=== PATIENT | female | born 1970 | race Caucasian/White ===

== ENCOUNTER 2018-08-01 22:03 | Emergency (ER) | payer MEDICARE, OTHER ==
[~2018-08-01] VITALS: Ht 165.1 cm; Wt 137.9 kg
--- NOTE | 2018-08-01 22:58 | ED Headache ---
General Chief Complaint: Head/Cervical Problems Stated Complaint: MIGRAINE, SOB Nursing Triage Note: Headache and shortness of breathe starting this morning. Patient states that she just isn't able to take a deep breathe. Nursing Sepsis Screen: No Definite Risk History of Present Illness Date Seen by Provider: Aug 01, 2018 Time Seen by Provider: 22:44 This is a 47-year-old female with a history of migraines, morbid obesity, sleep apnea, here for acute on chronic headache and acute on chronic shortness of breath. No chest pain or back pain. No cough or fever. The shortness of breath is generally worse when she is up and walking around. The headache again is not a new process for her. No visual change or focal weakness, numbness, or tingling. No neck pain or fever, no neck stiffness. She denies any known history of heart problems or lung problems. She is a nonsmoker. Because of her sleep apnea she says she did not sleep very well in the last couple of days and she feels this might be making her symptoms worse. No history of blood clots. She has some chronic lower extremity edema bilaterally worse on the left side secondary to orthopedic hardware, this is unchanged recently. No hormonal therapy. No hemoptysis. No recent immobilization or surgery. Allergies and Home Medications Allergies Coded Allergies: No Known Drug Allergies (Unverified , 08/02/18) Patient Home Medication List Home Medication List Reviewed: Yes Review of Systems Review of Systems Constitutional: no symptoms reported Eyes: No Symptoms Reported Ears, Nose, Mouth, Throat: no symptoms reported Respiratory: see HPI Cardiovascular: no symptoms reported Gastrointestinal: no symptoms reported Genitourinary: no symptoms reported Musculoskeletal: no symptoms reported Skin: no symptoms reported Psychiatric/Neurological: See HPI Past Hvnaimq-Kwbclq-Qrbsbh Hx Patient Social History Recent Foreign Travel: No Contact w/Someone Who Travel: No Recent Infectious Disease Expo: No Past Medical History : No Physical Exam Vital Signs Vital Signs - First Documented 08/01/18 22:20 Temp 97.2 Pulse 48 Resp 16 B/P (MAP) 138/80 (99) Pulse Ox 99 O2 Delivery Room Air Capillary Refill : Less Than 3 Seconds Height, Weight, BMI Height: 5'5.00" Weight: 304lbs. oz. 137.686053xg; BMI Method:Stated General Appearance: no apparent distress HEENT: PERRL/EOMI, normal ENT inspection Neck: supple Cardiovascular: normal peripheral pulses, regular rate, rhythm Respiratory: lungs clear; No respiratory distress, No accessory muscle use, No rales, No rhonchi, No stridor, No wheezing, No plerual rub Gastrointestinal: non tender, soft Extremities: non-tender Crainal Nerves: normal hearing, normal speech, PERRL; No facial asymmetry, No facial paresthesias, No tongue deviation to R, No tongue deviation to L Coordination/Gait: normal finger to nose, normal gait Motor/Sensory: no motor deficit, no sensory deficit Skin: warm/dry Progress/Results/Core Measures Results/Orders Lab Results Laboratory Tests Test 08/01/18 23:33 Range/Units White Blood Count 9.6 4.3-11.0 10^3/uL Red Blood Count 4.46 4.35-5.85 10^6/uL Hemoglobin 13.2 11.5-16.0 G/DL Hematocrit 43 35-52 % Mean Corpuscular Volume 96 80-99 FL Mean Corpuscular Hemoglobin 30 25-34 PG Mean Corpuscular Hemoglobin Concent 31 L 32-36 G/DL Red Cell Distribution Width 13.9 10.0-14.5 % Platelet Count 148 130-400 10^3/uL Mean Platelet Volume 10.6 H 7.4-10.4 FL Sodium Level 142 135-145 MMOL/L Potassium Level 4.8 3.6-5.0 MMOL/L Chloride Level 106 98-107 MMOL/L Carbon Dioxide Level 26 21-32 MMOL/L Anion Gap 10 5-14 MMOL/L Blood Urea Nitrogen 18 7-18 MG/DL Creatinine 0.99 0.60-1.30 MG/DL Estimat Glomerular Filtration Rate 60 BUN/Creatinine Ratio 18 Glucose Level 84 70-105 MG/DL Calcium Level 9.4 8.5-10.1 MG/DL Corrected Calcium 9.7 8.5-10.1 MG/DL Total Bilirubin 0.2 0.1-1.0 MG/DL Aspartate Amino Transf (AST/SGOT) 18 5-34 U/L Alanine Aminotransferase (ALT/SGPT) 11 0-55 U/L Alkaline Phosphatase 60 40-136 U/L Troponin T 6 <=10 NG/L Pro-B-Type Natriuretic Peptide 232.7 H <75.0 PG/ML Total Protein 6.8 6.4-8.2 GM/DL Albumin 3.6 3.2-4.5 GM/DL Serum Test, Qualitative NEGATIVE NEGATIVE My Orders Orders - MAGGIE REYES DO Chest Pa/Lat (2 View) (08/01/18 22:23) Ekg Tracing (08/01/18 22:23) Cbc No Diff (08/01/18 23:17) Comprehensive Metabolic Panel (08/01/18 23:17) Probnp Fs (08/01/18 23:17) Troponin T (08/01/18 23:17) Hcg,Qualitative Serum (08/01/18 23:17) Metoclopramide Injection (Reglan Injecti (08/01/18 23:17) Diphenhydramine Injection (Benadryl Inje (08/01/18 23:17) Ct Angio Chest W (08/02/18 00:36) Acetaminophen Tablet (Tylenol Tablet) (08/02/18 00:37) Iopamidol 61% Injection (Isovue 300 61% (08/02/18 01:00) Ns (Ivpb) (Sodium Chloride 0.9% Ivpb Bag (08/02/18 01:00) Received Contrast (Contrast Received) (08/02/18 01:00) Iopamidol 61% Injection (Isovue 300 61% (08/02/18 01:00) Received Contrast (Contrast Received) (08/02/18 01:00) Iopamidol 61% Injection (Isovue 300 61% (08/02/18 01:00) Received Contrast (Contrast Received) (08/02/18 01:00) Medications Given in ED Current Medications Medications Dose Ordered Sig/Michele Route Start Time Stop Time Status Last Admin Dose Admin Iopamidol 50 ml ONCE ONCE IV 08/02/18 01:00 08/02/18 01:01 UNV 08/02/18 01:00 25 ML Iopamidol 50 ml ONCE ONCE IV 08/02/18 01:00 08/02/18 01:01 UNV 08/02/18 01:00 50 ML Iopamidol 50 ml ONCE ONCE IV 08/02/18 01:00 08/02/18 01:01 UNV 08/02/18 01:00 50 ML Sodium Chloride 50 ml ONCE ONCE IV 08/02/18 01:00 08/02/18 01:01 UNV 08/02/18 00:59 40 ML Vital Signs/I&O 08/01/18 22:20 Temp 97.2 Pulse 48 Resp 16 B/P (MAP) 138/80 (99) Pulse Ox 99 O2 Delivery Room Air Blood Pressure Mean: 99 Progress Progress Note : Progress Note Patient reports that her symptoms today are not new for her. She is neurologically intact. She is nontoxic. We will check basic labs, including troponin and BNP, EKG is nonischemic. We will check a chest x-ray. We will treat patient symptomatically. There is no indication for head CT at this time. Departure Impression Primary Impression: Headache Additional Impression: Dyspnea Disposition: HOME, SELF-CARE Condition: Stable Departure-Patient Inst. Referrals: WARD BLAND MD (PCP) Primary Care Physician Patient Instructions: Shortness of Breath (Dyspnea) (DC) Add. Discharge Instructions: All discharge instructions reviewed with patient and/or family. Voiced understanding. Scripts Azithromycin (Azithromycin) 250 Mg Tablet 250 MG PO UD, #6 TAB TAKE 2 TABLETS ON DAY ONE THEN TAKE 1 TABLET DAILY FOR FOUR MORE DAYS Prov: MAGGIE REYES DO 08/02/18 MAGGIE REYES DO Aug 01, 2018 22:58
[2018-08-01] MEDS ORDERED: diphenhydrAMINE 50 MG/ML INJ (BENADRYL) IVP STA (23:17)
[2018-08-01] MEDS ORDERED: METOCLOPRAMIDE INJ 10 MG/2 ML (REGLAN) IVP STA (23:17)
[2018-08-01 23:51] LABS: HEMOGLOBIN 13.2 G/DL (11.5-16.0); MEAN PLATELET VOLUME 10.6 FL (7.4-10.4); RED CELL DISTRIBUTION WIDTH 13.9 % (10.0-14.5); WHITE BLOOD COUNT 9.6 10^3/uL (4.3-11.0)
[2018-08-02 00:19] LABS: BILIRUBIN,TOTAL 0.2 MG/DL (0.1-1.0); CALCIUM 9.4 MG/DL (8.5-10.1); CREATININE SERUM 0.99 MG/DL (0.60-1.30); POTASSIUM 4.8 MMOL/L (3.6-5.0)
[2018-08-02 00:20] LABS: ALBUMIN 3.6 GM/DL (3.2-4.5); TOTAL PROTEIN 6.8 GM/DL (6.4-8.2)
[2018-08-02] MEDS ORDERED: ACETAMINOPHEN 500 MG TAB (TYLENOL) PO STA (00:37)
[2018-08-02] MEDS ORDERED: RECEIVED CONTRAST 20 ML VIAL IV SCH ×3 (01:00)
[2018-08-02] MEDS ORDERED: NS 50 ML (IVPB) BAG IV ONE (01:00)
[2018-08-02] MEDS ORDERED: IOPAMIDOL 61% IV ONE ×3 (01:00)
[2018-08-02] MEDS ORDERED: AZIT250T12 PO (02:01)
[2018-08-02 02:08] VITALS: BP 139/89
--- NOTE | 2018-08-02 07:10 | Diagnostic Imaging Report ---
PROCEDURE: CT angiography of the chest with contrast. TECHNIQUE: Multiple contiguous axial images were obtained through the chest after uneventful bolus administration of intravenous contrast. 2D reconstructed CTA MIP acquisitions were also performed. INDICATION: Shortness of breath COMPARISON: None available. FINDINGS: Vasculature: Portions of the exam are mildly limited by respiratory motion artifact. No pulmonary emboli. No CT evidence of pulmonary hypertension or right ventricular strain. Thoracic aorta is normal in caliber. No aortic dissection or pseudoaneurysm. Heart and mediastinum: Visualized thyroid is normal. No supraclavicular, axillary, or intra-thoracic lymphadenopathy. The heart is normal in size without pericardial effusion. Small sliding-type hiatal hernia. Pleura: No pleural effusion or pneumothorax. Lungs and airway: No endoluminal lesion in the trachea or central bronchi. No pulmonary mass, nodule or consolidation. The reported groundglass attenuation within the lungs are secondary to respiratory motion artifact. These are not felt to represent real pulmonary opacities. Upper abdomen: Allowing for the phase of contrast, no acute abnormality in the upper abdomen is seen. Status post gastric reduction/gastric sleeve surgery. 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 IMPRESSION: 1. No acute cardiopulmonary process. Specifically, no pulmonary emboli or acute aortic syndrome. 2. Initial report suggested groundglass opacities although these are felt to be due to respiratory motion artifact rather than real opacities. 3. Status post gastric sleeve with small hiatal hernia. Dictated by: Dictated on workstation # [id number]
--- NOTE | 2018-08-02 07:21 | Diagnostic Imaging Report ---
INDICATION: Shortness of breath. COMPARISON: CTA chest performed subsequently 3 hours later. FINDINGS: Lungs are clear. No pleural effusion or pneumothorax. Normal cardiac silhouette. Convex lateral nodular contour in the upper mediastinum corresponds to prominent vasculature as seen on followup CT. IMPRESSION: No acute process. Dictated by: Dictated on workstation # [id number]
== END 2018-08-02 02:15 | disposition home or self-care (01) ==
LOC: ER FS 22:05
DX: R51 Headache (principal); R06.00 Dyspnea, unspecified; E66.01 Morbid (severe) obesity due to excess calories; G47.30 Sleep apnea, unspecified; Z86.69 Personal history of other diseases of the nervous system and sense organs; Z68.42 Body mass index [BMI] 45.0-49.9, adult
CPT/HCPCS: 36415; 71046; 71275; 80053; 83880; 84484; 84703; 85027

== ENCOUNTER 2018-09-24 01:11 | Emergency (ER) | payer MEDICARE ==
[~2018-09-24] VITALS: Ht 166.4 cm; Wt 135.2 kg
[~2018-09-24 01:11] MED LIST: AZIT250T12 PO
--- NOTE | 2018-09-24 01:35 | NUR ---
PT. REPORTED SHE WOULD LIKE TO HAVE STADOL BECAUSE IT WORKS, THAT BENADRYL DOESNT.
--- NOTE | 2018-09-24 01:41 | NUR ---
DOCTOR IN TO SEE THE PATIENT.
[2018-09-24] MEDS ORDERED: METOCLOPRAMIDE INJ 10 MG/2 ML (REGLAN) IM STA (01:43)
[2018-09-24] MEDS ORDERED: KETOROLAC 60 MG/2 ML VIAL IM STA (01:43)
[2018-09-24] MEDS ORDERED: ORPHENADRINE 60 MG/2 ML (NORFLEX) AMP IM STA (01:43)
--- NOTE | 2018-09-24 01:43 | ED Headache ---
General Chief Complaint: Head/Cervical Problems Stated Complaint: MIGRAINE Nursing Triage Note: PT. REPORTED SHE HAS HAD A DULL HEADACHE ALL DAY BUT IT CONTINUED TO GET WORSE. SHE TAKES PREVENATIVE HEADACHE MEDS BUT THEY DID NOT WORK. SHE TOOK 2 TORADOL TABS 6 HOURS AGO AND HYDROCODONE AND IT DID NOT WORK. SHE REPORTED HER EYES HURT BUT REALLY DOES NOT HAVE ANY NAUSEA OR VOMITING AND THE HEADACHE IS LIKE THE OTHERS SHE HAS HAD IN THE PAST. Nursing Sepsis Screen: No Definite Risk Source: patient History of Present Illness Date Seen by Provider: September 24, 2018 Time Seen by Provider: 01:45 Initial Comments 47-year-old female presents with a headache. Patient reports that she's had a "dull headache all day" but is got worse and is now like a migraine. She reports is similar to her migraines in the past. She has some mild photophobia. She denies any nausea or vomiting. She reports that about 7 hours ago" she took some Toradol. That she took a hydrocodone earlier and that that has not helped. She denies any fever, chills. Allergies and Home Medications Allergies Coded Allergies: meloxicam (Verified Allergy, Unknown, RASH, 09/24/18) Home Medications Azithromycin 250 Mg Tablet, 250 MG PO UD TAKE 2 TABLETS ON DAY ONE THEN TAKE 1 TABLET DAILY FOR FOUR MORE DAYS Prescribed by: MAGGIE REYES on 08/02/18 0201 Patient Home Medication List Home Medication List Reviewed: Yes Review of Systems Review of Systems Constitutional: No chills, No diaphoresis Eyes: Photophobia Ears, Nose, Mouth, Throat: no symptoms reported Respiratory: no symptoms reported Cardiovascular: no symptoms reported Gastrointestinal: no symptoms reported Musculoskeletal: no symptoms reported Skin: no symptoms reported Psychiatric/Neurological: Headache Past Ftvunhb-Oyqsrq-Qllovd Hx Past Med/Social Hx: Reviewed Nursing Past Med/Soc Hx Patient Social History Recent Foreign Travel: No Contact w/Someone Who Travel: No Recent Infectious Disease Expo: No Recent Hopitalizations: No Physical Abuse: No Sexual Abuse: No Mistreated: No Fear: No Immunizations Up To Date Tetanus Booster (TDap): Unknown Date of Influenza Vaccine: Feb 21, 2018 Seasonal Allergies Seasonal Allergies: No Past Medical History Surgeries: Yes (Gastric sleeve) Hysterectomy, Orthopedic, Thyroidectomy Respiratory: Yes Sleep Apnea Cardiac: Yes Hypertension 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 oz. 135.615348kp; BMI Method:Stated General Appearance: WD/WN, no apparent distress HEENT: PERRL/EOMI, normal ENT inspection Neck: supple Cardiovascular: normal peripheral pulses, regular rate, rhythm Respiratory: lungs clear, normal breath sounds Gastrointestinal: non tender, soft Psychiatric: alert, oriented x 3 Crainal Nerves: normal hearing, normal speech; No facial asymmetry, No facial droop, No facial paresthesias Coordination/Gait: normal gait Motor/Sensory: no motor deficit, no sensory deficit Progress/Results/Core Measures Results/Orders My Orders Orders - CHRISTIE SÁNCHEZ DO Ketorolac Injection (Toradol Injection) (09/24/18 01:43) Orphenadrine Injection (Norflex Injectio (09/24/18 01:43) Metoclopramide Injection (Reglan Injecti (09/24/18 01:43) O2 (09/24/18 01:43) Dexamethasone Injection (Decadron Inject (09/24/18 02:00) Diphenhydramine Injection (Benadryl Inje (09/24/18 02:00) Medications Given in ED Current Medications Medications Dose Ordered Sig/Michele Route Start Time Stop Time Status Last Admin Dose Admin Dexamethasone Sodium Phosphate 10 mg ONCE ONCE IM 09/24/18 02:00 09/24/18 02:01 DC 09/24/18 02:01 10 MG Diphenhydramine HCl 50 mg ONCE ONCE IM 09/24/18 02:00 09/24/18 02:01 DC 09/24/18 02:00 50 MG Vital Signs/I&O 09/24/18 09/24/18 01:20 01:53 Temp 97.7 Pulse 58 Resp 16 B/P (MAP) 106/88 (94) Pulse Ox 98 99 O2 Delivery Room Air Nasal Cannula O2 Flow Rate 2.00 FiO2 99 Blood Pressure Mean: 94 Departure Impression Primary Impression: Migraine Qualified Codes: G43.909 - Migraine, unspecified, not intractable, without status migrainosus Disposition: HOME, SELF-CARE Condition: Stable Departure-Patient Inst. Referrals: WARD BLAND MD (PCP) Primary Care Physician Patient Instructions: Migraine Headache (DC) CHRISTIE SÁNCHEZ DO September 24, 2018 01:43
[2018-09-24] MEDS ORDERED: diphenhydrAMINE 50 MG/ML INJ (BENADRYL) IM ONE (02:00)
[2018-09-24] MEDS ORDERED: DEXAMETHASONE 10 MG/ML (DECADRON) 1 ML VIAL IM ONE (02:00)
[2018-09-24 02:29] VITALS: BP 106/88
== END 2018-09-24 02:31 | disposition home or self-care (01) ==
LOC: EDUNIT# 01:11 → ER FS 01:12
DX: G43.909 Migraine, unspecified, not intractable, without status migrainosus (principal); G47.30 Sleep apnea, unspecified; I10 Essential (primary) hypertension; Z88.8 Allergy status to other drugs, medicaments and biological substances; Z90.710 Acquired absence of both cervix and uterus; Z90.89 Acquired absence of other organs; Z98.84 Bariatric surgery status

== ENCOUNTER 2018-10-02 10:45 | Emergency (ER) | payer MEDICARE ==
[~2018-10-02] VITALS: Ht 166.4 cm; Wt 135.2 kg
[2018-10-02] MEDS ORDERED: TOPIRAMATE 100 MG (10:59)
[2018-10-02] MEDS ORDERED: ROPINIROLE 1 MG (10:59)
[2018-10-02] MEDS ORDERED: CLONAZEPAM TAB 1MG (10:59)
[2018-10-02] MEDS ORDERED: TRAZODONE TAB 100MG (10:59)
[2018-10-02] MEDS ORDERED: GABAPENTIN 400 MG (10:59)
[2018-10-02] MEDS ORDERED: DIVALPROEX 500 MG (10:59)
[2018-10-02] MEDS ORDERED: PROPRANOLOL 40 MG (10:59)
[2018-10-02] MEDS ORDERED: ESCITALOPRAM TAB 10MG (10:59)
[2018-10-02] MEDS ORDERED: MELOXICAM 15 MG (10:59)
--- NOTE | 2018-10-02 11:16 | ED Fall/Injury ---
General Chief Complaint: Trauma-Non Activation Stated Complaint: RT SIDE OF BODY PAIN, EYE LAC History of Present Illness Date Seen by Provider: October 02, 2018 Time Seen by Provider: 11:02 This is a 47-year-old female who presents after a mechanical trip and fall earlier today. She is not sure what she stepped on but it caused her to twist her right ankle inward and she fell forward onto her right side. She hit her head on the right side and sustained a minor cut to the right side of the face, also hit her shoulder. She does have some pain on the right side of the head and neck as well as on the right lower back in the right knee and right ankle. Last tetanus was within 10 years. No visual change or focal weakness, numbness, or tingling. No vomiting. No loss of consciousness. No anticoagulant or antiplatelet medications. Allergies and Home Medications Allergies Coded Allergies: meloxicam (Verified Allergy, Unknown, RASH, 10/02/18) Patient Home Medication List Home Medication List Reviewed: Yes Review of Systems Review of Systems Constitutional: no symptoms reported Eyes: No Symptoms Reported Ears, Nose, Mouth, Throat: no symptoms reported Respiratory: no symptoms reported Cardiovascular: no symptoms reported Gastrointestinal: no symptoms reported Genitourinary: no symptoms reported Musculoskeletal: see HPI Skin: see HPI Psychiatric/Neurological: No Symptoms Reported Past [id number]-[id number]-[id number] Hx Past Med/Social Hx: Reviewed Nursing Past Med/Soc Hx Patient Social History Recent Foreign Travel: No Contact w/Someone Who Travel: No Recent Hopitalizations: No Immunizations Up To Date Tetanus Booster (TDap): Unknown Date of Influenza Vaccine: Feb 21, 2018 Seasonal Allergies Seasonal Allergies: No Past Medical History Surgeries: Yes (Gastric sleeve) Hysterectomy, Orthopedic, Thyroidectomy Respiratory: Yes Sleep Apnea Cardiac: Yes Hypertension 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 oz. 135.070816vy; BMI Method:Stated General Appearance: no apparent distress HEENT: other (no hemotympanum or otorrhea or Rose sign or periorbital ecchymosis or septal hematoma, there is an approximately 4 cm linear superficial laceration not amenable to repair over the right side of the face just lateral to the orbital rim) Neck: full range of motion, supple, normal inspection, other (no midline tenderness, mild lateral tenderness in the trapezius ridge) Cardiovascular: normal peripheral pulses, regular rate, rhythm Respiratory: chest non-tender, lungs clear Gastrointestinal: non tender, soft Back: other (there is mild nonspecific skin irritation and likely related to tight clothing, mild tenderness over the right lumbar musculature) Extremities: normal range of motion, pelvis stable, other (there is a mild superficial abrasion over the right knee with there is no laxity, no reduction in range of motion, no significant tenderness, no significant tenderness in the ankles and there is normal inspection of both symmetrically, mild tenderness over the anterior deltoid musculature with a completely normal range of motion of the shoulder and elbow, painless range of motion in both wrists and hands with minimal tenderness over the distal forearm on the right) 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 Recommended PCP follow-up for tertiary survey, return to this or the nearest emergency department immediately for any worsening of her condition. Departure Impression Primary Impression: Fall Qualified Codes: W19.XXXA - Unspecified fall, initial encounter Additional Impressions: Facial laceration Qualified Codes: S01.81XA - Laceration without foreign body of other part of head, initial encounter Cervical strain Qualified Codes: S16.1XXA - Strain of muscle, fascia and tendon at neck level , initial encounter Shoulder contusion Qualified Codes: S40.011A - Contusion of right shoulder, initial encounter Knee contusion Qualified Codes: S80.01XA - Contusion of right knee, initial encounter Disposition: 01 HOME, SELF-CARE Condition: Stable Departure-Patient Inst. Referrals: WARD BLAND MD (PCP) Primary Care Physician Patient Instructions: Minor Head Injury (DC), Skin Abrasions (DC), Contusion ( DC) MAGGIE REYES DO October 02, 2018 11:16
[2018-10-02] MEDS ORDERED: ACETAMINOPHEN 500 MG TAB (TYLENOL) PO ONE (11:30)
[2018-10-02 11:32] VITALS: BP 134/77
== END 2018-10-02 11:32 | disposition home or self-care (01) ==
LOC: EDUNIT# 10:45 → ER FS 10:46
DX: S01.81XA Laceration without foreign body of other part of head, initial encounter (principal); S16.1XXA Strain of muscle, fascia and tendon at neck level, initial encounter; S40.011A Contusion of right shoulder, initial encounter; S80.01XA Contusion of right knee, initial encounter; I10 Essential (primary) hypertension; G47.30 Sleep apnea, unspecified; Z88.8 Allergy status to other drugs, medicaments and biological substances; Z90.89 Acquired absence of other organs; Z98.84 Bariatric surgery status; Z90.710 Acquired absence of both cervix and uterus; W01.198A Fall on same level from slipping, tripping and stumbling with subsequent striking against other object, initial encounter
CPT/HCPCS: 99283

== ENCOUNTER → 2018-10-04 | Outpatient (CLI) | payer MEDICARE ==
[~2018-10-04] MED LIST changes: +CLONAZEPAM TAB 1MG; +DIVALPROEX 500 MG; +ESCITALOPRAM TAB 10MG; +GABAPENTIN 400 MG; +MELOXICAM 15 MG; +PROPRANOLOL 40 MG; +ROPINIROLE 1 MG; +TOPIRAMATE 100 MG; +TRAZODONE TAB 100MG
--- NOTE | 2018-10-04 13:57 | Diagnostic Imaging Report ---
INDICATION: Right shoulder pain post fall at [employer]. TECHNIQUE: 4 views of the right shoulder CORRELATION STUDY: None FINDINGS: There is no evidence for dislocation. There are slight well-corticated bone densities adjacent to the acromioclavicular joint. Could reflect a previous injury or degenerative type change. Definitive acute fracture is not suggested. Visualized right superior ribs unremarkable. Advanced degenerative change visualized at the lower cervical spine. IMPRESSION: 1. Negative for acute fracture or dislocation of the right shoulder. Bone fragmentations at the acromioclavicular joint, may be reflective of a previous injury or degenerative change. Dictated by: Dictated on workstation # [id number]
== END ==
LOC: RAD FS 11:00
PROVIDERS: ATTEND Pediatrics
DX: M25.511 Pain in right shoulder (principal); W19.XXXA Unspecified fall, initial encounter; Y92.22 Religious institution as the place of occurrence of the external cause
CPT/HCPCS: 73030

== ENCOUNTER 2018-10-08 11:16 | Emergency (ER) | payer MEDICARE ==
[~2018-10-08] VITALS: Ht 166.4 cm; Wt 131.1 kg
--- NOTE | 2018-10-08 12:11 | ED Lower Extremity ---
General Chief Complaint: General Problems/Pain Stated Complaint: FALL - R KNEE / R SHOULDER PAIN Nursing Triage Note: PT AMB TO TRIAGE WITH COMPLAINT OF RIGHT SHOULDER PAIN AND RIGHT KNEE PAIN. PT STATES SHE FELL LAST WEDNESDAY. STATES WAS SEEN AT [facility] ER BUT DID NOT HAVE SCANS. DID HAVE OUTPATIENT XRAY OF SHOULDER THROUGH PRIMARY AND HAD BONE FRAGMENTS. PT TODAY IS WANTING HER RIGHT KNEE XRAYED AND MEDICINE FOR PAIN. STATES SHE TAKES TRAMADOL AT HOME. BUT IS NOT WORKING FOR HER PAIN. Nursing Sepsis Screen: No Definite Risk Source: patient, family (mother) Exam Limitations: no limitations History of Present Illness Date Seen by Provider: October 08, 2018 Time Seen by Provider: 12:11 Initial Comments 47-year-old female patient presents to the emergency department with complaints of right knee pain and right shoulder pain after falling one week ago. Patient reports tripping on a stick and falling onto the right knee and shoulder. Patient was seen at the [facility] emergency department and instructed to follow-up with her primary care provider. Patient was seen by Dr. Meyers with a right shoulder x-ray obtained. Patient denies telling Dr. Meyers about the right knee pain. Patient states she takes tramadol at home for chronic headaches and pain, but states it has not been helping the right knee and right shoulder pain. Also states she had to hydrocodone left over from a previous prescription. Reports taking 1 today with improvement. She does report the Tylenol in the emergency department at [place] did help with the pain, but denies taking any hsun-waz-ccyntoz Tylenol, Aleve, or Motrin at home. Location Injury Occurred: home Onset: last week Pain/Injury Location: right knee, right other (rt shoulder) Method of Injury: fell Modifying Factors: Worse With Movement Allergies and Home Medications Allergies Coded Allergies: meloxicam (Verified Allergy, Unknown, RASH, 10/02/18) Patient Home Medication List Home Medication List Reviewed: Yes Review of Systems Constitutional: no symptoms reported Respiratory: no symptoms reported Cardiovascular: no symptoms reported Musculoskeletal: No back pain; joint pain (rt knee and rt shoulder); No neck pain Skin: no symptoms reported Psychiatric/Neurological: No Symptoms Reported All Other Systems Reviewed Negative Unless Noted: Yes (Negative excepted noted.) Past Vmxosuo-Okuwtq-Wxszng Hx Past Med/Social Hx: Reviewed Nursing Past Med/Soc Hx Patient Social History Alcohol Use: Denies Use Recreational Drug Use: No Smoking Status: Never a Smoker 2nd Hand Smoke Exposure: No Recent Foreign Travel: No Contact w/Someone Who Travel: No Recent Infectious Disease Expo: No Recent Hopitalizations: No Immunizations Up To Date Tetanus Booster (TDap): Unknown Date of Influenza Vaccine: Feb 21, 2018 Seasonal Allergies Seasonal Allergies: No Past Medical History Abdominal, Hysterectomy, Thyroidectomy Respiratory: No Sleep Apnea Cardiac: Yes Hypertension 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 oz. 131.720647ib; BMI Method:Stated General Appearance: WD/WN, no apparent distress Cardiovascular: normal peripheral pulses, regular rate, rhythm, no edema, no murmur Respiratory: lungs clear, normal breath sounds, no respiratory distress, no accessory muscle use Back: normal inspection Legs: bilateral leg non-tender, bilateral leg normal inspection, bilateral leg normal range of motion, bilateral leg no evidence of injury Knees: left knee non-tender, left knee normal inspection; bilateral knee normal range of motion; left knee no evidence of injury; right knee bone tenderness (generalized bony tenderness), right knee ecchymosis (3x4 cm area of subacute ecchymosis to the anterior rt knee), right knee pain, right knee soft tissue tenderness (generalized soft tissue tenderness), right knee swelling (mild anterior knee swelling), right knee other (no laxity noted to the MCL, LCL, PCL or ACL) Ankles: bilateral ankle non-tender, bilateral ankle normal inspection, bilateral ankle normal range of motion, bilateral ankle no evidence of injury Feet: bilateral foot non-tender, bilateral foot normal inspection, bilateral foot normal range of motion, bilateral foot no evidence of injury Neurologic/Tendon: normal sensation, normal motor functions, normal tendon functions, responds to pain, no evidence tendon injury Neurologic/Psychiatric: no motor/sensory deficits, alert, normal mood/affect, oriented x 3 Skin: normal color, warm/dry, ecchymosis (3x4 cm area of subacute ecchymosis to the anterior rt knee) Right shoulder shows generalized mild tenderness without deformity, ecchymosis, or swelling. Full range of motion noted. Progress/Results/Core Measures Results/Orders My Orders Orders - ELVA REYES Acetaminophen Tablet (Tylenol Tablet) (10/08/18 12:24) Hydrocodone/Apap 5/325 Tablet (Lortab 5 (10/08/18 12:30) Knee, Right, 4 Views Or > (10/08/18 12:28) Shoulder, Right, 3 Views (10/08/18 12:28) Medications Given in ED Vital Signs/I&O 10/08/18 10/08/18 11:50 13:35 Pulse 58 58 Resp 20 20 B/P (MAP) 143/77 (99) 143/77 (99) Pulse Ox 97 97 O2 Delivery Room Air Blood Pressure Mean: 99 Diagnostic Imaging Diagonstic Imaging: Xray Plain Films/CT/US/NM/MRI: knee Comments Date of Exam:10/08/18 KNEE, RIGHT, 4 VIEWS OR > Indication: Pain. 4 views were obtained Findings: The alignment is normal. There is moderate 3 compartment osteoarthritic change. This includes some joint space narrowing and subchondral sclerosis marginal osteophytes. There is no fracture or dislocation. There is no joint effusion. Impression: Moderate 3 compartment osteoarthritic change, otherwise unremarkable. Dictated by: Dictated on workstation # [id number] Reviewed: Reviewed by Me (radiology report reviewed by me) Diagonstic Imaging: Xray Plain Films/CT/US/NM/MRI: other (right shoulder) Comments Indication: Pain. 3 views were obtained Findings: There is arthrosis of the acromioclavicular joint. There is no fracture or dislocation. Right lung is clear. Soft tissues are unremarkable. Impression: Moderate arthrosis of the acromioclavicular joint otherwise unremarkable. Dictated by: Dictated on workstation # [id number] Reviewed: Reviewed by Me (radiology report reviewed by me) Departure Communication (Admissions) Patient seen and evaluated. X-ray of the right shoulder and right knee obtained. Diagnostic findings discussed with the patient. Plan for discharge to home with follow-up as an outpatient with Dr. Meyers. Patient call for follow- up appointment. Patient ambulated from the ED without difficulty. Impression Primary Impression: Contusion of right knee, initial encounter Additional Impression: Contusion of right shoulder, initial encounter Disposition: HOME, SELF-CARE Condition: Improved Departure-Patient Inst. Decision time for Depature: 13:15 Referrals: WARD MEYERS MD (PCP/Family) Primary Care Physician Patient Instructions: Chronic Pain (DC), Contusion (DC), Shoulder Pain (DC) Add. Discharge Instructions: All discharge instructions reviewed with patient and/or family. Voiced understanding. Continue Neurontin and tramadol as prescribed by your primary care provider. Tylenol Extra Strength [id number]-rky-[id number] as directed for pain. Elevate the right knee and right upper extremity on pillows. Ice pack for 20 minute intervals as needed for pain. Follow-up with Dr. Meyers as an outpatient within the next 7-10 days for recheck, call Wednesday morning for an appointment time. Return in the emergency department for worsened symptoms or any other concerns. Copy Copies To 1: WARD MEYERS MD, GRETCHEN L PA October 08, 2018 12:11
[2018-10-08] MEDS ORDERED: ACETAMINOPHEN 500 MG TAB (TYLENOL) PO STA (12:24)
[2018-10-08] MEDS ORDERED: HYDROcodone/APAP 5 MG/325 MG (LORTAB) TAB PO ONE (12:30)
--- NOTE | 2018-10-08 13:00 | Diagnostic Imaging Report ---
Indication: Pain. 4 views were obtained Findings: The alignment is normal. There is moderate 3 compartment osteoarthritic change. This includes some joint space narrowing and subchondral sclerosis marginal osteophytes. There is no fracture or dislocation. There is no joint effusion. Impression: Moderate 3 compartment osteoarthritic change, otherwise unremarkable. Dictated by: Dictated on workstation # [id number]
--- NOTE | 2018-10-08 13:01 | Diagnostic Imaging Report ---
Indication: Pain. 3 views were obtained Findings: There is arthrosis of the acromioclavicular joint. There is no fracture or dislocation. Right lung is clear. Soft tissues are unremarkable. Impression: Moderate arthrosis of the acromioclavicular joint otherwise unremarkable. Dictated by: Dictated on workstation # [id number]
[2018-10-08 13:35] VITALS: BP 143/77
== END 2018-10-08 13:35 | disposition home or self-care (01) ==
LOC: EDUNIT# 11:16 → ER 11:18
DX: S80.01XA Contusion of right knee, initial encounter (principal); S40.011A Contusion of right shoulder, initial encounter; G47.30 Sleep apnea, unspecified; I10 Essential (primary) hypertension; F41.9 Anxiety disorder, unspecified; F31.9 Bipolar disorder, unspecified; Z88.8 Allergy status to other drugs, medicaments and biological substances; Z90.710 Acquired absence of both cervix and uterus; Z90.89 Acquired absence of other organs; W01.0XXA Fall on same level from slipping, tripping and stumbling without subsequent striking against object, initial encounter
CPT/HCPCS: 73030; 73564

== ENCOUNTER → 2018-11-01 | Outpatient (CLI) | payer MEDICARE ==
--- NOTE | 2018-11-01 11:29 | Diagnostic Imaging Report ---
EXAMINATION: Right knee at 1113h. INDICATION: Injury knee pain 3 views were obtained. There is no fracture, dislocation or acute bony abnormality evident. The moderate degenerative changes involving the knee joint seen on the recent exam of 10/08/2018 are again visualized and no different. There is no sign of a joint effusion. The soft tissues are generally unremarkable. IMPRESSION: There is no evidence for an acute bony abnormality. If there is clinical concern regarding internal derangement and further imaging is desired, then MRI would be recommended. Dictated by: Dictated on workstation # [id number]
== END ==
LOC: RAD FS 11:06
PROVIDERS: ATTEND Nurse Practitioner
DX: S80.01XD Contusion of right knee, subsequent encounter (principal)
CPT/HCPCS: 73562

== ENCOUNTER 2018-11-08 00:22 | Observation (INO) | payer MEDICARE ==
[2018-11-08] VITALS (12 sets, daily range): BP systolic 108–161; BP diastolic 53–91
[~2018-11-08] VITALS: Ht 165.1 cm; Wt 135.2 kg
--- OUTSIDE RECORDS SUMMARY | 2018-11-08 00:27 | XMS REPORT | Continuity of Care Document ---
Author Organization Unknown Address Unknown Allergies Active Description Code Type Severity Reaction Onset Reported/Identified Relationship to Patient Clinical Status Yes No Known Drug Allergies [id number] Drug Allergy Unknown N/A 08/02/2018 Yes meloxicam [id number] Drug Allergy Unknown RASH 10/02/2018 Medications There is no data. Problems Date Dx Coded Attending Type Code Diagnosis Diagnosed By 08/02/2018 MAGGIE REYES DO T Ot E66.01 MORBID (SEVERE) OBESITY DUE TO EXCESS CA 08/02/2018 NICOLE REYES DOED T Ot G47.30 SLEEP APNEA, UNSPECIFIED 08/02/2018 NICOLE REYES DOED T Ot R06.00 DYSPNEA, UNSPECIFIED 08/02/2018 ERIC CARRILLO MAGGIE T Ot R51 HEADACHE 08/02/2018 ERIC CARRILLO MAGGIE T Ot Z68.42 BODY MASS INDEX (BMI) 45.0-49.9, ADULT 08/02/2018 NICOLE REYES DOED T Ot Z86.69 PERSONAL HISTORY OF DIS OF THE NERVOUS S 08/03/2018 NICOLE REYES DOED T Ot E66.01 MORBID (SEVERE) OBESITY DUE TO EXCESS CA 08/03/2018 ERIC CARRILLO MAGGIE T Ot G47.30 SLEEP APNEA, UNSPECIFIED 08/03/2018 NICOLE REYES DOED T Ot R06.00 DYSPNEA, UNSPECIFIED 08/03/2018 ERIC CARRILLO MAGGIE T Ot R51 HEADACHE 08/03/2018 ERIC CARRILLO MAGGIE T Ot Z68.42 BODY MASS INDEX (BMI) 45.0-49.9, ADULT 08/03/2018 NICOLE REYES DOED T Ot Z86.69 PERSONAL HISTORY OF DIS OF THE NERVOUS S 09/24/2018 PRINCESS DO, CHRISTIE L Ot G43.909 MIGRAINE, UNSP, NOT INTRACTABLE, WITHOUT 09/24/2018 SÁNCHEZ DO, CHRISTIE L Ot G47.30 SLEEP APNEA, UNSPECIFIED 09/24/2018 SÁNCHEZ DO, CHRISTIE L Ot I10 ESSENTIAL (PRIMARY) HYPERTENSION 09/24/2018 SÁNCHEZ DO, CHRISTIE L Ot R51 HEADACHE 09/24/2018 SÁNCHEZ DO, CHRISTIE L Ot Z88.8 ALLERGY STATUS TO OTH DRUG/MEDS/BIOL SUB 09/24/2018 SÁNCHEZ DO, CHRISTIE L Ot Z90.710 ACQUIRED ABSENCE OF BOTH CERVIX AND UTER 09/24/2018 SÁNCHEZ DO, CHRISTIE L Ot Z90.89 ACQUIRED ABSENCE OF OTHER ORGANS 09/24/2018 SÁNCHEZ DO, CHRISTIE L Ot Z98.84 BARIATRIC SURGERY STATUS 09/27/2018 SÁNCHEZ DO, CHRISTIE L Ot G43.909 MIGRAINE, UNSP, NOT INTRACTABLE, WITHOUT 09/27/2018 SÁNCHEZ DO, CHRISTIE L Ot G47.30 SLEEP APNEA, UNSPECIFIED 09/27/2018 SÁNCHEZ DO, CHRISTIE L Ot I10 ESSENTIAL (PRIMARY) HYPERTENSION 09/27/2018 SÁNCHEZ DO, CHRISTIE L Ot R51 HEADACHE 09/27/2018 SÁNCHEZ DO, CHRISTIE L Ot Z88.8 ALLERGY STATUS TO OTH DRUG/MEDS/BIOL SUB 09/27/2018 SÁNCHEZ DO, CHRISTIE L Ot Z90.710 ACQUIRED ABSENCE OF BOTH CERVIX AND UTER 09/27/2018 SÁNCHEZ DO, CHRISTIE L Ot Z90.89 ACQUIRED ABSENCE OF OTHER ORGANS 09/27/2018 SÁNCHEZ DO, CHRISTIE L Ot Z98.84 BARIATRIC SURGERY STATUS 09/30/2018 SÁNCHEZ DO, CHRISTIE L Ot G43.909 MIGRAINE, UNSP, NOT INTRACTABLE, WITHOUT 09/30/2018 SÁNCHEZ DO, CHRISTIE L Ot G47.30 SLEEP APNEA, UNSPECIFIED 09/30/2018 SÁNCHEZ DO, CHRISTIE L Ot I10 ESSENTIAL (PRIMARY) HYPERTENSION 09/30/2018 SÁNCHEZ DO, CHRISTIE L Ot R51 HEADACHE 09/30/2018 SÁNCHEZ DO, CHRISTIE L Ot Z88.8 ALLERGY STATUS TO OTH DRUG/MEDS/BIOL SUB 09/30/2018 SÁNCHEZ DO, CHRISTIE L Ot Z90.710 ACQUIRED ABSENCE OF BOTH CERVIX AND UTER 09/30/2018 SÁNCHEZ DO, CHRISTIE L Ot Z90.89 ACQUIRED ABSENCE OF OTHER ORGANS 09/30/2018 SÁNCHEZ DO, CHRISTIE L Ot Z98.84 BARIATRIC SURGERY STATUS 10/02/2018 ERIC DO, MAGGIE T Ot G47.30 SLEEP APNEA, UNSPECIFIED 10/02/2018 ERIC DO, MAGGIE T Ot I10 ESSENTIAL (PRIMARY) HYPERTENSION 10/02/2018 MAGGIE REYES DO T Ot S01.81XA LACERATION W/O FOREIGN BODY OF OTH PART 10/02/2018 MAGGIE REYES DO T Ot S16.1XXA STRAIN OF MUSCLE, FASCIA AND TENDON AT N 10/02/2018 MAGGIE REYES DO Ot S40.011A CONTUSION OF RIGHT SHOULDER, INITIAL ENC 10/02/2018 MAGGIE REYES DO Ot S80.01XA CONTUSION OF RIGHT KNEE, INITIAL ENCOUNT 10/02/2018 MAGGIE REYES DO T Ot W01.198A FALL SAME LEV FROM SLIP/TRIP W STRIKE AG 10/02/2018 MAGGIE REYES DO T Ot Z88.8 ALLERGY STATUS TO OTH DRUG/MEDS/BIOL SUB 10/02/2018 MAGGIE REYES DO Ot Z90.710 ACQUIRED ABSENCE OF BOTH CERVIX AND UTER 10/02/2018 MAGGIE REYES DO Ot Z90.89 ACQUIRED ABSENCE OF OTHER ORGANS 10/02/2018 MAGGIE REYES DO Ot Z98.84 BARIATRIC SURGERY STATUS 10/05/2018 EDWINA LADD, WARD Schwarz Ot M25.511 PAIN IN RIGHT SHOULDER 10/05/2018 WARD BLAND MD Ot W19.XXXA UNSPECIFIED FALL, INITIAL ENCOUNTER 10/05/2018 EDWINA LADD, WARD Schwarz Ot Y92.[address] 10/05/2018 MAGGIE REYES DO Ot G47.30 SLEEP APNEA, UNSPECIFIED 10/05/2018 MAGGIE REYES DO T Ot I10 ESSENTIAL (PRIMARY) HYPERTENSION 10/05/2018 MAGGIE REYES DO Ot S01.81XA LACERATION W/O FOREIGN BODY OF OTH PART 10/05/2018 MAGGIE REYES DO Ot S16.1XXA STRAIN OF MUSCLE, FASCIA AND TENDON AT N 10/05/2018 MAGGIE REYES DO Ot S40.011A CONTUSION OF RIGHT SHOULDER, INITIAL ENC 10/05/2018 MAGGIE REYES DO Ot S80.01XA CONTUSION OF RIGHT KNEE, INITIAL ENCOUNT 10/05/2018 NICOLE REYES DOED T Ot W01.198A FALL SAME LEV FROM SLIP/TRIP W STRIKE AG 10/05/2018 MAGGIE REYES DO T Ot Z88.8 ALLERGY STATUS TO OTH DRUG/MEDS/BIOL SUB 10/05/2018 MAGGIE REYES DO T Ot Z90.710 ACQUIRED ABSENCE OF BOTH CERVIX AND UTER 10/05/2018 MAGGIE REYES DO T Ot Z90.89 ACQUIRED ABSENCE OF OTHER ORGANS 10/05/2018 MAGGIE REYES DO T Ot Z98.84 BARIATRIC SURGERY STATUS 10/08/2018 ELVA BREWER Ot F31.9 BIPOLAR DISORDER, UNSPECIFIED 10/08/2018 ELVA BREWER Ot F41.9 ANXIETY DISORDER, UNSPECIFIED 10/08/2018 ELVA BREWER Ot G47.30 SLEEP APNEA, UNSPECIFIED 10/08/2018 ELVA BREWER Ot I10 ESSENTIAL (PRIMARY) HYPERTENSION 10/08/2018 ELVA BREWER Ot M25.561 PAIN IN RIGHT KNEE 10/08/2018 ELVA BREWER Ot S40.011A CONTUSION OF RIGHT SHOULDER, INITIAL ENC 10/08/2018 ELVA BREWER Ot S80.01XA CONTUSION OF RIGHT KNEE, INITIAL ENCOUNT 10/08/2018 ELVA BREWER Ot W01.0XXA FALL SAME LEV FROM SLIP/TRIP W/O STRIKE 10/08/2018 ELVA BREWER Ot Z88.8 ALLERGY STATUS TO OTH DRUG/MEDS/BIOL SUB 10/08/2018 ELVA BREWER Ot Z90.710 ACQUIRED ABSENCE OF BOTH CERVIX AND UTER 10/08/2018 ELVA BREWER Ot Z90.89 ACQUIRED ABSENCE OF OTHER ORGANS 10/11/2018 ELVA BREWER Ot F31.9 BIPOLAR DISORDER, UNSPECIFIED 10/11/2018 ELVA BREWER Ot F41.9 ANXIETY DISORDER, UNSPECIFIED 10/11/2018 ELVA BREWER Ot G47.30 SLEEP APNEA, UNSPECIFIED 10/11/2018 ELVA BREWER Ot I10 ESSENTIAL (PRIMARY) HYPERTENSION 10/11/2018 ELVA BREWER Ot M25.561 PAIN IN RIGHT KNEE 10/11/2018 ELVA BREWER Ot S40.011A CONTUSION OF RIGHT SHOULDER, INITIAL ENC 10/11/2018 ELVA BREWER Ot S80.01XA CONTUSION OF RIGHT KNEE, INITIAL ENCOUNT 10/11/2018 ELVA BREWER Ot W01.0XXA FALL SAME LEV FROM SLIP/TRIP W/O STRIKE 10/11/2018 ELVA BREWER Ot Z88.8 ALLERGY STATUS TO OTH DRUG/MEDS/BIOL SUB 10/11/2018 ELVA BREWER Ot Z90.710 ACQUIRED ABSENCE OF BOTH CERVIX AND UTER 10/11/2018 ELVA BREWER Ot Z90.89 ACQUIRED ABSENCE OF OTHER ORGANS 11/06/2018 CHRISSY RHODES Ot S80.01XD CONTUSION OF RIGHT KNEE, SUBSEQUENT ENCO Procedures There is no data. Results Test Result Range Automated blood complete blood count (hemogram) panel - 08/01/18 23:33 Blood leukocytes automated count (number/volume) 9.6 10*3/uL 4.3-11.0 Blood erythrocytes automated count (number/volume) 4.46 10*6/uL 4.35-5.85 Venous blood hemoglobin measurement (mass/volume) 13.2 g/dL 11.5-16.0 Blood hematocrit (volume fraction) 43 % 35-52 Automated erythrocyte mean corpuscular volume 96 [foz_us] 80-99 Automated erythrocyte mean corpuscular hemoglobin (mass per erythrocyte) 30 pg 25-34 Automated erythrocyte mean corpuscular hemoglobin concentration measurement (mass/volume) 31 g/dL 32-36 Automated erythrocyte distribution width ratio 13.9 % 10.0- 14.5 Automated blood platelet count (count/volume) 148 10*3/uL 130-400 Automated blood platelet mean volume measurement 10.6 [foz_us] 7.4-10.4 Serum or plasma choriogonadotropin ( test) detection - 08/01/18 23:33 Serum or plasma choriogonadotropin ( test) detection NEGATIVE NEGATIVE Comprehensive metabolic panel - 08/01/18 23:33 Serum or plasma sodium measurement (moles/volume) 142 mmol/L 135-145 Serum or plasma potassium measurement (moles/volume) 4.8 mmol/L 3.6-5.0 Serum or plasma chloride measurement (moles/volume) 106 mmol/L 98-107 Carbon dioxide 26 mmol/L 21-32 Serum or plasma anion gap determination (moles/volume) 10 mmol/L 5-14 Serum or plasma urea nitrogen measurement (mass/volume) 18 mg/dL 7-18 Serum or plasma creatinine measurement (mass/volume) 0.99 mg/dL 0.60-1.30 Serum or plasma urea nitrogen/creatinine mass ratio 18 NRG Serum or plasma creatinine measurement with calculation of estimated glomerular filtration rate 60 NRG Serum or plasma glucose measurement (mass/volume) 84 mg/dL 70-105 Serum or plasma calcium measurement (mass/volume) 9.4 mg/dL 8.5-10.1 Serum or plasma total bilirubin measurement (mass/volume) 0.2 mg/dL 0.1-1.0 Serum or plasma alkaline phosphatase measurement (enzymatic activity/volume) 60 U/L 40-136 Serum or plasma aspartate aminotransferase measurement (enzymatic activity/volume) 18 U/L 5-34 Serum or plasma alanine aminotransferase measurement (enzymatic activity/volume) 11 U/L 0-55 Serum or plasma protein measurement (mass/volume) 6.8 g/dL 6.4-8.2 Serum or plasma albumin measurement (mass/volume) 3.6 g/dL 3.2-4.5 CALCIUM CORRECTED 9.7 mg/dL 8.5-10.1 TROPONIN T - 08/01/18 23:33 TROPONIN T 6 % <=10 PROBNP FS - 08/01/18 23:33 PROBNP FS 232.7 pg/mL <75.0 Encounters ACCT No. Visit Date/Time Discharge Status Pt. Type Provider Facility Loc./Unit Complaint [id number] 11/01/2018 11:06:00 11/01/2018 23:59:59 CLS Outpatient CHRISSY RHODES [facility] RAD FS M25.561 [id number] 10/08/2018 11:18:00 10/08/2018 13:35:00 DIS Emergency ELVA BREWER [facility] ER FALL - R KNEE / R SHOULDER PAIN [id number] 10/04/2018 11:00:00 10/04/2018 23:59:59 CLS Outpatient WARD BLAND MD [facility] RAD FS E888.9 [id number] 10/02/2018 10:46:00 10/02/2018 11:32:00 DIS Emergency MAGGIE REYES DO [facility] ER FS RT SIDE OF BODY PAIN, EYE LAC [id number] 09/24/2018 01:12:00 09/24/2018 02:31:00 DIS Emergency CHRISTIE SÁNCHEZ DO [facility] ER FS MIGRAINE [id number] 08/01/2018 22:05:00 08/02/2018 02:15:00 DIS Emergency MAGGIE REYES DO [facility] ER FS MIGRAINE, SOB
[2018-11-08] MEDS ORDERED: ASPIRIN 81 MG CHEW (CHILDREN'S ASA) PO ONE (00:45)
[2018-11-08] MEDS ORDERED: LIDOCAINE 2% VISCOUS 15 ML UDC PO ONE (00:45)
[2018-11-08] MEDS ORDERED: ANTACID SUSP 30 ML UDC (MYLANTA) PO ONE (00:45)
--- NOTE | 2018-11-08 00:55 | ED Chest Pain ---
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 Nursing Sepsis Screen: No Definite Risk Source: patient, family Exam Limitations: no limitations History of Present Illness Date Seen by Provider: Nov 08, 2018 Time Seen by Provider: 00:28 Initial Comments This 47-year-old woman presents to the emergency room with sudden onset of chest pain in the substernal region that started about 45 minutes prior to arrival. She was sitting down watching television when the pain happened. She had just taken her pills and was settling down for bed. The pain was described as a rosalee p stabbing sensation. She rates the pain as 8/10 onset and now 6/10. She denies any history of heart problems. She has no associated symptoms. Pain did improve a little after standing up. She recently started Vraylar for treatment of bipolar. This medication has made her feel "woozy". She wonders if her pain is also related to this medication. She has a history of hiatal hernia and gastric sleeve. She has no known history of heart disease. Allergies and Home Medications Allergies Coded Allergies: meloxicam (Verified Allergy, Unknown, RASH, 10/02/18) Patient Home Medication List Home Medication List Reviewed: Yes Review of Systems Review of Systems Constitutional: no symptoms reported EENTM: No Symptoms Reported Respiratory: No Symptoms Reported Cardiovascular: See HPI Gastrointestinal: See HPI Genitourinary: No Symptoms Reported Musculoskeletal: no symptoms reported Skin: no symptoms reported Psychiatric/Neurological: No Symptoms Reported Endocrine: No Symptoms Reported Hematologic/Lymphatic: No Symptoms Reported Past Psterdn-Hbduwx-Mpfatd Hx Past Med/Social Hx: Reviewed and Corrections made Patient Social History Alcohol Use: Denies Use Recreational Drug Use: No Smoking Status: Never a Smoker 2nd Hand Smoke Exposure: No Recent Foreign Travel: No Contact w/Someone Who Travel: No Recent Infectious Disease Expo: No Recent Hopitalizations: No Immunizations Up To Date Tetanus Booster (TDap): Unknown Date of Influenza Vaccine: Feb 21, 2018 Seasonal Allergies Seasonal Allergies: No Past Medical History Surgeries: Yes (gastric sleeve, thyroidectomy "half of thyroid removed") Abdominal, Section, Gallbladder, Hysterectomy (sparing one ovary), Orthopedic (left ankle), Thyroidectomy Respiratory: Yes Sleep Apnea Cardiac: Yes Hypertension Neurological: No : 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 Genitourinary: No Gastrointestinal: Yes (urge incontinence) Musculoskeletal: Yes (recent right shoulder issues current Physical therapy) Endocrine: Yes (thyroidectomy) HEENT: No Cancer: No Psychosocial: Yes Anxiety, Bipolar, Depression Integumentary: No Blood Disorders: No Family Medical History Heart Disease (mother has atrial fibrillation, grandmother had coronary artery disease) Physical Exam Vital Signs Vital Signs - First Documented 11/08/18 00:25 Temp 99.2 Pulse 66 Resp 16 B/P (MAP) 147/85 (105) Pulse Ox 96 O2 Delivery Room Air Capillary Refill : Less Than 3 Seconds Height, Weight, BMI Height: 5'5.00" Weight: 298lbs. oz. 135.465634xe; BMI Method:Stated General Appearance: No Apparent Distress, WD/WN, Obese HEENT: PERRL/EOMI, Normal ENT Inspection Neck: Normal Inspection Respiratory: Lungs Clear, Normal Breath Sounds, No Accessory Muscle Use, No Respiratory Distress, Other (anterior chest wall tender to palpation) Cardiovascular: Regular Rate, Rhythm, No Edema, No Murmur, Normal Peripheral Pulses Gastrointestinal: Normal Bowel Sounds, Non Tender, Soft Extremity: Non Tender, No Calf Tenderness, No Pedal Edema, Other (negative Jermaine. 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 Norm as Tested Skin: Normal Color, Warm/Dry Progress/Results/Core Measures Results/Orders Lab Results Laboratory Tests Test 11/08/18 00:35 11/08/18 00:55 11/08/18 00:57 Range/Units White Blood Count 12.9 H 4.3-11.0 10^3/uL Red Blood Count 4.46 4.35-5.85 10^6/uL Hemoglobin 13.5 11.5-16.0 G/DL Hematocrit 42 35-52 % Mean Corpuscular Volume 95 80-99 FL Mean Corpuscular Hemoglobin 30 25-34 PG Mean Corpuscular Hemoglobin Concent 32 32-36 G/DL Red Cell Distribution Width 14.6 H 10.0-14.5 % Platelet Count 139 130-400 10^3/uL Mean Platelet Volume 10.3 7.4-10.4 FL Neutrophils (%) (Auto) 68 42-75 % Lymphocytes (%) (Auto) 23 12-44 % Monocytes (%) (Auto) 7 0-12 % Eosinophils (%) (Auto) 1 0-10 % Basophils (%) (Auto) 1 0-10 % Neutrophils # (Auto) 8.8 H 1.8-7.8 X 10^3 Lymphocytes # (Auto) 2.9 1.0-4.0 X 10^3 Monocytes # (Auto) 0.9 0.0-1.0 X 10^3 Eosinophils # (Auto) 0.1 0.0-0.3 10^3/uL Basophils # (Auto) 0.1 0.0-0.1 10^3/uL Sodium Level 140 135-145 MMOL/L Potassium Level 4.4 3.6-5.0 MMOL/L Chloride Level 107 98-107 MMOL/L Carbon Dioxide Level 25 21-32 MMOL/L Anion Gap 8 5-14 MMOL/L Blood Urea Nitrogen 21 H 7-18 MG/DL Creatinine 0.98 0.60-1.30 MG/DL Estimat Glomerular Filtration Rate > 60 BUN/Creatinine Ratio 21 Glucose Level 114 H 70-105 MG/DL Calcium Level 10.1 8.5-10.1 MG/DL Corrected Calcium 10.4 H 8.5-10.1 MG/DL Magnesium Level 2.0 1.8-2.4 MG/DL Total Bilirubin 0.2 0.1-1.0 MG/DL Aspartate Amino Transf (AST/SGOT) 12 5-34 U/L Alanine Aminotransferase (ALT/SGPT) 8 0-55 U/L Alkaline Phosphatase 58 40-136 U/L Myoglobin < 21.0 10.0-92.0 NG/ML Troponin T < 6 <=10 NG/L Pro-B-Type Natriuretic Peptide 255.6 H <75.0 PG/ML Total Protein 6.7 6.4-8.2 GM/DL Albumin 3.6 3.2-4.5 GM/DL D-Dimer 0.63 H 0.00-0.49 UG/ML Prothrombin Time 13.4 12.2-14.7 SEC INR Comment 1.0 0.8-1.4 Activated Partial Thromboplast Time 26 24-35 SEC My Orders Orders - PEACE CANSECO MD Cbc With Automated Diff (11/08/18 00:34) Magnesium (11/08/18 00:34) Chest 1 View Ap/Pa Only (11/08/18 00:34) Ekg Tracing (11/08/18 00:34) Comprehensive Metabolic Panel (11/08/18 00:34) Myoglobin Serum (11/08/18 00:34) Protime With Inr (11/08/18 00:34) Partial Thromboplastin Time (11/08/18 00:34) O2 (11/08/18 00:34) Monitor-Rhythm Ecg Trace Only (11/08/18 00:34) Lipid Panel (11/09/18 06:00) Ed Iv/Invasive Line Start (11/08/18 00:34) Aspirin Chewable Tablet (Baby Aspirin Ch (11/08/18 00:45) Lidocaine 2% Viscous 15 Ml (Xylocaine Vi (11/08/18 00:45) Antacid Suspension (Mylanta Suspension (11/08/18 00:45) Nitroglycerin 0.4 Mg Btl 25's (Nitrostat (11/08/18 01:15) Fibrin Degradation Products (11/08/18 01:14) Probnp Fs (11/08/18 01:14) Troponin T (11/08/18 01:20) Ct Angio Chest W (11/08/18 01:46) Ketorolac Injection (Toradol Injection) (11/08/18 02:00) Iohexol Injection (Omnipaque 350 Mg/Ml 1 (11/08/18 02:00) Received Contrast (Hold Metformin- Contr (11/08/18 02:00) Ns (Ivpb) (Sodium Chloride 0.9% Ivpb Bag (11/08/18 02:00) Famotidine Injection (Pepcid Injection) (11/08/18 03:30) Fentanyl Injection (Sublimaze Injection (11/08/18 03:30) Medications Given in ED Current Medications Medications Dose Ordered Sig/Michele Route Start Time Stop Time Status Last Admin Dose Admin Al Hydrox/Mg Hydrox/Simethicone 30 ml ONCE ONCE PO 11/08/18 00:45 11/08/18 00:47 DC 11/08/18 00:55 30 ML Aspirin 324 mg ONCE ONCE PO 11/08/18 00:45 11/08/18 00:47 DC 11/08/18 00:55 324 MG Iohexol 100 ml ONCE ONCE IV 11/08/18 02:00 11/08/18 02:01 DC 11/08/18 01:59 100 ML Ketorolac Tromethamine 15 mg ONCE ONCE IVP 11/08/18 02:00 11/08/18 02:01 DC 11/08/18 01:57 15 MG Lidocaine HCl 15 ml ONCE ONCE PO 11/08/18 00:45 11/08/18 00:47 DC 11/08/18 00:55 15 ML Nitroglycerin 0.4 mg UD PRN SL 11/08/18 01:15 11/08/18 01:32 0.4 MG Sodium Chloride 100 ml ONCE ONCE IV 11/08/18 02:00 11/08/18 02:01 DC 11/08/18 01:59 100 ML Vital Signs/I&O 11/08/18 11/08/18 00:25 02:32 Temp 99.2 Pulse 66 58 Resp 16 18 B/P (MAP) 147/85 (105) 128/68 (88) Pulse Ox 96 95 O2 Delivery Room Air Room Air Blood Pressure Mean: 105 Progress Progress Note #1: Time: 01:03 Progress Note Patient seen and examined. Aspirin given. GI cocktail has been ordered. EKG is unremarkable. Chest x-ray unchanged from prior. Progress Note #2: Time: 01:11 Progress Note GI cocktail did not improve her pain. She still rates her pain as 5 or 6. We will trinitroglycerin. Patient also states that she had some shortness of breath earlier today. She is also had a sensation of choking on her saliva when lying down flat for the past couple of days. Because patient had a recent t rauma to the right leg one month ago with a bruise present on exam, d-dimer will be added to her workup. Progress Note #3: Time: 01:48 Progress Note Patient still rates her pain as a 5 after the second nitroglycerin. D-dimer returned slightly elevated. I discussed risks and benefits of CT imaging with the patient including risk of radiation exposure. She wishes to proceed with CT angiogram. We will try Toradol for further pain management. Progress Note #4: Time: 03:31 Progress Note Patient continued to have pain after Toradol. Patient was gradually diminishing and is now less than 5. CT angiogram of the chest showed hiatal hernia and acid reflux but no pulmonary or aortic pathology. I discussed options with the patient including a cardiac rule out in the ER versus admission and consultation with a pediatric clinical nurse specialist. Patient states she has had recurrent episodes of this type of chest pain and is quite worried about it. Case was discussed with Dr. Burt. He agrees that a cardiac rule out with more definitive testing such as stress test is appropriate. Patient will be transferred to [facility] for cardiac evaluation. Pepcid and fentanyl were additionally administered in the ER. Initial ECG Impression Date: Nov 08, 2018 Initial ECG Impression Time: 00:28 Initial ECG Rate: 58 Initial ECG Rhythm: Normal Sinus Initial ECG Intervals: Normal Initial ECG Impression: Normal Comment Normal sinus rhythm with no ST elevation or depression. No abnormal intervals or axis deviation. Diagnostic Imaging Diagonstic Imaging: Xray Plain Films/CT/US/NM/MRI: chest Comments Chest x-ray viewed by me. Report not yet available. Compared with prior. No acute abnormalities appreciated. Diagonstic Imaging: CT Plain Films/CT/US/NM/MRI: chest Comments CT angiogram of the chest was viewed by me and [employer] report reviewed. There was no evidence of pulmonary embolus or aortic pathology. There was hiatal hernia and evidence of acid reflux. Departure Communication (Admissions) Time/Spoke to Admitting Phy: 03:13 Dr. Figueroa Time/Spoke to Consulting Phy: 03:10 Dr. Burt Impression Primary Impression: Chest pain Qualified Codes: R07.9 - Chest pain, unspecified Disposition: XFER SHT-TRM HOSP Condition: Stable Admissions Decision to Admit Reason: Admit from ER (General) Decision to Admit/Date: Nov 08, 2018 Time/Decision to Admit Time: 03:05 Transfer Time Spoke to Accepting Phy: 03:13 Transfer Time: 03:51 Transfer Facility: [facility] Method of Transfer: EMS Departure-Patient Inst. Referrals: WARD BLAND MD (PCP/Family) Primary Care Physician PEACE CANSECO MD Nov 08, 2018 00:55
[2018-11-08 00:58] LABS: HEMATOCRIT 42 % (35-52); HEMOGLOBIN 13.5 G/DL (11.5-16.0); MEAN CORPUSCULAR HEMOGLOBIN 30 PG (25-34); MEAN CORPUSCULAR HGB CONC 32 G/DL (32-36); MEAN CORPUSCULAR VOLUME 95 FL (80-99); WHITE BLOOD COUNT 12.9 10^3/uL (4.3-11.0)
[2018-11-08 00:59] LABS: BASOPHILS # (AUTO) 0.1 10^3/uL (0.0-0.1); BASOPHILS % (AUTO) 1 % (0-10); EOSINOPHILS # (AUTO) 0.1 10^3/uL (0.0-0.3); EOSINOPHILS % (AUTO) 1 % (0-10); LYMPHOCYTES # (AUTO) 2.9 X 10^3 (1.0-4.0); LYMPHOCYTES % (AUTO) 23 % (12-44); MEAN PLATELET VOLUME 10.3 FL (7.4-10.4); MONOCYTES # (AUTO) 0.9 X 10^3 (0.0-1.0); MONOCYTES % (AUTO) 7 % (0-12); NEUTROPHILS # (AUTO) 8.8 X 10^3 (1.8-7.8); NEUTROPHILS % (AUTO) 68 % (42-75); PLATELET COUNT 139 10^3/uL (130-400); RED CELL DISTRIBUTION WIDTH 14.6 % (10.0-14.5)
[2018-11-08 01:14] LABS: ALANINE AMINOTRANSFERASE 8 U/L (0-55); ALKALINE PHOSPHATASE 58 U/L (40-136); BILIRUBIN,TOTAL 0.2 MG/DL (0.1-1.0); BUN/CREATININE RATIO 21; CALCIUM 10.1 MG/DL (8.5-10.1); CARBON DIOXIDE 25 MMOL/L (21-32); CHLORIDE 107 MMOL/L (98-107); CREATININE SERUM 0.98 MG/DL (0.60-1.30); GFR ESTIMATED > 60; GLUCOSE 114 MG/DL (70-105); POTASSIUM 4.4 MMOL/L (3.6-5.0); SODIUM 140 MMOL/L (135-145)
[2018-11-08 01:15] LABS: ALBUMIN 3.6 GM/DL (3.2-4.5); TOTAL PROTEIN 6.7 GM/DL (6.4-8.2)
[2018-11-08 01:15] LABS: PROTHROMBIN TIME PATIENT 13.4 SEC (12.2-14.7)
[2018-11-08] MEDS: NITROGLYCERIN 0.4 MG SL TABS BTL 25'S SL PRN ×2 (01:15→01:32)
[2018-11-08] MEDS ORDERED: KETOROLAC 30 MG/ML VIAL IVP ONE (02:00)
[2018-11-08] MEDS ORDERED: NS 100 ML (IVPB) BAG IV ONE (02:00)
[2018-11-08] MEDS ORDERED: IOHEXOL 350 MG/ML 100 ML (OMNIPAQUE 350) VIAL IV ONE (02:00)
[2018-11-08] MEDS ORDERED: HOLD METFORMIN - RECEIVED CONTRAST 20 ML VIAL IV SCH (02:00)
[2018-11-08] MEDS ORDERED: FAMOTIDINE 20MG/2ML IV (PEPCID) IVP ONE (03:30)
[2018-11-08] MEDS ORDERED: fentaNYL INJECTION 100 MCG/2 ML AMP IVP ONE (03:30)
--- OUTSIDE RECORDS SUMMARY | 2018-11-08 03:34 | XMS REPORT | Continuity of Care Document ---
Author Organization Unknown Address Unknown Allergies Active Description Code Type Severity Reaction Onset Reported/Identified Relationship to Patient Clinical Status Yes No Known Drug Allergies [id number] Drug Allergy Unknown N/A 08/02/2018 Yes meloxicam [id number] Drug Allergy Unknown RASH 10/02/2018 Medications There [...] 10/05/2018 EDWINA LADD, WARD Schwarz Ot Y92.[address] 10/05/2018 MAGGIE REYES DO Ot [...] 08/01/18 23:33 PROBNP FS 232.7 pg/mL <75.0 Complete blood count (CBC) with automated white blood cell (WBC) differential - 11/08/18 00:35 Blood leukocytes automated count (number/volume) 12.9 10*3/uL 4.3-11.0 Blood erythrocytes automated count (number/volume) 4.46 10*6/uL 4.35-5.85 Venous blood hemoglobin measurement (mass/volume) 13.5 g/dL 11.5-16.0 Blood hematocrit (volume fraction) 42 % 35-52 Automated erythrocyte mean corpuscular volume 95 [foz_us] 80-99 Automated erythrocyte mean corpuscular hemoglobin (mass per erythrocyte) 30 pg 25-34 Automated erythrocyte mean corpuscular hemoglobin concentration measurement (mass/volume) 32 g/dL 32-36 Automated erythrocyte distribution width ratio 14.6 % 10.0- 14.5 Automated blood platelet count (count/volume) 139 10*3/uL 130-400 Automated blood platelet mean volume measurement 10.3 [foz_us] 7.4-10.4 Automated blood neutrophils/100 leukocytes 68 % 42-75 Automated blood lymphocytes/100 leukocytes 23 % 12-44 Blood monocytes/100 leukocytes 7 % 0-12 Automated blood eosinophils/100 leukocytes 1 % 0-10 Automated blood basophils/100 leukocytes 1 % 0-10 Blood neutrophils automated count (number/volume) 8.8 10*3 1.8-7.8 Blood lymphocytes automated count (number/volume) 2.9 10*3 1.0-4.0 Blood monocytes automated count (number/volume) 0.9 10*3 0.0- 1.0 Automated eosinophil count 0.1 10*3/uL 0.0-0.3 Automated blood basophil count (count/volume) 0.1 10*3/uL 0.0-0.1 Comprehensive metabolic panel - 11/08/18 00:35 Serum or plasma sodium measurement (moles/volume) 140 mmol/L 135-145 Serum or plasma potassium measurement (moles/volume) 4.4 mmol/L 3.6-5.0 Serum or plasma chloride measurement (moles/volume) 107 mmol/L 98-107 Carbon dioxide 25 mmol/L 21-32 Serum or plasma anion gap determination (moles/volume) 8 mmol/L 5-14 Serum or plasma urea nitrogen measurement (mass/volume) 21 mg/dL 7-18 Serum or plasma creatinine measurement (mass/volume) 0.98 mg/dL 0.60-1.30 Serum or plasma urea nitrogen/creatinine mass ratio 21 NRG Serum or plasma creatinine measurement with calculation of estimated glomerular filtration rate > NRG Serum or plasma glucose measurement (mass/volume) 114 mg/dL 70-105 Serum or plasma calcium measurement (mass/volume) 10.1 mg/dL 8.5-10.1 Serum or plasma total bilirubin measurement (mass/volume) 0.2 mg/dL 0.1-1.0 Serum or plasma alkaline phosphatase measurement (enzymatic activity/volume) 58 U/L 40-136 Serum or plasma aspartate aminotransferase measurement (enzymatic activity/volume) 12 U/L 5-34 Serum or plasma alanine aminotransferase measurement (enzymatic activity/volume) 8 U/L 0-55 Serum or plasma protein measurement (mass/volume) 6.7 g/dL 6.4-8.2 Serum or plasma albumin measurement (mass/volume) 3.6 g/dL 3.2-4.5 CALCIUM CORRECTED 10.4 mg/dL 8.5-10.1 Magnesium - 11/08/18 00:35 Magnesium 2.0 mg/dL 1.8-2.4 Myoglobin, serum - 11/08/18 00:35 Myoglobin, serum < ng/mL 10.0-92.0 TROPONIN T - 11/08/18 00:35 TROPONIN T < 6 <=10 PROBNP FS - 11/08/18 00:35 PROBNP FS 255.6 pg/mL <75.0 Fibrin D-dimer FEU measurement in platelet poor plasma (mass/volume) - 11/08/18 00:55 Fibrin D-dimer FEU measurement in platelet poor plasma (mass/volume) 0.63 ug/mL 0.00-0.49 PT panel in platelet poor plasma by coagulation assay - 11/08/18 00:57 Prothrombin time (PT) in platelet poor plasma by coagulation assay 13.4 s 12.2-14.7 INR in platelet poor plasma or blood by coagulation assay 1.0 0.8-1.4 Activated partial thromboplastin time (aPTT) in platelet poor plasma bycoagulation assay - 11/08/18 00:57 Activated partial thromboplastin time (aPTT) in platelet poor plasma bycoagulation assay 26 s 24-35 Encounters ACCT No. Visit Date/Time Discharge Status Pt. Type Provider Facility Loc./Unit Complaint [id number] 11/01/2018 11:06:00 11/01/2018 23:59:59 CLS Outpatient CHRISSY RHODES [facility] RAD FS M25.561 [id number] 10/08/2018 11:18:00 10/08/2018 13:35:00 DIS Emergency ELVA BREWER [facility] ER FALL - R KNEE / R SHOULDER PAIN [id number] 10/04/2018 11:00:00 10/04/2018 23:59:59 CLS Outpatient WARD BLAND MD [facility] RAD FS E888.9 [id number] 10/02/2018 10:46:00 10/02/2018 11:32:00 DIS Emergency MAGGIE REYES DO [facility] ER FS RT SIDE OF BODY PAIN, EYE LAC [id number] 09/24/2018 01:12:00 09/24/2018 02:31:00 DIS Emergency CHRISTIE SÁNCHEZ DO [facility] ER FS MIGRAINE [id number] 08/01/2018 22:05:00 08/02/2018 02:15:00 DIS Emergency MAGGIE REYES DO [facility] ER FS MIGRAINE, SOB [id number] 11/08/2018 01:00:00 Document Registration
[2018-11-08] MEDS ORDERED: ONDANSETRON 4 MG/2 ML (SDV) Z0FRAN IV PRN (05:45)
--- NOTE | 2018-11-08 06:29 | Diagnostic Imaging Report ---
PROCEDURE: CT angiography of the chest with contrast. TECHNIQUE: Multiple contiguous axial images were obtained through the chest after uneventful bolus administration of intravenous contrast. 2D reconstructed CTA MIP acquisitions were also performed. Auto Exposure Controls were utilized during the CT exam to meet ALARA standards for radiation dose reduction. INDICATION: Chest pain COMPARISON: CTA chest from 08/02/2018 FINDINGS: Vasculature: No pulmonary emboli. No CT evidence of pulmonary hypertension or right ventricular strain. Thoracic aorta is normal in caliber. No aortic dissection or pseudoaneurysm. Heart and mediastinum: Visualized thyroid is normal. No supraclavicular, axillary, or intra-thoracic lymphadenopathy. The heart is normal in size without pericardial effusion. Stable small sliding-type hiatal hernia. Pleura: No pleural effusion or pneumothorax. Lungs and airway: No endoluminal lesion in the trachea or central bronchi. No pulmonary mass, nodule or consolidation. Upper abdomen: Allowing for the phase of contrast, no acute abnormality in the upper abdomen is seen. Changes of gastric sleeve are again noted. Cholecystectomy. Musculoskeletal: No concerning osseous lesion. IMPRESSION: 1. No acute cardiopulmonary process. Specifically, no pulmonary emboli or acute aortic syndrome. 2. Status post gastric sleeve small hiatal hernia, all unchanged since prior exam. 3. Findings are in agreement with the preliminary report. Dictated by: Dictated on workstation # [id number]
--- NOTE | 2018-11-08 07:10 | Diagnostic Imaging Report ---
CHEST 1 VIEW AP/PA ONLY Indication: Chest pain Comparison: 08/01/2018 Findings: No focal airspace disease in the visualized lungs. Please note that the posterior lower lobes are poorly evaluated by portable radiography. No pleural effusion or pneumothorax. Normal cardiomediastinal silhouette. Impression: No acute cardiopulmonary process by portable radiography. Dictated by: Dictated on workstation # [id number]
[2018-11-08] MEDS: FAMOTIDINE 20 MG (PEPCID) TABLET PO SCH ×2 (08:15→20:04)
--- NOTE | 2018-11-08 08:42 | History & Physical-Hospitalist ---
History of Present Illness HPI/Chief Complaint Pt is a 47yoCF with a PMH of HTN, partial thyroidectomy, bipolar disease who presented to the ER at [facility] due to chest pain. She states it started roughly 45 minutes prior to her arrival while she was sitting at rest and watching TV. She describes it as a sharp stabbing pain "like an ice pick stabbing her repeatedly in the chest." She states she has had this and palpitations on and off for a "while" and would like to get answers. She states the pain is still present but is improved from when she got here. She does complain of mild SOB but that has been a constant in her life that she attributed to her weight. She denies radiation of the pain or nausea. Source: patient Date Seen 11/08/18 Time Seen by a Provider: 08:30 Attending Physician Gagan Figueroa MD PCP Emery Meyers MD Referring Physician Date of Admission Nov 08, 2018 at 03:26 Home Medications & Allergies Home Medications Reviewed patient Home Medication Reconciliation performed by pharmacy medication reconciliations industrial controls technician and/or nursing. Patients Allergies have been reviewed. Allergies Allergies Coded Allergies meloxicam (Verified Allergy, Unknown, RASH/ITCHING, 11/08/18) Past Hhuiodu-Kvgysq-Xbehte Hx Past Med/Social Hx: Reviewed and Corrections made Patient Social History Alcohol Use: Denies Use Recreational Drug Use: No Smoking Status: Former Smoker (quit 25 years ago) 2nd Hand Smoke Exposure: No Recent Foreign Travel: No Contact w/other who traveled: No Recent Hopitalizations: No Recent Infectious Disease Expo: No Immunizations Up To Date Tetanus Booster (TDap): Unknown Date of Pneumonia Vaccine: Mar 10, 2018 Date of Influenza Vaccine: Feb 21, 2018 Seasonal Allergies Seasonal Allergies: No Past Medical History Surgeries: Abdominal, Section, Gallbladder, Hysterectomy (sparing one ovary), Orthopedic (left ankle), Thyroidectomy Cardiac: Hypertension : No Hysterectomy Psychosocial: Anxiety, Bipolar, Depression History of Blood Disorders: No Family History Reviewed Nursing Family Hx Heart Disease (mother has atrial fibrillation, grandmother had coronary artery disease) Review of Systems Constitutional: no symptoms reported; No diaphoresis EENTM: no symptoms reported Respiratory: No cough, No orthopnea, No phlegm; short of breath Cardiovascular: chest pain; No edema, No Hx of Intervention; palpitations Gastrointestinal: heartburn, loss of appetite; No nausea, No vomiting Genitourinary: No frequency; incontinence (urge) Musculoskeletal: no symptoms reported Skin: no symptoms reported Psychiatric/Neurological: No Symptoms Reported Physical Exam Physical Exam Vital Signs Vital Signs - First Documented 11/08/18 00:25 Temp 99.2 Pulse 66 Resp 16 B/P (MAP) 147/85 (105) Pulse Ox 96 O2 Delivery Room Air Capillary Refill : Less Than 3 Seconds Height, Weight, BMI Height: 5'5.00" Weight: 298lbs. 0.0oz. [id number]; BMI Method:Stated General Appearance: No Apparent Distress, WD/WN, Obese HEENT: Moist Mucous Membranes, Pale Conjunctivae (L), Pale Conjunctivae (R) Neck: Normal Inspection, Supple; No JVD; Other (midline scar consistent with thyroidectomy) Respiratory: Chest Non Tender, Lungs Clear, No Accessory Muscle Use, No Respiratory Distress Cardiovascular: Regular Rate, Rhythm, No JVD, No Murmur Gastrointestinal: Normal Bowel Sounds, Non Tender, Soft Extremity: No Calf Tenderness, No Pedal Edema Neurologic/Psychiatric: Alert, Oriented x3 Skin: Normal Color, Warm/Dry Results Results/Procedures Labs Laboratory Tests 11/08/18 00:35 Patient resulted labs reviewed. Imaging Date of Exam: 11/08/18 CT ANGIO CHEST W PROCEDURE: CT angiography of the chest with contrast. TECHNIQUE: Multiple contiguous axial images were obtained through the chest after uneventful bolus administration of intravenous contrast. 2D reconstructed CTA MIP acquisitions were also performed. Auto Exposure Controls were utilized during the CT exam to meet ALARA standards for radiation dose reduction. INDICATION: Chest pain COMPARISON: CTA chest from 08/02/2018 FINDINGS: Vasculature: No pulmonary emboli. No CT evidence of pulmonary hypertension or right ventricular strain. Thoracic aorta is normal in caliber. No aortic dissection or pseudoaneurysm. Heart and mediastinum: Visualized thyroid is normal. No supraclavicular, axillary, or intra-thoracic lymphadenopathy. The heart is normal in size without pericardial effusion. Stable small sliding-type hiatal hernia. Pleura: No pleural effusion or pneumothorax. Lungs and airway: No endoluminal lesion in the trachea or central bronchi. No pulmonary mass, nodule or consolidation. Upper abdomen: Allowing for the phase of contrast, no acute abnormality in the upper abdomen is seen. Changes of gastric sleeve are again noted. Cholecystectomy. Musculoskeletal: No concerning osseous lesion. IMPRESSION: 1. No acute cardiopulmonary process. Specifically, no pulmonary emboli or acute aortic syndrome. 2. Status post gastric sleeve small hiatal hernia, all unchanged since prior exam. 3. Findings are in agreement with the preliminary report. Assessment/Plan Admission Diagnosis Chest Pain Admission Status: Observation Diagnosis/Problems Diagnosis/Problems (1) Chest pain Status: Acute Assessment & Plan: Cardiology consulted, appreciate recs Stress test today Echo ordered Serial troponins More concerning for GI etiology give symptomatology Qualifiers: Chest pain type: unspecified Qualified Codes: R07.9 - Chest pain, unspecified (2) Hiatal hernia Assessment & Plan: Discussed with her PCP who will follow up and possibly perform EGD Start on PPI Clinical Quality Measures AMI/AHF: ASA po Prior to arrival: No DVT/VTE Risk/Contraindication: Risk Factor Score Per Nursin RFS Level Per Nursing on Admit: 4+=Very High KUMAR LEYVA MD Nov 08, 2018 08:42
[2018-11-08] MEDS ORDERED: ASPIRIN E.C. 81 MG (ECOTRIN) TAB PO SCH (09:00)
[2018-11-08] MEDS ORDERED: PROP60TA17 PO (09:38)
[2018-11-08] MEDS ORDERED: CLON1TAB13 PO ×2 (09:38→09:44)
[2018-11-08] MEDS ORDERED: ROPI1TAB2 PO (09:38)
[2018-11-08] MEDS ORDERED: DIVA500T15 PO (09:38)
[2018-11-08] MEDS ORDERED: CARI1.5C PO (09:38)
[2018-11-08] MEDS ORDERED: MELO15TA39 PO (09:38)
[2018-11-08] MEDS ORDERED: ESCI10TA55 PO (09:38)
[2018-11-08] MEDS ORDERED: TRAZ-190 PO (09:38)
[2018-11-08] MEDS ORDERED: GABA-490 PO (09:38)
[2018-11-08] MEDS ORDERED: PROP40TA5 PO (09:38)
[2018-11-08] MEDS ORDERED: CHOL5000 PO (09:45)
[2018-11-08] MEDS ORDERED: PANTOPRAZOLE 40 MG (PROTONIX) VIAL IV NR (09:45)
[2018-11-08] MEDS ORDERED: REGADENOSON 0.4 MG/5 ML SYR (LEXISCAN) IV ONE ×2 (09:45→13:05)
[2018-11-08] MEDS ORDERED: MULT1TAB69 PO (09:45)
--- NOTE | 2018-11-08 09:52 | NUR ---
SPOKE WITH THE PATIENT ABOUT HER MEDICATIONS. SHE HAD A LIST WITH HER AND WE COMPARED IT WITH THE EXT MED HX. SHE VERIFIED HOW SHE TAKES EACH MEDICATION. SHE FILLED PROPRANOLOL 40MG AND 60MG BOTH TID #84 11-02-18 HOWEVER SHE STATES HER BLOOD PRESSURE TENDS TO BE LOW AND SHE ONLY TAKES THE TWO STRENGTHS TOGETHER TWICE DAILY. SHE FILLED GABAPENTIN 400MG #84 FOR 28 DAY SUPPLY HOWEVER ONLY TAKES IT BID. SHE STATES SHE IS NO LONGER TAKING THE TOPAMAX 100MG FILLED #28 10-03-18. SHE STOPPED TAKING THE MELOXICAM 15MG #90 FILLED 09-13-18 DUE TO AN ALLERGIC REACTION. SHE TAKES VITAMIN D 5,000 UNITS DAILY AND A MTV DAILY OTC.
[2018-11-08] MEDS: KETOROLAC 30 MG/ML VIAL IVP PRN ×2 (09:58→20:05)
--- NOTE | 2018-11-08 10:11 | Consultation-Cardiology ---
HPI-Cardiology Cardiology Consultation: Date of Consultation 11/08/18 Time Seen by a Provider: 09:20 Date of Admission 11-08-18 Attending Physician Gagan Figueroa MD Admitting Physician Emery Meyers MD Consulting Physician Millicent Burt MD HPI: Chief Complaint: Chest pain Ms. Ware is a 47 year old female who has been admitted to [facility] from the ED. She reports last evening she had an episode of chest pain which she describes as an "ice pick" stabbing sensation. She states it was in lower chest region, localized. She points to the epigastric region. She states she has been having this type of pain for a couple "years", but felt it was worse last night. She reports feeling nauseated with the discomfort and that she has vomited with it in the past. She reports she received medication in the ED which did change the discomfort to a dull, sore discomfort. She reports the discomfort is not associated with activity or exertion. She states she continues to have a dull ache in the epigastric region. She does report epigastric tenderness with palpation. She reports episodes of palpitations which she describes as a "flip, flop" feeling. She states these are infrequent and have been happening for several years. She reports bilat LE swelling least in the morning and worse at the end of the day. She denies any syncope, near syncope. She reports chronic mod exertional dyspnea. Review of Systems-Cardiology Review of Systems Constitutional: No chills, No fever Eyes: No vision change Ears/Nose/Throat: No epistaxis, No recent hearing loss Respiratory: As described under HPI Cardiovascular: As described under HPI Gastrointestinal: No constipation, No diarrhea; nausea, vomiting Genitourinary: No dysuria; incontinence Musculoskeletal: no symptoms reported Skin: No rash, No ulcerations Psychiatric/Neurological: anxiety, depression; No seizure, No focal weakness, No syncope Hematologic: No bleeding abnormalities LNL-Gmgnmx-Ycaswn Hx Patient Social History Alcohol Use: Denies Use Recreational Drug Use: No Smoking Status: Former Smoker (quit 25 years ago) 2nd Hand Smoke Exposure: No Recent Foreign Travel: No Recent Infectious Disease Expo: No Immunizations Up To Date Tetanus Booster (TDap): Unknown Date of Pneumonia Vaccine: Mar 10, 2018 Date of Influenza Vaccine: Feb 21, 2018 Past Medical History PMH As described under Assessment. Family Medical History Family Medical History: She reports her mother has a h/o a-fib. She reports her father has sleep apnea. No family h/o premature CAD or SCD. Allergies and Home Medications Allergies Coded Allergies: meloxicam (Verified Allergy, Unknown, RASH/ITCHING, 11/08/18) Home Medications Cariprazine Hydrochloride 1.5 Mg Capsule, 1.5 MG PO DAILY, (Reported) Cholecalciferol (Vitamin D3) 5,000 Unit Capsule, 5,000 UNIT PO DAILY, (Reported) Clonazepam 1 Mg Tablet, 1 MG PO DAILY PRN for ANXIETY, (Reported) Clonazepam 1 Mg Tablet, 1 MG PO HS, (Reported) Divalproex Sodium 500 Mg Tab.er.24h, 1,500 MG PO HS, (Reported) TAKES 3 (500MG) TABLETS Escitalopram Oxalate 10 Mg Tablet, 10 MG PO DAILY, (Reported) Gabapentin 400 Mg Capsule, 400 MG PO BID, (Reported) Multivitamin 1 Each Tablet, 1 TAB PO DAILY, (Reported) Pantoprazole Sodium 40 Mg Tablet.dr, 40 MG PO DAILY Prescribed by: KUMAR AIKEN on 11/08/18 1046 Propranolol HCl 40 Mg Tablet, 40 MG PO BID, (Reported) TAKES ALONG WITH 60MG TABLET Propranolol HCl 60 Mg Tablet, 60 MG PO BID, (Reported) TAKES ALONG WITH 40MG TABLET Ropinirole HCl 1 Mg Tablet, 1 MG PO HS, (Reported) Trazodone HCl 100 Mg Tablet, 100 MG PO HS, (Reported) Patient Home Medication List Home Medication List Reviewed: Yes Physical Exam-Cardiology Physical Exam Vital Signs/I&O 11/08/18 11/08/18 11/09/18 20:07 23:21 04:43 Temp 98.2 98.0 Pulse 52 54 Resp 18 10 B/P (MAP) 119/68 99/62 Pulse Ox 95 98 O2 Delivery Room Air 11/09/18 00:00 Intake Total 340 ml Output Total 300 ml Balance 40 ml Capillary Refill : Less Than 3 Seconds Constitutional: AAO x 3, well-developed, well-nourished HEENT: PERRL, oral hygience is good Neck: No carotid bruit; carotid pulses are 2 + bilaterally Respiratory: No accessory muscle use, No respiratory distress; lungs clear to percussion, lungs clear to auscultation Cardiovascular: regular rate-rhythm; No JVD; S1 and S2 Gastrointestinal: tender (epigastric tenderness with palpation), soft, round Rectal: deferred Extremities: no lower extremity edema bilateral Neurologic/Psychiatric: grossly intact, power is 5/5 both on sides Skin: No rash on exposed areas, No ulcerations on exposed areas Data Review Labs Radiology NAME: JOHN WARE [facility] REC#: [id number] PT STATUS: ADM Derrick : 1970 PHYSICIAN: PEACE CANSECO MD ADMIT DATE: 11/08/18 Signed Date of Exam: 11/08/18 CT ANGIO CHEST W PROCEDURE: CT angiography of the chest with contrast. TECHNIQUE: Multiple contiguous axial images were obtained through the chest after uneventful bolus administration of intravenous contrast. 2D reconstructed CTA MIP acquisitions were also performed. Auto Exposure Controls were utilized during the CT exam to meet ALARA standards for radiation dose reduction. INDICATION: Chest pain COMPARISON: CTA chest from 08/02/2018 FINDINGS: Vasculature: No pulmonary emboli. No CT evidence of pulmonary hypertension or right ventricular strain. Thoracic aorta is normal in caliber. No aortic dissection or pseudoaneurysm. Heart and mediastinum: Visualized thyroid is normal. No supraclavicular, axillary, or intra-thoracic lymphadenopathy. The heart is normal in size without pericardial effusion. Stable small sliding-type hiatal hernia. Pleura: No pleural effusion or pneumothorax. Lungs and airway: No endoluminal lesion in the trachea or central bronchi. No pulmonary mass, nodule or consolidation. Upper abdomen: Allowing for the phase of contrast, no acute abnormality in the upper abdomen is seen. Changes of gastric sleeve are again noted. Cholecystectomy. Musculoskeletal: No concerning osseous lesion. IMPRESSION: 1. No acute cardiopulmonary process. Specifically, no pulmonary emboli or acute aortic syndrome. 2. Status post gastric sleeve small hiatal hernia, all unchanged since prior exam. 3. Findings are in agreement with the preliminary report. Dictated by: Dictated on workstation # [id number] Dict: 11/08/18622 Trans: 11/08/18626 Interpreted by: ARAM HORNER MD Electronically signed by: ARAM HORNER MD 11/08/18626 ECG Impression ECG Initial ECG Rhythm: Normal Sinus A/P-Cardiology Assessment/Admission Diagnosis Chest discomfort of undetermined etiology Epigastric tenderness of undetermined etiology Palpitations of undetermined etiology HTN Sleep apnea - CPAP tx H/O gastric sleeve surgery in 2013 in [place], [place] GERD H/O hysterectomy H/O cholecystectomy Elevated BMI Bipolar disorder Depression/anxiety Discussion and Recomendations Chest discomfort of undetermined etiology with no evidence of ACS. Advise MPI to evaluate perfusion. She does not feel she will be able to ambulate on a treadmill, we will do a Mona MPI. Echo to eval structure Epigastric tenderness with h/o hiatal hernia - medical services managing Start PPI Continue home medications Further recs will be based on her hospital course I have spoken with Dr. Aiken this morning We would like to thank her for this consult Clinical Quality Measures AMI/AHF: ASA po Prior to arrival: No DVT/VTE Risk/Contraindication: Risk Factor Score Per Nursin RFS Level Per Nursing on Admit: 4+=Very High JUVE RUTHERFORD Nov 08, 2018 10:11
[2018-11-08] MEDS ORDERED: PANT40TA3 PO (10:46)
--- NOTE | 2018-11-08 12:10 | NUR ---
ECHO COMPLETED, PATIENT WILL NOW GO WITH OTHER STAFF TO GET HER LEXISCAN AT THIS TIME, VIA W/C.
[2018-11-08] MEDS ORDERED: morphine INJ 10 MG/ML 1ML (SYR OR VIAL) ONE (12:41)
[2018-11-08] MEDS: morphine INJ 4 MG/ML 1 ML (VIAL/SYRINGE) IV PRN ×2 (13:19→23:22)
--- NOTE | 2018-11-08 14:34 | NUR ---
PATIENT BACK FROM [facility] AT THIS TIME.
--- NOTE | 2018-11-08 20:08 | Consultation-Cardiology ---
HPI-Cardiology Cardiology Consultation: Date of Consultation 11/08/18 Time Seen by a Provider: 19:10 Date of Admission Attending Physician Gagan Figueroa MD Admitting Physician Emery Meyers MD Consulting Physician AMEE JOENS MD, MA, FACP, FACC, FSCAI, CCDS Attending physician: Dr Aiken HPI: Chief Complaint: CC: Chest pain HPI: Ms. Dasilva is a 47 year old female who has been admitted to [facility] from the ED. She reports last evening she had an episode of chest pain which she describes as an "ice pick" stabbing sensation. She states it was in lower chest region, localized. She points to the epigastric region. She states she has been having this type of pain for a couple "years", but felt it was worse last night. She reports feeling nauseated with the discomfort and that she has vomited with it in the past. She reports she received medication in the ED which did change the discomfort to a dull, sore discomfort. She reports the discomfort is not associated with activity or exertion. She states she continues to have a dull ache in the epigastric region. She does report epigastric tenderness with palpation. She reports episodes of palpitations which she describes as a "flip, flop" feeling. She states these are infrequent and have been happening for several years. She reports bilat LE swelling least in the morning and worse at the end of the day. She denies any syncope, near syncope. She reports chronic mod exertional dyspnea. Review of Systems-Cardiology Review of Systems Constitutional: No chills, No fever Eyes: No vision change Ears/Nose/Throat: No epistaxis, No recent hearing loss Respiratory: As described under HPI Cardiovascular: As described under HPI Gastrointestinal: No constipation, No diarrhea; nausea, vomiting Genitourinary: No dysuria; incontinence Musculoskeletal: no symptoms reported Skin: No rash, No ulcerations Psychiatric/Neurological: anxiety, depression; No seizure, No focal weakness, No syncope Hematologic: No bleeding abnormalities LUS-Livtwk-Xoxbco Hx Patient Social History Alcohol Use: Denies Use Recreational Drug Use: No Smoking Status: Former Smoker (quit 25 years ago) 2nd Hand Smoke Exposure: No Recent Foreign Travel: No Recent Infectious Disease Expo: No Immunizations Up To Date Tetanus Booster (TDap): Unknown Date of Pneumonia Vaccine: Mar 10, 2018 Date of Influenza Vaccine: Feb 21, 2018 Past Medical History PMH As described under Assessment. Family Medical History Family Medical History: She reports her mother has a h/o a-fib. She reports her father has sleep apnea. No family h/o premature CAD or SCD. Allergies and Home Medications Allergies Coded Allergies: meloxicam (Verified Allergy, Unknown, RASH/ITCHING, 11/08/18) Home Medications Cariprazine Hydrochloride 1.5 Mg Capsule, 1.5 MG PO DAILY, (Reported) Cholecalciferol (Vitamin D3) 5,000 Unit Capsule, 5,000 UNIT PO DAILY, (Reported) Clonazepam 1 Mg Tablet, 1 MG PO DAILY PRN for ANXIETY, (Reported) Clonazepam 1 Mg Tablet, 1 MG PO HS, (Reported) Divalproex Sodium 500 Mg Tab.er.24h, 1,500 MG PO HS, (Reported) TAKES 3 (500MG) TABLETS Escitalopram Oxalate 10 Mg Tablet, 10 MG PO DAILY, (Reported) Gabapentin 400 Mg Capsule, 400 MG PO BID, (Reported) Multivitamin 1 Each Tablet, 1 TAB PO DAILY, (Reported) Pantoprazole Sodium 40 Mg Tablet.dr, 40 MG PO DAILY Prescribed by: KUMAR AIKEN on 11/08/18 1046 Propranolol HCl 40 Mg Tablet, 40 MG PO BID, (Reported) TAKES ALONG WITH 60MG TABLET Propranolol HCl 60 Mg Tablet, 60 MG PO BID, (Reported) TAKES ALONG WITH 40MG TABLET Ropinirole HCl 1 Mg Tablet, 1 MG PO HS, (Reported) Trazodone HCl 100 Mg Tablet, 100 MG PO HS, (Reported) Patient Home Medication List Home Medication List Reviewed: Yes Physical Exam-Cardiology Physical Exam Vital Signs/I&O 11/08/18 11/08/18 11/08/18 11/08/18 08:03 09:09 11:29 13:29 Temp 98.4 98.0 97.8 Pulse 56 52 66 47 Resp 18 B/P (MAP) 161/82 138/70 108/61 141/87 (105) Pulse Ox 96 99 97 94 O2 Delivery Room Air 11/08/18 11/08/18 11/08/18 13:33 13:34 16:00 Temp 98.1 Pulse 75 72 57 Resp 18 B/P (MAP) 135/81 (99) 137/80 Pulse Ox 95 95 97 O2 Delivery Room Air Room Air Capillary Refill : Less Than 3 Seconds Constitutional: AAO x 3, well-developed, well-nourished HEENT: PERRL, oral hygience is good Neck: No carotid bruit; carotid pulses are 2 + bilaterally Respiratory: No accessory muscle use, No respiratory distress; lungs clear to percussion, lungs clear to auscultation Cardiovascular: regular rate-rhythm; No JVD; S1 and S2 Gastrointestinal: tender (epigastric tenderness with palpation), soft, round Rectal: deferred Extremities: no lower extremity edema bilateral Neurologic/Psychiatric: grossly intact, power is 5/5 both on sides Skin: No rash on exposed areas, No ulcerations on exposed areas Data Review Labs Laboratory Tests 11/08/18 00:35: White Blood Count 12.9H, Red Blood Count 4.46, Hemoglobin 13.5, Hematocrit 42, Mean Corpuscular Volume 95, Mean Corpuscular Hemoglobin 30, Mean Corpuscular Hemoglobin Concent 32, Red Cell Distribution Width 14.6H, Platelet Count 139, Mean Platelet Volume 10.3, Neutrophils (%) (Auto) 68, Lymphocytes (%) (Auto) 23, Monocytes (%) (Auto) 7, Eosinophils (%) (Auto) 1, Basophils (%) (Auto) 1, Neutrophils # (Auto) 8.8H, Lymphocytes # (Auto) 2.9, Monocytes # (Auto) 0.9, Eosinophils # (Auto) 0.1, Basophils # (Auto) 0.1, Sodium Level 140, Potassium Level 4.4, Chloride Level 107, Carbon Dioxide Level 25, Anion Gap 8, Blood Urea Nitrogen 21H, Creatinine 0.98, Estimat Glomerular Filtration Rate > 60, BUN/Creatinine Ratio 21, Glucose Level 114H, Calcium Level 10.1, Corrected Calcium 10.4H, Magnesium Level 2.0, Total Bilirubin 0.2, Aspartate Amino Transf (AST/SGOT) 12, Alanine Aminotransferase (ALT/SGPT) 8, Alkaline Phosphatase 58, Myoglobin < 21.0, Troponin T < 6, Pro-B-Type Natriuretic Peptide 255.6H, Total Protein 6.7, Albumin 3.6 11/08/18 00:55: D-Dimer 0.63H 11/08/18 00:57: Prothrombin Time 13.4, INR Comment 1.0, Activated Partial Thromboplast Time 26 11/08/18 06:30: Troponin I < 0.028 A/P-Cardiology Assessment/Admission Diagnosis Chest discomfort of undetermined etiology: no clinical or lab evidence of ACS MPI of 11/08/18 shows no ischemia or infarction and LVEF is 62% Echo of 11/08/18: LVEF 60-65%, mild left atrial enlargement, PASP 25 mmHg Epigastric tenderness of undetermined etiology Palpitations of undetermined etiology HTN Sleep apnea - CPAP tx H/o gastric sleeve surgery in 2013 in [place], [place] GERD H/O hysterectomy H/O cholecystectomy Elevated BMI Bipolar disorder Depression/anxiety Discussion and Recomendations * Chest discomfort does not appear to be of cardiac origin. We recommend eval for non-cardiac causes of chest/epigastric discomfort * Outpt card f/u is advised * I discussed her case with Dr Aiken on the phone earlier this evening * I explained the results of her cardiac w/u during this hospitalization to the patient Clinical Quality Measures AMI/AHF: ASA po Prior to arrival: No DVT/VTE Risk/Contraindication: Risk Factor Score Per Nursin RFS Level Per Nursing on Admit: 4+=Very High AMEE JONES MD FACP [facility] Nov 08, 2018 20:08
--- NOTE | 2018-11-08 21:07 | STRESS TEST ---
DATE OF SERVICE: 11/08/2018 RESTING AND POST REGADENOSON TECHNETIUM-99M TETROFOSMIN SPECT CT IMAGING Baseline images were carried out after injection of 10.83 mCi of technetium-99m Tetrofosmin. This was followed by 0.4 mg of regadenoson and 32.7 mCi of technetium-99m Tetrofosmin for stress imaging. The electrocardiogram showed sinus rhythm. Occasional isolated premature ventricular contractions were seen. The patient tolerated the procedure well. The electrocardiogram did not change significantly with the regadenoson infusion. The patient noted some shortness of breath following regadenoson infusion, which resolved in a few minutes. Review of images at rest and following stress does not indicate any significant perfusion defects consistent with significant myocardial ischemia or infarction. Gated images show normal global left ventricular systolic function with normal regional wall motion. Left ventricular ejection fraction is calculated to be 62%. Left ventricular end diastolic volume is 67 mL. TID is absent (1). CONCLUSIONS: 1. No evidence of any significant myocardial ischemia or infarction on this study. 2. Normal global left ventricular systolic function with a calculated ejection fraction of 62%. 3. Normal regional wall motion. Job ID: [id number] DocumentID: [id number] Dictated Date: 11/08/2018 18:46:59 Wall Attendant Date: 11/08/2018 21:06:21 Dictated By: AMEE JONES MD, MA, FACP, FACC,
[2018-11-09 04:43] VITALS: BP 99/62
[2018-11-09] MEDS: KETOROLAC 30 MG/ML VIAL IVP PRN (07:53)
[2018-11-09 08:00] VITALS: BP 127/77
[2018-11-09] MEDS: FAMOTIDINE 20 MG (PEPCID) TABLET PO SCH (08:01)
[2018-11-09] MEDS ORDERED: PANTOPRAZOLE 40 MG (PROTONIX) TAB PO SCH (09:00)
--- NOTE | 2018-11-09 11:58 | Discharge Inst-Simple/Standard ---
Discharge Inst-Standard Discharge Medications New, Converted or Re-Newed RX: Transmitted to Pharmacy Patient Instructions/Follow Up Plan of Care/Instructions/FU: Please continue to take your medications as written. Please follow up with Dr Meyers for evaluation for possible EGD. Activity as Tolerated: Yes Discharge Diet: No Restrictions Return to The Hospital For: Chest pain, shortness of breath, inability to keep any food down, if you feel you are getting worse. KUMAR LEYVA MD Nov 08, 2018 10:52
[2018-11-09 12:00] VITALS: BP 141/87
--- NOTE | 2018-11-09 12:16 | NUR ---
[facility] DOWN FROM 0730 UNTIL 1150
--- NOTE | 2018-11-09 12:25 | Progress Note-Cardiology ---
Cardiology SOAP Progress Note Subjective: No cp or palp or syncope Notes gen malaise Objective: I&O/Vital Signs 11/09/18 04:43 Temp 98.0 Pulse 54 Resp 10 B/P (MAP) 99/62 Pulse Ox 98 11/09/18 00:00 Intake Total 340 ml Output Total 300 ml Balance 40 ml Weight (Pounds): 298 Weight (Ounces): 0.0 Weight (Calculated Kilograms): 135.569470 Constitutional: AAO x 3, well-developed, well-nourished Respiratory: No accessory muscle use, No respiratory distress; lungs clear to percussion, lungs clear to auscultation Cardiovascular: regular rate-rhythm; No JVD; S1 and S2 Gastrointestional: tender (epigastric tenderness with palpation), soft, round Extremities: no lower extremity edema bilateral Neurologic/Psychiatric: grossly intact, power is 5/5 both on sides Skin: No rash on exposed areas, No ulcerations on exposed areas Results/Procedures: Labs Laboratory Tests 11/08/18 00:35 A/P: Assessment: Chest discomfort of undetermined etiology: no clinical or lab evidence of ACS MPI of 11/08/18 shows no ischemia or infarction and LVEF is 62% Echo of 11/08/18: LVEF 60-65%, mild left atrial enlargement, PASP 25 mmHg Epigastric tenderness of undetermined etiology Palpitations of undetermined etiology HTN Sleep apnea - CPAP tx H/o gastric sleeve surgery in 2013 in [place], [place] GERD H/O hysterectomy H/O cholecystectomy Elevated BMI Bipolar disorder Depression/anxiety Plan: * Chest discomfort does not appear to be of cardiac origin. We recommend eval for non-cardiac causes of chest/epigastric discomfort * Outpt card f/u is advised * I discussed her case with Dr Akien in person today Clinical Quality Measures AMI/AHF: ASA po Prior to arrival: AMEE Mcnamara MD FACP FAC CCDS Nov 09, 2018 12:25
--- NOTE | 2018-11-09 12:50 | Discharge Summary-Hospitalist ---
Diagnosis/Chief Complaint Date of Admission Nov 08, 2018 at 03:26 Date of Discharge Discharge Date: Nov 08, 2018 Admission Diagnosis Chest Pain Discharge Diagnosis (1) Chest pain Status: Acute (2) Hiatal hernia Discharge Summary Discharge Physical Exam Allergies: Coded Allergies: meloxicam (Verified Allergy, Unknown, RASH/ITCHING, 11/08/18) Vitals & I&Os Vital Signs Date Time Temp Pulse Resp B/P (MAP) Pulse Ox O2 Delivery O2 Flow Rate FiO2 11/09/18 13:20 59 20 141/87 97 Room Air 11/09/18 12:00 98.0 General Appearance: No Apparent Distress, Obese Respiratory: Lungs Clear, No Respiratory Distress Cardiovascular: Regular Rate, Rhythm, No Murmur Gastrointestinal: Normal Bowel Sounds, Non Tender, Soft Neurologic/Psychiatric: Alert, Oriented x3 Hospital Course Pt was admitted for evaluation of chest pain. She underwent stress testing and echo with cardiology consultation. These tests were normal as were serial troponins. Symptoms are more concerning for GI source. I did call and speak with her PCP Dr Meyers regarding this hospitalization and need for EGD. He stated he was able to do EGD and would arrange in follow up given her known hiatal hernia and history of gastric sleeve. She was started on PPI and discharged home in stable condition. Labs (last 24 hrs) Patient resulted labs reviewed. Discussion & Recommendations Discharge Planning: >30 minutes discharge planning Discharge Home Medications: Active Scripts Active Pantoprazole Sodium 40 Mg Tablet. 40 Mg PO DAILY Reported Multivitamins (Multivitamin) 1 Each Tablet 1 Tab PO DAILY Vitamin D3 (Cholecalciferol (Vitamin D3)) 5,000 Unit Capsule 5,000 Unit PO DAILY Clonazepam 1 Mg Tablet 1 Mg PO HS Vraylar (Cariprazine Hydrochloride) 1.5 Mg Capsule 1.5 Mg PO DAILY Escitalopram Oxalate 10 Mg Tablet 10 Mg PO DAILY Divalproex Sodium ER (Divalproex Sodium) 500 Mg Tab.er.24h 1,500 Mg PO HS TAKES 3 (500MG) TABLETS Trazodone HCl 100 Mg Tablet 100 Mg PO HS Gabapentin 400 Mg Capsule 400 Mg PO BID Propranolol HCl 60 Mg Tablet 60 Mg PO BID TAKES ALONG WITH 40MG TABLET Propranolol HCl 40 Mg Tablet 40 Mg PO BID TAKES ALONG WITH 60MG TABLET Clonazepam 1 Mg Tablet 1 Mg PO DAILY PRN Ropinirole HCl 1 Mg Tablet 1 Mg PO HS Instructions to patient/family Please see electronic discharge instructions given to patient. Clinical Quality Measures AMI/AHF: ASA po Prior to arrival: No DVT/VTE Risk/Contraindication: Risk Factor Score Per Nursin RFS Level Per Nursing on Admit: 4+=Very High Problem Qualifiers (1) Chest pain: Chest pain type: unspecified Qualified Codes: R07.9 - Chest pain, unspecified KUMAR LEYVA MD Nov 09, 2018 12:50
[2018-11-09 13:20] VITALS: BP 141/87
--- NOTE | 2018-11-09 13:26 | NUR ---
PT STABLE AND READY FOR DISCHARGE PER DR. LEYVA ORDER. WRITTEN AND VERBAL D/C INSTRUCTIONS GONE OVER WITH PT. PT IS TO F/U WITH [facility]. PT DID NOT WANT TO F/U WITH PCP DR. BLAND. PT IV D/C WITHOUT DIFFICULTY. EDUCATION GIVEN ON TAKING NSAIDS MEDICATION AT HOME. PT AMBULATED DOWN TO PRIVATE VEHICLE WITH THIS NURSE AT SIDE. ALL BELONGINGS SENT WITH PT
--- NOTE | 2018-11-09 14:13 | NUR ---
CM/SS, respond to consult for transportation issues from [facility] to [place] to see PCP/Dr. Meyers. Patient self-directed this matter, she states she made an appointment with [facility] in [facility] and will not longer stay with Dr. Meyers. She also indicates this resolved her transport issue. Patient is dressed and ready to leave and her ride is here.
== END 2018-11-09 13:30 | disposition home or self-care (01) ==
LOC: EDUNIT# 00:22 → ER FS 00:23 → 4TH 03:26
PROVIDERS: ADMIT Internal Medicine; ATTEND Internal Medicine
DX: R07.89 Other chest pain (principal); F31.9 Bipolar disorder, unspecified; F41.9 Anxiety disorder, unspecified; I10 Essential (primary) hypertension; K21.9 Gastro-esophageal reflux disease without esophagitis; K44.9 Diaphragmatic hernia without obstruction or gangrene; G47.30 Sleep apnea, unspecified; N39.41 Urge incontinence; R00.2 Palpitations; E66.9 Obesity, unspecified; Z68.42 Body mass index [BMI] 45.0-49.9, adult; Z79.899 Other long term (current) drug therapy; Z98.84 Bariatric surgery status
CPT/HCPCS: 36415; 71045; 71275; 78452; 80053; 83735; 83874; 83880; 84484; 85025; 85379; 85610; 85730; 93005; 93017; 93041; 93306; 96374; 96375; G0378

== ENCOUNTER 2018-12-03 19:06 | Emergency (ER) | payer MEDICARE, MEDICAID ==
[~2018-12-03] VITALS: Ht 165.1 cm; Wt 131.1 kg
[~2018-12-03 19:06] MED LIST changes: +CARI1.5C PO; +CHOL5000 PO; +CLON1TAB13 PO; +DIVA500T15 PO; +ESCI10TA55 PO; +GABA-490 PO; +MELO15TA39 PO; +MULT1TAB69 PO; +PANT40TA3 PO; +PROP40TA5 PO; +PROP60TA17 PO; +ROPI1TAB2 PO; +TRAZ-190 PO
--- OUTSIDE RECORDS SUMMARY | 2018-12-03 19:12 | XMS REPORT | Continuity of Care Document ---
Author Organization Unknown Address Unknown Allergies Active Description Code Type Severity Reaction Onset Reported/Identified Relationship to Patient Clinical Status Yes No Known Drug Allergies [id number] Drug Allergy Unknown N/A 08/02/2018 Yes meloxicam [id number] Drug Allergy Unknown RASH 10/02/2018 Yes meloxicam [id number] Drug Allergy Unknown RASH/ITCHING 11/08/2018 Medications There is no data. Problems Date Dx Coded Attending Type Code Diagnosis Diagnosed By 08/02/2018 MAGGIE REYES DO T Ot E66.01 MORBID (SEVERE) OBESITY DUE TO EXCESS CA 08/02/2018 NICOLE REYES DOED T Ot G47.30 SLEEP APNEA, UNSPECIFIED 08/02/2018 ERIC CARRILLO MAGGIE T Ot R06.00 DYSPNEA, UNSPECIFIED 08/02/2018 ERIC CARRILLO MAGGIE T Ot R51 HEADACHE 08/02/2018 NICOLE REYES DOED T Ot Z68.42 BODY MASS INDEX (BMI) 45.0-49.9, ADULT 08/02/2018 NICOLE REYES DOED T Ot Z86.69 PERSONAL HISTORY OF DIS OF THE NERVOUS S 08/03/2018 NICOLE REYES DOED T Ot E66.01 MORBID (SEVERE) OBESITY DUE TO EXCESS CA 08/03/2018 NICOLE REYES DOED T Ot G47.30 SLEEP APNEA, UNSPECIFIED 08/03/2018 ERIC CARRILLO MAGGIE T Ot R06.00 DYSPNEA, UNSPECIFIED 08/03/2018 ERIC CARRILLO MAGGIE T Ot R51 HEADACHE 08/03/2018 NICOLE REYES DOED T Ot Z68.42 BODY MASS INDEX (BMI) 45.0-49.9, ADULT 08/03/2018 NICOLE REYES DOED T Ot Z86.69 PERSONAL HISTORY OF DIS OF THE NERVOUS S 09/24/2018 PRINCESS DOLIBRADOCHRISTIE L Ot G43.909 MIGRAINE, UNSP, NOT INTRACTABLE, [...] Ot Z98.84 BARIATRIC SURGERY STATUS 10/02/2018 ERIC CARRILLO MAGGIE T Ot G47.30 SLEEP APNEA, UNSPECIFIED 10/02/2018 ERIC CARRILLO MAGGIE T Ot I10 ESSENTIAL (PRIMARY) HYPERTENSION 10/02/2018 ERIC CARRILLOMAGGIE Ot S01.81XA LACERATION W/O FOREIGN BODY OF OTH PART 10/02/2018 ERIC CARRILLO MAGGIE T Ot S16.1XXA STRAIN OF MUSCLE, FASCIA AND TENDON AT N 10/02/2018 ERIC MAGGIE Ot S40.011A CONTUSION OF RIGHT SHOULDER, INITIAL ENC 10/02/2018 ERIC CARRILLOMAGGIE Ot S80.01XA CONTUSION OF RIGHT KNEE, INITIAL ENCOUNT 10/02/2018 ERIC NICOLEED T Ot W01.198A FALL SAME LEV FROM SLIP/TRIP W STRIKE AG 10/02/2018 ERIC MAGGIE Ot Z88.8 ALLERGY STATUS TO OTH DRUG/MEDS/BIOL SUB 10/02/2018 ERIC MAGGIE Ot Z90.710 ACQUIRED ABSENCE OF BOTH CERVIX AND UTER 10/02/2018 MAGGIE REYES DO Ot Z90.89 ACQUIRED ABSENCE OF OTHER ORGANS 10/02/2018 ERIC MAGGIE Ot Z98.84 BARIATRIC SURGERY STATUS 10/05/2018 EDWINA LADD, WARD Schwarz Ot M25.511 PAIN IN RIGHT SHOULDER 10/05/2018 EDWINA LADD, WARD Schwarz Ot W19.XXXA UNSPECIFIED FALL, INITIAL ENCOUNTER 10/05/2018 EDWINA LADD, WARD Schwarz Ot Y92.[address] 10/05/2018 ERIC MAGGIE Ot G47.30 SLEEP APNEA, UNSPECIFIED 10/05/2018 MAGGIE REYES DO Ot I10 ESSENTIAL (PRIMARY) HYPERTENSION 10/05/2018 ERIC MAGGIE Ot S01.81XA LACERATION W/O FOREIGN BODY OF OTH PART 10/05/2018 ERIC MAGGIE Ot S16.1XXA STRAIN OF MUSCLE, FASCIA AND TENDON AT N 10/05/2018 MAGGIE REYES DO Ot S40.011A CONTUSION OF RIGHT SHOULDER, INITIAL ENC 10/05/2018 ERIC MAGGIE Ot S80.01XA CONTUSION OF RIGHT KNEE, INITIAL ENCOUNT 10/05/2018 ERIC NICOLEED T Ot W01.198A FALL SAME LEV FROM SLIP/TRIP W STRIKE AG 10/05/2018 MAGGIE REYES DO Ot Z88.8 ALLERGY STATUS TO OTH DRUG/MEDS/BIOL SUB 10/05/2018 ERIC NICOLE CARRILLOED T Ot Z90.710 ACQUIRED ABSENCE OF BOTH CERVIX AND UTER 10/05/2018 ERIC CARRILLONICOLEED T Ot Z90.89 ACQUIRED ABSENCE OF OTHER ORGANS 10/05/2018 NICOLE REYES DOED T Ot Z98.84 BARIATRIC SURGERY STATUS 10/08/2018 [...] S80.01XD CONTUSION OF RIGHT KNEE, SUBSEQUENT ENCO 11/09/2018 DIEGO JOHNSON MD Ot E66.9 OBESITY, UNSPECIFIED 11/09/2018 DIEGO JOHNSON MD Ot F31.9 BIPOLAR DISORDER, UNSPECIFIED 11/09/2018 DIEGO JOHNSON MD Ot F41.9 ANXIETY DISORDER, UNSPECIFIED 11/09/2018 DIEGO JOHNSON MD Ot G47.30 SLEEP APNEA, UNSPECIFIED 11/09/2018 DIEGO JOHNSON MD Ot I10 ESSENTIAL (PRIMARY) HYPERTENSION 11/09/2018 DIEGO JOHNSON MD Ot K21.9 GASTRO-ESOPHAGEAL REFLUX DISEASE WITHOUT 11/09/2018 DIEGO JOHNSON MD Ot K44.9 DIAPHRAGMATIC HERNIA WITHOUT OBSTRUCTION 11/09/2018 DIEGO JOHNSON MD Ot N39.41 URGE INCONTINENCE 11/09/2018 DIEGO JOHNSON MD Ot R00.2 PALPITATIONS 11/09/2018 DIEGO JOHNSON MD Ot R07.89 OTHER CHEST PAIN 11/09/2018 DIEGO JOHNSON MD Ot Z68.42 BODY MASS INDEX (BMI) 45.0-49.9, ADULT 11/09/2018 DIEGO JOHNSON MD Ot Z79.899 OTHER SKILLED NURSING (CURRENT) DRUG THERAPY 11/09/2018 DIEGO JOHNSON MD Ot Z98.84 BARIATRIC SURGERY STATUS 11/21/2018 DIEGO JOHNSON MD Ot E66.9 OBESITY, UNSPECIFIED 11/21/2018 DIEGO JOHNSON MD Ot F31.9 BIPOLAR DISORDER, UNSPECIFIED 11/21/2018 DIEGO JOHNSON MD Ot F41.9 ANXIETY DISORDER, UNSPECIFIED 11/21/2018 DIEGO JOHNSON MD, Ot G47.30 SLEEP APNEA, UNSPECIFIED 11/21/2018 DIEGO JOHNSON MD Ot I10 ESSENTIAL (PRIMARY) HYPERTENSION 11/21/2018 DIEGO JOHNSON MD, Ot K21.9 GASTRO-ESOPHAGEAL REFLUX DISEASE WITHOUT 11/21/2018 DIEGO JOHNSON MD, Ot K44.9 DIAPHRAGMATIC HERNIA WITHOUT OBSTRUCTION 11/21/2018 DIEGO JOHNSON MD Ot N39.41 URGE INCONTINENCE 11/21/2018 DIEGO JOHNSON MD Ot R00.2 PALPITATIONS 11/21/2018 DIEGO JOHNSON MD Ot R07.89 OTHER CHEST PAIN 11/21/2018 DIEGO JOHNSON MD, Ot Z68.42 BODY MASS INDEX (BMI) 45.0-49.9, ADULT 11/21/2018 DIEGO JOHNSON MD, Ot Z79.899 OTHER SEARCH SPECIALIST (CURRENT) DRUG THERAPY 11/21/2018 DIEOG JOHNSON MD, Ot Z98.84 BARIATRIC SURGERY STATUS Procedures There is no data. Results Test [...] poor plasma bycoagulation assay 26 s 24-35 Serum or plasma troponin i.cardiac measurement (mass/volume) - 11/08/18 06:30 Serum or plasma troponin i.cardiac measurement (mass/volume) < ng/mL <0.028 CULTURE, ANAEROBIC AND AEROBIC - 11/11/18 11:23 CULTURE, ANAEROBIC BACTERIA W/GRAM STAIN SEE NOTE NR CULTURE, AEROBIC BACTERIA SEE NOTE NRG CMP - 11/16/18 14:01 GLUCOSE 86 mg/dL 65-139 UREA NITROGEN (BUN) 24 mg/dL 7-25 CREATININE 1.21 mg/dL 0.50-1.10 eGFR NON-AFR. IVORIAN 53 mL/min/1.73m2 > OR=60 eGFR 62 mL/min/1.73m2 > OR=60 BUN/CREATININE RATIO 20 (calc) 6-22 SODIUM 140 mmol/L 135-146 POTASSIUM 4.8 mmol/L 3.5-5.3 CHLORIDE 107 mmol/L 98-110 CARBON DIOXIDE 24 mmol/L 20-32 CALCIUM 9.7 mg/dL 8.6-10.2 PROTEIN, TOTAL 6.4 g/dL 6.1-8.1 ALBUMIN 3.7 g/dL 3.6-5.1 GLOBULIN 2.7 g/dL (calc) 1.9-3.7 ALBUMIN/GLOBULIN RATIO 1.4 (calc) 1.0-2.5 BILIRUBIN, TOTAL 0.2 mg/dL 0.2-1.2 ALKALINE PHOSPHATASE 55 U/L 33-115 AST 10 U/L 10-35 ALT 8 U/L 6-29 Encounters ACCT No. Visit Date/Time Discharge Status Pt. Type Provider Facility Loc./Unit Complaint [id number] 12/02/2018 09:30:00 [facility] [id number] 11/16/2018 13:00:00 Document Registration [id number] 11/11/2018 10:20:00 Document Registration [id number] 11/08/2018 04:33:00 11/09/2018 11:57:00 DIS Inpatient DIEGO JOHNSON MD [facility] 4TH CHEST PAIN [id number] 11/01/2018 11:06:00 11/01/2018 23:59:59 CLS Outpatient CHRISSY RHODES [facility] RAD FS [id number] 10/08/2018 11:18:00 10/08/2018 13:35:00 DIS Emergency ELVA BREWER [facility] ER FALL - R KNEE / R SHOULDER PAIN [id number] 10/04/2018 11:00:00 10/04/2018 23:59:59 CLS Outpatient WARD BLAND MD [facility] RAD FS E888.9 [id number] 10/02/2018 10:46:00 10/02/2018 11:32:00 DIS Emergency MAGGIE REYES DO [facility] ER FS RT SIDE OF BODY PAIN, EYE LAC [id number] 09/24/2018 01:12:00 09/24/2018 02:31:00 DIS Emergency CHRISTIE SÁNCHEZ DO [facility] ER FS MIGRAINE [id number] 08/01/2018 22:05:00 08/02/2018 02:15:00 DIS Emergency MAGGIE REYES DO [facility] ER FS MIGRAINE, SOB
[2018-12-03 19:44] LABS: CLARITY,URINE CLEAR; COLOR,URINE YELLOW
[2018-12-03 19:45] LABS: BACTERIA,URINE FEW /HPF; BILIRUBIN,URINE NEGATIVE (NEGATIVE); GLUCOSE, URINE (UA) NEGATIVE (NEGATIVE); KETONES,URINE NEGATIVE (NEGATIVE); LEUKOCYTE ESTERASE ,URINE NEGATIVE (NEGATIVE); NITRITE,URINE NEGATIVE (NEGATIVE); PROTEIN,URINE NEGATIVE (NEGATIVE); RBC,URINE RARE /HPF; WBC,URINE RARE /HPF
[2018-12-03] MEDS ORDERED: KETOROLAC 60 MG/2 ML VIAL IM ONE (19:45)
[2018-12-03] MEDS ORDERED: ORPHENADRINE 60 MG/2 ML (NORFLEX) AMP IM ONE (19:45)
--- NOTE | 2018-12-03 19:47 | ED Back Pain ---
General Chief Complaint: Back Problems Stated Complaint: LOW BACK PAIN Nursing Triage Note: PT. REPORTED SHE HAS BACK PAIN THAT STARTED 1 WEEK AGO. PAIN WAS WORSE TONIGHT SO SHE CAME TO THE ER. SHE HAS A LUMP ON THE RIGHT SIDE ABOUT 3 INCHS WIDE. Nursing Sepsis Screen: No Definite Risk Source of Information: Patient Exam Limitations: No Limitations History of Present Illness Date Seen by Provider: Dec 03, 2018 Time Seen by Provider: 19:45 Initial Comments Patient complains of right flank pain for the past week. She denies injury. Pain is worse with movement. It is constant but becomes severe at times. She denies nausea or vomiting. No fevers or chills. She says she feels a lump at the area of pain. Allergies and Home Medications Allergies Coded Allergies: meloxicam (Verified Allergy, Unknown, RASH/ITCHING, 12/03/18) Home Medications Cariprazine Hydrochloride 1.5 Mg Capsule, 1.5 MG PO DAILY, (Reported) Cholecalciferol (Vitamin D3) 5,000 Unit Capsule, 5,000 UNIT PO DAILY, (Reported) Clonazepam 1 Mg Tablet, 1 MG PO DAILY PRN for ANXIETY, (Reported) Clonazepam 1 Mg Tablet, 1 MG PO HS, (Reported) Divalproex Sodium 500 Mg Tab.er.24h, 1,500 MG PO HS, (Reported) TAKES 3 (500MG) TABLETS Escitalopram Oxalate 10 Mg Tablet, 10 MG PO DAILY, (Reported) Gabapentin 400 Mg Capsule, 400 MG PO BID, (Reported) Multivitamin 1 Each Tablet, 1 TAB PO DAILY, (Reported) Pantoprazole Sodium 40 Mg Tablet.dr, 40 MG PO DAILY Prescribed by: KUMAR LEYVA on 11/08/18 1046 Propranolol HCl 40 Mg Tablet, 40 MG PO BID, (Reported) TAKES ALONG WITH 60MG TABLET Propranolol HCl 60 Mg Tablet, 60 MG PO BID, (Reported) TAKES ALONG WITH 40MG TABLET Ropinirole HCl 1 Mg Tablet, 1 MG PO HS, (Reported) Trazodone HCl 100 Mg Tablet, 100 MG PO HS, (Reported) Patient Home Medication List Home Medication List Reviewed: Yes Review of Systems Constitutional: no symptoms reported Respiratory: no symptoms reported Cardiovascular: no symptoms reported Gastrointestinal: no symptoms reported Musculoskeletal: back pain All Other Systems Reviewed Negative Unless Noted: Yes Past Jpxapeg-Pcuguc-Nztzet Hx Patient Social History 2nd Hand Smoke Exposure: No Recent Foreign Travel: No Contact w/Someone Who Travel: No Recent Infectious Disease Expo: No Recent Hopitalizations: No Physical Abuse: No Sexual Abuse: No Mistreated: No Fear: No Immunizations Up To Date Tetanus Booster (TDap): Unknown Date of Pneumonia Vaccine: Mar 10, 2018 Date of Influenza Vaccine: Feb 21, 2018 Seasonal Allergies Seasonal Allergies: No Past Medical History Surgeries: Yes (gastric sleeve, thyroidectomy "half of thyroid removed") Abdominal, Section, Gallbladder, Hysterectomy, Orthopedic, Thyroidectomy Respiratory: Yes Sleep Apnea Cardiac: Yes Hypertension Neurological: No 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 0.0oz. 131.759743iv; BMI Method:Stated General Appearance: No Apparent Distress, WD/WN, Obese HEENT: Pharynx Normal Neck: Supple Cardiovascular: Regular Rate, Rhythm, No Edema Respiratory: Lungs Clear Gastrointestinal: Soft Back: Decreased Range of Motion, Muscle Spasm, Other (tender mass versus spasm right flank.) Extremity: Normal Inspection, Normal Range of Motion Neurologic/Psychiatric: Alert, No Motor/Sensory Deficits Skin: Normal Color, Warm/Dry Progress/Results/Core Measures Results/Orders Lab Results Laboratory Tests Test 12/03/18 19:21 Range/Units Urine Color YELLOW Urine Clarity CLEAR Urine pH 7.0 5-9 Urine Specific [place] 1.015 L 1.016-1.022 Urine Protein NEGATIVE NEGATIVE Urine Glucose (UA) NEGATIVE NEGATIVE Urine Ketones NEGATIVE NEGATIVE Urine Nitrite NEGATIVE NEGATIVE Urine Bilirubin NEGATIVE NEGATIVE Urine Urobilinogen 1.0 NORMAL MG/DL Urine Leukocyte Esterase NEGATIVE NEGATIVE Urine RBC (Auto) NEGATIVE NEGATIVE Urine RBC RARE /HPF Urine WBC RARE /HPF Urine Squamous Epithelial Cells 2-5 /HPF Urine Crystals NEG /LPF Urine Bacteria FEW H /HPF Urine Casts NONE /LPF Urine Mucus NEGATIVE /LPF Urine Culture Indicated NO My Orders Orders - DAVID MEADOWS MD Urinalysis (12/03/18 19:29) Ct Abdomen/Pelvis Wo (12/03/18 19:42) Ketorolac Injection (Toradol Injection) (12/03/18 19:45) Orphenadrine Injection (Norflex Injectio (12/03/18 19:45) Medications Given in ED Current Medications Medications Dose Ordered Sig/Michele Route Start Time Stop Time Status Last Admin Dose Admin Ketorolac Tromethamine 60 mg ONCE ONCE IM 12/03/18 19:45 12/03/18 19:46 DC 12/03/18 19:49 60 MG Orphenadrine Citrate 60 mg ONCE ONCE IM 12/03/18 19:45 12/03/18 19:46 DC 12/03/18 19:49 60 MG Vital Signs/I&O 12/03/18 19:11 Temp 98.7 Pulse 62 Resp 20 B/P (MAP) 144/90 (108) Pulse Ox 97 O2 Delivery Room Air Blood Pressure Mean: 108 Progress Progress Note : Time: 21:[address] findings discussed with patient. She should follow-up with her primary care physician regarding in reality seen on CT scan. I think pain is musculoskeletal. We'll prescribe a muscle relaxant. Departure Impression Primary Impression: Back pain Disposition: HOME, SELF-CARE Condition: Stable Departure-Patient Inst. Decision time for Depature: 21:12 Referrals: WARD BLAND MD (PCP/Family) Primary Care Physician Patient Instructions: Low Back Pain (DC) Add. Discharge Instructions: Heating pad and gentle massage. See her doctor Wednesday for follow-up. All discharge instructions reviewed with patient and/or family. Voiced understanding. Scripts Cyclobenzaprine HCl (Cyclobenzaprine HCl) 10 Mg Tablet 10 MG PO Q8H PRN for SPASMS, #15 TAB 0 Refills Prov: DAVID MEADOWS MD 12/03/18 DAVID MEADOWS MD Dec 03, 2018 19:47
--- NOTE | 2018-12-03 20:41 | Diagnostic Imaging Report ---
PROCEDURE: CT abdomen and pelvis without contrast. TECHNIQUE: Multiple contiguous axial images were obtained through the abdomen and pelvis without the use of intravenous contrast. Auto Exposure Controls were utilized during the CT exam to meet ALARA standards for radiation dose reduction. INDICATION: Right-sided flank pain, question stones. EXAMINATION: CT of the abdomen and pelvis without contrast 12/03/2018 COMPARISONS: None FINDINGS: There is a small to moderate-sized hiatal hernia. Postoperative findings seen about the stomach with suture line present. Abdominal viscera limited due to lack of contrast. There is evidence of cholecystectomy. Liver and spleen demonstrate no acute abnormalities. Spleen is just above the upper limits of normal in size. Pancreas is unremarkable. Left adrenal gland normal, right adrenal gland contains a small centimeter low-density lesion which should be further evaluated non-emergently with an adrenal protocol CT. Small low-density lesions in the right kidney are noted and poorly characterized without contrast. This could also be followed with CT or sonography on a nonemergent basis. Left kidney unremarkable for focal lesion. Punctate stones in the right kidney nonobstructive in nature. No hydronephrosis. No ureteral stones on either side. No free fluid or air in the abdomen with minimal free fluid in pelvis likely physiologic. Cystic changes seen in both ovaries. Findings of mild constipation with no inflammatory change about the bowel loops. Appendix unremarkable. Nonspecific hyperdensity and adjacent soft tissue heterogeneity along the midline of the anterior abdomen most likely postoperative in nature; correlate with surgical history. An adjacent tiny fat-containing umbilical hernia noted. Atherosclerotic disease is seen. Osseous structures demonstrate chronic change. The visualized lung bases unremarkable. An old appearing right lateral rib fracture also noted. IMPRESSION: 1. Nonspecific findings along the anterior abdominal wall likely postoperative, see above discussion. 2. Chronic findings in the Abdomen and pelvis with an acute process not seen. Followup of the right kidney and right adrenal gland recommended as noted above on a nonemergent basis. 3. Hiatal hernia. 4. Slightly prominent spleen nonspecific in nature. Dictated by: Dictated on workstation # [id number]
[2018-12-03] MEDS ORDERED: CYCL10TA9 PO (21:14)
[2018-12-03 21:17] VITALS: BP 144/90
[2018-12-07] MEDS ORDERED: TIZA4TAB11 PO (21:47)
[2018-12-07] MEDS ORDERED: METH4TAB PO (21:47)
== END 2018-12-03 21:18 | disposition home or self-care (01) ==
LOC: EDUNIT# 19:06 → ER FS 19:08
DX: M54.5 Low back pain (principal); G47.30 Sleep apnea, unspecified; I10 Essential (primary) hypertension; F31.9 Bipolar disorder, unspecified; F41.9 Anxiety disorder, unspecified; Z88.6 Allergy status to analgesic agent; Z90.710 Acquired absence of both cervix and uterus; Z82.49 Family history of ischemic heart disease and other diseases of the circulatory system
CPT/HCPCS: 74176; 81000; 96372

== ENCOUNTER 2018-12-07 19:16 | Emergency (ER) | payer MEDICARE, MEDICAID | END 2018-12-07 22:31 | disposition home or self-care (01) | LOC: ER 19:16 ==

== ENCOUNTER → 2018-12-20 | Outpatient (CLI) | payer MEDICARE, MEDICAID ==
[~2018-12-20] MED LIST changes: +BARIUM SUSPENSION 2.1% (VANILLA SILQ) 450 ML PO ONE; +CATHETER FLUSH 10 ML SYR IV PRN; +CYCL10TA9 PO; +HOLD METFORMIN - RECEIVED CONTRAST 20 ML VIAL IV SCH; +IOHEXOL 350 MG/ML 100 ML (OMNIPAQUE 350) VIAL IV ONE; +METH4TAB PO; +NS 100 ML (IVPB) BAG IV ONE; +TIZA4TAB11 PO
--- NOTE | 2018-12-20 11:39 | Diagnostic Imaging Report ---
PROCEDURE: CT abdomen with and without contrast. TECHNIQUE: Multiple contiguous axial CT images of the abdomen were obtained prior to and after intravenous administration of iodinated contrast. Auto Exposure Controls were utilized during the CT exam to meet ALARA standards for radiation dose reduction. INDICATION: Adrenal and renal lesion. FINDINGS: Comparison is 12/03/2018. There is a 9 mm right adrenal nodule. The noncontrast attenuation is 18 Hounsfield units. The absolute washout is 77% and the relative washout is 57%, both findings are in keeping with an adenoma. An 11 mm right upper pole renal lesion demonstrates enhancement of less than 8 Hounsfield units in keeping with a proteinaceous cyst rather than a solid neoplasm. Limited views of the lower thorax are unremarkable. Liver is normal. No focal liver lesions are seen. Gallbladder is absent. No biliary ductal dilation. Portal vein is patent. Pancreas, spleen and left adrenal gland are normal. There is no hydronephrosis. No dilated loops of bowel. No abdominal lymphadenopathy. No suspicious osseous lesions. IMPRESSION: 1. The right adrenal nodule is an adenoma. 2. The right renal lesion is likely a proteinaceous cyst as there is no contrast enhancement. Dictated by: Dictated on workstation # [id number]
== END ==
LOC: RAD FS 08:17
PROVIDERS: ATTEND Nurse Practitioner Family
DX: D35.01 Benign neoplasm of right adrenal gland (principal); N28.9 Disorder of kidney and ureter, unspecified; N20.0 Calculus of kidney; Z90.49 Acquired absence of other specified parts of digestive tract
CPT/HCPCS: 74170

== ENCOUNTER 2019-02-22 11:14 | Emergency (ER) | payer MEDICARE, MEDICAID ==
[~2019-02-22] VITALS: Ht 165 cm; Wt 135.0 kg
[~2019-02-22 11:14] MED LIST changes: -BARIUM SUSPENSION 2.1% (VANILLA SILQ) 450 ML PO ONE; -CATHETER FLUSH 10 ML SYR IV PRN; -HOLD METFORMIN - RECEIVED CONTRAST 20 ML VIAL IV SCH; -IOHEXOL 350 MG/ML 100 ML (OMNIPAQUE 350) VIAL IV ONE; -NS 100 ML (IVPB) BAG IV ONE
--- NOTE | 2019-02-22 11:25 | NUR ---
Unable to get SL placed after 2 difficult attempts threading per Urmila HARRINGTON. states send blood, hold IV.
--- NOTE | 2019-02-22 11:37 | ED Chest Pain ---
General Stated Complaint: CHEST PAIN; NAUSEA; HEADACHE; RT LEG TINGLING Source: patient Exam Limitations: no limitations History of Present Illness Date Seen by Provider: Feb 22, 2019 Time Seen by Provider: 11:33 Initial Comments Patient presents with intermittent chest pain for the past one week. Located central and left side of her chest with no exacerbating factors. Pain is described as sharp and lasting minutes to hours. Denies history of heart or lung disease. The last 6 months she has had a workup for chest pain including a stress test which was negative. She does not take aspirin or any blood thi nners. Denies associated abdominal pain, but does have some nausea without vomiting. Location: substernal, epigastric Radiation: no radiation Allergies and Home Medications Allergies Coded Allergies: meloxicam (Verified Allergy, Unknown, RASH/ITCHING, 12/03/18) Home Medications Cariprazine Hydrochloride 1.5 Mg Capsule, 1.5 MG PO DAILY, (Reported) Cholecalciferol (Vitamin D3) 5,000 Unit Capsule, 5,000 UNIT PO DAILY, (Reported) Clonazepam 1 Mg Tablet, 1 MG PO DAILY PRN for ANXIETY, (Reported) Clonazepam 1 Mg Tablet, 1 MG PO HS, (Reported) Cyclobenzaprine HCl 10 Mg Tablet, 10 MG PO Q8H PRN for SPASMS Prescribed by: DAVID MEADOWS on 12/03/182113 Divalproex Sodium 500 Mg Tab.er.24h, 1,500 MG PO HS, (Reported) TAKES 3 (500MG) TABLETS Escitalopram Oxalate 10 Mg Tablet, 10 MG PO DAILY, (Reported) Gabapentin 400 Mg Capsule, 400 MG PO BID, (Reported) Methylprednisolone 4 Mg Tab.ds.pk, 4 MG PO UD Prescribed by: KLAUS HILL on 12/07/182146 Multivitamin 1 Each Tablet, 1 TAB PO DAILY, (Reported) Pantoprazole Sodium 40 Mg Tablet.dr, 40 MG PO DAILY Prescribed by: KUMAR LEYVA on 11/08/18 1046 Propranolol HCl 40 Mg Tablet, 40 MG PO BID, (Reported) TAKES ALONG WITH 60MG TABLET Propranolol HCl 60 Mg Tablet, 60 MG PO BID, (Reported) TAKES ALONG WITH 40MG TABLET Ropinirole HCl 1 Mg Tablet, 1 MG PO HS, (Reported) Tizanidine HCl 4 Mg Tablet, 4 MG PO TID Prescribed by: KLAUS HILL on 12/07/182146 Trazodone HCl 100 Mg Tablet, 100 MG PO HS, (Reported) Patient Home Medication List Home Medication List Reviewed: Yes Review of Systems Review of Systems Constitutional: No chills, No diaphoresis, No dizziness, No fever, No malaise, No weakness Respiratory: See HPI; Denies Cough, Denies Orthopnea; Shortness of Air; Denies SOA With Exertion, Denies SOA at Rest Cardiovascular: See HPI, Chest Pain; Denies Edema, Denies Irregular Heart Rate, Denies Lightheadedness, Denies Palpitations, Denies Syncope Gastrointestinal: Denies Abdomen Distended, Denies Abdominal Pain, Denies Constipated, Denies Diarrhea; Nausea; Denies Poor Appetite Musculoskeletal: No back pain, No joint pain Past Rcnkomh-Tesglu-Koyggm Hx Past Med/Social Hx: Reviewed Nursing Past Med/Soc Hx Patient Social History 2nd Hand Smoke Exposure: No Recent Hopitalizations: No Immunizations Up To Date Tetanus Booster (TDap): Unknown Date of Pneumonia Vaccine: Mar 10, 2018 Date of Influenza Vaccine: Feb 21, 2018 Seasonal Allergies Seasonal Allergies: No Past Medical History Surgeries: Yes (gastric sleeve, thyroidectomy "half of thyroid removed") Abdominal, Section, Gallbladder, Hysterectomy, Orthopedic, Thyroidectomy Respiratory: Yes Sleep Apnea Cardiac: Yes Hypertension Neurological: No EPIDEMIOLOGY INTERN History: Hysterectomy Genitourinary: No Gastrointestinal: Yes (urge incontinence) Musculoskeletal: Yes (recent right shoulder issues current Physical therapy) Endocrine: Yes (thyroidectomy) HEENT: No Cancer: No Psychosocial: Yes Anxiety, Bipolar, Depression Integumentary: No Blood Disorders: No Family Medical History Heart Disease Physical Exam Vital Signs Vital Signs - First Documented Capillary Refill : Height, Weight, BMI Height: 5'4.00" Weight: 289lbs. 0oz. [phone]; BMI Method:Actual General Appearance: No Apparent Distress, WD/WN; No Anxious Neck: Full Range of Motion, Normal Inspection, Non Tender Respiratory: Chest Non Tender, Lungs Clear, Normal Breath Sounds, No Accessory Muscle Use, No Respiratory Distress Cardiovascular: Regular Rate, Rhythm, No Edema, No Gallop, No JVD, No Murmur, Normal Peripheral Pulses Gastrointestinal: Normal Bowel Sounds, No Organomegaly, No Pulsatile Mass, Non Tender Extremity: Normal Capillary Refill, Non Tender, No Calf Tenderness, No Pedal Edema; No Pedal Edema Skin: Normal Color, Warm/Dry Progress/Results/Core Measures Results/Orders Lab Results Laboratory Tests Test 02/22/19 11:25 02/22/19 11:58 Range/Units White Blood Count 12.5 H 4.3-11.0 10^3/uL Red Blood Count 4.58 4.35-5.85 10^6/uL Hemoglobin 13.2 11.5-16.0 G/DL Hematocrit 42 35-52 % Mean Corpuscular Volume 92 80-99 FL Mean Corpuscular Hemoglobin 29 25-34 PG Mean Corpuscular Hemoglobin Concent 32 32-36 G/DL Red Cell Distribution Width 13.0 10.0-14.5 % Platelet Count 228 130-400 10^3/uL Mean Platelet Volume 10.7 H 7.4-10.4 FL Neutrophils (%) (Auto) 74 42-75 % Lymphocytes (%) (Auto) 20 12-44 % Monocytes (%) (Auto) 4 0-12 % Eosinophils (%) (Auto) 1 0-10 % Basophils (%) (Auto) 1 0-10 % Neutrophils # (Auto) 9.3 H 1.8-7.8 X 10^3 Lymphocytes # (Auto) 2.5 1.0-4.0 X 10^3 Monocytes # (Auto) 0.5 0.0-1.0 X 10^3 Eosinophils # (Auto) 0.1 0.0-0.3 10^3/uL Basophils # (Auto) 0.1 0.0-0.1 10^3/uL Sodium Level 138 135-145 MMOL/L Potassium Level 4.3 3.6-5.0 MMOL/L Chloride Level 104 98-107 MMOL/L Carbon Dioxide Level 26 21-32 MMOL/L Anion Gap 8 5-14 MMOL/L Blood Urea Nitrogen 12 7-18 MG/DL Creatinine 0.81 0.60-1.30 MG/DL Estimat Glomerular Filtration Rate > 60 BUN/Creatinine Ratio 15 Glucose Level 106 H 70-105 MG/DL Calcium Level 10.0 8.5-10.1 MG/DL Corrected Calcium 10.2 H 8.5-10.1 MG/DL Total Bilirubin 0.3 0.1-1.0 MG/DL Aspartate Amino Transf (AST/SGOT) 12 5-34 U/L Alanine Aminotransferase (ALT/SGPT) 8 0-55 U/L Alkaline Phosphatase 67 40-136 U/L Troponin I < 0.30 <0.30 NG/ML Total Protein 6.8 6.4-8.2 GM/DL Albumin 3.8 3.2-4.5 GM/DL Urine Color YELLOW Urine Clarity CLEAR Urine pH 6.5 5-9 Urine Specific [place] <1.005 1.016-1.022 Urine Protein NEGATIVE NEGATIVE Urine Glucose (UA) NEGATIVE NEGATIVE Urine Ketones NEGATIVE NEGATIVE Urine Nitrite NEGATIVE NEGATIVE Urine Bilirubin NEGATIVE NEGATIVE Urine Urobilinogen 0.2 NORMAL MG/DL Urine Leukocyte Esterase NEGATIVE NEGATIVE Urine RBC (Auto) NEGATIVE NEGATIVE Urine RBC NONE /HPF Urine WBC NONE /HPF Urine Squamous Epithelial Cells RARE /HPF Urine Crystals NONE /LPF Urine Bacteria NONE /HPF Urine Casts NONE /LPF Urine Mucus NEG /LPF Urine Culture Indicated NO My Orders Orders - LUCA GILL DO Ed Iv/Invasive Line Start (02/22/19 11:18) Chest 1 View Ap/Pa Only (02/22/19 11:18) Ekg Tracing (02/22/19 11:18) Troponin I Fs (02/22/19 11:18) Cbc With Automated Diff (02/22/19 11:18) Comprehensive Metabolic Panel (02/22/19 11:18) Urinalysis (02/22/19 11:55) Vital Signs/I&O 02/22/19 02/22/19 02/22/19 11:14 11:14 12:37 Temp 37.2 37.6 Pulse 59 60 Resp 16 16 B/P (MAP) 182/84 (116) 147/81 (116) Pulse Ox 96 96 O2 Delivery Room Air Room Air Room Air Initial ECG Impression Date: Feb 22, 2019 Initial ECG Impression Time: 11:15 Initial ECG Rhythm: Normal Sinus Initial ECG Intervals: Normal Initial ECG Impression: Normal Initial ECG Comparisson: No Previous ECG Available Departure Impression Primary Impression: Chest pain Qualified Codes: R07.9 - Chest pain, unspecified Disposition: 01 HOME, SELF-CARE Condition: Stable Departure-Patient Inst. Referrals: GARETH VASQUEZ APRN (PCP) Primary Care Physician [facility] (Family) Primary Care Physician Patient Instructions: Chest Pain LUCA GILL DO Feb 22, 2019 11:37
[2019-02-22 11:44] LABS: BASOPHILS # (AUTO) 0.1 10^3/uL (0.0-0.1); BASOPHILS % (AUTO) 1 % (0-10); EOSINOPHILS # (AUTO) 0.1 10^3/uL (0.0-0.3); EOSINOPHILS % (AUTO) 1 % (0-10); HEMATOCRIT 42 % (35-52); HEMOGLOBIN 13.2 G/DL (11.5-16.0); LYMPHOCYTES # (AUTO) 2.5 X 10^3 (1.0-4.0); LYMPHOCYTES % (AUTO) 20 % (12-44); MEAN CORPUSCULAR HEMOGLOBIN 29 PG (25-34); MEAN CORPUSCULAR HGB CONC 32 G/DL (32-36); MEAN CORPUSCULAR VOLUME 92 FL (80-99); MEAN PLATELET VOLUME 10.7 FL (7.4-10.4); MONOCYTES # (AUTO) 0.5 X 10^3 (0.0-1.0); MONOCYTES % (AUTO) 4 % (0-12); NEUTROPHILS # (AUTO) 9.3 X 10^3 (1.8-7.8); NEUTROPHILS % (AUTO) 74 % (42-75); PLATELET COUNT 228 10^3/uL (130-400); WHITE BLOOD COUNT 12.5 10^3/uL (4.3-11.0)
[2019-02-22 11:57] LABS: BUN/CREATININE RATIO 15; CARBON DIOXIDE 26 MMOL/L (21-32); CHLORIDE 104 MMOL/L (98-107); CREATININE SERUM 0.81 MG/DL (0.60-1.30); GFR ESTIMATED > 60; POTASSIUM 4.3 MMOL/L (3.6-5.0); SODIUM 138 MMOL/L (135-145)
[2019-02-22 11:58] LABS: ALANINE AMINOTRANSFERASE 8 U/L (0-55); ALBUMIN 3.8 GM/DL (3.2-4.5); ALKALINE PHOSPHATASE 67 U/L (40-136); BILIRUBIN,TOTAL 0.3 MG/DL (0.1-1.0); GLUCOSE 106 MG/DL (70-105); TOTAL PROTEIN 6.8 GM/DL (6.4-8.2)
[2019-02-22 12:12] LABS: CLARITY,URINE CLEAR; COLOR,URINE YELLOW
[2019-02-22 12:13] LABS: BILIRUBIN,URINE NEGATIVE (NEGATIVE); GLUCOSE, URINE (UA) NEGATIVE (NEGATIVE); KETONES,URINE NEGATIVE (NEGATIVE); LEUKOCYTE ESTERASE ,URINE NEGATIVE (NEGATIVE); NITRITE,URINE NEGATIVE (NEGATIVE); PH,URINE 6.5 (5-9); PROTEIN,URINE NEGATIVE (NEGATIVE); SQUAMOUS EPITHELIAL CELL,UR RARE /HPF; UROBILINOGEN,URINE 0.2 MG/DL (NORMAL)
--- NOTE | 2019-02-22 12:27 | Diagnostic Imaging Report ---
EXAMINATION: Chest radiograph, portable AP view. DATE: February 22, 2019 at 1133 hours. INDICATION: 48-year-old female, chest pain and shortness of breath. COMPARISON: November 08, 2018. FINDINGS: Stable overall appearance of the cardiomediastinal silhouette. The right paramediastinal convexity projecting inferior to the medial aspect of the right clavicle is unchanged from the recent comparison exam. There is no identified pneumothorax. There is no large pleural effusion. There is no identified interval focal airspace consolidation. 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 The lesion is unchanged on the prior CT of November 08, 2018 in size compared to August 02, 2018. There is question of internal groundglass matrix on prior CT imaging. IMPRESSION: 1. No identified acute cardiopulmonary abnormality. 2. 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 Evaluation for size on current radiographic exam is limited. 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 Comparison with earlier prior imaging is recommended to evaluate for potential longer term stability. Dictated by: Dictated on workstation # [id number]
--- NOTE | 2019-02-22 12:35 | NUR ---
To room to discuss discharge, pt has all monitoring removed and reports is not happy. This sheet writer asked what questions/concerns did she have after Dr spoke with her. Pt states she can not believe she has no answer for chest pain. Pt was explained that states she can follow up with her medical PCP for further work up and/or follow up.
[2019-02-22 12:37] VITALS: BP 147/81
--- NOTE | 2019-02-22 12:37 | NUR ---
Pt signed discharge instructions and verbalizes understanding of home instructions reviewed.
== END 2019-02-22 12:37 | disposition home or self-care (01) ==
LOC: EDUNIT# 11:14 → ER FS 11:15
DX: R07.9 Chest pain, unspecified (principal); I10 Essential (primary) hypertension; F41.9 Anxiety disorder, unspecified; F31.9 Bipolar disorder, unspecified; Z90.710 Acquired absence of both cervix and uterus; Z88.8 Allergy status to other drugs, medicaments and biological substances; Z79.52 Long term (current) use of systemic steroids; Z82.49 Family history of ischemic heart disease and other diseases of the circulatory system
CPT/HCPCS: 36415; 71045; 80053; 81000; 84484; 85025; 93005

== ENCOUNTER 2019-10-14 17:14 | Emergency (ER) | payer MEDICARE, MEDICAID ==
[~2019-10-14] VITALS: Ht 162.5 cm; Wt 137.2 kg
[~2019-10-14 17:14] MED LIST changes: +ROPI1TAB PO; -ROPI1TAB2 PO; -TRAZ-190 PO; +TRAZ-227 PO
--- OUTSIDE RECORDS SUMMARY | 2019-10-14 17:20 | XMS REPORT | Continuity of Care Document ---
Author Organization Unknown Address Unknown Phone Unavailable Allergies Active Description Code Type Severity Reaction Onset Reported/Identified Relationship to Patient Clinical Status Yes No Known Drug Allergies [id number] Drug Allergy Unknown N/A 08/02/2018 Yes meloxicam [id number] Drug Allergy Unknown RASH 10/02/2018 Yes meloxicam [id number] Drug Allergy Unknown RASH/ITCHING 12/03/2018 Medications There is no data. Problems Date Dx Coded Attending Type Code Diagnosis Diagnosed By 08/02/2018 MAGGIE REYES DO T Ot E66. 01 MORBID (SEVERE) OBESITY DUE TO EXCESS CA 08/02/2018 ERIC CARRILLO MAGGIE T Ot G47. 30 SLEEP APNEA, UNSPECIFIED 08/02/2018 ERIC CARRILLO MAGGIE T Ot R06. 00 DYSPNEA, UNSPECIFIED 08/02/2018 ERIC CARRILLO MAGGIE T Ot R51 HEADACHE 08/02/2018 ERIC CARRILLO MAGGIE T Ot Z68. 42 BODY MASS INDEX (BMI) 45.0-49.9, ADULT 08/02/2018 NICOLE REYES DOED T Ot Z86. 69 PERSONAL HISTORY OF DIS OF THE NERVOUS S 08/03/2018 ERIC CARRILLO MAGGIE T Ot E66. 01 MORBID (SEVERE) OBESITY DUE TO EXCESS CA 08/03/2018 NICOLE REYES DOED T Ot G47. 30 SLEEP APNEA, UNSPECIFIED 08/03/2018 NICOLE REYES DOED T Ot R06. 00 DYSPNEA, UNSPECIFIED 08/03/2018 ERIC CARRILLO MAGGIE T Ot R51 HEADACHE 08/03/2018 ERIC CARRILLO MAGGIE T Ot Z68. 42 BODY MASS INDEX (BMI) 45.0-49.9, ADULT 08/03/2018 NICOLE REYES DOED T Ot Z86. 69 PERSONAL HISTORY OF DIS OF THE NERVOUS S 09/24/2018 SÁNCHEZ DO, CHRISTIE L Ot G43.9 09 MIGRAINE, UNSP, NOT INTRACTABLE, WITHOUT 09/24/2018 SÁNCHEZ DO, CHRISTIE L Ot G47.3 0 SLEEP APNEA, UNSPECIFIED 09/24/2018 SÁNCHEZ DO, CHRISTIE L Ot I10 ESSENTIAL (PRIMARY) HYPERTENSION 09/24/2018 SÁNCHEZ DO, CHRISTIE L Ot R51 HEADACHE 09/24/2018 SÁNCHEZ DO, CHRISTIE L Ot Z88.8 ALLERGY STATUS TO OTH DRUG/MEDS/BIOL SUB 09/24/2018 SÁNCHEZ DO, CHRISTIE L Ot Z90.7 10 ACQUIRED ABSENCE OF BOTH CERVIX AND UTER 09/24/2018 SÁNCHEZ DO, CHRISTIE L Ot Z90.8 9 ACQUIRED ABSENCE OF OTHER ORGANS 09/24/2018 SÁNCHEZ DO, CHRISTIE L Ot Z98.8 4 BARIATRIC SURGERY STATUS 09/27/2018 SÁNCHEZ DO, CHRISTIE L Ot G43.9 09 MIGRAINE, UNSP, NOT INTRACTABLE, WITHOUT 09/27/2018 SÁNCHEZ DO, CHRISTIE L Ot G47.3 0 SLEEP APNEA, UNSPECIFIED 09/27/2018 SÁNCHEZ DO, CHRISTIE L Ot I10 ESSENTIAL (PRIMARY) HYPERTENSION 09/27/2018 SÁNCHEZ DO, CHRISTIE L Ot R51 HEADACHE 09/27/2018 SÁNCHEZ DO, CHRISTIE L Ot Z88.8 ALLERGY STATUS TO OTH DRUG/MEDS/BIOL SUB 09/27/2018 SÁNCHEZ DO, CHRISTIE L Ot Z90.7 10 ACQUIRED ABSENCE OF BOTH CERVIX AND UTER 09/27/2018 SÁNCHEZ DO, CHRISTIE L Ot Z90.8 9 ACQUIRED ABSENCE OF OTHER ORGANS 09/27/2018 SÁNCHEZ DO, CHRISTIE L Ot Z98.8 4 BARIATRIC SURGERY STATUS 09/30/2018 SÁNCHEZ DO, CHRISTIE L Ot G43.9 09 MIGRAINE, UNSP, NOT INTRACTABLE, WITHOUT 09/30/2018 SÁNCHEZ DO, CHRISTIE L Ot G47.3 0 SLEEP APNEA, UNSPECIFIED 09/30/2018 SÁNCHEZ DO, CHRISTIE L Ot I10 ESSENTIAL (PRIMARY) HYPERTENSION 09/30/2018 SÁNCHEZ DO, CHRISTIE L Ot R51 HEADACHE 09/30/2018 SÁNCHEZ DO, CHRISTIE L Ot Z88.8 ALLERGY STATUS TO OTH DRUG/MEDS/BIOL SUB 09/30/2018 SÁNCHEZ DO, CHRISTIE L Ot Z90.7 10 ACQUIRED ABSENCE OF BOTH CERVIX AND UTER 09/30/2018 SÁNCHEZ DO, CHRISTIE L Ot Z90.8 9 ACQUIRED ABSENCE OF OTHER ORGANS 09/30/2018 SÁNCHEZ DO, CHRISTIE L Ot Z98.8 4 BARIATRIC SURGERY STATUS 10/02/2018 NICOLE REYES DOED T Ot G47. 30 SLEEP APNEA, UNSPECIFIED 10/02/2018 MAGGIE REYES DO T Ot I10 ESSENTIAL (PRIMARY) HYPERTENSION 10/02/2018 MAGGIE REYES DO Ot S01.81XA LACERATION W/O FOREIGN BODY OF OTH PART 10/02/2018 ERIC CARRILLO MAGGIE Jamshid Ot S16.1XXA STRAIN OF MUSCLE, FASCIA AND TENDON AT N 10/02/2018 MAGGIE REYES DO Ot S40.011A CONTUSION OF RIGHT SHOULDER, INITIAL ENC 10/02/2018 ERIC MAGGIE Ot S80.01XA CONTUSION OF RIGHT KNEE, INITIAL ENCOUNT 10/02/2018 ERIC MAGGIE T Ot W01.198A FALL SAME LEV FROM SLIP/TRIP W STRIKE AG 10/02/2018 MAGGIE REYES DO Ot Z88. 8 ALLERGY STATUS TO OTH DRUG/MEDS/BIOL SUB 10/02/2018 MAGGIE REYES DO Ot Z90.710 ACQUIRED ABSENCE OF BOTH CERVIX AND UTER 10/02/2018 MAGGIE REYES DO Ot Z90. 89 ACQUIRED ABSENCE OF OTHER ORGANS 10/02/2018 MAGGIE REYES DO Ot Z98. 84 BARIATRIC SURGERY STATUS 10/05/2018 EDWINA LADD, WARD Schwarz Ot M25.511 PAIN IN RIGHT SHOULDER 10/05/2018 EDWINA LADD, WARD Schwarz Ot W19.XXXA UNSPECIFIED FALL, INITIAL ENCOUNTER 10/05/2018 EDWINA LADD, WARD Schwarz Ot Y92.[address] 10/05/2018 MAGGIE REYES DO Ot G47. 30 SLEEP APNEA, UNSPECIFIED 10/05/2018 MAGGIE REYES DO Ot I10 ESSENTIAL (PRIMARY) HYPERTENSION 10/05/2018 MAGGIE REYES DO Ot S01.81XA LACERATION W/O FOREIGN BODY OF OTH PART 10/05/2018 ERIC CARRILLO MAGGIE Jamshid Ot S16.1XXA STRAIN OF MUSCLE, FASCIA AND TENDON AT N 10/05/2018 MAGGIE REYES DO Ot S40.011A CONTUSION OF RIGHT SHOULDER, INITIAL ENC 10/05/2018 MAGGIE REYES DO Ot S80.01XA CONTUSION OF RIGHT KNEE, INITIAL ENCOUNT 10/05/2018 MAGGIE REYES DO Ot W01.198A FALL SAME LEV FROM SLIP/TRIP W STRIKE AG 10/05/2018 MAGGIE REYES DO T Ot Z88. 8 ALLERGY STATUS TO OTH DRUG/MEDS/BIOL SUB 10/05/2018 NICOLE REYES DOED T Ot Z90.710 ACQUIRED ABSENCE OF BOTH CERVIX AND UTER 10/05/2018 NICOLE REYES DOED T Ot Z90. 89 ACQUIRED ABSENCE OF OTHER ORGANS 10/05/2018 NICOLE REYES DOED T Ot Z98. 84 BARIATRIC SURGERY STATUS 10/08/2018 ELVA BREWER Ot F31.9 BIPOLAR DISORDER, UNSPECIFIED 10/08/2018 ELVA BREWER Ot F41.9 ANXIETY DISORDER, UNSPECIFIED 10/08/2018 ELVA BREWER Ot G47.30 SLEEP APNEA, UNSPECIFIED 10/08/2018 ELVA BREWER Ot I 10 ESSENTIAL (PRIMARY) HYPERTENSION 10/08/2018 ELVA BREWER Ot [...] SLEEP APNEA, UNSPECIFIED 10/11/2018 ELVA BREWER Ot I 10 ESSENTIAL (PRIMARY) HYPERTENSION 10/11/2018 ELVA BREWER Ot M25.561 PAIN IN RIGHT KNEE 10/11/2018 ELVA BREWER Ot S40.011A CONTUSION OF RIGHT SHOULDER, INITIAL ENC 10/11/2018 ELVA BREWER Ot S80.01XA CONTUSION OF RIGHT KNEE, INITIAL ENCOUNT 10/11/2018 ELVA BREWER Ot W01.0XXA FALL SAME LEV FROM SLIP/TRIP W/O STRIKE 10/11/2018 ELVA BREWRE Ot Z88.8 ALLERGY STATUS TO OTH DRUG/MEDS/BIOL SUB 10/11/2018 ELVA BREWER Ot Z90.710 ACQUIRED ABSENCE OF BOTH CERVIX AND UTER 10/11/2018 ELVA BREWER Ot Z90.89 ACQUIRED ABSENCE OF OTHER ORGANS 11/06/2018 CHRISSY RHODES Nyla AMEZCUA Ot S80.01XD CONTUSION OF RIGHT KNEE, SUBSEQUENT ENCO 11/09/2018 DIEGO JOHNSON MD Ot E66 .9 OBESITY, UNSPECIFIED 11/09/2018 DIEGO JOHNSON MD Ot F31 .9 BIPOLAR DISORDER, UNSPECIFIED 11/09/2018 DIEGO JOHNSON MD Ot F41 .9 ANXIETY DISORDER, UNSPECIFIED 11/09/2018 DIEGO JOHNSON MD Ot G47.30 SLEEP APNEA, UNSPECIFIED 11/09/2018 DIEGO JOHNSON MD Ot I10 ESSENTIAL (PRIMARY) HYPERTENSION 11/09/2018 DIEGO JOHNSON MD Ot K21 .9 GASTRO-ESOPHAGEAL REFLUX DISEASE WITHOUT 11/09/2018 DIEGO JOHNSON MD Ot K44 .9 DIAPHRAGMATIC HERNIA WITHOUT OBSTRUCTION 11/09/2018 DIEGO JOHNSON MD Ot N39.41 URGE INCONTINENCE 11/09/2018 DIEGO JOHNSON MD Ot R00 .2 PALPITATIONS 11/09/2018 DIEGO JOHNSON MD Ot R07.89 OTHER CHEST PAIN 11/09/2018 DIEGO JOHNSON MD Ot Z68.42 BODY MASS INDEX (BMI) 45.0-49.9, ADULT 11/09/2018 DIEGO JOHNSON MD Ot Z79.899 OTHER CARE HOME (CURRENT) DRUG THERAPY 11/09/2018 DIEGO JOHNSON MD Ot Z98.84 BARIATRIC SURGERY STATUS 11/21/2018 DIEGO JOHNSON MD Ot E66 .9 OBESITY, UNSPECIFIED 11/21/2018 DIEGO JOHNSON MD Ot F31 .9 BIPOLAR DISORDER, UNSPECIFIED 11/21/2018 DIEGO JOHNSON MD Ot F41 .9 ANXIETY DISORDER, UNSPECIFIED 11/21/2018 DIEGO JOHNSON MD Ot G47.30 SLEEP APNEA, UNSPECIFIED 11/21/2018 DIEGO JOHNSON MD Ot I10 ESSENTIAL (PRIMARY) HYPERTENSION 11/21/2018 DIEGO JOHNSON MD Ot K21 .9 GASTRO-ESOPHAGEAL REFLUX DISEASE WITHOUT 11/21/2018 DIEGO JOHNSON MD Ot K44 .9 DIAPHRAGMATIC HERNIA WITHOUT OBSTRUCTION 11/21/2018 DIEGO JOHNSON MD Ot N39.41 URGE INCONTINENCE 11/21/2018 DIEGO JOHNSON MD Ot R00 .2 PALPITATIONS 11/21/2018 DIEGO JOHNSON MD Ot R07.89 OTHER CHEST PAIN 11/21/2018 DIEGO JOHNSON MD Ot Z68.42 BODY MASS INDEX (BMI) 45.0-49.9, ADULT 11/21/2018 DIEGO JOHNSON MD Ot Z79.899 OTHER CARE HOME (CURRENT) DRUG THERAPY 11/21/2018 DIEGO JOHNSON MD Ot Z98.84 BARIATRIC SURGERY STATUS 12/03/2018 DAVID MEADOWS MD Ot F31. 9 BIPOLAR DISORDER, UNSPECIFIED 12/03/2018 DAVID MEADOWS MD Ot F41. 9 ANXIETY DISORDER, UNSPECIFIED 12/03/2018 DAVID MEADOWS MD Ot G47. 30 SLEEP APNEA, UNSPECIFIED 12/03/2018 DAVID MEADOWS MD Ot I10 ESSENTIAL (PRIMARY) HYPERTENSION 12/03/2018 DAVID MEADOWS MD Ot M54. 5 LOW BACK PAIN 12/03/2018 DAVID MEADOWS MD Ot Z82. 49 FAMILY HX OF ISCHEM HEART DIS AND OTH DI 12/03/2018 DAVID MEADOWS MD Ot Z88. 6 ALLERGY STATUS TO ANALGESIC AGENT STATUS 12/03/2018 DAVID MEADOWS MD Ot Z90.710 ACQUIRED ABSENCE OF BOTH CERVIX AND UTER 12/03/2018 WARD BLAND MD Ot M25.511 PAIN IN RIGHT SHOULDER 12/03/2018 WARD BLAND MD Ot W19.XXXA UNSPECIFIED FALL, INITIAL ENCOUNTER 12/03/2018 WARD BLAND MD Ot Y92.[address] 12/03/2018 CHRISSY RHODES Ot S80.01XD CONTUSION OF RIGHT KNEE, SUBSEQUENT ENCO 12/07/2018 KLAUS HILL DO Ot F31.9 BIPOLAR DISORDER, UNSPECIFIED 12/07/2018 LIZ DO, KLAUS K Ot F41.9 ANXIETY DISORDER, UNSPECIFIED 12/07/2018 LIZ DO, KLAUS K Ot G47.30 SLEEP APNEA, UNSPECIFIED 12/07/2018 LIZ DO, KLAUS K Ot I10 ESSENTIAL (PRIMARY) HYPERTENSION 12/07/2018 LIZ DO, KLAUS K Ot R10.9 UNSPECIFIED ABDOMINAL PAIN 12/07/2018 LIZ DO, KLAUS K Ot Z82.49 FAMILY HX OF ISCHEM HEART DIS AND OTH DI 12/07/2018 LIZ DO, KLAUS K Ot Z88.6 ALLERGY STATUS TO ANALGESIC AGENT STATUS 12/07/2018 LIZ DO, KLAUS K Ot Z90.710 ACQUIRED ABSENCE OF BOTH CERVIX AND UTER 12/07/2018 LIZ , KLAUS K Ot Z98.84 BARIATRIC SURGERY STATUS 12/09/2018 ABDIEL LADD, DAVID A Ot F31. 9 BIPOLAR DISORDER, UNSPECIFIED 12/09/2018 ABDIEL LADD, DAVID A Ot F41. 9 ANXIETY DISORDER, UNSPECIFIED 12/09/2018 ABDIEL LADD, DAVID A Ot G47. 30 SLEEP APNEA, UNSPECIFIED 12/09/2018 ABDIEL LADD, DAVID A Ot I10 ESSENTIAL (PRIMARY) HYPERTENSION 12/09/2018 ABDIEL LADD, DAVID A Ot M54. 5 LOW BACK PAIN 12/09/2018 ABDIEL LADD, DAVID A Ot Z82. 49 FAMILY HX OF ISCHEM HEART DIS AND OTH DI 12/09/2018 ABDIEL LADD, DAVID A Ot Z88. 6 ALLERGY STATUS TO ANALGESIC AGENT STATUS 12/09/2018 ABDIEL LADD, DAVID A Ot Z90.710 ACQUIRED ABSENCE OF BOTH CERVIX AND UTER 12/10/2018 ABDIEL LADD, DAVID A Ot F31. 9 BIPOLAR DISORDER, UNSPECIFIED 12/10/2018 ABDIEL LADD, DAVID A Ot F41. 9 ANXIETY DISORDER, UNSPECIFIED 12/10/2018 ABDIEL LADD, DAVID A Ot G47. 30 SLEEP APNEA, UNSPECIFIED 12/10/2018 ABDIEL LADD, DAVID A Ot I10 ESSENTIAL (PRIMARY) HYPERTENSION 12/10/2018 ABDIEL LADD, DAVID A Ot M54. 5 LOW BACK PAIN 12/10/2018 ABDIEL LADD, DAVID A Ot Z82. 49 FAMILY HX OF ISCHEM HEART DIS AND OTH DI 12/10/2018 ABDIEL LADD, DAVID A Ot Z88. 6 ALLERGY STATUS TO ANALGESIC AGENT STATUS 12/10/2018 ABDIEL LADD, DAVID Miller Ot Z90.710 ACQUIRED ABSENCE OF BOTH CERVIX AND UTER 12/14/2018 LIZ DO, KLAUS K Ot F31.9 BIPOLAR DISORDER, UNSPECIFIED 12/14/2018 LIZ DO, KLAUS K Ot F41.9 ANXIETY DISORDER, UNSPECIFIED 12/14/2018 LIZ DO, KLAUS K Ot G47.30 SLEEP APNEA, UNSPECIFIED 12/14/2018 LIZ DO, KLAUS K Ot I10 ESSENTIAL (PRIMARY) HYPERTENSION 12/14/2018 LIZ DO, KLAUS K Ot R10.9 UNSPECIFIED ABDOMINAL PAIN 12/14/2018 LIZ DO, KLAUS K Ot Z82.49 FAMILY HX OF ISCHEM HEART DIS AND OTH DI 12/14/2018 LIZ DO, KLAUS K Ot Z88.6 ALLERGY STATUS TO ANALGESIC AGENT STATUS 12/14/2018 LIZ DO, KLAUS K Ot Z90.710 ACQUIRED ABSENCE OF BOTH CERVIX AND UTER 12/14/2018 LIZ DO, KLAUS K Ot Z98.84 BARIATRIC SURGERY STATUS 12/16/2018 LIZ DO, KLAUS K Ot F31.9 BIPOLAR DISORDER, UNSPECIFIED 12/16/2018 LIZ DO, KLAUS K Ot F41.9 ANXIETY DISORDER, UNSPECIFIED 12/16/2018 LIZ DO, KLAUS K Ot G47.30 SLEEP APNEA, UNSPECIFIED 12/16/2018 LIZ DO, KLAUS K Ot I10 ESSENTIAL (PRIMARY) HYPERTENSION 12/16/2018 LIZ DO, KLAUS K Ot R10.9 UNSPECIFIED ABDOMINAL PAIN 12/16/2018 LIZ DO, KLAUS K Ot Z82.49 FAMILY HX OF ISCHEM HEART DIS AND OTH DI 12/16/2018 LIZ DO, KLAUS K Ot Z88.6 ALLERGY STATUS TO ANALGESIC AGENT STATUS 12/16/2018 LIZ DO, KLAUS K Ot Z90.710 ACQUIRED ABSENCE OF BOTH CERVIX AND UTER 12/16/2018 LIZ DO, KLAUS K Ot Z98.84 BARIATRIC SURGERY STATUS 12/22/2018 BEN VASQUEZ Ot 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 12/22/2018 BEN VASQUEZP Ot N20.0 CALCULUS OF KIDNEY 12/22/2018 BEN VASQUEZ Ot N28.9 DISORDER OF KIDNEY AND URETER, UNSPECIFI 12/22/2018 BEN VASQUEZP Ot Z90.49 ACQUIRED ABSENCE OF OTHER SPECIFIED PART 01/02/2019 WARD BLAND MD Ot M25.511 PAIN IN RIGHT SHOULDER 01/02/2019 WARD BLAND MD Ot W19.XXXA UNSPECIFIED FALL, INITIAL ENCOUNTER 01/02/2019 WARD BLAND MD Ot Y92.[address] 01/02/2019 CHRISSY RHODES Ot S80.01XD CONTUSION OF RIGHT KNEE, SUBSEQUENT ENCO 01/02/2019 BEN VASQUEZP Ot 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 01/02/2019 CHRISTINABEN PIPE BOWL PAINT TRIMMER Ot N20.0 CALCULUS OF KIDNEY 01/02/2019 CHRISTINABEN PIPE BOWL PAINT TRIMMER Ot N28.9 DISORDER OF KIDNEY AND URETER, UNSPECIFI 01/02/2019 BEN VASQUEZP Ot Z90.49 ACQUIRED ABSENCE OF OTHER SPECIFIED PART 02/22/2019 ROVENSTINE DOASHVINEN L Ot F31.9 BIPOLAR DISORDER, UNSPECIFIED 02/22/2019 ROVENSTINE DO LUCA L Ot F41.9 ANXIETY DISORDER, UNSPECIFIED 02/22/2019 ROVENSTINE DO LUCA L Ot I10 ESSENTIAL (PRIMARY) HYPERTENSION 02/22/2019 ROVENSTINE ASHVIN CARRILLOEN L Ot R07.9 CHEST PAIN, UNSPECIFIED 02/22/2019 ROVENSTINE DOASHVINEN L Ot 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 02/22/2019 ROVENSTINE DOASHVINEN L Ot Z82.49 FAMILY HX OF ISCHEM HEART DIS AND OTH DI 02/22/2019 ROVENSTINE DOASHVINEN L Ot Z88.8 ALLERGY STATUS TO OT DRUG/MEDS/BIOL SUB 02/22/2019 ROVENSTINE DOASHVINEN L Ot Z90.710 ACQUIRED ABSENCE OF BOTH CERVIX AND UTER 02/22/2019 WARD BLAND MD Ot M25.511 PAIN IN RIGHT SHOULDER 02/22/2019 WARD BLAND MD Ot W19.XXXA UNSPECIFIED FALL, INITIAL ENCOUNTER 02/22/2019 WARD BLAND MD Ot Y92.[address] 02/22/2019 CHRISSY RHODES Ot S80.01XD CONTUSION OF RIGHT KNEE, SUBSEQUENT ENCO 02/22/2019 BEN VASQUEZ Ot 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 02/22/2019 BEN VASQUEZ Ot N20.0 CALCULUS OF KIDNEY 02/22/2019 BEN VASQUEZ Ot N28.9 DISORDER OF KIDNEY AND URETER, UNSPECIFI 02/22/2019 BEN VASQUEZ Ot Z90.49 ACQUIRED ABSENCE OF OTHER SPECIFIED PART 02/24/2019 ESTRELLITAVENSTINE LUCA CARRILLO Ot F31.9 BIPOLAR DISORDER, UNSPECIFIED 02/24/2019 ROVENSTINE LUCA CARRILLO Ot F41.9 ANXIETY DISORDER, UNSPECIFIED 02/24/2019 ROVENSTINE LUCA CARRILLO Ot I10 ESSENTIAL (PRIMARY) HYPERTENSION 02/24/2019 ESTRELLITAVENSTINE LUCA CARRILLO Ot R07.9 CHEST PAIN, UNSPECIFIED 02/24/2019 ESTRELLITAVENSTINE LUCA CARRILLO Ot Z79.52 CARE HOME (CURRENT) USE OF SYSTEMIC STER 02/24/2019 KATHRYNSTLUCA ARRIAGA DO Ot Z82.49 FAMILY HX OF ISCHEM HEART DIS AND OTH DI 02/24/2019 KATHRYNSTLUCA ARRIAGA DO, Ot Z88.8 ALLERGY STATUS TO OTH DRUG/MEDS/BIOL SUB 02/24/2019 KATHRYNSTLUCA ARRIAGA DO Ot Z90.710 ACQUIRED ABSENCE OF BOTH CERVIX AND UTER 04/15/2019 MAGGIE REYES DO Ot G47. 30 SLEEP APNEA, UNSPECIFIED 04/15/2019 MAGGIE REYES DO Ot I10 ESSENTIAL (PRIMARY) HYPERTENSION 04/15/2019 MAGGIE REYES DO Ot S01.81XA LACERATION W/O FOREIGN BODY OF OTH PART 04/15/2019 MAGGIE REYES DO Ot S16.1XXA STRAIN OF MUSCLE, FASCIA AND TENDON AT N 04/15/2019 MAGGIE REYES DO Ot S40.011A CONTUSION OF RIGHT SHOULDER, INITIAL ENC 04/15/2019 MAGGIE REYES DO Ot S80.01XA CONTUSION OF RIGHT KNEE, INITIAL ENCOUNT 04/15/2019 MAGGIE REYES DO Ot W01.198A FALL SAME LEV FROM SLIP/TRIP W STRIKE AG 04/15/2019 MAGGIE REYES DO Ot Z88. 8 ALLERGY STATUS TO OTH DRUG/MEDS/BIOL SUB 04/15/2019 MAGGIE REYES DO Ot Z90.710 ACQUIRED ABSENCE OF BOTH CERVIX AND UTER 04/15/2019 MAGGIE REYES DO Ot Z90. 89 ACQUIRED ABSENCE OF OTHER ORGANS 04/15/2019 MAGGIE REYES DO Ot Z98. 84 BARIATRIC SURGERY STATUS Procedures There is no data. Results Test Result Range Automated blood complete blood count (he mogram) panel - 08/01/18 23:33 Blood leukocytes automated count (number/volume) 9.6 10*3/uL 4.3-11.0 Blood erythrocytes automated count (number/volume) 4.46 10*6/uL 4.35-5.85 Venous blood hemoglobin measurement (mass/volume) 13.2 g/dL 11.5-16.0 Blood hematocrit (volume fraction) 43 % 35-52 Automated erythrocyte mean corpuscular volume 96 [ foz_us] 80-99 Automated erythrocyte mean corpuscular h emoglobin (mass per erythrocyte) 30 pg 25-34 Automated erythrocyte mean corpuscular h emoglobin concentration measurement (mass/volume) 31 g/dL 32-36 Automated erythrocyte distribution width ratio 13. 9 % 10.0- 14.5 Automated blood platelet count (count/volume) 148 10*3/uL 130-400 Automated blood platelet mean volume measurement 10.6 [foz_us] 7.4-10.4 Serum or plasma choriogonadotropin (preg mic test) detection - 08/01/18 23:33 Serum or plasma choriogonadotropin ( test) de tection NEGATIVE NEGATIVE Comprehensive metabolic panel - 08/01/18 23:33 Serum or plasma sodium measurement (moles/volume) 142 mmol/L 135-145 Serum or plasma potassium measurement (moles/volume) 4.8 mmol/L 3.6-5.0 Serum or plasma chloride measurement (moles/volume) 106 mmol/L 98-107 Carbon dioxide 26 mmol/L 21-32 Serum or plasma anion gap determination (moles/volume) 10 mmol/L 5-14 Serum or plasma urea nitrogen measurement (mass/volume ) 18 mg/dL 7-18 Serum or plasma creatinine measurement (mass/volume) 0.99 mg/dL 0.60-1.30 Serum or plasma urea nitrogen/creatinine mass ratio 18 NRG Serum or plasma creatinine measurement w ith calculation of estimated glomerular filtration rate 60 NRG Serum or plasma glucose measurement (mass/volume) 84 mg/dL 70-105 Serum or plasma calcium measurement (mass/volume) 9.4 mg/dL 8.5-10.1 Serum or plasma total bilirubin measurement (mass/volu me) 0.2 mg/dL 0.1-1.0 Serum or plasma alkaline phosphatase asael surement (enzymatic activity/volume) 60 U/L 40-136 Serum or plasma aspartate aminotransfera se measurement (enzymatic activity/volume) 18 U/L 5-34 Serum [...] pg/mL <75.0 Complete blood count (CBC) with automate d white blood cell (WBC) differential - 11/08/18 00:35 Blood leukocytes automated count (number/volume) 12.9 10*3/uL 4.3-11.0 Blood erythrocytes automated count (number/volume) 4.46 10*6/uL 4.35-5.85 Venous blood hemoglobin measurement (mass/volume) 13.5 g/dL 11.5-16.0 Blood hematocrit (volume fraction) 42 % 35-52 Automated erythrocyte mean corpuscular volume 95 [ foz_us] 80-99 Automated erythrocyte mean corpuscular h emoglobin (mass per erythrocyte) 30 pg 25-34 Automated erythrocyte mean corpuscular h emoglobin concentration measurement (mass/volume) 32 g/dL 32-36 Automated erythrocyte distribution width ratio 14. 6 % 10.0- 14.5 Automated blood platelet count [...] 10*3 1.0-4.0 Blood monocytes automated count (number/volume) 0. 9 10*3 0.0-1.0 Automated eosinophil count 0.1 10*3/uL 0 .0-0.3 Automated blood basophil count (count/volume) 0.1 10*3/uL 0.0-0.1 Comprehensive metabolic panel - 11/08/18 00:35 Serum or plasma sodium measurement (moles/volume) 140 mmol/L 135-145 Serum or plasma potassium measurement (moles/volume) 4.4 mmol/L 3.6-5.0 Serum or plasma chloride measurement (moles/volume) 107 mmol/L 98-107 Carbon dioxide 25 mmol/L 21-32 Serum or plasma anion gap determination (moles/volume) 8 mmol/L 5-14 Serum or plasma urea nitrogen measurement (mass/volume ) 21 mg/dL 7-18 Serum or plasma creatinine measurement (mass/volume) 0.98 mg/dL 0.60-1.30 Serum or plasma urea nitrogen/creatinine mass ratio 21 NRG Serum or plasma creatinine measurement w ith calculation of estimated glomerular filtration rate > NRG Serum or plasma glucose measurement (mass/volume) 114 mg/dL 70-105 Serum or plasma calcium measurement (mass/volume) 10.1 mg/dL 8.5-10.1 Serum or plasma total bilirubin measurement (mass/volu me) 0.2 mg/dL 0.1-1.0 Serum or plasma alkaline phosphatase asael surement (enzymatic activity/volume) 58 U/L 40-136 Serum or plasma aspartate aminotransfera se measurement (enzymatic activity/volume) 12 U/L 5-34 Serum [...] pg/mL <75.0 Fibrin D-dimer FEU measurement in platel et poor plasma (mass/volume) - 11/08/18 00:55 Fibrin D-dimer FEU measurement in platelet poor plasma (mass/volume) 0.63 ug/mL 0.00-0.49 PT panel in platelet poor plasma by coag ulation assay - 11/08/18 00:57 Prothrombin time (PT) in platelet poor plasma by coagu lation assay 13.4 s 12.2-14.7 INR in platelet poor plasma or blood by coagulation as say 1.0 0.8-1.4 Activated partial thromboplastin time (a PTT) in platelet poor plasma bycoagulation assay - 11/08/18 00:57 Activated partial thromboplastin time (a PTT) in platelet poor plasma bycoagulation assay 26 s 24-35 Serum or plasma troponin i.cardiac measu rement (mass/volume) - 11/08/18 06:30 Serum or plasma troponin i.cardiac measurement (mass/v olume) < ng/mL <0.028 CULTURE, ANAEROBIC AND AEROBIC - 9 11:23 CULTURE, ANAEROBIC BACTERIA W/GRAM STAIN SEE NOTE NRG CULTURE, AEROBIC BACTERIA SEE NOTE NRG CMP - 11/16/18 14:01 GLUCOSE 86 mg/dL 65-139 UREA NITROGEN (BUN) 24 mg/dL 7-25 CREATININE 1.21 mg/dL 0.50-1.10 eGFR NON-AFR. COLOMBIAN 53 mL/min/1.73m2 > OR = 60 eGFR 62 mL/min/1.73m2 > OR = 60 BUN/CREATININE RATIO 20 (calc) 6-22 SODIUM 140 mmol/L 135-146 POTASSIUM 4.8 mmol/L 3.5-5.3 CHLORIDE 107 mmol/L 98-110 CARBON DIOXIDE 24 mmol/L 20-32 CALCIUM 9.7 mg/dL 8.6-10.2 PROTEIN, TOTAL 6.4 g/dL 6.1-8.1 ALBUMIN 3.7 g/dL 3.6-5.1 GLOBULIN 2.7 g/dL (calc) 1.9-3.7 ALBUMIN/GLOBULIN RATIO 1.4 (calc) 1.0-2. 5 BILIRUBIN, TOTAL 0.2 mg/dL 0.2-1.2 ALKALINE PHOSPHATASE 55 U/L 33-115 AST 10 U/L 10-35 ALT 8 U/L 6-29 Complete urinalysis with reflex to cultu re - 12/03/18 19:21 Urine color determination YELLOW NRG Urine clarity determination CLEAR NR G Urine pH measurement by test strip 7.0 5-9 Specific gravity of urine by test strip 1.015 1.016-1.022 Urine protein assay by test strip, semi-quantitative NEGATIVE NEGATIVE Urine glucose detection by automated test strip NE GATIVE NEGATIVE Erythrocytes detection in urine sediment by light micr oscopy NEGATIVE NEGATIVE Urine ketones detection by automated test strip NE GATIVE NEGATIVE Urine nitrite detection by test strip NEGATIVE NEGATIVE Urine total bilirubin detection by test strip NEGA TIVE NEGATIVE Urine urobilinogen measurement by automated test strip (mass/volume) 1.0 mg/dL NORMAL Urine leukocyte esterase detection by dipstick NEG ATIVE NEGATIVE Automated urine sediment erythrocyte cou nt by microscopy (number/high power field) RARE NRG Automated urine sediment leukocyte count by microscopy (number/high power field) RARE NRG Bacteria detection in urine sediment by light microsco py FEW NRG Squamous epithelial cells detection in u rine sediment by light microscopy 2-5 NRG Crystals detection in urine sediment by light microsco py NEG NRG Casts detection in urine sediment by light microscopy NONE NRG Mucus detection in urine sediment by light microscopy NEGATIVE NRG Complete urinalysis with reflex to culture NO NRG Complete urinalysis with reflex to cultu re - 12/07/18 19:30 Urine color determination YELLOW NRG Urine clarity determination CLEAR NR G Urine pH measurement by test strip 6 5-9 Specific gravity of urine by test strip 1.020 1.016-1.022 Urine protein assay by test strip, semi-quantitative NEGATIVE NEGATIVE Urine glucose detection by automated test strip NE GATIVE NEGATIVE Erythrocytes detection in urine sediment by light micr oscopy NEGATIVE NEGATIVE Urine ketones detection by automated test strip 1+ NEGATIVE Urine nitrite detection by test strip NEGATIVE NEGATIVE Urine total bilirubin detection by test strip NEGA TIVE NEGATIVE Urine urobilinogen measurement by automated test strip (mass/volume) NORMAL NORMAL Urine leukocyte esterase detection by dipstick NEG ATIVE NEGATIVE Automated urine sediment erythrocyte cou nt by microscopy (number/high power field) RARE NRG Automated urine sediment leukocyte count by microscopy (number/high power field) RARE NRG Bacteria detection in urine sediment by light microsco py FEW NRG Squamous epithelial cells detection in u rine sediment by light microscopy 2-5 NRG Crystals detection in urine sediment by light microsco py NONE NRG Casts detection in urine sediment by light microscopy PRESENT NRG Mucus detection in urine sediment by light microscopy SMALL NRG Complete urinalysis with reflex to culture NO NRG Hyaline casts detection in urine sediment by light vanessa roscopy RARE NRG Complete blood count (CBC) with automate d white blood cell (WBC) differential - 12/07/18 19:45 Blood leukocytes automated count (number/volume) 9.8 10*3/uL 4.3-11.0 Blood erythrocytes automated count (number/volume) 4.45 10*6/uL 4.35-5.85 Venous blood hemoglobin measurement (mass/volume) 13.3 g/dL 11.5-16.0 Blood hematocrit (volume fraction) 43 % 35-52 Automated erythrocyte mean corpuscular volume 96 [ foz_us] 80-99 Automated erythrocyte mean corpuscular h emoglobin (mass per erythrocyte) 30 pg 25-34 Automated erythrocyte mean corpuscular h emoglobin concentration measurement (mass/volume) 31 g/dL 32-36 Automated erythrocyte distribution width ratio 14. 7 % 10.0- 14.5 Automated blood platelet count (count/volume) 124 10*3/uL 130-400 Automated blood platelet mean volume measurement 10.3 [foz_us] 7.4-10.4 Automated blood neutrophils/100 leukocytes 59 % 42-75 Automated blood lymphocytes/100 leukocytes 29 % 12-44 Blood monocytes/100 leukocytes 9 % 0-12 Automated blood eosinophils/100 leukocytes 3 % 0-10 Automated blood basophils/100 leukocytes 0 % 0-10 Blood neutrophils automated count (number/volume) 5.8 10*3 1.8-7.8 Blood lymphocytes automated count (number/volume) 2.9 10*3 1.0-4.0 Blood monocytes automated count (number/volume) 0. 9 10*3 0.0-1.0 Automated eosinophil count 0.3 10*3/uL 0 .0-0.3 Automated blood basophil count (count/volume) 0.0 10*3/uL 0.0-0.1 Comprehensive metabolic panel - 12/07/18 19:45 Serum or plasma sodium measurement (moles/volume) 141 mmol/L 135-145 Serum or plasma potassium measurement (moles/volume) 4.1 mmol/L 3.6-5.0 Serum or plasma chloride measurement (moles/volume) 107 mmol/L 98-107 Carbon dioxide 26 mmol/L 21-32 Serum or plasma anion gap determination (moles/volume) 8 mmol/L 5-14 Serum or plasma urea nitrogen measurement (mass/volume ) 20 mg/dL 7-18 Serum or plasma creatinine measurement (mass/volume) 0.90 mg/dL 0.60-1.30 Serum or plasma urea nitrogen/creatinine mass ratio 22 NRG Serum or plasma creatinine measurement w ith calculation of estimated glomerular filtration rate > NRG Serum or plasma glucose measurement (mass/volume) 78 mg/dL 70-105 Serum or plasma calcium measurement (mass/volume) 10.4 mg/dL 8.5-10.1 Serum or plasma total bilirubin measurement (mass/volu me) 0.2 mg/dL 0.1-1.0 Serum or plasma alkaline phosphatase asael surement (enzymatic activity/volume) 67 U/L 40-136 Serum or plasma aspartate aminotransfera se measurement (enzymatic activity/volume) 13 U/L 5-34 Serum or plasma alanine aminotransferase measurement (enzymatic activity/volume) 6 U/L 0-55 Serum or plasma protein measurement (mass/volume) 6.3 g/dL 6.4-8.2 Serum or plasma albumin measurement (mass/volume) 3.8 g/dL 3.2-4.5 CALCIUM CORRECTED 10.6 mg/dL 8.5-10.1 Serum or plasma amylase measurement (enz ymatic activity/volume) - 12/07/18 19:45 Serum or plasma amylase measurement (enzymatic activit y/volume) 47 U/L 25-125 Lipase - 12/07/18 19:45 Lipase 25 U/L 8-78 Complete blood count (CBC) with automate d white blood cell (WBC) differential - 02/22/19 11:25 Blood leukocytes automated count (number/volume) 12.5 10*3/uL 4.3-11.0 Blood erythrocytes automated count (number/volume) 4.58 10*6/uL 4.35-5.85 Venous blood hemoglobin measurement (mass/volume) 13.2 g/dL 11.5-16.0 Blood hematocrit (volume fraction) 42 % 35-52 Automated erythrocyte mean corpuscular volume 92 [ foz_us] 80-99 Automated erythrocyte mean corpuscular h emoglobin (mass per erythrocyte) 29 pg 25-34 Automated erythrocyte mean corpuscular h emoglobin concentration measurement (mass/volume) 32 g/dL 32-36 Automated erythrocyte distribution width ratio 13. 0 % 10.0- 14.5 Automated blood platelet count (count/volume) 228 10*3/uL 130-400 Automated blood platelet mean volume measurement 10.7 [foz_us] 7.4-10.4 Automated blood neutrophils/100 leukocytes 74 % 42-75 Automated blood lymphocytes/100 leukocytes 20 % 12-44 Blood monocytes/100 leukocytes 4 % 0-12 Automated blood eosinophils/100 leukocytes 1 % 0-10 Automated blood basophils/100 leukocytes 1 % 0-10 Blood neutrophils automated count (number/volume) 9.3 10*3 1.8-7.8 Blood lymphocytes automated count (number/volume) 2.5 10*3 1.0-4.0 Blood monocytes automated count (number/volume) 0. 5 10*3 0.0-1.0 Automated eosinophil count 0.1 10*3/uL 0 .0-0.3 Automated blood basophil count (count/volume) 0.1 10*3/uL 0.0-0.1 Comprehensive metabolic panel - 02/22/19 11:25 Serum or plasma sodium measurement (moles/volume) 138 mmol/L 135-145 Serum or plasma potassium measurement (moles/volume) 4.3 mmol/L 3.6-5.0 Serum or plasma chloride measurement (moles/volume) 104 mmol/L 98-107 Carbon dioxide 26 mmol/L 21-32 Serum or plasma anion gap determination (moles/volume) 8 mmol/L 5-14 Serum or plasma urea nitrogen measurement (mass/volume ) 12 mg/dL 7-18 Serum or plasma creatinine measurement (mass/volume) 0.81 mg/dL 0.60-1.30 Serum or plasma urea nitrogen/creatinine mass ratio 15 NRG Serum or plasma creatinine measurement w ith calculation of estimated glomerular filtration rate > NRG Serum or plasma glucose measurement (mass/volume) 106 mg/dL 70-105 Serum or plasma calcium measurement (mass/volume) 10.0 mg/dL 8.5-10.1 Serum or plasma total bilirubin measurement (mass/volu me) 0.3 mg/dL 0.1-1.0 Serum or plasma alkaline phosphatase asael surement (enzymatic activity/volume) 67 U/L 40-136 Serum or plasma aspartate aminotransfera se measurement (enzymatic activity/volume) 12 U/L 5-34 Serum or plasma alanine aminotransferase measurement (enzymatic activity/volume) 8 U/L 0-55 Serum or plasma protein measurement (mass/volume) 6.8 g/dL 6.4-8.2 Serum or plasma albumin measurement (mass/volume) 3.8 g/dL 3.2-4.5 CALCIUM CORRECTED 10.2 mg/dL 8.5-10.1 TROPONIN I FS - 02/22/19 11:25 TROPONIN I FS < 0.30 <0.30 Complete urinalysis with reflex to cultu re - 02/22/19 11:58 Urine color determination YELLOW NRG Urine clarity determination CLEAR NR G Urine pH measurement by test strip 6.5 5-9 Specific gravity of urine by test strip < 1.016-1.022 Urine protein assay by test strip, semi-quantitative NEGATIVE NEGATIVE Urine glucose detection by automated test strip NE GATIVE NEGATIVE Erythrocytes detection in urine sediment by light micr oscopy NEGATIVE NEGATIVE Urine ketones detection by automated test strip NE GATIVE NEGATIVE Urine nitrite detection by test strip NEGATIVE NEGATIVE Urine total bilirubin detection by test strip NEGA TIVE NEGATIVE Urine urobilinogen measurement by automated test strip (mass/volume) 0.2 mg/dL NORMAL Urine leukocyte esterase detection by dipstick NEG ATIVE NEGATIVE Automated urine sediment erythrocyte cou nt by microscopy (number/high power field) NONE NRG Automated urine sediment leukocyte count by microscopy (number/high power field) NONE NRG Bacteria detection in urine sediment by light microsco py NONE NRG Squamous epithelial cells detection in u rine sediment by light microscopy RARE NRG Crystals detection in urine sediment by light microsco py NONE NRG Casts detection in urine sediment by light microscopy NONE NRG Mucus detection in urine sediment by light microscopy NEG NRG Complete urinalysis with reflex to culture NO NRG LIPID PANEL - 06/12/19 11:33 CHOLESTEROL, TOTAL 186 mg/dL <200 HDL CHOLESTEROL 52 mg/dL >50 TRIGLYCERIDES 134 mg/dL <150 LDL-CHOLESTEROL 109 mg/dL (calc) NRG CHOL/HDLC RATIO 3.6 (calc) <5.0 NON HDL CHOLESTEROL 134 mg/dL (calc) <13 0 CMP - 06/12/19 11:33 GLUCOSE 81 mg/dL 65-99 UREA NITROGEN (BUN) 9 mg/dL 7-25 CREATININE 0.85 mg/dL 0.50-1.10 eGFR NON-AFR. COLOMBIAN 81 mL/min/1.73m2 > OR = 60 eGFR 94 mL/min/1.73m2 > OR = 60 BUN/CREATININE RATIO NOT APPLICABLE (calc) 6-22 SODIUM 141 mmol/L 135-146 POTASSIUM 4.3 mmol/L 3.5-5.3 CHLORIDE 104 mmol/L 98-110 CARBON DIOXIDE 30 mmol/L 20-32 CALCIUM 9.9 mg/dL 8.6-10.2 PROTEIN, TOTAL 6.5 g/dL 6.1-8.1 ALBUMIN 3.8 g/dL 3.6-5.1 GLOBULIN 2.7 g/dL (calc) 1.9-3.7 ALBUMIN/GLOBULIN RATIO 1.4 (calc) 1.0-2. 5 BILIRUBIN, TOTAL 0.5 mg/dL 0.2-1.2 ALKALINE PHOSPHATASE 66 U/L 33-115 AST 11 U/L 10-35 ALT 11 U/L 6-29 TSH - 06/12/19 11:33 TSH 1.94 mIU/L NRG VITAMIN D, 25-H - 09/13/19 12:46 VITAMIN D,25-OH,TOTAL,IA 39 ng/mL 30-10 0 VITAMIN B12/FOLATE, SERUM PANEL - 12:46 VITAMIN B12 230 pg/mL 200-1100 FOLATE, SERUM 11.5 ng/mL NRG Encounters ACCT No. Visit Date/Time Discharge Status Pt. Type Provider Facility Loc./Unit Complaint [id number] 09/13/2019 12:00:00 09/13/2019 23:59: 59 [facility] Outpatient SVETLANA LITTLE LAC [facility] [id number] 09/13/2019 12:00:00 Document Registration [id number] 06/12/2019 09:20:00 Document Registration [id number] 11/16/2018 13:00:00 Document Registration [id number] 11/11/2018 10:20:00 Document Registration [id number] 02/22/2019 11:15:00 12:37:00 DIS Emergency LUCA GILL DO [facility] ER FS CHEST PAIN; RANDEE SEA; HEADACHE; RT LEG TINGLING [id number] 12/20/2018 08:17:00 23:59:59 CLS Outpatient BEN VASQUEZ [facility] RAD FS KIDNEY STONE ON RIGHT S DAYNA [id number] 12/07/2018 19:16:00 22:31:00 DIS Emergency KLAUS HILL DO [facility] ER R FLANK PAIN [id number] 12/03/2018 19:08:00 21:18:00 DIS Emergency DAVID MEADOWS MD [facility] ER FS LOW BACK PAIN [id number] 11/08/2018 04:33:00 11:57:00 DIS Inpatient ALEX LADD, [place] [facility] 4TH CHEST PAIN [id number] 11/01/2018 11:06:00 23:59:59 CLS Outpatient CHRISSY RHODES [facility] RAD FS [id number] 10/08/2018 11:18:00 13:35:00 DIS Emergency ELVA BREWER [facility] ER FALL - R KNEE / R SHOU LDER PAIN [id number] 10/04/2018 11:00:00 23:59:59 CLS Outpatient WARD BLAND MD [facility] RAD FS [id number] 10/02/2018 10:46:00 11:32:00 DIS Outpatient MAGGIE REYES DO [facility] ER FS RT SIDE OF BODY PAIN, E YE LAC [id number] 09/24/2018 01:12:00 05/04/2 019 02:31:00 DIS Emergency CHRISTIE SÁNCHEZ DO [facility] ER FS MIGRAINE [id number] 08/01/2018 22:05:00 02:15:00 DIS Emergency MAGGIE REYES DO [facility] ER FS MIGRAINE, SOB
[2019-10-14 17:30] VITALS: BP 143/109
[2019-10-14 17:50] VITALS: BP 161/93
--- NOTE | 2019-10-14 17:50 | NUR ---
Pt is excluded from thrombolytics as NIH score- 0, pt has improvement of NIBP, and patient has some voluntary control of movements. Pt denies she is using pain pills from her knee arthroscopy with meniscus repair 10/02/19. Sutures to left knee arthroscopy sites noted with bruising.
--- NOTE | 2019-10-14 17:54 | Diagnostic Imaging Report ---
PROCEDURE: CT head without contrast. TECHNIQUE: Multiple contiguous axial images were obtained through the brain without the use of intravenous contrast. Auto Exposure Controls were utilized during the CT exam to meet ALARA standards for radiation dose reduction. INDICATION: Slurred speech and weakness. FINDINGS: There is no intracranial hemorrhage. No hydrocephalus, edema, mass or mass effect. There is some motion degradation limiting the evaluation of the lower head structures but no acute appearing pathology apparent. The orbits, sinuses and calvarium are nonacute. No focal or generalized edema. No evidence for elevation of the intracranial pressures. IMPRESSION: Unremarkable CT head. Dictated by: Dictated on workstation # [id number]
--- NOTE | 2019-10-14 18:11 | ED General ---
General Chief Complaint: Neuro-Stroke Like Symptoms Stated Complaint: LETHARGY; SLURRED SPEECH Source of Information: Patient Exam Limitations: No Limitations History of Present Illness Date Seen by Provider: October 14, 2019 Time Seen by Provider: 17:35 Initial Comments 48-year-old female presents emergency room with a history of slurred speech. Patient also had surgery on her left knee 2 weeks ago. Her NIH score for possible CVA was 0. She drove to the emergency room at 5:17 PM symptoms started at 1700 p.m. patient denies any trauma. She states that she has not taken any pain relieving medications or sedative hypnotics. She does have ropinirole for restless leg syndrome and she says her legs are jumpy. She was seen sitting at the side of the hospital bed Your feet no loss of consciousness no neck injuries no bowel or bladder syndrome CT scan was negative and patient has no signs of neurologic deficits her speech dysarthria has resolved. Timing/Duration: 1/2 Hour Severity: Mild Modifying Factors: improves with Medication (possibly related to the ropinirole with a recent surgery on her left knee) Associated Systoms: Weakness Allergies and Home Medications Allergies Coded Allergies: meloxicam (Verified Allergy, Unknown, RASH/ITCHING, 12/03/18) Home Medications Cariprazine Hydrochloride 1.5 Mg Capsule, 1.5 MG PO DAILY, (Reported) Cholecalciferol (Vitamin D3) 5,000 Unit Capsule, 5,000 UNIT PO DAILY, (Reported) Clonazepam 1 Mg Tablet, 1 MG PO DAILY PRN for ANXIETY, (Reported) Clonazepam 1 Mg Tablet, 1 MG PO HS, (Reported) Cyclobenzaprine HCl 10 Mg Tablet, 10 MG PO Q8H PRN for SPASMS Prescribed by: DAVID MEADOWS on 12/03/182113 Escitalopram Oxalate 10 Mg Tablet, 10 MG PO DAILY, (Reported) Gabapentin 400 Mg Capsule, 400 MG PO BID, (Reported) Multivitamin 1 Each Tablet, 1 TAB PO DAILY, (Reported) Pantoprazole Sodium 40 Mg Tablet.dr, 40 MG PO DAILY Prescribed by: KUMAR LEYVA on 11/08/18 1046 Propranolol HCl 40 Mg Tablet, 40 MG PO BID, (Reported) TAKES ALONG WITH 60MG TABLET Propranolol HCl 60 Mg Tablet, 60 MG PO BID, (Reported) TAKES ALONG WITH 40MG TABLET Ropinirole HCl 1 Mg Tablet, 1 MG PO HS, (Reported) Tizanidine HCl 4 Mg Tablet, 4 MG PO TID Prescribed by: KLAUS HILL on 12/07/182146 Trazodone HCl 100 Mg Tablet, 100 MG PO HS, (Reported) Patient Home Medication List Home Medication List Reviewed: Yes Review of Systems Review of Systems Constitutional: see HPI, weakness, other (reported slurred speech at 5 PM) EENTM: no symptoms reported Respiratory: no symptoms reported (the patient is morbidly obese) Cardiovascular: no symptoms reported Gastrointestinal: no symptoms reported Genitourinary: no symptoms reported : No Musculoskeletal: back pain, muscle stiffness (and intermittent spasms), muscle twitching (especially in the lower extremities) Skin: no symptoms reported Psychiatric/Neurological: Anxiety (patient is on benzodiazepines and gabapent in) Hematologic/Lymphatic: No Symptoms Reported Immunological/Allergic: no symptoms reported Past Zoqzdrx-Afwsxk-Xdraiz Hx Past Med/Social Hx: Reviewed Nursing Past Med/Soc Hx Patient Social History Smoking Status: Never a Smoker Former Smoker, Quit: May 24, 1993 2nd Hand Smoke Exposure: No Recent Hopitalizations: No Immunizations Up To Date Tetanus Booster (TDap): Unknown Date of Pneumonia Vaccine: Mar 10, 2018 Date of Influenza Vaccine: Feb 21, 2018 Seasonal Allergies Seasonal Allergies: No Past Medical History Surgeries: Yes Abdominal, Section, Gallbladder, Hysterectomy, Oophorectomy, Orthopedic, Thyroidectomy Respiratory: Yes Sleep Apnea Cardiac: Yes (Pt has stress test Spring 2018 @ [place]) Hypertension Neurological: No 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 0oz. 131.977964xp; 49.00 BMI Method:Actual General Appearance: Anxious, Mild Distress (with continued left knee pain and ecchymoses seen), Obese (morbidly obese) Eyes: Bilateral Eye Normal Inspection, Bilateral Eye PERRL, Bilateral Eye EOMI HEENT: PERRL/EOMI, Normal ENT Inspection, Pharynx Normal Neck: Full Range of Motion, Normal Inspection, Non Tender, Supple Respiratory: Chest Non Tender, Lungs Clear, Normal Breath Sounds, No Accessory Muscle Use, No Respiratory Distress Cardiovascular: Regular Rate, Rhythm, No Edema, No Gallop, No JVD, No Murmur, Normal Peripheral Pulses Gastrointestinal: Normal Bowel Sounds, No Organomegaly, No Pulsatile Mass, Non Tender, Soft Back: Normal Inspection, Decreased Range of Motion Extremity: Normal Capillary Refill, Normal Inspection, Normal Range of Motion, Other (morbidly obese and has twitching in the legs that she says is not restless leg syndrome but she is using Requip) Neurologic/Psychiatric: Alert, Oriented x3, No Motor/Sensory Deficits, Normal 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, 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 Norm as Tested (initially said she has slurred speech at home but no evidence of any changes in the emergency room) Reflexes: 2+ Bicep (R), 2+ Bicep (L), 2+ Knee (R), 2+ Knee (L) Skin: Normal Color, Warm/Dry Lymphatic: No Adenopathy Progress/Results/Core Measures Suspected Sepsis SIRS Temperature: Pulse: Respiratory Rate: Laboratory Tests 10/14/19 17:24: White Blood Count 13.4H Blood Pressure / Mean: Laboratory Tests 10/14/19 17:24: Creatinine 0.84, Platelet Count 227, Total Bilirubin 0.2 Results/Orders Lab Results Laboratory Tests Test 10/14/19 17:24 10/14/19 18:10 Range/Units White Blood Count 13.4 H 4.3-11.0 10^3/uL Red Blood Count 4.58 4.35-5.85 10^6/uL Hemoglobin 13.5 11.5-16.0 G/DL Hematocrit 42 35-52 % Mean Corpuscular Volume 91 80-99 FL Mean Corpuscular Hemoglobin 29 25-34 PG Mean Corpuscular Hemoglobin Concent 32 32-36 G/DL Red Cell Distribution Width 13.3 10.0-14.5 % Platelet Count 227 130-400 10^3/uL Mean Platelet Volume 10.6 H 7.4-10.4 FL Neutrophils (%) (Auto) 76 H 42-75 % Lymphocytes (%) (Auto) 18 12-44 % Monocytes (%) (Auto) 5 0-12 % Eosinophils (%) (Auto) 1 0-10 % Basophils (%) (Auto) 0 0-10 % Neutrophils # (Auto) 10.2 H 1.8-7.8 X 10^3 Lymphocytes # (Auto) 2.4 1.0-4.0 X 10^3 Monocytes # (Auto) 0.7 0.0-1.0 X 10^3 Eosinophils # (Auto) 0.2 0.0-0.3 10^3/uL Basophils # (Auto) 0.0 0.0-0.1 10^3/uL Neutrophils % (Manual) 73 % Lymphocytes % (Manual) 19 % Monocytes % (Manual) 6 % Eosinophils % (Manual) 2 % Blood Morphology Comment NORMAL Sodium Level 141 135-145 MMOL/L Potassium Level 4.0 3.6-5.0 MMOL/L Chloride Level 103 98-107 MMOL/L Carbon Dioxide Level 23 21-32 MMOL/L Anion Gap 15 H 5-14 MMOL/L Blood Urea Nitrogen 13 7-18 MG/DL Creatinine 0.84 0.60-1.30 MG/DL Estimat Glomerular Filtration Rate > 60 BUN/Creatinine Ratio 15 Glucose Level 114 H 70-105 MG/DL Calcium Level 10.1 8.5-10.1 MG/DL Corrected Calcium 10.2 H 8.5-10.1 MG/DL Total Bilirubin 0.2 0.1-1.0 MG/DL Aspartate Amino Transf (AST/SGOT) 10 5-34 U/L Alanine Aminotransferase (ALT/SGPT) 8 0-55 U/L Alkaline Phosphatase 73 40-136 U/L Total Protein 6.8 6.4-8.2 GM/DL Albumin 3.9 3.2-4.5 GM/DL Urine Color YELLOW Urine Clarity CLEAR Urine pH 5.5 5-9 Urine Specific Wittmann 1.015 L 1.016-1.022 Urine Protein NEGATIVE NEGATIVE Urine Glucose (UA) NEGATIVE NEGATIVE Urine Ketones NEGATIVE NEGATIVE Urine Nitrite NEGATIVE NEGATIVE Urine Bilirubin NEGATIVE NEGATIVE Urine Urobilinogen 0.2 < = 1.0 MG/DL Urine Leukocyte Esterase NEGATIVE NEGATIVE Urine RBC (Auto) NEGATIVE NEGATIVE Urine RBC NONE /HPF Urine WBC 2-5 /HPF Urine Squamous Epithelial Cells 5-10 /HPF Urine Crystals NONE /LPF Urine Bacteria TRACE /HPF Urine Casts NONE /LPF Urine Mucus SMALL H /LPF Urine Culture Indicated NO My Orders Orders - GUERO BEST DO Ct Head Wo (10/14/19 17:30) Cbc And Manual Diff (10/14/19 17:30) Comprehensive Metabolic Panel (10/14/19 17:30) Urinalysis (10/14/19 17:30) Vital Signs/I&O Capillary Refill : Departure Impression Primary Impression: Restless leg syndrome Additional Impressions: H/O lateral meniscus repair of left knee Medication-induced movement disorder Disposition: 01 HOME, SELF-CARE Condition: Improved Departure-Patient Inst. Decision time for Depature: 18:57 Referrals: GARETH VASQUEZ APRN (PCP) Primary Care Physician SHAVONNE CLAIRE MD (Family) Primary Care Physician Patient Instructions: Restless Legs Syndrome (DC) Add. Discharge Instructions: Patient presented with weakness and some history of slurred speech although she did not demonstrate that in the hospital setting. The patient has been on Requip Klonopin and gabapentin. I believe this is a medication induced movement disorder. She had a left meniscal tear repaired 2 weeks ago and will be seen by orthopedics this coming week. Patient had no lateralizing findings her NIH score was 0 CT scan was negative no history of trauma or head trauma or neck trauma. Patient is aware that use of the sedating medications will exacerbate the likelihood of lethargy and muscle weakness. She continues to have some muscle spasms and wanted to have more medication I told her I felt that her medications currently should be adequate she is slightly dehydrated and she needs to drink more fluids we discussed this in detail. Patient will follow up with her primary care provider hydrate and if she has any lateralizing findings or worsening of symptoms she has been told to return to the emergency room. All discharge instructions reviewed with patient and/or family. Voiced understanding. Copy Copies To 2: [facility]/GUERO FOSS DO October 14, 2019 18:10
[2019-10-14 18:15] VITALS: BP 154/91
[2019-10-14 18:15] LABS: BASOPHILS % (AUTO) 0 % (0-10); EOSINOPHILS % (AUTO) 1 % (0-10); HEMATOCRIT 42 % (35-52); HEMOGLOBIN 13.5 G/DL (11.5-16.0); LYMPHOCYTES % (AUTO) 18 % (12-44); MEAN CORPUSCULAR HEMOGLOBIN 29 PG (25-34); MEAN CORPUSCULAR HGB CONC 32 G/DL (32-36); MEAN CORPUSCULAR VOLUME 91 FL (80-99); MEAN PLATELET VOLUME 10.6 FL (7.4-10.4); MONOCYTES % (AUTO) 5 % (0-12); PLATELET COUNT 227 10^3/uL (130-400); RED CELL DISTRIBUTION WIDTH 13.3 % (10.0-14.5); WHITE BLOOD COUNT 13.4 10^3/uL (4.3-11.0)
[2019-10-14 18:16] LABS: EOSINOPHILS # (AUTO) 0.2 10^3/uL (0.0-0.3); EOSINOPHILS % (MANUAL) 2 %; LYMPHOCYTES # (AUTO) 2.4 X 10^3 (1.0-4.0); LYMPHOCYTES % (MANUAL) 19 %; MONOCYTES # (AUTO) 0.7 X 10^3 (0.0-1.0); MONOCYTES % (MANUAL) 6 %; NEUTROPHILS # (AUTO) 10.2 X 10^3 (1.8-7.8); NEUTROPHILS % (AUTO) 76 % (42-75); NEUTROPHILS % (MANUAL) 73 %; RBC MORPH NORMAL
[2019-10-14 18:17] LABS: CARBON DIOXIDE 23 MMOL/L (21-32); CHLORIDE 103 MMOL/L (98-107); SODIUM 141 MMOL/L (135-145)
[2019-10-14 18:18] LABS: ALANINE AMINOTRANSFERASE 8 U/L (0-55); ALBUMIN 3.9 GM/DL (3.2-4.5); ALKALINE PHOSPHATASE 73 U/L (40-136); BILIRUBIN,TOTAL 0.2 MG/DL (0.1-1.0); BUN/CREATININE RATIO 15; CALCIUM 10.1 MG/DL (8.5-10.1); CREATININE SERUM 0.84 MG/DL (0.60-1.30); GFR ESTIMATED > 60; GLUCOSE 114 MG/DL (70-105); TOTAL PROTEIN 6.8 GM/DL (6.4-8.2)
[2019-10-14 18:27] LABS: CLARITY,URINE CLEAR; COLOR,URINE YELLOW
[2019-10-14 18:28] LABS: BILIRUBIN,URINE NEGATIVE (NEGATIVE); GLUCOSE, URINE (UA) NEGATIVE (NEGATIVE); KETONES,URINE NEGATIVE (NEGATIVE); LEUKOCYTE ESTERASE ,URINE NEGATIVE (NEGATIVE); NITRITE,URINE NEGATIVE (NEGATIVE); PH,URINE 5.5 (5-9); PROTEIN,URINE NEGATIVE (NEGATIVE)
--- NOTE | 2019-10-14 18:30 | NUR ---
Pt has removed monitoring, pt has been sitting up on side of bed frequently stating she can't stop moving her legs. Pt has hx RLS and takes Requip for it. Dr reports he is planning to dismiss.
[2019-10-14 18:31] LABS: BACTERIA,URINE TRACE /HPF
--- NOTE | 2019-10-14 19:00 | NUR ---
Report to Connie HARRINGTON. Pt is sitting on side of bed awaiting Dr's discharge paperwork.
[2019-10-14 19:16] VITALS: BP 176/98
== END 2019-10-14 19:16 | disposition home or self-care (01) ==
LOC: EDUNIT# 17:14 → ER FS 17:15
DX: G25.81 Restless legs syndrome (principal); G25.79 Other drug induced movement disorders; I10 Essential (primary) hypertension; F41.9 Anxiety disorder, unspecified; F31.9 Bipolar disorder, unspecified; Z88.8 Allergy status to other drugs, medicaments and biological substances; Z87.39 Personal history of other diseases of the musculoskeletal system and connective tissue; Z87.891 Personal history of nicotine dependence; Z98.890 Other specified postprocedural states
CPT/HCPCS: 36415; 70450; 80053; 81000; 85007; 85027

== ENCOUNTER 2021-01-14 23:26 | Emergency (ER) | payer MEDICARE, MEDICAID ==
[~2021-01-14] VITALS: Ht 165.1 cm; Wt 144.7 kg
[~2021-01-14 23:26] MED LIST changes: +ESCI-2 PO; -ESCI10TA55 PO; +MULT-567 PO; -MULT1TAB69 PO; -PANT40TA3 PO; +PANT40TA52 PO
--- OUTSIDE RECORDS SUMMARY | 2021-01-14 23:30 | XMS REPORT | Encounter Summary ---
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 documented as of this encounter Functional Status Date of Assessment Functional Status Response 06/24/2020 Does the patient have a hearing impairment: No 06/24/2020 Does the patient have a visual impairment: Yes 06/24/2020 Does the patient have impaired ambulation: No 06/24/2020 Does the patient have an activity of daily living No (ADL) impairment: 06/24/2020 Does the patient have an instrumental activity of No daily living (IADL) impairment: Date of Assessment Cognitive Status Response 06/24/2020 Does the patient have a cognitive impairment: No documented as of this encounter Plan of Treatment Not on filedocumented as of this encounter Visit Diagnoses Not on filedocumented in this encounter Additional Health Concerns Assessment Noted Time A fall risk assessment has been completed for the pat ient 06/24/2020 2:08 PM UNDER TRIMMER PHQ-2 Depression Total Score: 0 06/24/2020 2:08 PM UNDER TRIMMER documented as of this encounter
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
--- OUTSIDE RECORDS SUMMARY | 2021-01-14 23:30 | XMS REPORT | Encounter Summary ---
Author Author [facility] Organization [facility] Address Unknown Phone Unavailable Care Team Providers Care Theatrical Scenic Designer Name Role Phone Charmaine Nelson APRN PCP Reason for Referral * Radiology Services (Routine) Referred By Contact Referred To Contact Status Reason Specialty Diagnoses / Procedures Kala Hutson MD [address] [facility] [address] [place] [id number] New Request Radiology Diagnoses Thyroid nodule P rocedures US THYROID Electronically signed by Kala Hutson MD at Reason for Visit * Radiology Services (Routine) Referred By Contact Referred To Contact Status Reason Specialty Diagnoses / Procedures Kala Hutson MD [address] [facility] [address] [place] [phone] New Request Radiology Diagnoses Thyroid nodule P rocedures US THYROID Encounter Details Care Team Description Date Type Department Kaal Hutson MD [address] [facility] [address] [place] [phone] Arrived 01/13/2021 Hospital Imaging, Ultrasound : [facility] [address] [place] [phone] Social History Date Tobacco Use Types Packs/Day [...] Not on filedocumented as of this encounter Procedures Comments Procedure Name Priority Date/Time Associated Diag nosis US THYROID Routine 01/13/2021 Thyroid nodule 8:34 AM CDT documented in this encounter Results * US THYROID (01/13/2021 8:34 AM CDT) Specimen Impressions Performed At 1. Decrease in size of biopsy-proven parathyroid adenoma in or adjacent to the [facility] inferior left thyroid lobe. 2. Minimal increase in size of modera tely suspicious nodule within the inferior right thyroid lobe (TR 4), tho ugh this does not meet threshold growth by TI-RADS criteria. Recommend continue d imaging surveillance with repeat thyroid ultrasound in one year. ACR TI-RADS assessment categories TR1: Benign TR2: Not suspicious TR3: Mildly suspicious TR4: Moderately suspicious TR5: Highly suspicious [email or web address].org/Clinical-Resources/ Vsclwdwjf-avg-Txgb-Systems/TI-RADS By my electronic signature, I attest th at I have personally reviewed the images for this examination and formulated the interpretations and opinions expressed in this report Finalized by Jeronimo Garcia M.D. on 01/13/2021 10:53 AM. Dictated by Hung Preston M.D. on 01/13/2021 10:19 AM. Narrative Performed At ULTRASOUND OF THE NECK [facility] CLINICAL INDICATION: Female, 50 years; thyroid nodules TECHNIQUE: Multiple grayscale and color Doppler ultrasound images were obtained of the thyroid gland and anterior neck. COMPARISON: Thyroid ultrasound 8 FINDINGS: Isthmus: Normal in thickness. No discre te nodule. Right lobe: Measures 4.8 x 1.6 x 1.7 cm . The right lobe parenchyma is homogenous. A single nodule is measured . * Inferior right lobe (images 75 and 78): Measures 1.0 x 0.9 x 0.9 cm, previously 0.9 x 0.9 x 0.7 cm. Solid, h ypoechoic, wider than tall, ill-defined margins, shadowing macrocalcification. TR 4 Left lobe: Measures 4.9 x 1.7 x 1.5 cm. The left lobe parenchyma is homogenous. A few subcentimeter nodules demonstrate moderately suspicious features, though do not meet size crite bruno for continued follow-up. Previously measured anterior lobe nodule is redemo nstrated. * In or adjacent to Inferior left lob e (images 26 and 28): Measures 1.6 x 1.0 x 1.1 cm, previously 2.1 x 1.3 x 1.5 cm . Solid, hypoechoic, wider than tall, indistinct margins, without calcificati on. TR 4 A few normal-sized jugular chain lymph nodes are noted, which are most likely reactive in nature. No lymph nodes demo nstrate calcification or cystic change. Procedure Note Interface, Radiant Results - 01/13/2021 10:56 AM CDT ULTRASOUND OF THE NECK CLINICAL INDICATION: Female, 50 years; thyroid nodules TECHNIQUE: Multiple grayscale and color Doppler ultrasound images were obtained of the thyroid gland and anterior neck. COMPARISON: Thyroid ultrasound 11/05/2017 FINDINGS: Isthmus: Normal in thickness. No discrete nodule. Right lobe: Measures 4.8 x 1.6 x 1.7 cm. The right lobe parenchyma is homogenous. A single nodule is measured. * Inferior right lobe (images 75 and 78): Measures 1.0 x 0.9 x 0.9 cm, previously 0.9 x 0.9 x 0.7 cm. Solid, hypoechoic, wider than tall, ill-defined margins, shadowing macrocalcification. TR 4 Left lobe: Measures 4.9 x 1.7 x 1.5 cm. The left lobe parenchyma is homogenous. A few subcentimeter nodules demonstrate moderately suspicious features, though do not meet size criteria for continued follow-up. Previously measured anterior lobe nodule is redemonstrated. * In or adjacent to Inferior left lobe (images 26 and 28): Measures 1.6 x 1.0 x 1.1 cm, previously 2.1 x 1.3 x 1.5 cm. Solid, hypoechoic, wider than tall, indistinct margins, without calcification. TR 4 A few normal-sized jugular chain lymph nodes are noted, which are most likely reactive in nature. No lymph nodes demonstrate calcification or cystic change. IMPRESSION 1. Decrease in size of biopsy-proven pa rathyroid adenoma in or adjacent to the inferior left thyroid lobe. 2. Minimal increase in size of moderate ly suspicious nodule within the inferior right thyroid lobe (TR 4), though this does not meet threshold growth by TI-RADS criteria. Recommend continued imaging surveillance with repeat thyroid ultrasound in one year. ACR TI-RADS assessment categories TR1: Benign TR2: Not suspicious TR3: Mildly suspicious TR4: Moderately suspicious TR5: Highly suspicious [email or web address].acr.org/Clinical-Resources/Dtesxcdlb-myb-Bxga-Systems/TI-RADS By my electronic signature, I attest that I have personally reviewed the images for this examination and formulated the interpretations and opinions expressed in this report Finalized by Jeronimo Garcia M.D. on 01/13/2021 10:53 AM. Dictated by Hung Preston M.D. on 01/13/2021 10:19 AM. Performing Organization Address City/State/ZIP Code P cady Number [facility] documented in this encounter Visit Diagnoses Diagnosis Thyroid nodule Nontoxic uninodular goiter documented in this encounter Additional Health Concerns Assessment Noted Time A fall risk assessment has been completed for the pat ient 06/24/2020 2:08 PM STUDIO DIRECTOR PHQ-2 Depression Total Score: 0 06/24/2020 2:08 PM STUDIO DIRECTOR documented as of this encounter
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
--- OUTSIDE RECORDS SUMMARY | 2021-01-14 23:31 | XMS REPORT | Encounter Summary ---
Author Author [facility] Organization [facility] Address Unknown Phone Unavailable Care Team Providers Care Flavor Maker Name Role Phone Charmaine Nelson APRN PCP Reason for Referral * Radiology Services (Routine) Referred By Contact Referred To Contact Status Reason Specialty Diagnoses / Procedures Kala Hutson MD [address] Ortho/Med Pavilion [address] [place] [id number] [facility] Nuclear Med [address] [place] [address] Level 2, [address] [place] [address] Authorized Radiology Diagnoses HPTH (hyperparathyroidi sm) (HCC) P rocedures NM PARATHYROID STATIC SPECT/CT Electronically signed by Kala Hutson MD at Encounter Details Care Team Description Date Type Department Kala Hutson MD [address] Ortho/Med Pavilion [address] [place] [id number] HPTH (hyperparathyroidism) (HCC) (Primar y Dx) 12/30/2020 Orders Only Oncology: [facility] [place] [address] [place] [address]. [place], [place] [phone] Social History Date Tobacco Use Types Packs/Day Years Used Never Smoker Smokeless Tobacco: Former Quit: 07/23/2019 User Comments Alcohol Use Standard Drinks/Week very rarely Yes 0 (1 standard drink = 0.6 o z pure alcohol) Sex Assigned at Date Recorded Female 01/13/2021 8:10 AM CDT documented as of this encounter Functional Status [...] Not on filedocumented as of this encounter Results * NM PARATHYROID STATIC SPECT/CT (01/13/2021 [...] SUGGESTIVE OF A PARATHYROID ADENOMA. Finalized by Jay Vega M.D. on 01/13/2021 12:37 PM. Dictated by Jay Vega M.D. on 01/13/2021 12:32 PM. Performing Organization Address City/State/ZIP Code P cady Number [facility] RESULTS documented in this encounter Visit Diagnoses Diagnosis HPTH (hyperparathyroidism) (HCC) - Prim robert Hyperparathyroidism, unspecified documented in this encounter Additional Health Concerns Assessment Noted Time A fall risk assessment has been completed for the pat ient 06/24/2020 2:08 PM COP EXAMINER PHQ-2 Depression Total Score: 0 06/24/2020 2:08 PM COP EXAMINER documented as of this encounter
--- OUTSIDE RECORDS SUMMARY | 2021-01-14 23:31 | XMS REPORT | Encounter Summary ---
Author Author [facility] Organization [facility] Address Unknown Phone Unavailable Care Team Providers Care Attending Pathologist Name Role Phone Charmaine Nelson APRN PCP Reason for Visit * Reason Onset Date Comments Navigation Follow Up 12/30/2020 Encounter Details Care Team Description Date Type Department Kala Hutson MD [address] Orth[facility] Pavilion [address] [address] [phone] Navigation Follow Up 12/30/2020 Telephone Oncology: [facility] [address] [address] Social History Date Tobacco Use Types Packs/Day [...] impairment: No documented as of this encounter Miscellaneous Notes * Telephone Encounter - Vaishali Shi RN - 12/30/2020 11:36 AM CDT Reviewed referral with Dr Hutson. Pt last seen in 2018, hx pf parathyroidectom y. Imaging needed prior to appt on 01/13/21- Thyroid US and Parathyroid -NM SPECT . Images have been scheduled. I attempted to call pt to inform on needed images scheduled on 01/13/21- same day as pt sees Dr Hutson, No answer. I was not abl e to leave a message because the mailbox is full. I tried pt's mother- as anothe r contact for pt. No answer and not able to leave a message because the mailbox is full. Will ask our Navigation sales coordinator to send email with these add itional appts to pt. Vaishali Shi RN documented in this encounter Plan of Treatment Not on filedocumented as of this encounter Visit Diagnoses Not on filedocumented in this encounter Additional Health Concerns Assessment Noted Time A fall risk assessment has been completed for the pat ient 06/24/2020 2:08 PM STAFF MIDWIFE PHQ-2 Depression Total Score: 0 06/24/2020 2:08 PM STAFF MIDWIFE documented as of this encounter
--- OUTSIDE RECORDS SUMMARY | 2021-01-14 23:31 | XMS REPORT | Encounter Summary ---
Author Author [facility] Organization [facility] Address Unknown Phone Unavailable Care Team Providers Care Computer Security Coordinator Name Role Phone Charmaine Nelson APRN PCP Encounter Details Care Team Description [place] [address] [place] [address] 12/04/2020 Clinical Metabolic and Baria tric Support Care: [facility] Medical Pavilion: [id number], [address] [place] [address] Social History Date Tobacco Use Types Packs/Day [...] impairment: No documented as of this encounter Progress Notes * Rosa Heredia - 12/04/2020 1:00 PM CDT Clinical Nutrition Note Jossy Dasilva is a 49 y.o. female with obesity preparing for bariatric surg neftaly. Seen for 3 of 6 monthly/weekly diet/lifestyle counseling prior to surgery. Initial bariatric nutrition education provided on 10/10/20 Nutrition Assessment of Patient: Estimated Protein Needs: 80-100 Needs to promote: weight loss Wt Readings from Last 5 Encounters: 10/11/20 (!) 146.1 kg (322 lb) 06/24/20 (!) 144.7 kg (319 lb) 01/04/18 (!) 142.9 kg (315 lb) 12/06/17 (!) 149.2 kg (329 lb) 11/14/17 (!) 146.1 kg (322 lb) There is no height or weight on file to calculate BMI. Pt reports: 2-3 times at the gym each week, 30 mins strength and cardio with a personal trainer Eating the protein shake for breakfast, then only having dinner Looking into protein soups, unflavored protein powder Working on hydration, drank 3 bottles of water Meal and Snack Frequency: 2 currently Duration of Meals: aiming for 20 mins Liquids with or after meals: comfortable with this, waiting 30-60mins Daily Physical Activity: working with a personal trainer Patient Goals: 1. Exercise 30-60mins 5 days per week 2. Hydration: 64 ounces per day of water Nutrition Monitoring and Evaluation: Goal: Weight loss toward normal BMI range Time Frame: 6 months+ Follow up Date: [address],CSOWM, LD Clinical Terrazzo Grinder Available on Voalte [phone] () documented in this encounter Plan of Treatment Not on filedocumented as of this encounter Visit Diagnoses Not on filedocumented in this encounter Additional Health Concerns Assessment Noted Time A fall risk assessment has been completed for the pat ient 06/24/2020 2:08 PM MULTIMEDIA PROGRAMMER PHQ-2 Depression Total Score: 0 06/24/2020 2:08 PM MULTIMEDIA PROGRAMMER documented as of this encounter
--- OUTSIDE RECORDS SUMMARY | 2021-01-14 23:31 | XMS REPORT | Encounter Summary ---
Author Author [facility] Organization [facility] Address Unknown Phone Unavailable Care Team Providers Care Processing Analyst Name Role Phone Charmaine Nelson APRN PCP Reason for Referral * Radiology Services (Routine) Referred By Contact Referred To Contact Status Reason Specialty Diagnoses / Procedures Kala Hutson MD [address] Ortho/Med Pavilion [address] [place] [address] 2 Nuclear Med [address] [facility] 2, [address] [address] Authorized Radiology Diagnoses HPTH (hyperparathyroidi sm) (HCC) P rocedures NM PARATHYROID STATIC SPECT/CT Electronically signed by Kala Hutson MD at Reason for Visit * Radiology Services (Routine) Referred By Contact Referred To Contact Status Reason Specialty Diagnoses / Procedures Kala Hutson MD [address] Ortho[facility]Med Pavilion [address] [place] [address] [facility] Nuclear Med [address] [facility] 2, [address] [place] [address] Authorized Radiology Diagnoses HPTH (hyperparathyroidi sm) (HCC) P rocedures NM PARATHYROID STATIC SPECT/CT Encounter Details Care Team Description Date Type Department Kala Hutson MD [address] Ortho/Med Pavilion [address] [place] [address] [phone] Arrived 01/13/2021 Hospital Imaging, Nuclear Encounter Medicine: [facility], [address], [address] [place] [phone] Social History Date Tobacco Use Types Packs/Day [...] SPECT/CT 12:17 PM CDT (hyperparathyroidis m) (HCC) documented in this encounter Results * NM PARATHYROID STATIC [...] encounter Visit Diagnoses Diagnosis HPTH (hyperparathyroidism) (HCC) Hyperparathyroidism, unspecified documented in this encounter Administered Medications Action Date Dose Rate Site Medication Order MAR Action 01/13/2021 10:13 AM CDT 19.8 millicuries RP DX Tc-99m sestamibi (CARDIOLITE; Given MIRALUMA) injection 20 millicurie 20 millicurie, Intravenous, ONCE, 1 dose, On 01/13/21 at 1030 documented in this encounter Orders First Ordered Date Medications Ordered That Might Not Have Count Last Ordered Date Been Administered RP DX Tc-99m sestamibi (CARDIOLITE; 1 MIRALUMA) injection 20 millicurie documented in this encounter Additional Health Concerns Assessment Noted Time A fall risk assessment has been completed for the pat ient 06/24/2020 2:08 PM PROVIDER RELATIONS ADVOCATE PHQ-2 Depression Total Score: 0 06/24/2020 2:08 PM PROVIDER RELATIONS ADVOCATE documented as of this encounter
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
--- OUTSIDE RECORDS SUMMARY | 2021-01-14 23:31 | XMS REPORT | Encounter Summary ---
Author Author [facility] Organization [facility] Address Unknown Phone Unavailable Care Team Providers Care Core Assembly Supervisor Name Role Phone Charmaine Nelson APRN PCP Reason for Referral * Radiology Services (Routine) Referred By Contact Referred To Contact Status Reason Specialty Diagnoses / Procedures Kala Hutson MD [address] [facility] [address] [place] [id number] New Request Radiology Diagnoses Thyroid nodule P rocedures US THYROID Electronically signed by Kala Hutson MD at Encounter Details Care Team Description Date Type Department Kala Hutson MD [address] [facility] [address] [place] [id number] Thyroid nodule (Primary Dx) 12/30/2020 Orders Only Oncology: [facility] [address] [id number] Social History Date Tobacco Use Types Packs/Day [...] filedocumented as of this encounter Results * US THYROID (01/13/2021 [...] TR4: Moderately suspicious TR5: Highly suspicious [email or web address]-[email or web address]-[email or web address]-Systems/[email or web address] By my electronic signature, I attest th [...] suspicious TR4: Moderately suspicious TR5: Highly suspicious [email or web address]-[email or web address]-[email or web address]/[email or web address]-[email or web address] By my electronic signature, I attest that [...] this encounter Visit Diagnoses Diagnosis Thyroid nodule - Primary Nontoxic uninodular goiter documented in this encounter Additional Health Concerns Assessment Noted Time A fall risk assessment has been completed for the pat ient 06/24/2020 2:08 PM METAL BURNISHER PHQ-2 Depression Total Score: 0 06/24/2020 2:08 PM METAL BURNISHER documented as of this encounter
--- NOTE | 2021-01-14 23:33 | ED Headache ---
General Stated Complaint: MIGRIANE Source: patient Exam Limitations: no limitations History of Present Illness Date Seen by Provider: Jan 14, 2021 Time Seen by Provider: 23:32 Initial Comments 50-year-old female presents with headache starting 1 hour prior to arrival. She took a Maxalt at the time the headache started, but has not had any relief yet. No associated nausea or vomiting, but however does have some light sensitivity. Past medical significant for migraine headaches Allergies and Home Medications Allergies Coded Allergies: meloxicam (Verified Allergy, Unknown, RASH/ITCHING, 12/03/18) Home Medications Cariprazine Hydrochloride 1.5 Mg Capsule, 1.5 MG PO DAILY, (Reported) Cholecalciferol (Vitamin D3) 5,000 Unit Capsule, 5,000 UNIT PO DAILY, (Reported) Clonazepam 1 Mg Tablet, 1 MG PO DAILY PRN for ANXIETY, (Reported) Clonazepam 1 Mg Tablet, 1 MG PO HS, (Reported) Cyclobenzaprine HCl 10 Mg Tablet, 10 MG PO Q8H PRN for SPASMS Prescribed by: DAVID MEADOWS on 12/03/182113 Escitalopram Oxalate 10 Mg Tablet, 10 MG PO DAILY, (Reported) Gabapentin 400 Mg Capsule, 400 MG PO BID, (Reported) Multivitamin 1 Each Tablet, 1 TAB PO DAILY, (Reported) Pantoprazole Sodium 40 Mg Tablet.dr, 40 MG PO DAILY Prescribed by: KUMAR LEYVA on 11/08/18 104 Propranolol HCl 40 Mg Tablet, 40 MG PO BID, (Reported) TAKES ALONG WITH 60MG TABLET Propranolol HCl 60 Mg Tablet, 60 MG PO BID, (Reported) TAKES ALONG WITH 40MG TABLET Ropinirole HCl 1 Mg Tablet, 1 MG PO HS, (Reported) Tizanidine HCl 4 Mg Tablet, 4 MG PO TID Prescribed by: KLAUS HILL on 12/07/18 2147 Trazodone HCl 100 Mg Tablet, 100 MG PO HS, (Reported) Patient Home Medication List Home Medication List Reviewed: Yes Review of Systems Review of Systems Constitutional: No fever; malaise; No weakness Eyes: See HPI; Denies Pain; Photophobia Ears, Nose, Mouth, Throat: no symptoms reported Respiratory: no symptoms reported; No cough, No short of breath Cardiovascular: No chest pain, No edema, No palpitations Gastrointestinal: No abdominal pain, No nausea, No vomiting Musculoskeletal: No back pain, No joint pain, No neck pain Skin: No change in color, No rash Psychiatric/Neurological: Headache; Denies Numbness, Denies Paresthesia, Denies Seizure Past [id number]-Plkrcp Hx Patient Social History Tobacco Use?: No Immunizations Up To Date Tetanus Booster (TDap): Unknown Seasonal Allergies Seasonal Allergies: No Past Medical History Surgeries: Yes Abdominal, Section, Gallbladder, Hysterectomy, Oophorectomy, Orthoped ic, Thyroidectomy Respiratory: Yes Sleep Apnea Cardiac: Yes (Pt has stress test Spring 2018 @ [place] [facility]) Hypertension Neurological: 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 0oz. 131.112445sf; 51.00 BMI Method:Actual General Appearance: WD/WN, no apparent distress HEENT: PERRL/EOMI, normal ENT inspection, photophobia Neck: non-tender, full range of motion, supple Psychiatric: alert, oriented x 3 Crainal Nerves: normal hearing, normal speech, PERRL Coordination/Gait: normal finger to nose, normal gait Motor/Sensory: no motor deficit, no sensory deficit Skin: normal color, warm/dry Progress/Results/Core Measures Results/Orders My Orders Orders - ROVENSTLUCA ARRIAGA DO Ketorolac Injection (Toradol Injection) (01/15/21 00:00) Medications Given in ED Current Medications Medications Dose Ordered Sig/Michele Route Start Time Stop Time Status Last Admin Dose Admin Ketorolac Tromethamine 60 mg ONCE ONCE IM 01/15/21 00:00 01/15/21 00:01 DC 01/15/21 00:09 60 MG Vital Signs/I&O 01/14/21 23:30 Temp 36.1 Pulse 72 Resp 16 B/P (MAP) 169/102 (124) Pulse Ox 98 O2 Delivery Room Air Progress Progress Note : Progress Note no improvement p IM Toradol....then given 10mg Reglan IM and 50 mg Benadryl po Departure Impression Primary Impression: Migraine Qualified Codes: G43.909 - Migraine, unspecified, not intractable, without status migrainosus Disposition: HOME, SELF-CARE Condition: Improved Departure-Patient Inst. Decision time for Depature: 00:25 Referrals: GARETH VASQUEZ APRN (PCP) Primary Care Physician SHAVONNE CLAIRE MD (Family) Primary Care Physician Patient Instructions: Migraines (DC) Add. Discharge Instructions: Call your PCP tomorrow if you are not feeling better LUCA GILL DO Jan 14, 2021 23:33
[2021-01-15] MEDS ORDERED: KETOROLAC 60 MG/2 ML VIAL IM ONE
[2021-01-15] MEDS ORDERED: diphenhydrAMINE 25 MG TAB (BENADRYL) PO ONE (00:30)
[2021-01-15] MEDS ORDERED: METOCLOPRAMIDE INJ 10 MG/2 ML (REGLAN) IM ONE (00:30)
[2021-01-15 00:35] VITALS: BP 154/90
== END 2021-01-15 00:35 | disposition home or self-care (01) ==
LOC: EDUNIT# 23:26 → ER FS 23:27
DX: G43.909 Migraine, unspecified, not intractable, without status migrainosus (principal); G47.30 Sleep apnea, unspecified; I10 Essential (primary) hypertension; F31.9 Bipolar disorder, unspecified; F41.9 Anxiety disorder, unspecified
CPT/HCPCS: 96372; 99284

== ENCOUNTER → 2021-06-06 | Outpatient (CLI) | payer MEDICARE, MEDICAID ==
[~2021-06-06] MED LIST changes: +ACHD5005 PO; +CYCL10TA25 PO; -CYCL10TA9 PO; +ONDA4TAB11 PO; +TMSL.4C PO
--- NOTE | 2021-06-06 15:04 | Diagnostic Imaging Report ---
EXAMINATION: CT abdomen and pelvis without contrast. TECHNIQUE: Multiple contiguous axial images were obtained through the abdomen and pelvis without the use of intravenous contrast. All CT scans use one or more of the following dose optimizing techniques: Automated exposure control, MA and/or KvP adjustment based on patient size and exam type or iterative reconstruction. HISTORY: UTI symptoms. COMPARISON: 12/20/2018. FINDINGS: Lung bases: The lung bases are clear. Solid organs: The liver is normal. The gallbladder is surgically absent. There is no biliary ductal dilation. Pancreas is normal. Spleen is normal. Adrenal glands are normal. There are bilateral nonobstructing renal calculi which measure up to 0.7 cm in the left kidney. There is no hydronephrosis. Bowel: There is a small hiatal hernia with surgical changes of the stomach. There is no bowel obstruction. The colon and appendix are normal. Peritoneum: There is no intraperitoneal free fluid or free air. No suspicious lymphadenopathy. Vasculature: Normal without aneurysm. Musculoskeletal: Degenerative changes of the spine without suspicious osseous lesion or compression fracture. Pelvis: The uterus is surgically absent. No adnexal mass. The urinary bladder is normal. IMPRESSION: 1. Nonobstructing renal calculi measuring up to 0.7 cm in the left kidney. No hydronephrosis. 2. No other acute abnormality in the abdomen or pelvis. Dictated by: Dictated on workstation # [id number]
== END ==
LOC: RAD FS 12:29
PROVIDERS: ATTEND Nurse Practitioner Family
DX: N20.0 Calculus of kidney (principal)
CPT/HCPCS: 74176

== ENCOUNTER 2021-06-09 19:14 | Emergency (ER) | payer MEDICARE, MEDICAID ==
[~2021-06-09 19:14] MED LIST changes: -ACHD5005 PO; -ONDA4TAB11 PO; -TMSL.4C PO
--- OUTSIDE RECORDS SUMMARY | 2021-06-09 19:18 | XMS REPORT | Clinical Summary ---
Author Author [facility] Organization [facility] Address Unknown Phone Unavailable Care Team Providers Care V/Stol Landing Signal Officer Name Role Phone Charmaine Nelson APRN PCP Source Comments Some departments are not documenting in the electronic medical record. If you d o not see the information that you expected, contact Release of Information in [facility] [employer] Information Management department at [phone] for further assistan ce in locating additional records.[facility] Allergies Comments Active Allergy Reactions Severity Noted [...] Encounters Care Team Description Date Type Specialty Sam Wesley MD Surgery 03/20/2021 Telephone Bariatrics from Last 3 Months Immunizations Name Administration [...] CTOMY performed by Tyesha Hutson MD at [facility] OR/Periop LARYNGOSCOPY 11/10/2017 Throat/N/A DIRECT LARYNGOS COPY performed by Tyesha Hutson MD at [facility] OR/Periop LARYNGOSCOPY 11/10/2017 Throat/N/A FLEXIBLE LARYNG OSCOPY performed by Tyesha Hutson MD at [facility] OR/Periop HX TUBAL LIGATION 05/24/2002 - 05/23/2003 [...] Morbid obesity (HCC) Hiatal hernia History of 2019 novel coronavirus 02/27/2020 disease (COVID-19) Sinus jackson-tachy syndrome (HCC) 2018 Jamal r Monitor Family History Relation Name Status Comments Father Alive Mother Alive Social History Date Tobacco Use Types Packs/Day Years Used Never Smoker Smokeless Tobacco: Former Quit: 07/23/2019 User Comments Alcohol Use Standard Drinks/Week very rarely Yes 0 (1 standard drink = 0.6 o z pure alcohol) Alcohol Habits Answer Date Recorded How often do you have a drink containing alcohol? No t asked How many drinks containing alcohol do you have on No t asked a typical day when you are drinking? How often do you have six or more drinks on one Not asked occasion? Comment: very rarely 11/05/2017 Sex Assigned at Date Recorded Female 01/13/2021 8:10 AM CDT Last Filed Vital Signs Reading Time Taken Comments Vital Sign 140/90 01/13/2021 12:51 PM CDT Blood Pressure 68 01/13/2021 12:51 PM CDT Pulse 37.1 C (98.7 F) 11/15/2017 9:41 AM CDT Temperature 16 06/24/2020 2:03 PM [employer] Respiratory Rate 99% 10/11/2020 10:30 AM CDT Oxygen Saturation - - Inhaled Oxygen Concentration 138.3 kg (305 lb) 03/05/2021 1:00 PM CDT Weight 166.4 cm (5' 5.51") 03/05/2021 1:00 PM CDT Height 49.96 03/05/2021 1:00 PM CDT Body Mass Index Plan of Treatment Health Maintenance Due Date Last Done Comments MEDICARE ANNUAL WELLNESS 1970 VISIT MICROALBUMIN 1970 HIV SCREENING 1985 DILATED EYE EXAM 1988 FOOT EXAM 1988 HEPATITIS C SCREENING 1988 PHYSICAL (COMPREHENSIVE) 1988 EXAM CERVICAL CANCER SCREENING 12/18/1991 BREAST CANCER SCREENING 2010 COLORECTAL CANCER 2020 SCREENING SHINGLES RECOMBINANT 2020 VACCINE (1 of 2) INFLUENZA VACCINE 12/22/2020 04/15/2020 HBA1C 04/13/2021 10/11/2020 DTAP/TDAP VACCINES (2 - 02/07/2030 02/08/2020 Td or Tdap) Results Not on filefrom Last 3 Months Insurance Type Payer Benefit Subscriber ID Effective Phone Address Plan / Dates Group ROSALIE XIAO [id number] 2020-P [phone] [address] [place] [address] Medicaid [place] [id number] 2017-P [phone] [address] [place] [address] [phone] 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 necessary based on Dx Care Teams Start Date End Date V/Stol Landing Signal Officer Relationship Specialty 04/16/20 Charmaine Nelson APRN PCP - General Nurse [address] [place] [address] [place] [id number]
[2021-06-09] MEDS ORDERED: KETOROLAC 30 MG/ML VIAL IM ONE (19:30)
--- NOTE | 2021-06-09 19:32 | ED Back Pain ---
General Chief Complaint: Back Problems Stated Complaint: LOWER BACK PAIN/BURNING Source of Information: Patient Exam Limitations: No Limitations History of Present Illness Date Seen by Provider: Jun 09, 2021 Time Seen by Provider: 19:16 Initial Comments 50-year-old female with past medical history of hypertension coming in due to left flank pain. She says the pain started Wednesday, has been intermittent, throbbing, and nothing seems to make it better or worse. She has never had pain like this before. She went to urgent care and a CT scan was ordered and completed on Wednesday showing 0.7cm nonobstructing stone in her left kidney with no signs of hydronephrosis. She has not been taking anything for the pain. He is not having any associated nausea, vomiting, diarrhea, fever, chills, weakness, numbness, dysuria, abdominal pain, or any other concerns. No hematuria that she knows of. She is having urinary frequency. Denies ever having symptoms like this before. Allergies and Home Medications Allergies Coded Allergies: meloxicam (Verified Allergy, Unknown, RASH/ITCHING, 12/03/18) Patient Home Medication List Home Medication List Reviewed: Yes Cariprazine Hydrochloride (Vraylar) 1.5 Mg Capsule, 1.5 MG PO DAILY, (Reported) Entered as Reported by: SUKI TREVIÑO on 11/08/18 09 Cholecalciferol (Vitamin D3) (Vitamin D3) 5,000 Unit Capsule, 5,000 UNIT PO DAILY, (Reported) Entered as Reported by: SUKI TREVIÑO on 11/08/18 0945 Clonazepam (Clonazepam) 1 Mg Tablet, 1 MG PO DAILY PRN for ANXIETY, (Reported) Entered as Reported by: SUKI TREVIÑO on 11/08/18 0938 Clonazepam (Clonazepam) 1 Mg Tablet, 1 MG PO HS, (Reported) Entered as Reported by: SUKI TREVIÑO on 11/08/18 0944 Cyclobenzaprine HCl (Cyclobenzaprine HCl) 10 Mg Tablet, 10 MG PO Q8H PRN for SPASMS Prescribed by: DAVID MEADOWS on 12/03/182113 Escitalopram Oxalate (Escitalopram Oxalate) 10 Mg Tablet, 10 MG PO DAILY, (Reported) Entered as Reported by: SUKI TREVIÑO on 11/08/18 09 Gabapentin (Gabapentin) 400 Mg Capsule, 400 MG PO BID, (Reported) Entered as Reported by: SUKI TREVIÑO on 11/08/18937 Hydrocodone Bit/Acetaminophen (HYDROcodone/APAP 5 MG/325 MG TAB) 1 Tab Tab, 1 TAB PO Q6H Prescribed by: HALINA FORTE on 06/09/211935 Multivitamin (Multivitamins) 1 Each Tablet, 1 TAB PO DAILY, (Reported) Entered as Reported by: SUKI TREVIÑO on 11/08/18944 Ondansetron (Ondansetron Odt) 4 Mg Tab.rapdis, 4 MG PO Q6H PRN for NAUSEA/VOMITING-1ST LINE Prescribed by: HALINA FORTE on 06/09/211934 Pantoprazole Sodium (Pantoprazole Sodium) 40 Mg Tablet.dr, 40 MG PO DAILY Prescribed by: KUMAR LEYVA on 11/08/18 104 Propranolol HCl (Propranolol HCl) 40 Mg Tablet, 40 MG PO BID, (Reported) Entered as Reported by: SUKI TREVIÑO on 11/08/18937 Propranolol HCl (Propranolol HCl) 60 Mg Tablet, 60 MG PO BID, (Reported) Entered as Reported by: SUKI TREVIÑO on 11/08/18937 Ropinirole HCl (Ropinirole HCl) 1 Mg Tablet, 1 MG PO HS, (Reported) Entered as Reported by: SUKI TREVIÑO on 11/08/18937 Tamsulosin HCl (Flomax) 0.4 Mg Cap, 0.4 MG PO DAILY Prescribed by: HALINA FORTE on 06/09/211934 Tizanidine HCl (Zanaflex) 4 Mg Tablet, 4 MG PO TID Prescribed by: KLAUS HILL on 12/07/182146 Trazodone HCl (Trazodone HCl) 100 Mg Tablet, 100 MG PO HS, (Reported) Entered as Reported by: SUKI TREVIÑO on 11/08/18937 Review of Systems Constitutional: No chills, No fever EENTM: No blurred vision Respiratory: No cough Cardiovascular: No chest pain Gastrointestinal: No abdominal pain, No diarrhea, No nausea, No vomiting Genitourinary: No dysuria; frequency; No hematuria Musculoskeletal: back pain Skin: no symptoms reported Psychiatric/Neurological: No Symptoms Reported All Other Systems Reviewed Negative Unless Noted: Yes Past Gpxpxxi-Btszmb-Rajhaz Hx Patient Social History Tobacco Use?: No Substance use?: No Alcohol Use?: No Immunizations Up To Date Tetanus Booster (TDap): Unknown Seasonal Allergies Seasonal Allergies: No Past Medical History Surgeries: Yes Abdominal, Section, Gallbladder, Hysterectomy, Oophorectomy, Orthopedic, Thyroidectomy Respiratory: Yes Sleep Apnea Cardiac: Yes (Pt has stress test Spring 2018 @ [place]) Hypertension 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 0oz. 131.295024zk; 53.00 BMI Method:Actual General Appearance: No Apparent Distress, WD/WN HEENT: PERRL/EOMI, Normal ENT Inspection, Pharynx Normal Neck: Full Range of Motion, Normal Inspection, Non Tender, Supple Cardiovascular: Regular Rate, Rhythm, No Edema, Normal Peripheral Pulses Respiratory: Chest Non Tender, Lungs Clear, Normal Breath Sounds, No Accessory Muscle Use, No Respiratory Distress Gastrointestinal: Normal Bowel Sounds, Non Tender, Soft; No Distended, No Guarding Back: Normal Inspection, No Vertebral Tenderness, CVA Tenderness (L) Extremity: Normal Capillary Refill, Normal Inspection, Normal Range of Motion, Non Tender, No Calf Tenderness, No Pedal Edema Neurologic/Psychiatric: Alert, No Motor/Sensory Deficits, Normal Mood/Affect Skin: Normal Color, Warm/Dry Lymphatic: No Adenopathy Progress/Results/Core Measures Results/Orders Lab Results Laboratory Tests Test 06/09/21 19:25 Range/Units Urine Color YELLOW Urine Clarity CLOUDY Urine pH 6.0 5-9 Urine Specific [place] 1.025 H 1.016-1.022 Urine Protein TRACE H NEGATIVE Urine Glucose (UA) NEGATIVE NEGATIVE Urine Ketones NEGATIVE NEGATIVE Urine Nitrite NEGATIVE NEGATIVE Urine Bilirubin NEGATIVE NEGATIVE Urine Urobilinogen 0.2 < = 1.0 MG/DL Urine Leukocyte Esterase NEGATIVE NEGATIVE Urine RBC (Auto) 2+ H NEGATIVE Urine RBC 5-10 H /HPF Urine WBC 0-2 /HPF Urine Squamous Epithelial Cells 5-10 /HPF Urine Crystals PRESENT H /LPF Urine Calcium Oxalate Crystals FEW H /LPF Urine Bacteria FEW H /HPF Urine Casts PRESENT /LPF Urine Hyaline Casts RARE /LPF Urine Mucus SMALL H /LPF Urine Other CLUE CELLS NOTED /HPF Urine Culture Indicated NO My Orders Orders - HALINA FORTE MD Ua Culture If Indicated (06/09/21 19:25) Ketorolac Injection (Toradol Injection) (06/09/21 19:30) Rx-Hydrocodone/Apap 5-325 Mg (Rx-Vicodin (06/09/21 19:45) Medications Given in ED Current Medications Medications Dose Ordered Sig/Michele Route Start Time Stop Time Status Last Admin Dose Admin Ketorolac Tromethamine 15 mg ONCE ONCE IM 06/09/21 19:30 06/09/21 19:31 DC 06/09/21 19:30 15 MG Vital Signs/I&O 06/09/21 19:16 Temp 36.3 Pulse 78 Resp 18 B/P (MAP) 230/104 (146) Pulse Ox 100 O2 Delivery Room Air Progress Progress Note : Progress Note 50-year-old female with above history coming in due to left flank pain. ABCs were intact and vitals were stable on presentation although she is hypertensive. She says her blood pressure normally is around 160 systolic and she takes propranolol for this. She says she is due for her nightly dose. I believe it is more elevated as well because of the pain and due to being in the ER. I discussed that she needs to follow-up with her PCP if it continues to be high as they may need to change medications. She does have left flank pain on exam, normal neuro exam with no weakness or numbness. I reviewed the CT that was completed a couple days ago she does have a kidney stone on the left which was nonobstructing. It is always possible this is currently passing. Did a urinalysis to assess for infection. She has had a hysterectomy and is not . The [id number] ultrasound to assess her aorta which appeared normal (roughly 3cm in all views) and her left kidney does have mild hydronephrosis fitting a picture of her stone passing.. Give her IM Toradol for pain control, and will recommend a course of pain medications to go home with for symptomatic ureterolithiasis. Will recommend follow-up with a urologist if she continues to have pain. I believe she is stable for discharge with outpatient follow-up. She was sent home with strict return precautions. Departure Impression Primary Impression: Nephrolithiasis Additional Impression: Flank pain Disposition: HOME, SELF-CARE Condition: Stable Departure-Patient Inst. Decision time for Depature: 19:31 Referrals: KAMALJIT ROSALES MD (PCP) Primary Care Physician DEANNE AMES MD Patient Instructions: Kidney Stone, Adult ED, Flank Pain Add. Discharge Instructions: You were seen in the emergency department for flank pain. You do have a kidney stone that was seen on the CT, and it is possible this is passing. I sent pain medications to your pharmacy to help with this if it is passing. If you develop any fever, burning with urination, a lot of blood coming out with urinating, or you have any other concerns and please come back to the ER. Dr. Ames is the urologist in [place], and you can follow-up if you continue to have symptoms. It is possible this is not related to the stone, and is muscular in nature like a spasm. Taking regular ibuprofen 600 mg every 6 hours should help with this as well as heating pads. Scripts Hydrocodone Bit/Acetaminophen (HYDROcodone/APAP 5 MG/325 MG TAB) 1 Tab Tab 1 TAB PO Q6H for Pain for 3 Days, #9 TAB 0 Refills Prov: HALINA FORTE MD 06/09/21 Tamsulosin HCl (Flomax) 0.4 Mg Cap 0.4 MG PO DAILY for 14 Days, #14 CAP Prov: HALINA FORTE MD 06/09/21 Ondansetron (Ondansetron Odt) 4 Mg Tab.rapdis 4 MG PO Q6H PRN for NAUSEA/VOMITING-1ST LINE for 5 Days, #20 TAB Prov: HALINA FORTE MD 06/09/21 Work/School Note: Work Release Form Date Seen in the Emergency Department: Jun 09, 2021 Return to Work: Jun 11, 2021 Restrictions: No Restrictions HALINA FORTE MD Jun 09, 2021 19:32
[2021-06-09] MEDS ORDERED: ACHD5005 PO ×2 (19:34→19:35)
[2021-06-09] MEDS ORDERED: TMSL.4C PO ×2 (19:34→19:35)
[2021-06-09] MEDS ORDERED: ONDA4TAB11 PO ×2 (19:34→19:35)
[2021-06-09 19:36] LABS: BILIRUBIN,URINE NEGATIVE (NEGATIVE); CLARITY,URINE CLOUDY; COLOR,URINE YELLOW; GLUCOSE, URINE (UA) NEGATIVE (NEGATIVE); KETONES,URINE NEGATIVE (NEGATIVE); LEUKOCYTE ESTERASE ,URINE NEGATIVE (NEGATIVE); NITRITE,URINE NEGATIVE (NEGATIVE); PROTEIN,URINE TRACE (NEGATIVE)
[2021-06-09 19:44] LABS: BACTERIA,URINE FEW /HPF; CALCIUM OXALATE CRYSTALS,UR FEW /LPF; WBC,URINE 0-2 /HPF
[2021-06-09 19:45] LABS: HYALINE CASTS, URINE RARE /LPF; URINE OTHER CLUE CELLS NOTED /HPF
[2021-06-09 19:54] VITALS: BP 166/101
== END 2021-06-09 19:54 | disposition home or self-care (01) ==
LOC: EDUNIT# 19:14 → ER FS 19:15
DX: N20.0 Calculus of kidney (principal); G47.30 Sleep apnea, unspecified; I10 Essential (primary) hypertension; F41.9 Anxiety disorder, unspecified; F31.9 Bipolar disorder, unspecified; Z79.899 Other long term (current) drug therapy
CPT/HCPCS: 81000; 96372; 99284

== ENCOUNTER 2021-06-20 07:02 | Emergency (ER) | payer MEDICARE, MEDICAID ==
[~2021-06-20] VITALS: Ht 165.1 cm; Wt 144.0 kg
[~2021-06-20 07:02] MED LIST changes: +ACHD5005 PO; +ONDA4TAB11 PO; +TMSL.4C PO
--- NOTE | 2021-06-20 07:16 | ED GI ---
General Chief Complaint: Abdominal/GI Problems Stated Complaint: NAUSEA; BACK PAIN History of Present Illness Date Seen by Provider: Jun 20, 2021 Time Seen by Provider: 07:11 Initial Comments 50-year-old female presents with left flank pain that radiates down into her left groin. She also presents with some nausea vomiting. Patient reports couple weeks ago she was diagnosed with a kidney stone which she thought she had passed because she had quite a bit of hematuria. She reports last night she started having significantly worse pain in her left back that rates into her groin with some nausea and vomiting. She denies any fevers or chills. Denies any cough, diarrhea or other systemic complaints Allergies and Home Medications Allergies Coded Allergies: meloxicam (Verified Allergy, Unknown, RASH/ITCHING, 12/03/18) Patient Home Medication List Home Medication List Reviewed: Yes Cariprazine Hydrochloride (Vraylar) 1.5 Mg Capsule, 1.5 MG PO DAILY, (Reported) Entered as Reported by: SUKI TREVIÑO on 11/08/18 0938 Cholecalciferol (Vitamin D3) (Vitamin D3) 5,000 Unit Capsule, 5,000 UNIT PO DAILY, (Reported) Entered as Reported by: SUKI TREVIÑO on 11/08/18 0945 Clonazepam (Clonazepam) 1 Mg Tablet, 1 MG PO DAILY PRN for ANXIETY, (Reported) Entered as Reported by: SUKI TREVIÑO on 11/08/18 0938 Clonazepam (Clonazepam) 1 Mg Tablet, 1 MG PO HS, (Reported) Entered as Reported by: SUKI TREVIÑO on 11/08/18 0944 Cyclobenzaprine HCl (Cyclobenzaprine HCl) 10 Mg Tablet, 10 MG PO Q8H PRN for SPASMS Prescribed by: DAVID MEADOWS on 12/03/182113 Escitalopram Oxalate (Escitalopram Oxalate) 10 Mg Tablet, 10 MG PO DAILY, (Reported) Entered as Reported by: SUKI TREVIÑO on 11/08/18 0938 Gabapentin (Gabapentin) 400 Mg Capsule, 400 MG PO BID, (Reported) Entered as Reported by: SUKI TREVIÑO on 11/08/18 0938 Hydrocodone Bit/Acetaminophen (HYDROcodone/APAP 5 MG/325 MG TAB) 1 Tab Tab, 1 TAB PO Q6H Prescribed by: HALINA FORTE on 06/09/211935 Hydrocodone/Acetaminophen (Hydrocodone-Acetamin 5-325 mg) 1 Each Tablet, 1 TAB P O Q8H PRN for PAIN-MODERATE (5-7) Prescribed by: CHRISTIE SÁNCHEZ on 06/20/21 0841 Metronidazole (Metronidazole) 500 Mg Tablet, 500 MG PO BID Prescribed by: CHRISTIE SÁNCHEZ on 06/20/21 08 Multivitamin (Multivitamins) 1 Each Tablet, 1 TAB PO DAILY, (Reported) Entered as Reported by: SUKI TREVIÑO on 11/08/18 0945 Ondansetron (Ondansetron Odt) 4 Mg Tab.rapdis, 4 MG PO Q6H PRN for NAUSEA/VOMITING-1ST LINE Prescribed by: HALINA FORTE on 06/09/211934 Ondansetron (Ondansetron Odt) 4 Mg Tab.rapdis, 4 MG PO Q6H PRN for NAUSEA/VOMITING Prescribed by: CHRISTIE SÁNCHEZ on 06/20/21 08 Pantoprazole Sodium (Pantoprazole Sodium) 40 Mg Tablet.dr, 40 MG PO DAILY Prescribed by: KUMAR LEYVA on 11/08/18 1046 Propranolol HCl (Propranolol HCl) 40 Mg Tablet, 40 MG PO BID, (Reported) Entered as Reported by: SUKI TREVIÑO on 11/08/18 09 Propranolol HCl (Propranolol HCl) 60 Mg Tablet, 60 MG PO BID, (Reported) Entered as Reported by: SUKI TREVIÑO on 11/08/18 09 Ropinirole HCl (Ropinirole HCl) 1 Mg Tablet, 1 MG PO HS, (Reported) Entered as Reported by: SUKI TREVIÑO on 11/08/18 09 Tamsulosin HCl (Flomax) 0.4 Mg Cap, 0.4 MG PO DAILY Prescribed by: HALINA FORTE on 06/09/211934 Tamsulosin HCl (Flomax) 0.4 Mg Cap, 0.4 MG PO DAILY Prescribed by: CHRISTIE SÁNCHEZ on 06/20/21 08 Tizanidine HCl (Zanaflex) 4 Mg Tablet, 4 MG PO TID Prescribed by: KLAUS HILL on 12/07/182146 Trazodone HCl (Trazodone HCl) 100 Mg Tablet, 100 MG PO HS, (Reported) Entered as Reported by: SUKI TREVIÑO on 11/08/18 0938 Review of Systems Review of Systems Constitutional: No chills, No fever Respiratory: Denies Cough, Denies Shortness of Air Cardiovascular: Denies Chest Pain, Denies Lightheadedness Gastrointestinal: Abdominal Pain; Denies Diarrhea; Nausea, Vomiting Genitourinary: Flank Pain Musculoskeletal: no symptoms reported Skin: no symptoms reported Psychiatric/Neurological: No Symptoms Reported Endocrine: No Symptoms Reported Hematologic/Lymphatic: No Symptoms Reported Past Rnwbodo-Nmiyhc-Tjamam Hx Immunizations Up To Date Tetanus Booster (TDap): Unknown Seasonal Allergies Seasonal Allergies: No Past Medical History Surgeries: Yes Abdominal, Section, Gallbladder, Hysterectomy, Oophorectomy, Orthopedic, Thyroidectomy Respiratory: Yes Sleep Apnea Cardiac: Yes (Pt has stress test Spring 2018 @ [place]) Hypertension 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 0oz. [id number]; 53.00 BMI Method:Actual General Appearance: WD/WN, no apparent distress Respiratory: lungs clear, normal breath sounds, no respiratory distress Cardiovascular: normal peripheral pulses, regular rate, rhythm Gastrointestinal: soft; No guarding, No rebound; tenderness (Mild tenderness left lower abdomen) Extremities: normal range of motion, non-tender, normal inspection Back: CVA tenderness (L) Neurologic/Psychiatric: alert, normal mood/affect, oriented x 3 Skin: normal color, warm/dry Progress/Results/Core Measures Results/Orders Lab Results Laboratory Tests Test 06/20/21 07:15 06/20/21 07:30 Range/Units Urine Color YELLOW Urine Clarity CLOUDY Urine pH 6.0 5-9 Urine Specific [place] >=1.030 1.016-1.022 Urine Protein TRACE H NEGATIVE Urine Glucose (UA) NEGATIVE NEGATIVE Urine Ketones NEGATIVE NEGATIVE Urine Nitrite NEGATIVE NEGATIVE Urine Bilirubin NEGATIVE NEGATIVE Urine Urobilinogen 0.2 < = 1.0 MG/DL Urine Leukocyte Esterase NEGATIVE NEGATIVE Urine RBC (Auto) 2+ H NEGATIVE Urine RBC 10-25 H /HPF Urine WBC 0-2 /HPF Urine Squamous Epithelial Cells 5-10 /HPF Urine Crystals PRESENT H /LPF Urine Calcium Oxalate Crystals FEW H /LPF Urine Bacteria FEW H /HPF Urine Casts PRESENT /LPF Urine Hyaline Casts 2-5 H /LPF Urine Mucus LARGE H /LPF Urine Other CLUE CELLS NOTED /HPF Urine Culture Indicated NO White Blood Count 9.1 4.3-11.0 10^3/uL Red Blood Count 4.85 3.80-5.11 10^6/uL Hemoglobin 14.2 11.5-16.0 g/dL Hematocrit 44 35-52 % Mean Corpuscular Volume 90 80-99 fL Mean Corpuscular Hemoglobin 29 25-34 pg Mean Corpuscular Hemoglobin Concent 33 32-36 g/dL Red Cell Distribution Width 13.8 10.0-14.5 % Platelet Count 217 130-400 10^3/uL Mean Platelet Volume 11.2 9.0-12.2 fL Sodium Level 138 135-145 MMOL/L Potassium Level 4.0 3.6-5.0 MMOL/L Chloride Level 101 98-107 MMOL/L Carbon Dioxide Level 28 21-32 MMOL/L Anion Gap 9 5-14 MMOL/L Blood Urea Nitrogen 13 7-18 MG/DL Creatinine 1.07 0.60-1.30 MG/DL Estimat Glomerular Filtration Rate 63 BUN/Creatinine Ratio 12 Glucose Level 115 H 70-105 MG/DL Calcium Level 10.8 H 8.5-10.1 MG/DL Corrected Calcium 10.9 H 8.5-10.1 MG/DL Total Bilirubin 0.4 0.1-1.0 MG/DL Aspartate Amino Transf (AST/SGOT) 11 5-34 U/L Alanine Aminotransferase (ALT/SGPT) 11 0-55 U/L Alkaline Phosphatase 87 40-136 U/L Total Protein 7.2 6.4-8.2 GM/DL Albumin 3.9 3.2-4.5 GM/DL My Orders Orders - SÁNCHEZ,CHRISTIE L DO Cbc No Diff (06/20/21 07:45) Comprehensive Metabolic Panel (06/20/21 07:45) Ua Culture If Indicated (06/20/21 07:45) Ct Abdomen/Pelvis Wo (06/20/21 07:45) Vital Signs/I&O 06/20/21 07:15 Temp 36.5 Pulse 60 Resp 16 B/P (MAP) 200/119 (146) Pulse Ox 95 O2 Delivery Room Air Progress Progress Note : Progress Note Patient with a 6 mm kidney stone noted on CT. I will treat her with tamsulosin, Zofran and a couple hydrocodone. Was also noted on her urine that she was found to have clue cells with bacterial vaginosis. We will treat her with Flagyl 500 mg x 7 days. Discussed with her the need to follow-up with a urologist and her primary care provider for further management of her kidney stone. Patient was stable and discharged home Departure Impression Primary Impression: Calculus of proximal left ureter Additional Impression: Bacterial vaginosis Disposition: HOME, SELF-CARE Condition: Stable Departure-Patient Inst. Referrals: KAMALJIT ROSALES MD (PCP/Family) Primary Care Physician Patient Instructions: Kidney Stone, Adult ED, Bacterial Vaginosis ED Add. Discharge Instructions: Follow-up with a urologist and your primary care provider to monitor your kidney stone and symptom All discharge instructions reviewed with patient and/or family. Voiced understanding. Scripts Hydrocodone/Acetaminophen (Hydrocodone-Acetamin 5-325 mg) 1 Each Tablet 1 TAB PO Q8H PRN for PAIN-MODERATE (5-7), #5 TAB Prov: KAILEY SÁNCHEZR L DO 06/20/21 Metronidazole (Metronidazole) 500 Mg Tablet 500 MG PO BID, #14 TAB Prov: KAILEY SÁNCHEZR L DO 06/20/21 Tamsulosin HCl (Flomax) 0.4 Mg Cap 0.4 MG PO DAILY, #14 CAP Prov: KAILEY SÁNCHEZR L DO 06/20/21 Ondansetron (Ondansetron Odt) 4 Mg Tab.rapdis 4 MG PO Q6H PRN for NAUSEA/VOMITING, #20 TAB 0 Refills Prov: KAILEY SÁNCHEZR L DO 06/20/21 KAILEY SÁNCHEZR L DO Jun 20, 2021 07:16
[2021-06-20 08:01] LABS: HEMATOCRIT 44 % (35-52); HEMOGLOBIN 14.2 g/dL (11.5-16.0); MEAN CORPUSCULAR HEMOGLOBIN 29 pg (25-34); MEAN CORPUSCULAR HGB CONC 33 g/dL (32-36); MEAN CORPUSCULAR VOLUME 90 fL (80-99); WHITE BLOOD COUNT 9.1 10^3/uL (4.3-11.0)
[2021-06-20 08:02] LABS: MEAN PLATELET VOLUME 11.2 fL (9.0-12.2); PLATELET COUNT 217 10^3/uL (130-400)
[2021-06-20 08:07] LABS: BILIRUBIN,URINE NEGATIVE (NEGATIVE); CLARITY,URINE CLOUDY; COLOR,URINE YELLOW; GLUCOSE, URINE (UA) NEGATIVE (NEGATIVE); KETONES,URINE NEGATIVE (NEGATIVE); LEUKOCYTE ESTERASE ,URINE NEGATIVE (NEGATIVE); NITRITE,URINE NEGATIVE (NEGATIVE); PROTEIN,URINE TRACE (NEGATIVE)
--- NOTE | 2021-06-20 08:12 | Diagnostic Imaging Report ---
EXAMINATION: CT abdomen and pelvis without contrast. TECHNIQUE: Multiple contiguous axial images were obtained through the abdomen and pelvis without the use of intravenous contrast. All CT scans use one or more of the following dose optimizing techniques: automated exposure control, MA and/or KvP adjustment based on patient size and exam type or iterative reconstruction. HISTORY: kidney stone COMPARISON: 06/06/2021 FINDINGS: Lung bases: The lung bases are clear. Solid organs: The liver is normal. The gallbladder is surgically absent. There is no biliary ductal dilation. Pancreas is normal. Spleen is normal. Subcentimeter right adrenal nodule is unchanged. There is a 0.6 cm calculus within the proximal left ureter just past the left renal pelvis without significant hydronephrosis. There are additional nonobstructing renal calculi measuring up to 0.6 cm. Bowel: Surgical changes of the stomach. No bowel obstruction. The colon and appendix are normal. Peritoneum: There is no intraperitoneal free fluid or free air. No suspicious lymphadenopathy. Vasculature: Normal without aneurysm. Musculoskeletal: Degenerative changes of the spine without suspicious osseous lesion or compression fracture. Surgical changes of the anterior abdominal wall. Pelvis: The uterus is surgically absent. No adnexal mass. The urinary bladder is normal. IMPRESSION: 1. A 0.6 cm calculus in the proximal left ureter without significant hydronephrosis. 2. Additional nonobstructing bilateral renal calculi measuring up to 0.6 cm. Dictated by: Dictated on workstation # [id number]
[2021-06-20 08:16] LABS: BILIRUBIN,TOTAL 0.4 MG/DL (0.1-1.0); CALCIUM 10.8 MG/DL (8.5-10.1); CREATININE SERUM 1.07 MG/DL (0.60-1.30); TOTAL PROTEIN 7.2 GM/DL (6.4-8.2)
[2021-06-20 08:17] LABS: ALBUMIN 3.9 GM/DL (3.2-4.5)
[2021-06-20 08:25] LABS: WBC,URINE 0-2 /HPF
[2021-06-20 08:26] LABS: BACTERIA,URINE FEW /HPF
[2021-06-20 08:27] LABS: CALCIUM OXALATE CRYSTALS,UR FEW /LPF
[2021-06-20 08:28] LABS: URINE OTHER CLUE CELLS NOTED /HPF
[2021-06-20] MEDS ORDERED: METR-145 PO (08:38)
[2021-06-20] MEDS ORDERED: ONDA4TAB11 PO (08:38)
[2021-06-20] MEDS ORDERED: ACHD5005 PO ×2 (08:38→08:41)
[2021-06-20] MEDS ORDERED: TMSL.4C PO (08:38)
[2021-06-20 08:45] VITALS: BP 177/98
[2021-06-20] MEDS ORDERED: METOCLOPRAMIDE INJ 10 MG/2 ML (REGLAN) IVP STA (08:51)
[2021-06-20] MEDS ORDERED: KETOROLAC 30 MG/ML VIAL IVP STA (08:54)
== END 2021-06-20 08:45 | disposition home or self-care (01) ==
LOC: EDUNIT# 07:02 → ER FS 07:04
DX: N20.1 Calculus of ureter (principal); N76.0 Acute vaginitis; I10 Essential (primary) hypertension; G47.30 Sleep apnea, unspecified; F41.9 Anxiety disorder, unspecified; F31.9 Bipolar disorder, unspecified; Z79.899 Other long term (current) drug therapy
CPT/HCPCS: 36415; 74176; 80053; 81000; 85027

== ENCOUNTER → 2021-06-23 | Outpatient (CLI) | payer MEDICARE, MEDICAID ==
[~2021-06-23] MED LIST changes: +CHOL500049 PO; +LURA80TA3 PO; +METR-145 PO; +MULT-1136 PO
--- NOTE | 2021-06-23 13:37 | Diagnostic Imaging Report ---
INDICATION: Left renal stone. TIME OF EXAM: 1:06 p.m. Comparison is made with recent CT study from 06/20/2021. FINDINGS: Tiny calcific densities project over the right mid to lower pole of the right kidney consistent with renal calculi. The calculus noted in the left renal pelvis on recent CT is again noted, still likely within the renal pelvis. No definite calculi along the course of the ureters are seen. Bowel gas pattern is unremarkable. IMPRESSION: Right renal and left renal pelvic calculi, similar in location to CT study performed three days earlier. Dictated by: Dictated on workstation # [id number]
== END ==
LOC: RAD 12:32
PROVIDERS: ATTEND Urology
DX: N20.0 Calculus of kidney (principal)
CPT/HCPCS: 74018

== ENCOUNTER 2021-06-26 07:08 | Outpatient (CLI) | payer MEDICARE, MEDICAID ==
[~2021-06-26] VITALS: Ht 167 cm; Wt 145.0 kg
[~2021-06-26 07:08] MED LIST changes: -CHOL500049 PO; -LURA80TA3 PO; -MULT-1136 PO
[2021-06-26] MEDS ORDERED: LURA80TA3 PO (16:35)
[2021-06-26] MEDS ORDERED: CHOL500049 PO (16:35)
[2021-06-26] MEDS ORDERED: MULT-1136 PO (16:35)
== END 2021-06-27 16:27 | disposition home or self-care (01) ==
LOC: PREOP 07:08
PROVIDERS: ATTEND Urology
DX: Z01.818 Encounter for other preprocedural examination (principal)

== ENCOUNTER 2021-07-01 05:59 | Day surgery (SDC) | payer MEDICARE, MEDICAID ==
[2021-07-01] VITALS (12 sets, daily range): BP systolic 116–183; BP diastolic 78–113
[~2021-07-01] VITALS: Ht 167 cm; Wt 145.0 kg
[~2021-07-01 05:59] MED LIST changes: +CHOL500049 PO; +LURA80TA3 PO; +MULT-1136 PO
[2021-07-01] MEDS ORDERED: cefTRIAXone 1 GM PRE-MIX 50 ML IV ONE (06:15)
[2021-07-01] MEDS ORDERED: LACTATED RINGERS 1,000 ML IV PRN (06:15)
[2021-07-01] MEDS ORDERED: fentaNYL INJ 100 MCG/2 ML AMP ONE ×2 (07:20→09:14)
[2021-07-01] MEDS ORDERED: MIDAZOLAM 2 MG/2 ML (VERSED) VIAL ONE (07:20)
[2021-07-01] MEDS ORDERED: PROPOFOL INJECTION 50 ML IV ONE (07:21)
[2021-07-01] MEDS ORDERED: ONDANSETRON 4 MG/2 ML (SDV) Z0FRAN ONE (07:21)
[2021-07-01] MEDS ORDERED: LIDOCAINE PF 2% 5 ML (XYLOCAINE) VIAL ONE (07:21)
[2021-07-01] MEDS ORDERED: proPOfol 200 MG/20 ML (DIPRIVAN) VIAL IV ONE (07:21)
--- NOTE | 2021-07-01 07:23 | Progress Note-Pre Operative ---
Pre-Operative Progress Note H&P Reviewed The H&P was reviewed, patient examined and no changes noted. Date Seen by Provider: Jul 01, 2021 Time Seen by Provider: 07:23 Date H&P Reviewed: Jul 01, 2021 Time H&P Reviewed: 07:23 Pre-Operative Diagnosis: LT PROXIMAL URETERAL STONE DEANNE HERNANDEZ MD Jul 01, 2021 07:23
[2021-07-01 07:40] LABS: CALCIUM 10.5 MG/DL (8.5-10.1); CREATININE SERUM 1.06 MG/DL (0.60-1.30); PHOSPHORUS 2.7 MG/DL (2.3-4.7); POTASSIUM 4.3 MMOL/L (3.6-5.0)
--- NOTE | 2021-07-01 08:14 | Progress Note-Post Operative ---
Post-Operative Progess Note Surgeon (s)/Art History Instructor (s) Surgeon DEANNE HERNANDEZ MD Art History Instructor: NONE Pre-Operative Diagnosis LT PROXIMAL URETERAL STONE Post-Operative Diagnosis LT RENAL STONE Procedure & Operative Findings Date of Procedure 07/01/21 Procedure Performed/Findings LT ESWL Anesthesia Type GENERAL Estimated Blood Loss Estimated blood loss (mL): NONE Specimens/Packing Specimens Removed NONE Packing: NONE DEANNE HERNANDEZ MD Jul 01, 2021 08:13
--- NOTE | 2021-07-01 08:16 | Discharge Inst-Urology ---
Discharge Inst-Urology Reconcile Patient Problems Problems Reviewed?: Yes Final Diagnosis LT RENAL STONE Patient Instructions/Follow Up Plan/Assessment/Instructions Please make appointment to been seen in office Friday 07/07. KUB prior to it. KUB on way home Post ESWL instructions Increase oral fluids for 48 hours and then as needed. Diet and Activity as tolerated. If questions or concerns contact your physician Or seek help at emergency department. DEANNE HERNANDEZ MD Jul 01, 2021 08:16
[2021-07-01] MEDS ORDERED: FUROSEMIDE 40 MG/4 ML INJ (LASIX) ONE (08:30)
--- NOTE | 2021-07-01 08:38 | Diagnostic Imaging Report ---
INDICATION: Status post ESWL. COMPARISON: 06/23/2021 FINDINGS: 2 frontal supine radiographic views of the abdomen were obtained. Calculus seen projecting over the left renal shadow on prior exam is no longer identified. There is persistent calculus projecting over the inferior pole of the right renal shadow. No unexpected radiopaque foreign bodies are seen. Small bowel loops are nondistended. There is no large collection of free intraperitoneal air. IMPRESSION: 1. Previously described left-sided renal calculus is no longer identified. Correlation with interval ESWL. 2. Persistent right renal calculus. Dictated by: Dictated on workstation # [id number]
[2021-07-01] MEDS ORDERED: PROMETHAZINE INJ 25 MG/ML (PHENERGAN) AMP IVP ONE (09:00)
[2021-07-01] MEDS ORDERED: ONDANSETRON 4 MG/2 ML (SDV) Z0FRAN IVP PRN (09:00)
[2021-07-01] MEDS ORDERED: fentaNYL INJ 100 MCG/2 ML AMP IVP ONE (09:00)
[2021-07-01] MEDS ORDERED: KETOROLAC 30 MG/ML VIAL IVP ONE (09:00)
[2021-07-01] MEDS ORDERED: KETOROLAC 30 MG/ML VIAL ONE (09:06)
[2021-07-01] MEDS ORDERED: TMSL.4C PO (09:40)
[2021-07-01] MEDS ORDERED: NITR-65 PO (09:40)
[2021-07-01] MEDS ORDERED: TRAM50TA3 PO (09:40)
--- NOTE | 2021-07-01 09:41 | Anesthesia-General Post-Op ---
General Patient Condition Mental Status/LOC: Same as Preop Cardiovascular: Satisfactory Nausea/Vomiting: Absent Respiratory: Satisfactory Pain: Controlled Complications: Absent Post Op Complications Complications None Follow Up Care/Instructions Patient Instructions None needed. Anesthesia/Patient Condition Patient Condition Patient is doing well, no complaints, stable vital signs, no apparent adverse anesthesia problems. No complications reported per nursing. KATHRYN NEVES CRNA Jul 01, 2021 09:41
--- NOTE | 2021-07-01 11:12 | Diagnostic Imaging Report ---
CLINICAL INDICATION: Patient post ESWL. Left ureteral stone. EXAM: X-ray of the abdomen with multiple supine and upright views. COMPARISON: X-ray abdomen dated 07/01/[address] scan of the abdomen and pelvis dated 06/20/2021. FINDINGS: Stable small stone overlying the mid right kidney. There are no stones overlying the region of the right ureter. There are no stones overlying the left kidney shadow. There are calcifications in the pelvis again seen, suspected to represent phleboliths. There is no definite stone overlying the left ureter region. There is no intestinal obstruction. There is no intra-abdominal free air. Surgical clips are seen overlying the right upper quadrant which could be related to cholecystectomy changes. IMPRESSION: 1: Stable x-ray of the abdomen with no definite stones overlying the kidneys or ureters. If there is continued concern, a CT scan would better evaluate. 2: Likely phleboliths in the pelvis are again seen. Dictated by: Dictated on workstation # [id number]
--- NOTE | 2021-07-01 16:31 | OPERATIVE REPORT ---
DATE OF SERVICE: 07/01/2021 PREOPERATIVE DIAGNOSIS: Left renal stone. POSTOPERATIVE DIAGNOSIS: Left renal stone. OPERATION PERFORMED: Left ESWL. SURGEON: Jadiel Hernandez MD ANESTHESIA: General. COMPLICATIONS: None. DESCRIPTION OF PROCEDURE: Under satisfactory general anesthesia, the patient in supine position on the ESWL table, the left renal stone that was originally in the UPJ had moved down to the lower pole breanna, was localized. Shocks were delivered at kV of 6. Total of 2500 shocks completely fragmented the stone that was not visualized anymore. The patient received 40 mg of Lasix at the end of the procedure. She tolerated the procedure and anesthesia well and was sent to recovery room in stable condition. CC: Dr. 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
[2021-07-02] MEDS ORDERED: ROPI3TAB4 PO (20:06)
[2021-07-02] MEDS ORDERED: LURA120T PO (20:06)
== END 2021-07-01 11:05 | disposition home or self-care (01) ==
LOC: SDC 05:59
PROVIDERS: ATTEND Urology
DX: N20.2 Calculus of kidney with calculus of ureter (principal); I10 Essential (primary) hypertension; G47.33 Obstructive sleep apnea (adult) (pediatric); E66.01 Morbid (severe) obesity due to excess calories; E05.90 Thyrotoxicosis, unspecified without thyrotoxic crisis or storm; F31.9 Bipolar disorder, unspecified; Z68.43 Body mass index [BMI] 50.0-59.9, adult; Z79.899 Other long term (current) drug therapy
CPT/HCPCS: 36415; 74018; 80048; 83970; 84100; 84550; 87081

== ENCOUNTER 2021-07-02 12:27 | Observation (INO) | payer MEDICARE, MEDICAID ==
[~2021-07-02] VITALS: Ht 165.1 cm; Wt 141.8 kg
[~2021-07-02 12:27] MED LIST changes: +NITR-65 PO; +TRAM50TA3 PO
[2021-07-02] MEDS ORDERED: fentaNYL INJ 100 MCG/2 ML AMP IVP ONE (13:00)
[2021-07-02] MEDS ORDERED: LACTATED RINGERS 1,000 ML IV SCH (13:00)
[2021-07-02] MEDS ORDERED: ONDANSETRON 4 MG/2 ML (SDV) Z0FRAN IVP ONE (13:00)
[2021-07-02] MEDS ORDERED: KETOROLAC 30 MG/ML VIAL IVP ONE (13:00)
--- NOTE | 2021-07-02 13:06 | ED Abdominal Pain ---
General Chief Complaint: Abdominal/GI Problems Stated Complaint: POST OP ABD PAIN/NAUSEA Nursing Triage Note: ARRIVED VIA AMB WITH COMPLAINTS OF LEFT SIDED ABD PAIN AND NAUSEA. STATES SHE HAD STONES BROKE UP YESTERDAY. CALLED [facility] OFFICE WHO TOLD HER TO COME HERE. Source of Information: Patient Exam Limitations: No Limitations History of Present Illness Date Seen by Provider: Jul 02, 2021 Time Seen by Provider: 13:04 Initial Comments pain to left flank since 9am this morning. History of lithotripsy yesterday, last hydrocodone at 11am without improvement. C/o nausea without vomiting. Timing/Duration: 4-6 Hours Severity/Quality: Severe Location: Flank Radiation: No Radiation Activities at Onset: None Associated Symptoms: Nausea/Vomiting Allergies and Home Medications Allergies Coded Allergies: meloxicam (Verified Allergy, Unknown, RASH/ITCHING, 12/03/18) Patient Home Medication List Home Medication List Reviewed: Yes Cholecalciferol (Vitamin D3) (Vitamin D3) 5,000 Unit Capsule, 5,000 UNIT PO DAILY, (Reported) Entered as Reported by: SUKI TREVIÑO on 11/08/18 0945 Cholecalciferol (Vitamin D3) (Vitamin D3) Unknown Strength Capsule, 5,000 UNITS PO, (Reported) Entered as Reported by: LEIGHA WONG on 06/26/21 1635 Gabapentin (Gabapentin) 400 Mg Capsule, 400 MG PO BID, (Reported) Entered as Reported by: SUKI TREVIOÑ on 11/08/18 0938 Lurasidone HCl (Latuda) Unknown Strength Tablet, 60 PO, (Reported) Entered as Reported by: LEIGHA WONG on 06/26/21 1635 Multivitamin (Multivitamin) 1 Each Tablet, 1 EACH PO, (Reported) Entered as Reported by: LEIGHA WONG on 06/26/21 1635 Nitrofurantoin Monohyd/M-Cryst (Macrobid 100 mg Capsule) 100 Mg Capsule, 1 TAB PO BID Prescribed by: AYALA SANTILLAN on 07/01/21 0940 Propranolol HCl (Propranolol HCl) 40 Mg Tablet, 40 MG PO BID, (Reported) Entered as Reported by: SUKI TREVIÑO on 11/08/18 0938 Propranolol HCl (Propranolol HCl) 60 Mg Tablet, 60 MG PO BID, (Reported) Entered as Reported by: SUKI TREVIÑO on 11/08/18 0938 Ropinirole HCl (Ropinirole HCl) 1 Mg Tablet, 1 MG PO HS, (Reported) Entered as Reported by: SUKI TREVIÑO on 11/08/18 09 Tamsulosin HCl (Flomax) 0.4 Mg Cap, 0.4 MG PO DAILY Prescribed by: HALINA FORTE on 06/09/211934 Tamsulosin HCl (Flomax) 0.4 Mg Cap, 0.4 MG PO DAILY Prescribed by: CHRISTIE SÁNCHEZ on 06/20/21 08 Tamsulosin HCl (Flomax) 0.4 Mg Cap, 0.4 MG PO DAILY Prescribed by: AYALA SANTILLAN on 07/01/21 09 Tizanidine HCl (Zanaflex) 4 Mg Tablet, 4 MG PO TID Prescribed by: KLAUS HILL on 12/07/182146 Tramadol HCl (Tramadol HCl) 50 Mg Tablet, 50 MG PO Q6H Prescribed by: AYALA SANTILLAN on 07/01/21939 Trazodone HCl (Trazodone HCl) 100 Mg Tablet, 100 MG PO HS, (Reported) Entered as Reported by: SUKI TREVIÑO on 11/08/18937 Discontinued Medications Cariprazine Hydrochloride (Vraylar) 1.5 Mg Capsule, 1.5 MG PO DAILY, (Reported) Discontinued Reason: No Longer Taking Entered as Reported by: SUKI TREVIÑO on 11/08/18937 Clonazepam (Clonazepam) 1 Mg Tablet, 1 MG PO DAILY PRN for ANXIETY, (Reported) Discontinued Reason: No Longer Taking Entered as Reported by: SUKI TREVIÑO on 11/08/18937 Clonazepam (Clonazepam) 1 Mg Tablet, 1 MG PO HS, (Reported) Discontinued Reason: No Longer Taking Entered as Reported by: SUKI TREVIÑO on 11/08/18943 Cyclobenzaprine HCl (Cyclobenzaprine HCl) 10 Mg Tablet, 10 MG PO Q8H PRN for SPASMS Discontinued Reason: No Longer Taking Prescribed by: DAVID MEADOWS on 12/03/182113 Escitalopram Oxalate (Escitalopram Oxalate) 10 Mg Tablet, 10 MG PO DAILY, (Reported) Discontinued Reason: No Longer Taking Entered as Reported by: SUKI TREVIÑO on 11/08/18937 Hydrocodone Bit/Acetaminophen (HYDROcodone/APAP 5 MG/325 MG TAB) 1 Tab Tab, 1 TAB PO Q6H Discontinued Reason: No Longer Taking Prescribed by: HALINA FORTE on 06/09/21 193 Hydrocodone/Acetaminophen (Hydrocodone-Acetamin 5-325 mg) 1 Each Tablet, 1 TAB PO Q8H PRN for PAIN-MODERATE (5-7) Discontinued Reason: No Longer Taking Prescribed by: CHRISTIE SÁNCHEZ on 06/20/21 0841 Metronidazole (Metronidazole) 500 Mg Tablet, 500 MG PO BID Discontinued Reason: No Longer Taking Prescribed by: CHRISTIE SÁNCHEZ on 06/20/21 0838 Multivitamin (Multivitamins) 1 Each Tablet, 1 TAB PO DAILY, (Reported) Discontinued Reason: No Longer Taking Entered as Reported by: SUKI TREVIÑO on 11/08/18 0945 Ondansetron (Ondansetron Odt) 4 Mg Tab.rapdis, 4 MG PO Q6H PRN for NAUSEA/VOMITING-1ST LINE Discontinued Reason: No Longer Taking Prescribed by: HALINA FORTE on 06/09/211934 Ondansetron (Ondansetron Odt) 4 Mg Tab.rapdis, 4 MG PO Q6H PRN for NAUSEA/VOMITING Discontinued Reason: No Longer Taking Prescribed by: CHRISTIE SÁNCHEZ on 06/20/21 0838 Pantoprazole Sodium (Pantoprazole Sodium) 40 Mg Tablet.dr, 40 MG PO DAILY Discontinued Reason: No Longer Taking Prescribed by: KUMAR LEYVA on 11/08/18 1046 Review of Systems Review of Systems Constitutional: see HPI; No chills, No fever EENTM: No Symptoms Reported Respiratory: No Symptoms Reported Cardiovascular: No Symptoms Reported Gastrointestinal: See HPI, Abdominal Pain, Nausea Genitourinary: See HPI, Flank Pain Musculoskeletal: no symptoms reported Skin: no symptoms reported Psychiatric/Neurological: No Symptoms Reported Endocrine: No Symptoms Reported Hematologic/Lymphatic: No Symptoms Reported Past Lsnntaf-Cstdza-[id number] Hx Patient Social History Tobacco Use?: No Substance use?: No Alcohol Use?: No Immunizations Up To Date Tetanus Booster (TDap): Unknown First/Initial COVID19 Vaccinat: 08/11 Second COVID19 Vaccination Javi: 09/11 Third COVID19 Vaccination Date: 06/14 COVID19 Vaccine Homebirth Midwife: LISE Seasonal Allergies Seasonal Allergies: Yes Past Medical History Surgery/Hospitalization HX: Kidney stones, HTN, sleep apnea Surgeries: Yes Abdominal, Section, Gallbladder, Hysterectomy, Oophorectomy, Orthopedic, Thyroidectomy Respiratory: Yes Sleep Apnea Currently Using CPAP: Yes Currently Using BIPAP: No Cardiac: Yes (Pt has stress test Spring 2018 @ [facility]) Hypertension Neurological: No RN ONCOLOGY History: Hysterectomy Genitourinary: Yes (URGE INCONTINENCE) Gastrointestinal: Yes (GASTRIC SLEEVE) Chronic Constipation Musculoskeletal: No Endocrine: Yes (thyroidectomy) Hypothyroidsim HEENT: No (WEARS GLASSES) Cancer: No Psychosocial: Yes Anxiety, Bipolar, Depression Integumentary: Yes Psoriasis Blood Disorders: No Family Medical History Heart Disease Physical Exam Vital Signs Vital Signs - First Documented 07/02/21 12:45 Temp 37.3 Pulse 58 Resp 16 B/P (MAP) 117/ Pulse Ox 94 O2 Delivery Room Air Capillary Refill : Less Than 3 Seconds Height/Weight/BMI Height: 5'4.00" Weight: 289lbs. 0oz. 131.894665gb; 52.00 BMI Method:Actual General Appearance: WD/WN, moderate distress, obese HEENT: PERRL/EOMI, normal ENT inspection Respiratory: no respiratory distress, no accessory muscle use Gastrointestinal: normal bowel sounds, non tender, soft Extremities: normal range of motion, non-tender Neurologic/Psychiatric: alert, normal mood/affect, oriented x 3 Skin: normal color, warm/dry Progress/Results/Core Measures Results/Orders Lab Results Laboratory Tests Test 07/02/21 13:15 07/02/21 14:01 Range/Units White Blood Count 14.6 H 4.3-11.0 10^3/uL Red Blood Count 5.14 H 3.80-5.11 10^6/uL Hemoglobin 14.9 11.5-16.0 g/dL Hematocrit 47 35-52 % Mean Corpuscular Volume 92 80-99 fL Mean Corpuscular Hemoglobin 29 25-34 pg Mean Corpuscular Hemoglobin Concent 32 32-36 g/dL Red Cell Distribution Width 13.4 10.0-14.5 % Platelet Count 261 130-400 10^3/uL Mean Platelet Volume 10.9 9.0-12.2 fL Immature Granulocyte % (Auto) 1 % Neutrophils (%) (Auto) 83 H 42-75 % Lymphocytes (%) (Auto) 11 L 12-44 % Monocytes (%) (Auto) 4 0-12 % Eosinophils (%) (Auto) 1 0-10 % Basophils (%) (Auto) 0 0-10 % Neutrophils # (Auto) 12.0 H 1.8-7.8 10^3/uL Lymphocytes # (Auto) 1.6 1.0-4.0 10^3/uL Monocytes # (Auto) 0.6 0.0-1.0 10^3/uL Eosinophils # (Auto) 0.2 0.0-0.3 10^3/uL Basophils # (Auto) 0.0 0.0-0.1 10^3/uL Immature Granulocyte # (Auto) 0.1 0.0-0.1 10^3/uL Neutrophils % (Manual) 84 % Lymphocytes % (Manual) 11 % Monocytes % (Manual) 4 % Eosinophils % (Manual) 1 % Basophils % (Manual) 0 % Band Neutrophils 0 % Blood Morphology Comment NORMAL Sodium Level 138 135-145 MMOL/L Potassium Level 4.5 3.6-5.0 MMOL/L Chloride Level 102 98-107 MMOL/L Carbon Dioxide Level 24 21-32 MMOL/L Anion Gap 12 5-14 MMOL/L Blood Urea Nitrogen 17 7-18 MG/DL Creatinine 1.33 H 0.60-1.30 MG/DL Estimat Glomerular Filtration Rate 49 BUN/Creatinine Ratio 13 Glucose Level 119 H 70-105 MG/DL Calcium Level 10.9 H 8.5-10.1 MG/DL Serum Test, Qualitative NEGATIVE NEGATIVE Urine Color ORANGE Urine Clarity SL CLOUDY Urine pH 5.5 5-9 Urine Specific Douglas >=1.030 1.016-1.022 Urine Protein 2+ H NEGATIVE Urine Glucose (UA) NEGATIVE NEGATIVE Urine Ketones NEGATIVE NEGATIVE Urine Nitrite NEGATIVE NEGATIVE Urine Bilirubin 1+ H NEGATIVE Urine Urobilinogen 0.2 < = 1.0 MG/DL Urine Leukocyte Esterase NEGATIVE NEGATIVE Urine RBC (Auto) 3+ H NEGATIVE Urine RBC 25-50 H /HPF Urine WBC NONE /HPF Urine Squamous Epithelial Cells 10-25 H /HPF Urine Crystals PRESENT H /LPF Urine Uric Acid Crystals LARGE H /LPF Urine Bacteria NEGATIVE /HPF Urine Casts NONE /LPF Urine Mucus NEGATIVE /LPF Urine Culture Indicated NO My Orders Orders - 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 Cbc With Automated Diff (07/02/21 12:59) Hcg,Qualitative Serum (07/02/21 12:59) Basic Metabolic Panel (07/02/21 12:59) Ua Culture If Indicated (07/02/21 12:59) Ed Iv/Invasive Line Start (07/02/21 12:59) Lactated Ringers (Lr 1000 Ml Iv Solution (07/02/21 13:00) Ketorolac Injection (Toradol Injection) (07/02/21 13:00) Ondansetron Injection (Zofran Injectio (07/02/21 13:00) Fentanyl Inj (Sublimaze Injection) (07/02/21 13:00) Abdomen/Kub 1view (07/02/21 13:06) Manual Differential (07/02/21 13:15) Ceftriaxone 1 Gm Pre-Mix (Rocephin 1 Gm (07/02/21 14:15) Hydromorphone Injection (Dilaudid Inject (07/02/21 14:15) Ct Abd/Pelvis Wo(Kidney Stone) (07/02/21 14:48) Hydromorphone Injection (Dilaudid Inject (07/02/21 15:30) Medications Given in ED Current Medications Medications Dose Ordered Sig/Michele Route Start Time Stop Time Status Last Admin Dose Admin Ceftriaxone Sodium/Dextrose 50 ml @ 100 mls/hr ONCE ONCE IV 07/02/21 14:15 07/02/21 14:44 DC 07/02/21 14:38 100 MLS/HR Fentanyl Citrate 50 mcg ONCE ONCE IVP 07/02/21 13:00 07/02/21 13:01 DC 07/02/21 13:19 50 MCG Hydromorphone HCl 0.5 mg ONCE ONCE IV 07/02/21 14:15 07/02/21 14:16 DC 07/02/21 14:36 0.5 MG Hydromorphone HCl 1 mg ONCE ONCE IV 07/02/21 15:30 07/02/21 15:31 DC 07/02/21 15:37 1 MG Ketorolac Tromethamine 15 mg ONCE ONCE IVP 07/02/21 13:00 07/02/21 13:01 DC 07/02/21 13:20 15 MG Ondansetron HCl 8 mg ONCE ONCE IVP 07/02/21 13:00 07/02/21 13:01 DC 07/02/21 13:18 8 MG Vital Signs/I&O 07/02/21 12:45 Temp 37.3 Pulse 58 Resp 16 B/P (MAP) 117/ Pulse Ox 94 O2 Delivery Room Air Diagnostic Imaging Diagonstic Imaging: Xray Comments NAME: JOHN WARE MED REC#: [id number] PT STATUS: REG ER : 1970 PHYSICIAN: DIOR HUANG APRN ADMIT DATE: 07/02/21/ER Draft Date of Exam:07/02/21 ABDOMEN/KUB 1VIEW INDICATION: Left-sided abdominal pain. History of renal calculi. Recent ESWL. COMPARISON: 06/23/2021. FINDINGS: Two frontal radiographic views of the abdomen were obtained. There is a subtle 4 mm extraosseous calcification projecting over the left psoas muscle at approximately the L2-L3 level. Extraosseous calcifications are also again identified projecting over the inferior pole of the right renal shadow. No other unexpected radiopaque foreign bodies are seen. Small bowel loops are nondistended. Osseous structures are stable. IMPRESSION: 1. Possible left ureteral calculus. Correlation with CT may be of benefit. 2. Redemonstration of probable right renal calculus. Dictated on workstation # [id number] Dict: 07/02/21 1400 Trans: 07/02/21 1403 [id number] Interpreted by: ARMAAN DAVID MD Electronically signed by: Departure Communication (Admissions) [id number] spoke with Dr. Hernandez. Recommends offering her admission for pain control possible stent placement versus discharged home with stronger pain medication. After 50 mg of Toradol, 50 mcg of fentanyl, 0.5 mg of Dilaudid and then 1 mg of Dilaudid she now rates her pain as "tolerable". Very flat affect. She was provided these options and states she did not want to go home with stronger pain medication. She would prefer to be admitted. Spoke with Dr. Hernandez and we will arrange that. 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 NAME: JOHN WARE MED REC#: [id number] PT STATUS: REG ER : 1970 PHYSICIAN: DIOR HUANG APRN ADMIT DATE: 07/02/21/ER Draft Date of Exam:07/02/21 CT ABD/PELVIS WO(KIDNEY STONE) PROCEDURE: CT urinary tract, rule out kidney stone. TECHNIQUE: Multiple contiguous axial images were obtained through the abdomen and pelvis without the use of intravenous contrast. Auto Exposure Controls were utilized during the CT exam to meet ALARA standards for radiation dose reduction. INDICATION: Left flank pain. COMPARISON: 06/20/2021. FINDINGS: There is hiatal hernia and postoperative change along the greater curvature of the stomach. Gallbladder is surgically absent. No focal hepatic, gallbladder, adrenal gland, or splenic lesion is identified, and there is no evidence of biliary ductal dilatation. There is mild left hydronephrosis with small stones or stone fragments in the left renal pelvis. There is an approximately 0.5 cm calculus at the left ureteropelvic junction. There are also tiny nonobstructing stones in the right kidney. Probable cyst in the upper pole of the right kidney has not changed in appearance. No other ureteric abnormality is identified. There is no free fluid in the abdomen or pelvis. The appendix has a normal appearance. There is no evidence of bladder stone. Rather advanced lumbar spondylosis has not significantly changed. IMPRESSION: At least partially obstructing 0.5 cm calculus at the left ureteropelvic junction with additional small stones layering in the left renal pelvis. There is also a nonobstructing calculus in the lower pole of the right kidney without other evidence of acute abnormality detected. Dictated on workstation # [id number] Dict: 07/02/21 1505 Trans: 07/02/21 1514 [id number] Interpreted by: JOHN CAMARILLO MD Electronically signed by: Impression Primary Impression: Calculus of proximal left ureter Disposition: ADMITTED INPATIENT Condition: Stable Admissions Decision to Admit Reason: Admit from ER (General) Decision to Admit/Date: Jul 02, 2021 Time/Decision to Admit Time: 15:56 Departure-Patient Inst. Referrals: KAMALJIT ROSALES MD (PCP/Family) Primary Care Physician Copy Copies To 1: DEANNE HERNANDEZ MD, PETER J APRN Jul 02, 2021 13:06
[2021-07-02 13:29] LABS: BASOPHILS % (AUTO) 0 % (0-10); EOSINOPHILS # (AUTO) 0.2 10^3/uL (0.0-0.3); EOSINOPHILS % (AUTO) 1 % (0-10); HEMATOCRIT 47 % (35-52); HEMOGLOBIN 14.9 g/dL (11.5-16.0); LYMPHOCYTES # (AUTO) 1.6 10^3/uL (1.0-4.0); LYMPHOCYTES % (AUTO) 11 % (12-44); MEAN CORPUSCULAR HEMOGLOBIN 29 pg (25-34); MEAN CORPUSCULAR HGB CONC 32 g/dL (32-36); MEAN CORPUSCULAR VOLUME 92 fL (80-99); MEAN PLATELET VOLUME 10.9 fL (9.0-12.2); MONOCYTES # (AUTO) 0.6 10^3/uL (0.0-1.0); MONOCYTES % (AUTO) 4 % (0-12); NEUTROPHILS % (AUTO) 83 % (42-75); PLATELET COUNT 261 10^3/uL (130-400); WHITE BLOOD COUNT 14.6 10^3/uL (4.3-11.0)
[2021-07-02 13:41] LABS: POTASSIUM 4.5 MMOL/L (3.6-5.0)
[2021-07-02 13:42] LABS: CALCIUM 10.9 MG/DL (8.5-10.1)
[2021-07-02 13:47] LABS: CREATININE SERUM 1.33 MG/DL (0.60-1.30)
--- NOTE | 2021-07-02 14:03 | Diagnostic Imaging Report ---
INDICATION: Left-sided abdominal pain. History of renal calculi. Recent ESWL. COMPARISON: 06/23/2021. FINDINGS: Two frontal radiographic views of the abdomen were obtained. There is a subtle 4 mm extraosseous calcification projecting over the left psoas muscle at approximately the L2-L3 level. Extraosseous calcifications are also again identified projecting over the inferior pole of the right renal shadow. No other unexpected radiopaque foreign bodies are seen. Small bowel loops are nondistended. Osseous structures are stable. IMPRESSION: 1. Possible left ureteral calculus. Correlation with CT may be of benefit. 2. Redemonstration of probable right renal calculus. Dictated by: Dictated on workstation # [id number]
[2021-07-02 14:07] LABS: BAND NEUTROPHILS 0 %; BASOPHILS % (MANUAL) 0 %; EOSINOPHILS % (MANUAL) 1 %; LYMPHOCYTES % (MANUAL) 11 %; MONOCYTES % (MANUAL) 4 %; NEUTROPHILS % (MANUAL) 84 %; RBC MORPH NORMAL
[2021-07-02] MEDS ORDERED: HYDROmorphone 2 MG/ML VIAL (DILAUDID) IV ONE ×2 (14:15→15:30)
[2021-07-02] MEDS ORDERED: cefTRIAXone 1 GM PRE-MIX 50 ML IV ONE (14:15)
[2021-07-02 14:35] LABS: CLARITY,URINE SL CLOUDY; COLOR,URINE ORANGE; GLUCOSE, URINE (UA) NEGATIVE (NEGATIVE); KETONES,URINE NEGATIVE (NEGATIVE); LEUKOCYTE ESTERASE ,URINE NEGATIVE (NEGATIVE); NITRITE,URINE NEGATIVE (NEGATIVE); PH,URINE 5.5 (5-9); PROTEIN,URINE 2+ (NEGATIVE)
[2021-07-02 14:54] LABS: BACTERIA,URINE NEGATIVE /HPF; BILIRUBIN,URINE 1+ (NEGATIVE); RBC,URINE 25-50 /HPF; URIC ACID CRYSTALS,URINE LARGE /LPF
--- NOTE | 2021-07-02 15:14 | Diagnostic Imaging Report ---
PROCEDURE: CT urinary tract, rule out kidney stone. TECHNIQUE: Multiple contiguous axial images were obtained through the abdomen and pelvis without the use of intravenous contrast. Auto Exposure Controls were utilized during the CT exam to meet ALARA standards for radiation dose reduction. INDICATION: Left flank pain. COMPARISON: 06/20/2021. FINDINGS: There is hiatal hernia and postoperative change along the greater curvature of the stomach. Gallbladder is surgically absent. No focal hepatic, gallbladder, adrenal gland, or splenic lesion is identified, and there is no evidence of biliary ductal dilatation. There is mild left hydronephrosis with small stones or stone fragments in the left renal pelvis. There is an approximately 0.5 cm calculus at the left ureteropelvic junction. There are also tiny nonobstructing stones in the right kidney. Probable cyst in the upper pole of the right kidney has not changed in appearance. No other ureteric abnormality is identified. There is no free fluid in the abdomen or pelvis. The appendix has a normal appearance. There is no evidence of bladder stone. Rather advanced lumbar spondylosis has not significantly changed. IMPRESSION: At least partially obstructing 0.5 cm calculus at the left ureteropelvic junction with additional small stones layering in the left renal pelvis. There is also a nonobstructing calculus in the lower pole of the right kidney without other evidence of acute abnormality detected. Dictated by: Dictated on workstation # [id number]
[2021-07-02 17:30] VITALS: BP 175/113
[2021-07-02] MEDS ORDERED: ONDANSETRON 4 MG/2 ML (SDV) Z0FRAN IV PRN ×2 (18:15→18:30)
[2021-07-02] MEDS ORDERED: CATHETER FLUSH 10 ML SYR IV PRN (18:15)
[2021-07-02] MEDS ORDERED: NALOXONE 0.4 MG/ML 1 ML (NARCAN) VIAL IV PRN (18:30)
[2021-07-02] MEDS ORDERED: METOCLOPRAMIDE INJ 10 MG/2 ML (REGLAN) IV PRN (18:30)
[2021-07-02] MEDS ORDERED: diphenhydrAMINE 50 MG/ML INJ (BENADRYL) IV PRN (18:30)
[2021-07-02] MEDS ORDERED: fentaNYL INJ 1,000 MCG in NS (IVPB) 80 ML IV SCH (18:30)
[2021-07-02 20:03] VITALS: BP 184/115
[2021-07-02 20:05] VITALS: BP 195/90
[2021-07-02] MEDS ORDERED: ROPI3TAB4 PO (20:06)
[2021-07-02] MEDS ORDERED: LURA120T PO (20:06)
[2021-07-02] MEDS: LACTATED RINGERS 1,000 ML IV SCH (20:11)
[2021-07-02] MEDS ORDERED: LURASIDONE HCL 120 MG PO SCH (21:00)
[2021-07-02] MEDS ORDERED: NON-FORMULARY MEDICATION 1 EA EA (Propranolol HCl 60 MG) PO SCH (21:00)
[2021-07-02 21:53] VITALS: BP 178/113
[2021-07-02] MEDS: traZODone 100 MG (DESYREL) TAB PO SCH (21:54)
[2021-07-02] MEDS: PROPRANOLOL 20 MG (INDERAL) TABLET PO SCH (21:54)
[2021-07-02] MEDS: GABAPENTIN 400 MG (NEURONTIN) CAP PO SCH (21:54)
[2021-07-02] MEDS: rOPINIRole 1 MG (REQUIP) TABLET PO SCH (21:55)
[2021-07-02 22:46] VITALS: BP 180/112
[2021-07-03] VITALS (14 sets, daily range): BP systolic 119–193; BP diastolic 79–117
[2021-07-03] MEDS ORDERED: amLODIPine 5 MG (NORVASC) TAB PO ONE (00:30)
[2021-07-03] MEDS: LACTATED RINGERS 1,000 ML IV SCH ×2 (01:37→08:46)
[2021-07-03] MEDS: cloNIDine 0.1 MG (CATAPRES) TAB PO PRN ×2 (02:13→15:03)
[2021-07-03 06:42] LABS: BASOPHILS % (AUTO) 0 % (0-10); EOSINOPHILS # (AUTO) 0.1 10^3/uL (0.0-0.3); EOSINOPHILS % (AUTO) 1 % (0-10); HEMATOCRIT 40 % (35-52); HEMOGLOBIN 12.7 g/dL (11.5-16.0); LYMPHOCYTES # (AUTO) 1.7 10^3/uL (1.0-4.0); LYMPHOCYTES % (AUTO) 14 % (12-44); MEAN CORPUSCULAR HEMOGLOBIN 29 pg (25-34); MEAN CORPUSCULAR HGB CONC 32 g/dL (32-36); MEAN CORPUSCULAR VOLUME 89 fL (80-99); MEAN PLATELET VOLUME 10.8 fL (9.0-12.2); MONOCYTES # (AUTO) 0.8 10^3/uL (0.0-1.0); MONOCYTES % (AUTO) 6 % (0-12); NEUTROPHILS # (AUTO) 9.7 10^3/uL (1.8-7.8); NEUTROPHILS % (AUTO) 79 % (42-75); PLATELET COUNT 200 10^3/uL (130-400); WHITE BLOOD COUNT 12.3 10^3/uL (4.3-11.0)
[2021-07-03 06:50] LABS: CALCIUM 9.8 MG/DL (8.5-10.1); CREATININE SERUM 1.26 MG/DL (0.60-1.30); POTASSIUM 4.3 MMOL/L (3.6-5.0)
--- NOTE | 2021-07-03 07:50 | Diagnostic Imaging Report ---
INDICATION: Left flank pain AP view of the abdomen is obtained with comparison made to study of one day earlier. There has been an increase in bowel gas which limits evaluation for renal stone. There is faint calcification projecting over the lower pole of the left kidney. Possible left ureteric calculus is not well appreciated on the current study. Calcified-like phleboliths seen in the left hemipelvis. There is probable bone island in the left ilium. IMPRESSION: Faint calcification lower pole left kidney is likely due to nonobstructing stone. Calcification seen previously along the course of the left ureter is not well identified on the current study which may be due to overlying bowel. Dictated by: Dictated on workstation # [id number]
[2021-07-03] MEDS: cefTRIAXone 1 GM/50 ML (PRE-MIX) IV SCH (08:46)
--- NOTE | 2021-07-03 09:30 | Progress Note - Urology ---
Progress Note-Urology Progress Notes/Assess & Plan Progress/Assessment & Plan COMPLAINS OF SIGNIFICANT PAIN LT FLANK. NO STONE FRAGMENTS PASSED. KUB TODAY HARD TO SEE STONE. DISCUSSED OPTIONS WITH PATIENT 1. STONE MANIPULATION WITH STENT TODAY AND WEDNESDAY RE ESWL 2. RE ESWL WEDNESDAY 3. REFER TO [facility] OR [facility] FOR FLEXIBLE URETEROLITHOTRIPSY WE WILL GO WITH #1 THIS AM AND IF UNABLE TO REFER PROCEDURE AND PLAN FULLY EXPLAINED TO HER DEANNE HERNANDEZ MD Jul 03, 2021 09:30
[2021-07-03] MEDS: PROPRANOLOL 20 MG (INDERAL) TABLET PO SCH ×2 (09:34→20:36)
[2021-07-03] MEDS: GABAPENTIN 400 MG (NEURONTIN) CAP PO SCH ×3 (09:34→20:36)
[2021-07-03] MEDS: SENNA W/DOCUSATE (SENOKOT S) TABLET PO SCH (09:35)
[2021-07-03] MEDS: LACTATED RINGERS 1,000 ML IV PRN ×2 (11:10→12:35)
[2021-07-03] MEDS ORDERED: PROPOFOL INJECTION 100 ML IV ONE (11:24)
[2021-07-03] MEDS ORDERED: fentaNYL INJ 100 MCG/2 ML AMP ONE ×2 (11:25→11:35)
[2021-07-03] MEDS ORDERED: MIDAZOLAM 2 MG/2 ML (VERSED) VIAL ONE (11:25)
--- NOTE | 2021-07-03 11:25 | Progress Note-Pre Operative ---
Pre-Operative Progress Note H&P Reviewed The H&P was reviewed, patient examined and no changes noted. Date Seen by Provider: Jul 03, 2021 Time Seen by Provider: 11:25 Date H&P Reviewed: Jul 03, 2021 Time H&P Reviewed: 11:25 Pre-Operative Diagnosis: LT PROXIMAL URETERAL STONE DEANNE HERNANDEZ MD Jul 03, 2021 11:25
--- NOTE | 2021-07-03 11:26 | Progress Note-Post Operative ---
Post-Operative Progess Note Surgeon (s)/English Composition Instructor (s) Surgeon DEANNE HERNANDEZ MD English Composition Instructor: NONE Pre-Operative Diagnosis LT PROXIMAL URETERAL STONE Post-Operative Diagnosis SAME Procedure & Operative Findings Date of Procedure 07/03/21 Procedure Performed/Findings LT URETEROSCOPY WITH STONE LITHOTRIPSY AND BASKET Anesthesia Type GENERAL Estimated Blood Loss Estimated blood loss (mL): NONE Specimens/Packing Specimens Removed STONE FRAGMENTS Packing: NONE DEANNE HERNANDEZ MD Jul 03, 2021 11:26
[2021-07-03] MEDS ORDERED: MELA10TA2 PO (11:44)
[2021-07-03] MEDS ORDERED: CHOL200059 PO (11:44)
[2021-07-03] MEDS ORDERED: ACHD5005 PO (11:44)
[2021-07-03] MEDS ORDERED: LATUDA PO (11:44)
--- NOTE | 2021-07-03 12:23 | Consultation - Hospitalist ---
HALINA BALDWIN 07/03/21 1223: HPI History of Present Illness: HPI/Chief Complaint CC: Left flank pain s/p ESWL on 07/01/[address] Ames HPI: Jossy Dasilva is a 50yoF who presented to [place] ED with complaints of severe left flank pain s/p ESWL with Dr. Ames on 07/01/21. She reports a PMHx of nephrolithiasis, FLAKITA on CPAP, hypothryoidism, hypertension, anxiety/depression, bipolar disorder, psoriasis, and restless leg syndrome. The pain began following her ESWL on 07/01/21; however, it significantly worsened overnight and thus sought medical attention on 07/03/21. Labs were unremarkable except for a WBC of 12.3. CT scan revealed a 5mm stone within the left UPJ and nonobstructive stone in the right renal pelvis. Dr. Ames was contacted and evaluated the patient. Additionally, patient has been severely hypertensive since admission and running 180s/110s overnight. Dr. Fisher was consulted for medical management. Dr. Ames is planning for a cystoscopy with stone basket procedure to be completed today in an attempt to retrieve the remaining stone. Source: patient, RN/MD, EMS notes reviewed Exam Limitations: no limitations Date Seen 07/03/21 Attending Physician Jadiel Ames MD PCP Kim Winters MD Referring Physician Jadiel Ames MD Date of Admission Jul 02, 2021 at 15:54 Home Medications & Allergies Home Medications Reviewed patient Home Medication Reconciliation performed by pharmacy medication reconciliations computer repair technician and/or nursing. Patients Allergies have been reviewed. Allergies Allergies Coded Allergies meloxicam (Verified Allergy, Unknown, RASH/ITCHING, 12/03/18) Past Tcdursu-Inkhsj-Qttont Hx Patient Social History Tobacco Use?: No Use of E-Cig and/or Vaping dev: No Substance use?: No Alcohol Use?: No Pt feels they are or have been: No Immunizations Up To Date Date of Influenza Vaccine: Jan 30, 2021 First/Initial COVID19 Vaccinat: 07/25/2020 Second COVID19 Vaccination Javi: 08/22/2020 Tetanus Booster (TDap): Less Than 5 Years Hepatitis A: Yes Hepatitis B: Yes Date of Pneumonia Vaccine: Mar 10, 2018 Seasonal Allergies Seasonal Allergies: Yes Current Status status: No status: No Advance Directives: No Communicates: Verbally Primary Language: Polish Preferred Spoken Language: Polish Is interpretation needed?: No Sensory deficits: Vision impairment Implanted or Applied Medical D: None Past Medical History Surgeries: Abdominal, Section, Gallbladder, Hysterectomy, Oophorectomy, Orthopedic, Thyroidectomy Sleep Apnea Currently Using CPAP: Yes Currently Using BIPAP: No Hypertension EAP SPECIALIST History: Hysterectomy Chronic Constipation Hypothyroidsim Anxiety, Bipolar, Depression Psoriasis Blood Disorders: No Family Medical History Heart Disease Review of Systems Constitutional: no symptoms reported; No chills EENTM: no symptoms reported Respiratory: no symptoms reported; No cough Cardiovascular: no symptoms reported; No chest pain Gastrointestinal: abdominal pain (LLQ), nausea; No vomiting Genitourinary: dysuria Musculoskeletal: no symptoms reported Skin: no symptoms reported Psychiatric/Neurological: No Symptoms Reported Physical Exam Physical Exam Vital Signs Vital Signs - First Documented 07/02/21 12:45 Temp 37.3 Pulse 58 Resp 16 B/P (MAP) 117/ Pulse Ox 94 O2 Delivery Room Air Capillary Refill : Less Than 3 Seconds Height, Weight, BMI Height: 5'4.00" Weight: 289lbs. 0oz. 131.968909tt; 52.16 BMI Method:Actual General Appearance: No Apparent Distress, WD/WN HEENT: PERRL/EOMI, Pharynx Normal, Moist Mucous Membranes Neck: Full Range of Motion, Normal Inspection, Non Tender, Supple Respiratory: Chest Non Tender, Lungs Clear, Normal Breath Sounds, No Accessory Muscle Use, No Respiratory Distress Cardiovascular: Regular Rate, Rhythm, No Edema, No Gallop, No JVD, No Murmur, Normal Peripheral Pulses Gastrointestinal: Normal Bowel Sounds, Soft, Tenderness (LLQ) Rectal: Deferred Back: Normal Inspection Extremity: Normal Capillary Refill, Normal Inspection, Normal Range of Motion Neurologic/Psychiatric: Alert, Oriented x3, No Motor/Sensory Deficits, Normal Mood/Affect, crisis intervention counselor II-XII Norm as Tested Skin: Normal Color, Warm/Dry Results Results/Procedures Labs Laboratory Tests 07/02/21 13:15 07/03/21 06:20 Patient resulted labs reviewed. Imaging: Reviewed Imaging Report Assessment/Plan Assessment and Plan Assess & Plan/Chief Complaint Assessment: Severe Left Groin Pain s/p ESWL on 07/01/21 Hypertension Nausea Obesity Obstructive Sleep Apnea Hypothyroidism Anxiety/Depression Bipolar Disorder Psoriasis Restless Leg Syndrome Plan: LR @ 150mL/hr Pain regimen Cystoscopy with Stone Retrieval 07/03/[address] Ames Ceftriaxone 50g IV daily D#2 Ondansetron PRN Propranolol 100mg PO BID Clonidine 0.1mg PO Q4HR PRN for SBP >170 Continue to monitor BP Appreciate consult from Dr. Ames Diagnosis/Problems Diagnosis/Problems (1) Left ureteral stone Status: Acute (2) Hypertension Status: Chronic (3) FLAKITA on CPAP Status: Chronic (4) Hypothyroidism Status: Chronic (5) Anxiety Status: Chronic (6) Depression Status: Chronic (7) Bipolar disorder Status: Chronic (8) Psoriasis Status: Chronic (9) Restless leg syndrome Status: Chronic JACKIE FISHER DO 07/04/21 0519: HPI History of Present Illness: HPI/Chief Complaint CC: Hypertension HPI: 50 [facility] pt of [facility] that I was consulted on from Dr. Ames, after she was admitted for left flank pain status post lithotripsy. She began having very high bp. Propranolol was maintained. I did give her a Norvasc 5 mg and gave her Clonidine prn. She took a Clonidine at 2 in the morning. She has IV fluids running at LR at 150 and she is going down for cystoscopy and removal of the stone. Source: patient, RN/MD Exam Limitations: no limitations Past Vbmwaun-Xtvlyx-Hbmmba Hx Patient Social History Marrital Status: single Employed/Student: unemployed Smoking Status: Former Smoker Past Medical History Hypertension Kidney Stones Review of Systems Constitutional: see HPI Physical Exam Physical Exam General Appearance: No Apparent Distress, WD/WN, Chronically ill, Obese Respiratory: Lungs Clear, Normal Breath Sounds Cardiovascular: Regular Rate, Rhythm Neurologic/Psychiatric: Alert, Oriented x3, No Motor/Sensory Deficits, Normal Mood/Affect Assessment/Plan Assessment and Plan Assess & Plan/Chief Complaint Assessment: Severe flank pain Status post lithotripsy Severe hypertension Super morbid obesity BMI 52 Plan: Antihypertensive meds Supervisory-Addendum Brief Verification & Attestation Participated in pt care: history, MDM, physical Personally performed: exam, history, MDM, supervision of care Care discussed with: Medical Student Procedures: n/a Results interpretation: Verified all documentation Verification and Attestation of Medical Student E/M Service A medical student performed and documented this service in my presence. I reviewed and verified all information documented by the medical student and made modifications to such information, when appropriate. I personally performed the physical exam and medical decision making. Jackie Fisher, Jul 04, 2021,05:17 HALINA BALDWIN Jul 03, 2021 12:23 JACKIE FISHER DO Jul 04, 2021 05:19
[2021-07-03] MEDS ORDERED: ONDANSETRON 4 MG/2 ML (SDV) Z0FRAN ONE ×2 (12:27→12:51)
[2021-07-03] MEDS ORDERED: PROPOFOL INJECTION 50 ML IV ONE (12:45)
--- NOTE | 2021-07-03 13:04 | Anesthesia-General Post-Op ---
General Patient Condition Mental Status/LOC: Same as Preop Cardiovascular: Satisfactory Nausea/Vomiting: Absent Respiratory: Satisfactory Pain: Controlled Complications: Absent Post Op Complications Complications None Follow Up Care/Instructions Patient Instructions None needed. Anesthesia/Patient Condition Patient Condition Patient is doing well, no complaints, stable vital signs, no apparent adverse anesthesia problems. No complications reported per nursing. DONNA GREER CRNA Jul 03, 2021 13:04
[2021-07-03] MEDS ORDERED: morphine INJ 10 MG/ML 1ML (SYR OR VIAL) IVP ONE (13:15)
[2021-07-03] MEDS ORDERED: MEPERIDINE (DEMEROL) INJ 50 MG/ML IVP ONE (13:15)
[2021-07-03] MEDS ORDERED: ONDANSETRON 4 MG/2 ML (SDV) Z0FRAN IVP PRN (13:15)
[2021-07-03] MEDS ORDERED: fentaNYL INJ 100 MCG/2 ML AMP IVP ONE (13:15)
[2021-07-03] MEDS ORDERED: morphine INJ 10 MG/ML 1ML (SYR OR VIAL) ONE (13:37)
--- NOTE | 2021-07-03 14:26 | OPERATIVE REPORT ---
DATE OF SERVICE: 07/03/2021 PREOPERATIVE DIAGNOSIS: Left ureteral stone. POSTOPERATIVE DIAGNOSIS: Left ureteral stone. OPERATION PERFORMED: Left ureteroscopy with stone lithotripsy and basket. SURGEON: Jadiel Hernandez MD ANESTHESIA: General. COMPLICATIONS: None. DESCRIPTION OF PROCEDURE: Under satisfactory general anesthesia, the patient in lithotomy position, genitalia were prepped and draped in the usual sterile fashion. Cystoscope was introduced in the bladder. I attempted to dilate or even pass ureteral catheter into the left ureteral orifice beyond the intramural portion was unsuccessful, so I went ahead and removed the cystoscope, inserted the ureteroscope and what was happening is that the stone fragments including the 5 mm fragment that was seen in the proximal ureter yesterday has dropped all the way down to the intramural portion. So I went ahead and broke that big fragment with the lithoclast and then I passed a 3-Surinamese Talavera basket and scooped all the fragments into the bladder. I went back with ureteroscope all the way up to the renal pelvis even visualizing the calices. There were no further stones and definitely no stones in the ureter at all. I removed the ureteroscope, reinserted the cystoscope to empty the bladder. The patient tolerated the procedure and anesthesia well and was sent to recovery room in stable condition. Job ID: [id number] DocumentID: [id number] Dictated Date: 07/03/2021 13:17:55 Associate Professor Of Forestry Date: 07/03/2021 14:25:58 Dictated By: JADIEL HERNANDEZ MD
[2021-07-03] MEDS: amLODIPine 5 MG (NORVASC) TAB PO SCH ×2 (17:13→23:46)
[2021-07-03] MEDS: hydrALAZINE (APRESOLINE) 25 MG TAB PO SCH ×2 (17:13→23:45)
[2021-07-03] MEDS: rOPINIRole 1 MG (REQUIP) TABLET PO SCH (20:35)
[2021-07-03] MEDS: traZODone 100 MG (DESYREL) TAB PO SCH (20:35)
[2021-07-04] VITALS: BP 111/73
[2021-07-04 04:11] VITALS: BP 140/86
[2021-07-04 06:16] LABS: BASOPHILS # (AUTO) 0.1 10^3/uL (0.0-0.1); BASOPHILS % (AUTO) 1 % (0-10); EOSINOPHILS # (AUTO) 0.4 10^3/uL (0.0-0.3); EOSINOPHILS % (AUTO) 4 % (0-10); HEMATOCRIT 38 % (35-52); HEMOGLOBIN 12.2 g/dL (11.5-16.0); LYMPHOCYTES # (AUTO) 1.8 10^3/uL (1.0-4.0); LYMPHOCYTES % (AUTO) 18 % (12-44); MEAN CORPUSCULAR HEMOGLOBIN 29 pg (25-34); MEAN CORPUSCULAR HGB CONC 32 g/dL (32-36); MEAN CORPUSCULAR VOLUME 90 fL (80-99); MEAN PLATELET VOLUME 10.6 fL (9.0-12.2); MONOCYTES # (AUTO) 0.9 10^3/uL (0.0-1.0); MONOCYTES % (AUTO) 8 % (0-12); NEUTROPHILS # (AUTO) 7.1 10^3/uL (1.8-7.8); NEUTROPHILS % (AUTO) 69 % (42-75); PLATELET COUNT 184 10^3/uL (130-400); WHITE BLOOD COUNT 10.2 10^3/uL (4.3-11.0)
[2021-07-04 06:43] LABS: ALBUMIN 3.1 GM/DL (3.2-4.5); BILIRUBIN,TOTAL 0.5 MG/DL (0.1-1.0); CALCIUM 9.8 MG/DL (8.5-10.1); CREATININE SERUM 1.45 MG/DL (0.60-1.30); POTASSIUM 3.9 MMOL/L (3.6-5.0); TOTAL PROTEIN 6.1 GM/DL (6.4-8.2)
[2021-07-04 08:00] VITALS: BP 167/101
[2021-07-04] MEDS: PROPRANOLOL 20 MG (INDERAL) TABLET PO SCH (08:41)
[2021-07-04] MEDS: SENNA W/DOCUSATE (SENOKOT S) TABLET PO SCH (08:41)
[2021-07-04] MEDS: hydrALAZINE (APRESOLINE) 25 MG TAB PO SCH (08:42)
[2021-07-04] MEDS: amLODIPine 5 MG (NORVASC) TAB PO SCH (08:42)
[2021-07-04] MEDS: GABAPENTIN 400 MG (NEURONTIN) CAP PO SCH (08:42)
[2021-07-04] MEDS: cefTRIAXone 1 GM/50 ML (PRE-MIX) IV SCH (08:44)
--- NOTE | 2021-07-04 09:44 | Progress Note - Urology ---
Progress Note-Urology Progress Notes/Assess & Plan Progress/Assessment & Plan WAS KEPT OVERNIGHT FOR HBP CONTROL. HOME TODAY. NO MORE PAIN. HAPPY Final Diagnosis LT URETERAL STONE DEANNE HERNANDEZ MD Jul 04, 2021 09:44
--- NOTE | 2021-07-04 10:05 | Anesthesia-General Post-Op ---
General Patient Condition Mental Status/LOC: Same as Preop Cardiovascular: Satisfactory Nausea/Vomiting: Absent Respiratory: Satisfactory Pain: Controlled Complications: Absent Post Op Complications Complications None Follow Up Care/Instructions Patient Instructions None needed. Anesthesia/Patient Condition Patient Condition Patient is doing well, no complaints, stable vital signs, no apparent adverse anesthesia problems. No complications reported per nursing. ZABRINA DE LA O CRNA Jul 04, 2021 10:05
[2021-07-04] MEDS ORDERED: AMLO-250 PO (11:06)
[2021-07-04] MEDS ORDERED: HYDR-3923 PO (11:06)
[2021-07-04] MEDS ORDERED: ACHD5005 PO (11:06)
[2021-07-04] MEDS ORDERED: CEFD300C3 PO (11:06)
--- NOTE | 2021-07-04 11:26 | Progress Note ---
HALINA BALDWIN 07/04/21 1126: Progress Note HOSPITAL COURSE: Jossy Dasilva is a 50yoF who presented to [place] ED on 07/03/21 with complaints of severe left flank and groin pain s/p ESWL with Dr. Ames on 07/01/21. She repor ts a PMHx of nephrolithiasis, FLAKITA on CPAP, hypothryoidism, hypertension, anxiety/depression, bipolar disorder, psoriasis, and restless leg syndrome. The pain began following her ESWL on 07/01/21; however, it significantly worsened overnight on 07/02/21 and thus sought medical attention on 07/03/21. Labs were unremarkable except for a WBC of 12.3. CT scan revealed a 5mm stone within the left UPJ and nonobstructive stone in the right renal pelvis. Dr. Ames was contacted, evaluated the patient, and she elected to proceed with a left ureteroscopy with stone lithotripsy and basket by Dr. Ames on 07/03/21. Patient tolerated the procedure well with no immediate complications. The procedure relieved her abdominal pain. She will discharge to complete a course of Omnicef. Additionally, patient was severely hypertensive during admission requiring home propranolol 100mg BID and new medications of Clonidine 0.1 mg PRN, Amlodipine 5mg PO BID, and Hydralazine 25mg PO TID. She will be discharged on home Propranolol 100mg PO BID, and new medications of Amolodipine 25mg PO TID, and Hydralazine 25mg PO TID. Patient will follow-up with Dr. Ames on outpatient basis as well as her PCP within 1 week for a blood pressure check. JACKIE FISHER DO 07/04/21 2131: Supervisory-Addendum Brief Verification & Attestation Participated in pt care: history, MDM, physical Personally performed: exam, history, MDM, supervision of care Care discussed with: Medical Student Procedures: n/a Results interpretation: Verified all documentation Verification and Attestation of Medical Student E/M Service A medical student performed and documented this service in my presence. I reviewed and verified all information documented by the medical student and made modifications to such information, when appropriate. I personally performed the physical exam and medical decision making. Jackie Fisher, Jul 04, 2021,21:31 HALINA BALDWIN Jul 04, 2021 11:26 JACKIE FISHER DO Jul 04, 2021 21:31
--- NOTE | 2021-07-04 11:37 | Discharge Summary ---
Discharge Summary Hospital Course Was the Problem List Reviewed?: Yes Problems/Dx: (1) Left ureteral stone Status: Acute (2) Hypertension Status: Chronic (3) FLAKITA on CPAP Status: Chronic (4) Hypothyroidism Status: Chronic (5) Anxiety Status: Chronic (6) Depression Status: Chronic (7) Bipolar disorder Status: Chronic (8) Psoriasis Status: Chronic (9) Restless leg syndrome Status: Chronic Hospital Course Date of Admission: Jul 02, 2021 at 15:54 Admission Diagnosis : Family Physician/Provider: Kim Winters MD Date of Discharge: 07/04/21 Discharge Diagnosis: Ureteral stone, severe pain, malignant hypertension, morbid obesity Hospital Course: Progress Note HOSPITAL COURSE: Jossy Dasilva is a 50yoF who presented to [place] ED on 07/03/21 with complaints of severe left flank and groin pain s/p ESWL with Dr. Ames on 07/01/21. She reports a PMHx of nephrolithiasis, FLAKITA on CPAP, hypothryoidism, hypertension, anxiety/depression, bipolar disorder, psoriasis, and restless leg syndrome. The pain began following her ESWL on 07/01/21; however, it significantly worsened overnight on 07/02/21 and thus sought medical attention on 07/03/21. Labs were unremarkable except for a WBC of 12.3. CT scan revealed a 5mm stone within the left UPJ and nonobstructive stone in the right renal pelvis. Dr. Ames was contacted, evaluated the patient, and she elected to proceed with a left ureteroscopy with stone lithotripsy and basket by Dr. Ames on 07/03/21. Patient tolerated the procedure well with no immediate complications. The procedure relieved her abdominal pain. She will discharge to complete a course of Omnicef. Additionally, patient was severely hypertensive during admission requiring home propranolol 100mg BID and new medications of Clonidine 0.1 mg PRN, Amlodipine 5mg PO BID, and Hydralazine 25mg PO TID. She will be discharged on home Prop ranolol 100mg PO BID, and new medications of Amolodipine 25mg PO TID, and Hydralazine 25mg PO TID. Patient will follow-up with Dr. Ames on outpatient basis as well as her PCP within 1 week for a blood pressure check. Labs and Pending Lab Test: Laboratory Tests 07/03/21 14:35: Stone Weight [Pending], Stone Description [Pending], Stone Composition [Pending] 07/04/21 06:03: White Blood Count 10.2, Red Blood Count 4.19, Hemoglobin 12.2, Hematocrit 38, Mean Corpuscular Volume 90, Mean Corpuscular Hemoglobin 29, Mean Corpuscular Hemoglobin Concent 32, Red Cell Distribution Width 13.4, Platelet Count 184, Mean Platelet Volume 10.6, Immature Granulocyte % (Auto) 0, Neutrophils (%) (Auto) 69, Lymphocytes (%) (Auto) 18, Monocytes (%) (Auto) 8, Eosinophils (%) (Auto) 4, Basophils (%) (Auto) 1, Neutrophils # (Auto) 7.1, Lymphocytes # (Auto) 1.8, Monocytes # (Auto) 0.9, Eosinophils # (Auto) 0.4H, Basophils # (Auto) 0.1, Immature Granulocyte # (Auto) 0.0, Sodium Level 138, Potassium Level 3.9, Chloride Level 104, Carbon Dioxide Level 24, Anion Gap 10, Blood Urea Nitrogen 17, Creatinine 1.45H, Estimat Glomerular Filtration Rate 44, BUN/Creatinine Ratio 12, Glucose Level 94, Calcium Level 9.8, Corrected Calcium 10.5H, Total Bilirubin 0.5, Aspartate Amino Transf (AST/SGOT) 12, Alanine Aminotransferase (ALT/SGPT) 16, Alkaline Phosphatase 61, Total Protein 6.1L, Albumin 3.1L Home Meds Active Cefdinir 300 Mg Capsule 300 Mg PO BID Amlodipine Besylate 5 Mg Tablet 5 Mg PO BID Hydralazine HCl 25 Mg Tablet 25 Mg PO TID Hydrocodone-Acetamin 5-325 mg (Hydrocodone/Acetaminophen) 1 Each Tablet 1-2 Tab PO Q6H PRN Reported Melatonin 10 Mg Tablet 10 Mg PO HS PRN [Latuda] 60 Tab 120 Mg PO HS TAKES 2 (60MG) TABS Vitamin D3 (Cholecalciferol (Vitamin D3)) 50 Mcg Tablet 50 Mcg PO DAILY Ropinirole HCl 3 Mg Tablet 3 Mg PO HS Multivitamin 1 Each Tablet 1 Each PO DAILY Trazodone HCl 100 Mg Tablet 100 Mg PO HS Gabapentin 400 Mg Capsule 400 Mg PO TID Propranolol HCl 60 Mg Tablet 60 Mg PO BID TAKES ALONG WITH 40MG TABLET Propranolol HCl 40 Mg Tablet 40 Mg PO BID TAKES ALONG WITH 60MG TABLET Assessment/Pt Instructions PCP in 1 week Discharge Planning: <30 minutes discharge planning Discharge Instructions Discharge Diet: No Restrictions Activity as Tolerated: Yes Discharge Physical Examination Vital Signs Vital Signs Date Time Temp Pulse Resp B/P (MAP) Pulse Ox O2 Delivery O2 Flow Rate FiO2 07/04/21 08:00 95 Room Air 07/04/21 08:00 35.5 60 18 167/101 (123) 07/03/21 13:20 2 07/03/21 08:00 97 General Appearance: No Apparent Distress, WD/WN Allergies: Coded Allergies: meloxicam (Verified Allergy, Unknown, RASH/ITCHING, 12/03/18) Discharge Summary Date of Admission Jul 02, 2021 at 15:54 Date of Discharge Discharge Date: Jul 04, 2021 Discharge Diagnosis Assessment: Severe flank pain Status post lithotripsy Severe hypertension Super morbid obesity BMI 52 Plan: Antihypertensive meds (1) Left ureteral stone Status: Acute (2) Hypertension Status: Chronic (3) FLAKITA on CPAP Status: Chronic (4) Hypothyroidism Status: Chronic (5) Anxiety Status: Chronic (6) Depression Status: Chronic (7) Bipolar disorder Status: Chronic (8) Psoriasis Status: Chronic (9) Restless leg syndrome Status: Chronic ALIYAH FISHER DO Jul 04, 2021 11:37
--- NOTE | 2021-07-04 17:52 | Anesthesia-General Post-Op ---
General Significant Intra-Op Events Notes Late entry postop note from 07/01/21 at 1000 Patient Condition Mental Status/LOC: Same as Preop Cardiovascular: Satisfactory Nausea/Vomiting: Absent Respiratory: Satisfactory Pain: Controlled Complications: Absent Post Op Complications Complications None Follow Up Care/Instructions Patient Instructions None needed. Anesthesia/Patient Condition Patient Condition Patient is doing well, no complaints, stable vital signs, no apparent adverse anesthesia problems. No complications reported per nursing. KATHRYN NEVES CRNA Jul 04, 2021 17:52
== END 2021-07-04 12:35 | disposition home or self-care (01) ==
LOC: EDUNIT# 12:27 → ER 12:30 → 4TH 15:54
PROVIDERS: ADMIT Urology; ATTEND Urology
DX: N20.1 Calculus of ureter (principal); I10 Essential (primary) hypertension; L40.9 Psoriasis, unspecified; G25.81 Restless legs syndrome; G47.33 Obstructive sleep apnea (adult) (pediatric); G47.30 Sleep apnea, unspecified; E03.9 Hypothyroidism, unspecified; E66.01 Morbid (severe) obesity due to excess calories; K59.09 Other constipation; F31.9 Bipolar disorder, unspecified; F41.9 Anxiety disorder, unspecified; Z68.43 Body mass index [BMI] 50.0-59.9, adult; Z99.89 Dependence on other enabling machines and devices; Z79.899 Other long term (current) drug therapy; Z79.891 Long term (current) use of opiate analgesic; Z90.710 Acquired absence of both cervix and uterus; Z90.89 Acquired absence of other organs
CPT/HCPCS: 36410; 52353; 74018; 74019; 74176; 76000; 76937; 80048 ×2; 80053; 81000; 84703; 85007; 85025 ×2; 85027; 99284; C1751; G0378; 36415; 88300

== ENCOUNTER → 2021-07-07 | Outpatient (CLI) | payer MEDICARE, MEDICAID ==
[~2021-07-07] MED LIST changes: +AMLO-250 PO; +CEFD300C3 PO; +CHOL200059 PO; +HYDR-3923 PO; +LATUDA PO; +LURA120T PO; +MELA10TA2 PO; +ROPI3TAB4 PO
--- NOTE | 2021-07-07 17:09 | Diagnostic Imaging Report ---
INDICATION: Left ureteral calculus. COMPARISON: 07/03/2021. FINDINGS: Two frontal radiographic views of the abdomen were obtained. Extraosseous calcification is again seen projecting over the inferior pole of the right renal shadow. Additional calcification is seen projecting over the superior margins of the bilateral sacral wings. These however correspond to bone islands when compared to previous CT. No other unexpected extraosseous calcifications or radiopaque foreign bodies are seen. Left-sided pelvic phleboliths are also noted. Small bowel loops are nondistended. There is no large collection of free intraperitoneal air. IMPRESSION: 1. Persistent right renal calculus. 2. Nonobstructed small bowel gas pattern. Dictated on workstation # [id number]
== END ==
LOC: RAD
PROVIDERS: ATTEND Urology
DX: N20.0 Calculus of kidney (principal)
CPT/HCPCS: 74018

== ENCOUNTER 2021-07-08 11:45 | Outpatient (RCR) | payer MEDICARE, MEDICAID ==
[2021-07-08 12:29] LABS: CALCIUM 11.9 MG/DL (8.5-10.1); CREATININE SERUM 1.21 MG/DL (0.60-1.30); PHOSPHORUS 2.9 MG/DL (2.3-4.7); URIC ACID 7.1 MG/DL (2.6-7.2)
== END 2021-07-21 | disposition home or self-care (01) ==
LOC: LAB 11:45
PROVIDERS: ATTEND Urology
DX: N20.0 Calculus of kidney (principal)
CPT/HCPCS: 36415; 80048; 82140; 82340; 82507; 82570; 83735; 83945; 83970; 83986; 84100; 84105; 84133; 84300; 84392; 84550; 84560; 88300

== ENCOUNTER → 2021-08-15 | Outpatient (CLI) | payer MEDICARE, MEDICAID ==
--- NOTE | 2021-08-15 16:05 | Diagnostic Imaging Report ---
INDICATION: 50-year-old female, abnormally elevated parathyroid hormone with increased calcium and blood in urine. TECHNIQUE: 20.5 mCi technetium 99m sestamibi was injected intravenously. Imaging was obtained over the neck and upper chest at 20 minutes and [address] SPECT imaging was obtained. COMPARISON: None. FINDINGS: There is normal uptake by the salivary glands. There is uptake within the region of the thyroid bed. There is asymmetric uptake suggested over the inferior pole of the left thyroid lobe. While there does appear to be washout of this nodular area, there is persistent asymmetric uptake in this region. IMPRESSION: Asymmetric uptake over the inferior pole of the left thyroid lobe. This finding is somewhat indeterminate. This could be reflective of asymmetric nodular uptake within the thyroid gland. Possibility of parathyroid adenoma, however, is not excluded on this study. If further assessment is desired, ultrasound imaging may be of additional diagnostic utility. Dictated by: Dictated on workstation # [id number]
== END ==
LOC: CARD 12:30
PROVIDERS: ATTEND Urology
DX: E21.3 Hyperparathyroidism, unspecified (principal)
CPT/HCPCS: 78072; A9500

== ENCOUNTER 2021-08-19 05:30 | Outpatient (CLI) | payer MEDICARE, MEDICAID ==
[~2021-08-19] VITALS: Ht 165.1 cm; Wt 141.8 kg
== END 2021-08-19 16:19 ==
LOC: PREOP 05:30
PROVIDERS: ATTEND Urology
DX: Z01.818 Encounter for other preprocedural examination (principal)

== ENCOUNTER 2021-08-26 06:56 | Day surgery (SDC) | payer MEDICARE, MEDICAID ==
[~2021-08-26] VITALS: Ht 165 cm; Wt 141.8 kg
[2021-08-26] VITALS (10 sets, daily range): BP systolic 112–145; BP diastolic 72–91
[2021-08-26] MEDS ORDERED: MIDAZOLAM 2 MG/2 ML (VERSED) VIAL ONE (06:58)
[2021-08-26] MEDS ORDERED: proPOfol 200 MG/20 ML (DIPRIVAN) VIAL IV ONE (06:58)
[2021-08-26] MEDS ORDERED: fentaNYL INJ 100 MCG/2 ML AMP ONE (06:58)
[2021-08-26] MEDS ORDERED: LIDOCAINE PF 2% 5 ML (XYLOCAINE) VIAL ONE (06:58)
[2021-08-26] MEDS ORDERED: SEVOFLURANE (ULTANE) 15 ML INHAL SOLN ONE (06:58)
[2021-08-26] MEDS ORDERED: ONDANSETRON 4 MG/2 ML (SDV) Z0FRAN ONE (06:58)
[2021-08-26] MEDS ORDERED: LACTATED RINGERS 1,000 ML IV PRN (07:15)
[2021-08-26] MEDS ORDERED: cefTRIAXone 1 GM PRE-MIX 50 ML IV ONE (07:15)
--- NOTE | 2021-08-26 07:19 | Progress Note-Pre Operative ---
Pre-Operative Progress Note H&P Reviewed The H&P was reviewed, patient examined and no changes noted. Date Seen by Provider: Aug 26, 2021 Time Seen by Provider: 07:19 Date H&P Reviewed: Aug 26, 2021 Time H&P Reviewed: 07:19 Pre-Operative Diagnosis: RT RENAL STONE DEANNE HERNANDEZ MD Aug 26, 2021 07:19
--- NOTE | 2021-08-26 07:44 | Diagnostic Imaging Report ---
EXAMINATION: Abdomen 1 view HISTORY: ESWL COMPARISON: 07/07/2021 FINDINGS: There is a moderate amount of gas and stool throughout the colon. Nonobstructive bowel gas pattern. Stable 0.4 cm opacity overlying the right kidney. Cholecystectomy clips are present. The lung bases are clear. The osseous structures are intact. IMPRESSION: Stable 0.4 cm opacity overlying the right kidney. Dictated by: Dictated on workstation # [id number]
--- NOTE | 2021-08-26 07:51 | Progress Note-Post Operative ---
Post-Operative Progess Note Surgeon (s)/Cash Applications Representative (s) Surgeon DEANNE HERNANDEZ MD Cash Applications Representative: NONE Pre-Operative Diagnosis RT RENAL STONE Post-Operative Diagnosis SAME Procedure & Operative Findings Date of Procedure 08/26/21 Procedure Performed/Findings RT ESWL Anesthesia Type GENERAL Estimated Blood Loss Estimated blood loss (mL): NONE Specimens/Packing Specimens Removed NONE Packing: NONE DEANNE HERNANDEZ MD Aug 26, 2021 07:51
--- NOTE | 2021-08-26 07:52 | Discharge Inst-Urology ---
Discharge Inst-Urology Reconcile Patient Problems Problems Reviewed?: Yes Final Diagnosis RT RENAL STONE Patient Instructions/Follow Up Plan/Assessment/Instructions Please make appointment to been seen in office in 3 weeks. KUB prior to it KUB on way home Post ESWL instructions Increase oral fluids for 48 hours and then as needed. Diet and Activity as tolerated. If questions or concerns contact your physician Or seek help at emergency department. DEANNE HERNANDEZ MD Aug 26, 2021 07:52
[2021-08-26] MEDS ORDERED: PROPOFOL INJECTION 50 ML IV ONE ×2 (08:24→08:38)
[2021-08-26] MEDS ORDERED: FUROSEMIDE 40 MG/4 ML INJ (LASIX) ONE (08:29)
[2021-08-26] MEDS ORDERED: HYDROmorphone 2 MG/ML VIAL (DILAUDID) IV ONE (09:00)
[2021-08-26] MEDS ORDERED: ONDANSETRON 4 MG/2 ML (SDV) Z0FRAN IVP PRN (09:00)
--- NOTE | 2021-08-26 09:00 | Anesthesia-General Post-Op ---
General Patient Condition Mental Status/LOC: Same as Preop Cardiovascular: Satisfactory Nausea/Vomiting: Absent Respiratory: Satisfactory Pain: Controlled Complications: Absent Post Op Complications Complications None Follow Up Care/Instructions Patient Instructions None needed. Anesthesia/Patient Condition Patient Condition Patient is doing well, no complaints, stable vital signs, no apparent adverse anesthesia problems. No complications reported per nursing. [place] [facility] [place]: Yes ZANE LOO CRNA Aug 26, 2021 09:00
[2021-08-26] MEDS ORDERED: NITR-65 PO (09:52)
[2021-08-26] MEDS ORDERED: OXYC1TAB11 PO (09:52)
--- NOTE | 2021-08-26 10:46 | Diagnostic Imaging Report ---
ABDOMEN/KUB 1VIEW INDICATION: Renal stone, status post lithotripsy. COMPARISON: 08/26/2021 at 0720 hours. TECHNIQUE: AP view of the abdomen. FINDINGS: Previously noted 4 mm density in the region of the right renal fossa is not seen. There is a large amount of overlying colonic gas and stool in this region on this exam. No mineralizations have developed along the expected course of the ureters. Cholecystectomy. Nonobstructive bowel gas pattern. IMPRESSION: The right renal stone has either resolved or is obscured by overlying colonic contents. Dictated by: Dictated on workstation # [id number]
--- NOTE | 2021-08-26 11:01 | OPERATIVE REPORT ---
DATE OF SERVICE: 08/26/2021 PREOPERATIVE DIAGNOSIS: Right renal stone. POSTOPERATIVE DIAGNOSIS: Right renal stone. OPERATION PERFORMED: Right ESWL. SURGEON: Jadiel Hernandez MD. ANESTHESIA: General. COMPLICATIONS: None. DESCRIPTION OF PROCEDURE: Under satisfactory general anesthesia, the patient in supine position on the ESWL table, the right renal stone was localized. Shocks were delivered at kV of 6, a total of 1500 shocks completely fragmented the stone that was not visualized anymore. The patient received 40 mg of Lasix at the end of the procedure. We did not give her Toradol because of her allergy to Meloxicam. She tolerated the procedure and anesthesia well and was sent to recovery room in stable condition. Job ID: [id number] DocumentID: [id number] Dictated Date: 08/26/2021 08:41:16 [employer] Date: 08/26/2021 11:00:38 Dictated By: JADIEL HERNANDEZ MD
== END 2021-08-26 10:50 | disposition home or self-care (01) ==
LOC: SDC 06:56
PROVIDERS: ATTEND Urology
DX: N20.0 Calculus of kidney (principal); E66.01 Morbid (severe) obesity due to excess calories; Z68.43 Body mass index [BMI] 50.0-59.9, adult; Z87.891 Personal history of nicotine dependence
CPT/HCPCS: 36410; 50590; 74018; 76937; 87081; C1751

== ENCOUNTER 2021-09-24 08:26 | Emergency (ER) | payer MEDICARE, MEDICAID ==
[~2021-09-24] VITALS: Ht 165.1 cm; Wt 136.1 kg
[~2021-09-24 08:26] MED LIST changes: +OXYC1TAB11 PO
[2021-09-24 08:43] VITALS: BP 136/80
[2021-09-24] MEDS ORDERED: METOCLOPRAMIDE INJ 10 MG/2 ML (REGLAN) IM STA (08:53)
[2021-09-24] MEDS ORDERED: KETOROLAC 60 MG/2 ML VIAL IM STA (08:53)
[2021-09-24] MEDS ORDERED: diphenhydrAMINE 50 MG/ML INJ (BENADRYL) IM STA (08:53)
--- NOTE | 2021-09-24 08:54 | ED Headache ---
General Chief Complaint: Head/Cervical Problems Stated Complaint: HEADACHE Source: patient, old records History of Present Illness Date Seen by Provider: September 24, 2021 Time Seen by Provider: 08:44 Initial Comments 50 yo female presenting with complaint of migraine headache since last night. She took her last Tramadol but was still having pain. She follows with Dr. Rosales but has not seen her recently. She reports the Migraine pain moves around to different parts of her head depending on where she has her head laying at the time. She currently has pain to back of head. She has mild nausea but no vomiting. She denies fever, chills, Sinus headache, congestion, cough. Severity/Quality: constant Prior Headaches/Recent Trauma: frequent headaches Associated Symptoms: No confusion, No fatigue, No facial pain, No fever/chills, No flushing, No loss of consciousness, No nausea/vomiting, No nasal congestion, No nasal drainage, No numbness in legs/feet, No rash, No seizures, No sinus infection, No stiff neck, No vision changes, No weakness Allergies and Home Medications Allergies Coded Allergies: meloxicam (Verified Allergy, Unknown, RASH/ITCHING, 08/19/21) Patient Home Medication List Home Medication List Reviewed: Yes Amlodipine Besylate (Amlodipine Besylate) 5 Mg Tablet, 5 MG PO BID Prescribed by: ALIYAH FISHER on 07/04/21 1106 Cholecalciferol (Vitamin D3) (Vitamin D3) 50 Mcg Tablet, 50 MCG PO DAILY, (Repo rted) Entered as Reported by: MELI SCOTT on 07/03/21 1144 Gabapentin (Gabapentin) 400 Mg Capsule, 400 MG PO TID, (Reported) Entered as Reported by: SUKI TREVIÑO on 11/08/18 0938 Hydralazine HCl (Hydralazine HCl) 25 Mg Tablet, 25 MG PO TID Prescribed by: ALIYAH FISHER on 07/04/21 1106 Hydrocodone/Acetaminophen (Hydrocodone-Acetamin 5-325 mg) 1 Each Tablet, 1-2 TAB PO Q6H PRN for PAIN-MODERATE (5-7) Prescribed by: ALIYAH FISHER on 07/04/21 1107 Melatonin (Melatonin) 10 Mg Tablet, 10 MG PO HS PRN for SLEEP, (Reported) Entered as Reported by: MELI SCOTT on 07/03/21 1144 Multivitamin (Multivitamin) 1 Each Tablet, 1 EACH PO DAILY, (Reported) Entered as Reported by: LEIGHA WONG on 06/26/21 1635 Nitrofurantoin Monohyd/M-Cryst (Macrobid 100 mg Capsule) 100 Mg Capsule, 1 TAB PO BID WITH MEALS Prescribed by: ERICK WEBBER on 08/26/21 09 Oxycodone HCl/Acetaminophen (Oxycodone-Acetaminophen 5-325) 1 Each Tablet, 1-2 EACH PO Q4H PRN for PAIN-SEVERE Prescribed by: ERICK WEBBER on 08/26/21 0952 Propranolol HCl (Propranolol HCl) 40 Mg Tablet, 40 MG PO BID, (Reported) Entered as Reported by: SUKI TREVIÑO on 11/08/18 09 Propranolol HCl (Propranolol HCl) 60 Mg Tablet, 60 MG PO BID, (Reported) Entered as Reported by: SUKI TREVIÑO on 11/08/18 09 Ropinirole HCl (Ropinirole HCl) 3 Mg Tablet, 3 MG PO HS, (Reported) Entered as Reported by: PETE PINO on 07/02/212005 Tramadol HCl (Tramadol HCl) 50 Mg Tablet, 50 MG PO TID PRN for Migraine Prescribed by: LYNN PEREZ on 09/24/21 1031 Trazodone HCl (Trazodone HCl) 100 Mg Tablet, 100 MG PO HS, (Reported) Entered as Reported by: SUKI TREVIÑO on 11/08/18 09 [Latuda] 60 TAB, 120 MG PO HS, (Reported) Entered as Reported by: MELI SCOTT on 07/03/21 1144 Review of Systems Review of Systems Constitutional: No chills, No fever Eyes: Photophobia (mild) Ears, Nose, Mouth, Throat: denies ear pain, denies ear discharge, denies nose pain, denies nose discharge, denies epistaxis Respiratory: No cough, No short of breath Cardiovascular: No chest pain Gastrointestinal: nausea; No vomiting Genitourinary: No dysuria Musculoskeletal: No neck pain Skin: No rash Psychiatric/Neurological: See HPI Past Kdjozqx-Ywjlvl-Dbecan Hx Patient Social History Tobacco Use?: No Immunizations Up To Date Tetanus Booster (TDap): Unknown First/Initial COVID19 Vaccinat: 07/25/2020 Second COVID19 Vaccination Javi: 08/22/2020 Third COVID19 Vaccination Date: 05/30/2021 Seasonal Allergies Seasonal Allergies: Yes Past Medical History Surgery/Hospitalization HX: Kidney stones, HTN, sleep apnea Surgeries: Yes Abdominal, Section, Gallbladder, Hysterectomy, Oophorectomy, Orthopedic, Thyroidectomy Respiratory: Yes Sleep Apnea Currently Using CPAP: Yes Currently Using BIPAP: No Cardiac: Yes (Pt has stress test Spring 2018 @ [place]) Hypertension Neurological: 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 0oz. 131.457709gy; 52.08 BMI Method:Actual General Appearance: WD/WN, no apparent distress HEENT: PERRL/EOMI, normal ENT inspection, TMs normal, pharynx normal Neck: non-tender, full range of motion, supple, normal inspection Cardiovascular: normal peripheral pulses, regular rate, rhythm Respiratory: chest non-tender, lungs clear, normal breath sounds, no respiratory distress, no accessory muscle use Gastrointestinal: normal bowel sounds, non tender, soft, no pulsatile mass Extremities: normal range of motion, non-tender, normal capillary refill Psychiatric: alert, oriented x 3 Crainal Nerves: normal hearing, normal speech, PERRL Coordination/Gait: normal gait Motor/Sensory: no motor deficit, no sensory deficit Skin: normal color, warm/dry Progress/Results/Core Measures Results/Orders My Orders Orders - LYNN PEREZ MD Ketorolac Injection (Toradol Injection) (09/24/21 08:53) Metoclopramide Injection (Reglan Injecti (09/24/21 08:53) Diphenhydramine Injection (Benadryl Inje (09/24/21 08:53) Vital Signs/I&O 09/24/21 08:43 Temp 36.9 Pulse 56 Resp 18 B/P (MAP) 136/80 (98) O2 Delivery Room Air Progress Progress Note #1: Progress Note Give migraine cocktail of Toradol 60 mg IM, Reglan 10 mg IM, Benadryl 50 mg IM. Recheck after 30 minutes Progress Note #2: Progress Note Pt reports improvement in headache with treatment. Will discharge to home with a few tramadol while waiting on follow up appt with pcp. Departure Impression Primary Impression: Migraine headache without aura Qualified Codes: G43.009 - Migraine without aura, not intractable, without status migrainosus Disposition: HOME, SELF-CARE Condition: Improved Departure-Patient Inst. Decision time for Depature: 10:29 Referrals: KAMALJIT ROSALES MD (PCP) Primary Care Physician Patient Instructions: How to Keep Track of Your Headaches, Home Headache Remedies, Migraines in Adults Add. Discharge Instructions: Rest in a cool dark room Follow-up with Dr. Rosales for continued care of your migraines. All discharge instructions reviewed with patient and/or family. Voiced understanding. Scripts Tramadol HCl (Tramadol HCl) 50 Mg Tablet 50 MG PO TID PRN for Migraine for 5 Days, #15 TAB 0 Refills Prov: LYNN PEREZ MD 09/24/21 LYNN PEREZ MD September 24, 2021 08:54
[2021-09-24] MEDS ORDERED: TRM50T PO (10:30)
== END 2021-09-24 10:36 | disposition home or self-care (01) ==
LOC: EDUNIT# 08:26 → ER FS 08:28
DX: G43.009 Migraine without aura, not intractable, without status migrainosus (principal); Z79.899 Other long term (current) drug therapy
CPT/HCPCS: 99281

== ENCOUNTER 2022-07-05 21:22 | Emergency (ER) | payer MEDICARE, MEDICAID ==
[~2022-07-05 21:22] MED LIST changes: +TRM50T PO
--- NOTE | 2022-07-05 21:29 | ED Lower Extremity ---
General Stated Complaint: LEFT ANKLE INJURY History of Present Illness Date Seen by Provider: Jul 05, 2022 Time Seen by Provider: 21:28 Initial Comments 51 yr F with PMH of fibular fracture 20 years ago with plate and screws present, is here with c/o left ankle injury which she sustained at work yesterday by rolling her ankle. Denies sensory loss. Patient is able to bear weight on it, but it is painful. Allergies and Home Medications Allergies Coded Allergies: meloxicam (Verified Allergy, Unknown, RASH/ITCHING, 08/19/21) Patient Home Medication List Home Medication List Reviewed: Yes Amlodipine Besylate (Amlodipine Besylate) 5 Mg Tablet, 5 MG PO BID Prescribed by: ALIYAH FISHER on 07/04/21 1106 Cholecalciferol (Vitamin D3) (Vitamin D3) 50 Mcg Tablet, 50 MCG PO DAILY, (Reported) Entered as Reported by: MELI SCOTT on 07/03/21 1144 Gabapentin (Gabapentin) 400 Mg Capsule, 400 MG PO TID, (Reported) Entered as Reported by: SUKI TREVIÑO on 11/08/18 0938 Hydralazine HCl (Hydralazine HCl) 25 Mg Tablet, 25 MG PO TID Prescribed by: ALIYAH FISHER on 07/04/21 1106 Hydrocodone/Acetaminophen (Hydrocodone-Acetamin 5-325 mg) 1 Each Tablet, 1-2 TAB PO Q6H PRN for PAIN-MODERATE (5-7) Prescribed by: ALIYAH FISHER on 07/04/21 1107 Melatonin (Melatonin) 10 Mg Tablet, 10 MG PO HS PRN for SLEEP, (Reported) Entered as Reported by: MELI SCOTT on 07/03/21 1144 Multivitamin (Multivitamin) 1 Each Tablet, 1 EACH PO DAILY, (Reported) Entered as Reported by: LEIGHA WONG on 06/26/21 1635 Nitrofurantoin Monohyd/M-Cryst (Macrobid 100 mg Capsule) 100 Mg Capsule, 1 TAB PO BID WITH MEALS Prescribed by: ERICK WEBBER on 08/26/21 0952 Oxycodone HCl/Acetaminophen (Oxycodone-Acetaminophen 5-325) 1 Each Tablet, 1-2 EACH PO Q4H PRN for PAIN-SEVERE Prescribed by: ERICK WEBBER on 08/26/21 0952 Propranolol HCl (Propranolol HCl) 40 Mg Tablet, 40 MG PO BID, (Reported) Entered as Reported by: SUKI TREVIÑO on 11/08/18 09 Propranolol HCl (Propranolol HCl) 60 Mg Tablet, 60 MG PO BID, (Reported) Entered as Reported by: SUKI TREVIÑO on 11/08/18 0938 Ropinirole HCl (Ropinirole HCl) 3 Mg Tablet, 3 MG PO HS, (Reported) Entered as Reported by: PETE PINO on 07/02/212005 Tramadol HCl (Tramadol HCl) 50 Mg Tablet, 50 MG PO TID PRN for Migraine Prescribed by: LYNN PEREZ on 09/24/21 1031 Trazodone HCl (Trazodone HCl) 100 Mg Tablet, 100 MG PO HS, (Reported) Entered as Reported by: SUKI TREVIÑO on 11/08/18 09 [Latuda] 60 TAB, 120 MG PO HS, (Reported) Entered as Reported by: MELI SCOTT on 07/03/21 1144 Review of Systems Constitutional: no symptoms reported EENTM: no symptoms reported Respiratory: no symptoms reported Cardiovascular: no symptoms reported Gastrointestinal: no symptoms reported Genitourinary: no symptoms reported Musculoskeletal: joint pain Skin: no symptoms reported Psychiatric/Neurological: No Symptoms Reported Past Bomayop-Vccyjt-Ehjwse Hx Immunizations Up To Date Tetanus Booster (TDap): Unknown First/Initial COVID19 Vaccinat: 07/25/2020 Second COVID19 Vaccination Javi: 08/22/2020 Third COVID19 Vaccination Date: 05/30/2021 Seasonal Allergies Seasonal Allergies: Yes Past Medical History Surgery/Hospitalization HX: Kidney stones, HTN, sleep apnea Surgeries: Yes Abdominal, Section, Gallbladder, Hysterectomy, Oophorectomy, Orthopedic, Thyroidectomy Respiratory: Yes Sleep Apnea Currently Using CPAP: Yes Currently Using BIPAP: No Cardiac: Yes (Pt has stress test Spring 2018 @ [place]) Hypertension Neurological: 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 0oz. 131.067086jl; 49.00 BMI Method:Actual General Appearance: WD/WN, no apparent distress HEENT: PERRL/EOMI Neck: non-tender, full range of motion Knees: left knee non-tender, left knee normal inspection, left knee normal range of motion, left knee no evidence of injury Ankles: left ankle limited range of motion (Due to pain), left ankle pain, left ankle soft tissue tenderness, left ankle swelling Feet: left foot non-tender, left foot normal inspection, left foot normal range of motion, left foot no evidence of injury Neurologic/Tendon: normal sensation Neurologic/Psychiatric: alert, normal mood/affect, oriented x 3 Skin: normal color Progress/Results/Core Measures Results/Orders My Orders Orders - PEBBLES ALVAREZ MD Ankle 3 View Left (07/05/22 21:29) Vital Signs/I&O 07/05/22 21:27 Pulse 61 Resp 18 B/P (MAP) 146/77 (100) Pulse Ox 95 O2 Delivery Room Air Progress Progress Note : Progress Note 1. LEFT ANKLE INJURY: - XR LEFT ANKLE: No fractures or dislocations -Advised ibuprofen/ice/elevation -Ortho boot given to patient since she states that she is unable to use crutches -Follow-up with Ortho within the next 3 to 5 days -The patient was seen in the ED, and treated appropriately to presentation at a specific point in time. Patient is informed that there is a possibility that disease and illness can evolve and change in acuity rapidly or slowly after patient is discharged from the ER. Precautionary advice given to the patient for immediate return to ER if symptoms worsen or do not resolve, and to seek emergency care sooner rather than later. Pt also advised on the importance of PCP follow up and compliance with management and follow up plan with PCP and/or specialist, as this is part of the management plan. Pt verbally expressed understanding. Diagnostic Imaging Diagonstic Imaging: Xray Plain Films/CT/US/NM/MRI: ankle Comments [facility] [place], [place] NAME: JOHN WARE REC#: [id number] PT STATUS: REG ER : 1970 PHYSICIAN: PEBBLES ALVAREZ MD ADMIT DATE: 07/05/22/ER FS Signed Date of Exam:07/05/22 ANKLE 3 VIEW LEFT INDICATION: Ankle injury, pain. FINDINGS: There has been previous open reduction and internal fixation of a distal fibular fracture plate and screws. Alignment is normal. The plafond's and talar dome are intact. The ankle mortise is symmetric. There are degenerative changes in the midfoot. There is no acute fracture or dislocation. IMPRESSION: 1. Stable postsurgical changes in the distal fibula. 2. Degenerative changes in the midfoot. 3. No acute fracture or dislocation. Dictated by: Dictated on workstation # [id number] Dict: 07/05/222145 Trans: 07/05/222151 PJE [id number] Interpreted by: GUME GAITAN MD Electronically signed by: GUME GAITAN MD 07/05/222151 Departure Impression Primary Impression: Left ankle sprain Qualified Codes: S93.402A - Sprain of unspecified ligament of left ankle, initial encounter Disposition: HOME, SELF-CARE Condition: Stable Departure-Patient Inst. Referrals: KAMALJIT ROSALES MD (PCP/Family) Primary Care Physician Patient Instructions: Using Cold for Pain, Ankle Sprain ED Add. Discharge Instructions: -Advised ibuprofen/ice/elevation -Ortho boot given to patient since she states that she is unable to use crutches -Follow-up with Ortho within the next 3 to 5 days Work/School Note: Work Release Form Date Seen in the Emergency Department: Jul 05, 2022 Return to Work: Jul 08, 2022 Restrictions: Need Release from Doctor PEBBLES ALVAREZ MD Jul 05, 2022 21:29
--- NOTE | 2022-07-05 21:49 | Diagnostic Imaging Report ---
INDICATION: Ankle injury, pain. FINDINGS: There has been previous open reduction and internal fixation of a distal fibular fracture plate and screws. Alignment is normal. The plafond's and talar dome are intact. The ankle mortise is symmetric. There are degenerative changes in the midfoot. There is no acute fracture or dislocation. IMPRESSION: 1. Stable postsurgical changes in the distal fibula. 2. Degenerative changes in the midfoot. 3. No acute fracture or dislocation. Dictated by: Dictated on workstation # [id number]
[2022-07-05 22:08] VITALS: BP 146/77
== END 2022-07-05 22:08 | disposition home or self-care (01) ==
LOC: EDUNIT# 21:22 → ER FS 21:24
DX: S93.402A Sprain of unspecified ligament of left ankle, initial encounter (principal); G47.30 Sleep apnea, unspecified; Z87.81 Personal history of (healed) traumatic fracture; Z99.89 Dependence on other enabling machines and devices; Z28.310 Unvaccinated for COVID-19; X50.1XXA Overexertion from prolonged static or awkward postures, initial encounter; Y92.59 Other trade areas as the place of occurrence of the external cause; Y99.0 Civilian activity done for income or pay
CPT/HCPCS: 73610

== ENCOUNTER → 2022-07-10 | Outpatient (CLI) | payer OTHER ==
--- NOTE | 2022-07-10 14:36 | Diagnostic Imaging Report ---
EXAMINATION: Left foot radiographs, 3 views. COMPARISON: None. HISTORY: 51-year-old female, left foot pain. Injury. FINDINGS: There is normal variant congenital fusion of the fifth digit middle and distal phalanges. There is sideplate and screw fixation hardware at the level of the distal fibula. There is a calcaneal heel spur. There is a normal variant os trigonum. There is degenerative type enthesopathy of the dorsal aspect of the midfoot. 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 There is no identified bone erosion. There is no identified acute fracture. IMPRESSION: 1. Mild arthritis at the first tarsometatarsal articulation. 2. No acute bony abnormality. 3. Calcaneal heel spur. Dictated by: Dictated on workstation # [id number]
== END ==
LOC: RAD FS 11:21
PROVIDERS: ATTEND Nurse Practitioner
DX: M19.079 Primary osteoarthritis, unspecified ankle and foot (principal); M77.32 Calcaneal spur, left foot; S93.622A Sprain of tarsometatarsal ligament of left foot, initial encounter; X58.XXXA Exposure to other specified factors, initial encounter
CPT/HCPCS: 73630

== ENCOUNTER 2022-11-10 15:49 | Emergency (ER) | payer OTHER, MEDICAID ==
[~2022-11-10] VITALS: Ht 165.1 cm; Wt 103.0 kg
[2022-11-10 15:55] VITALS: BP 156/90
[2022-11-10] MEDS ORDERED: KETOROLAC 60 MG/2 ML VIAL IM STA (16:18)
[2022-11-10] MEDS ORDERED: METOCLOPRAMIDE INJ 10 MG/2 ML (REGLAN) IM STA (16:18)
[2022-11-10] MEDS ORDERED: diphenhydrAMINE 50 MG/ML INJ (BENADRYL) IM STA (16:18)
--- NOTE | 2022-11-10 16:25 | ED Headache ---
General Chief Complaint: Head/Cervical Problems Stated Complaint: MIGRAINE Source: patient History of Present Illness Date Seen by Provider: Nov 10, 2022 Time Seen by Provider: 16:06 Initial Comments 51-year-old female presenting with complaints of left-sided headache. She states that this feels like her typical migraine and is on the left side of her head from the neck to her ear. She had tried taking Excedrin Migraine at home but it was not helping. She has had some nausea but no vomiting. She has light sensitivity. She states that she has an appointment on November 17 to see a neurology migraine specialist since she has been getting more frequent migraines. She denies having fever, chills, cough, head injury, change in vision, numbness or weakness in her arms or legs. She reports this feels like her typical migraine headache and she has had to present to the emergency department previously to get injections. Timing/Duration: 24 hours Severity/Quality: severe Location: parietal (Left parietal from the neck to her ear) Prior Headaches/Recent Trauma: frequent headaches, chronic headaches Modifying Factors: worse with exposure to light Associated Symptoms: No confusion, No fatigue, No facial pain, No fever/chills, No flushing, No loss of consciousness; nausea/vomiting (Nausea but no vomiting); No nasal congestion, No nasal drainage, No numbness in legs/feet, No rash, No seizures, No sinus infection, No stiff neck, No vision changes, No weakness Allergies and Home Medications Allergies Coded Allergies: meloxicam (Verified Allergy, Unknown, RASH/ITCHING, 08/19/21) Patient Home Medication List Home Medication List Reviewed: Yes Amlodipine Besylate (Amlodipine Besylate) 5 Mg Tablet, 5 MG PO BID Prescribed by: ALIYAH FISHER on 07/04/21 1106 Cholecalciferol (Vitamin D3) (Vitamin D3) 50 Mcg Tablet, 50 MCG PO DAILY, (Reported) Entered as Reported by: MELI SCOTT on 07/03/21 1144 Gabapentin (Gabapentin) 400 Mg Capsule, 400 MG PO TID, (Reported) Entered as Reported by: SUKI TREVIÑO on 11/08/18 0938 Hydralazine HCl (Hydralazine HCl) 25 Mg Tablet, 25 MG PO TID Prescribed by: ALIYAH FISHER on 07/04/21 1106 Hydrocodone/Acetaminophen (Hydrocodone-Acetamin 5-325 mg) 1 Each Tablet, 1-2 TAB PO Q6H PRN for PAIN-MODERATE (5-7) Prescribed by: ALIYAH FISHER on 07/04/21 1107 Melatonin (Melatonin) 10 Mg Tablet, 10 MG PO HS PRN for SLEEP, (Reported) Entered as Reported by: MELI SCOTT on 07/03/21 1144 Multivitamin (Multivitamin) 1 Each Tablet, 1 EACH PO DAILY, (Reported) Entered as Reported by: LEIGHA WONG on 06/26/21 1635 Nitrofurantoin Monohyd/M-Cryst (Macrobid 100 mg Capsule) 100 Mg Capsule, 1 TAB PO BID WITH MEALS Prescribed by: ERICK WEBBER on 08/26/21 09 Oxycodone HCl/Acetaminophen (Oxycodone-Acetaminophen 5-325) 1 Each Tablet, 1-2 EACH PO Q4H PRN for PAIN-SEVERE Prescribed by: ERICK WEBBER on 08/26/21 09 Propranolol HCl (Propranolol HCl) 40 Mg Tablet, 40 MG PO BID, (Reported) Entered as Reported by: SUKI TREVIÑO on 11/08/18 09 Propranolol HCl (Propranolol HCl) 60 Mg Tablet, 60 MG PO BID, (Reported) Entered as Reported by: SUKI TREVIÑO on 11/08/18937 Ropinirole HCl (Ropinirole HCl) 3 Mg Tablet, 3 MG PO HS, (Reported) Entered as Reported by: PETE PINO on 07/02/212005 Tramadol HCl (Tramadol HCl) 50 Mg Tablet, 50 MG PO TID PRN for Migraine Prescribed by: LYNN PEREZ on 09/24/21 1031 Trazodone HCl (Trazodone HCl) 100 Mg Tablet, 100 MG PO HS, (Reported) Entered as Reported by: SUKI TREVIÑO on 11/08/18 09 [Latuda] 60 TAB, 120 MG PO HS, (Reported) Entered as Reported by: MELI SCOTT on 07/03/21 1144 Review of Systems Review of Systems Constitutional: No chills, No fever Eyes: Photophobia Ears, Nose, Mouth, Throat: no symptoms reported Respiratory: no symptoms reported Cardiovascular: no symptoms reported Gastrointestinal: see HPI Genitourinary: no symptoms reported Musculoskeletal: no symptoms reported Skin: No rash Psychiatric/Neurological: Headache Past Klxcier-Clcwzr-Qhaixt Hx Immunizations Up To Date Tetanus Booster (TDap): Unknown First/Initial COVID19 Vaccinat: 07/25/2020 Second COVID19 Vaccination Javi: 08/22/2020 Third COVID19 Vaccination Date: 05/30/2021 Seasonal Allergies Seasonal Allergies: Yes Past Medical History Surgery/Hospitalization HX: Kidney stones, HTN, sleep apnea, migraine headaches Surgeries: Yes Abdominal, Section, Gallbladder, Hysterectomy, Oophorectomy, Orthopedic, Thyroidectomy Respiratory: Yes Sleep Apnea Currently Using CPAP: Yes Currently Using BIPAP: No Cardiac: Yes (Pt has stress test Spring 2018 @ [place]) Hypertension 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 0oz. [id number]; 49.00 BMI Method:Actual General Appearance: WD/WN, no apparent distress HEENT: PERRL/EOMI, pharynx normal Neck: non-tender, full range of motion, supple, normal inspection Cardiovascular: normal peripheral pulses, regular rate, rhythm Respiratory: chest non-tender, lungs clear, normal breath sounds, no respiratory distress, no accessory muscle use Psychiatric: alert, oriented x 3 Crainal Nerves: normal hearing, normal speech, PERRL Coordination/Gait: normal gait Motor/Sensory: no motor deficit, no sensory deficit Skin: normal color, warm/dry Progress/Results/Core Measures Results/Orders My Orders Orders - LYNN PEREZ MD Ketorolac Injection (Toradol Injection) (11/10/22 16:18) Metoclopramide Injection (Reglan Injecti (11/10/22 16:18) Diphenhydramine Injection (Benadryl Inje (11/10/22 16:18) Vital Signs/I&O 11/10/22 15:55 Temp 36.7 Pulse 60 Resp 16 B/P (MAP) 156/90 (112) Pulse Ox 97 O2 Delivery Room Air Progress Progress Note : Progress Note From review of her prior medical record she had received Toradol 60 mg IM, metoclopramide 10 mg IM and diphenhydramine 50 mg IM. She had received relief of her headache and migraine with the cocktail last September 2021. Will try repeating these medicines as she states that this feels like her typical migraine headache. She is no warning signs for intracranial hemorrhage or stroke. She denies any head injury and no fever or chills to indicate an infection. Advised if things were not improving or she had new or worsening symptoms that a CT scan of her head and blood work might help as well. Departure Impression Primary Impression: Migraine headache without aura Qualified Codes: G43.019 - Migraine without aura, intractable, without status migrainosus Disposition: 01 HOME, SELF-CARE Condition: Stable Departure-Patient Inst. Decision time for Depature: 16:24 Referrals: KAMALJIT ROSALES MD (PCP) Primary Care Physician Patient Instructions: Home Headache Remedies, Migraines in adults Add. Discharge Instructions: Try resting in a cool dark room. Continue taking your regular medications. Try to stay well-hydrated and get plenty of rest. Keep your follow-up with the neurologist and see your primary care provider if you have further concerns All discharge instructions reviewed with patient and/or family. Voiced understanding. LYNN PEREZ MD Nov 10, 2022 16:25
== END 2022-11-10 16:38 | disposition home or self-care (01) ==
LOC: EDUNIT# 15:49 → ER FS 15:53
DX: G43.009 Migraine without aura, not intractable, without status migrainosus (principal); G47.30 Sleep apnea, unspecified; Z99.89 Dependence on other enabling machines and devices
CPT/HCPCS: 99284

== ENCOUNTER 2023-02-02 16:29 | Emergency (ER) | payer MEDICARE, MEDICAID ==
[~2023-02-02] VITALS: Ht 165 cm; Wt 94.8 kg
[~2023-02-02 16:29] MED LIST changes: -GABA-490 PO; +GABA-491 PO; -ROPI1TAB PO; +ROPI1TAB46 PO; +ROPI3TAB21 PO; -ROPI3TAB4 PO
[2023-02-02] MEDS ORDERED: NS IV 1000 ML 1,000 ML IV STA (16:55)
--- NOTE | 2023-02-02 16:58 | ED Abdominal Pain ---
General Chief Complaint: Abdominal/GI Problems Stated Complaint: ABD PAIN Nursing Triage Note: PT AMBULATORY TO ER. REPORTS R SIDED ABD PAIN, RADIATES AROUND INTO BACK, ONSET 1130 TODAY. DESCRIBES SHARP CONSTANT PAIN WITH WAVES OF INTENSITY. +NAUSEA. PT REPORTS S/S SIMILAR TO PAST KIDNEY STONES. PT WAS SEEN AT [facility] [employer], REPORTS WAS TOLD SHE HAS BLOOD IN HER URINE. Source of Information: Patient Exam Limitations: No Limitations History of Present Illness Date Seen by Provider: Feb 02, 2023 Time Seen by Provider: 16:56 Initial Comments Patient is a 52-year-old female presents ED with right lower quad abdominal pain. Pain is described as sharp with acute onset around 1130 this morning. Pain radiates to the right flank. The sharp pain is intermittent but does have a dull achy pain that is constant. Nausea without vomiting or diarrhea. Denies taking anything for pain. History of kidney stones and states this feels very similar. History of lithotripsy. No pain with urination frequent urination or dark urine. History of Sally-en-Y, gastric sleeve, cholecystectomy, partial hysterectomy. She denies any fever, chills, body aches. Was seen at [facility] and sent to the ED for further evaluation. Patient was told she had blood in her urine. Allergies and Home Medications Allergies Coded Allergies: meloxicam (Verified Allergy, Unknown, RASH/ITCHING, 08/19/21) Patient Home Medication List Home Medication List Reviewed: Yes Amlodipine Besylate (Amlodipine Besylate) 5 Mg Tablet, 5 MG PO BID Prescribed by: ALIYAH FISHER on 07/04/21 1106 Cephalexin (Cephalexin) 500 Mg Tablet, 500 MG PO BID Prescribed by: KATHLEEN MIKE on 02/02/23 194 Cholecalciferol (Vitamin D3) (Vitamin D3) 50 Mcg Tablet, 50 MCG PO DAILY, (Reported) Entered as Reported by: MELI SCOTT on 07/03/21 1144 Gabapentin (Gabapentin) 400 Mg Capsule, 400 MG PO TID, (Reported) Entered as Reported by: SUKI TREVIÑO on 11/08/18 0938 Hydralazine HCl (Hydralazine HCl) 25 Mg Tablet, 25 MG PO TID Prescribed by: ALIYAH FISHER on 07/04/21 1106 Hydrocodone/Acetaminophen (Hydrocodone-Acetamin 5-325 mg) 1 Each Tablet, 1-2 TAB PO Q6H PRN for PAIN-MODERATE (5-7) Prescribed by: ALIYAH FISHER on 07/04/21 1107 Hydrocodone/Acetaminophen (Hydrocodone-Acetamin 5-325 mg) 5 Mg-325 Mg Tablet, 1 TAB PO Q4H PRN for PAIN-MODERATE (5-7) Prescribed by: KATHLEEN MIKE on 02/02/231945 Melatonin (Melatonin) 10 Mg Tablet, 10 MG PO HS PRN for SLEEP, (Reported) Entered as Reported by: MELI SCOTT on 07/03/21 1144 Multivitamin (Multivitamin) 1 Each Tablet, 1 EACH PO DAILY, (Reported) Entered as Reported by: LEIGHA WONG on 06/26/21 163 Nitrofurantoin Monohyd/M-Cryst (Macrobid 100 mg Capsule) 100 Mg Capsule, 1 TAB PO BID WITH MEALS Prescribed by: ERICK WEBBER on 08/26/21 09 Ondansetron (Ondansetron Odt) 4 Mg Tab.rapdis, 4 MG SL Q4H PRN for NAUSEA/VOMITING Prescribed by: KATHLEEN MIKE on 02/02/231946 Oxycodone HCl/Acetaminophen (Oxycodone-Acetaminophen 5-325) 1 Each Tablet, 1-2 EACH PO Q4H PRN for PAIN-SEVERE Prescribed by: ERICK WEBBER on 08/26/21 09 Propranolol HCl (Propranolol HCl) 40 Mg Tablet, 40 MG PO BID, (Reported) Entered as Reported by: SUKI TREVIÑO on 11/08/18 09 Propranolol HCl (Propranolol HCl) 60 Mg Tablet, 60 MG PO BID, (Reported) Entered as Reported by: SUKI TREVIÑO on 11/08/18937 Ropinirole HCl (Ropinirole HCl) 3 Mg Tablet, 3 MG PO HS, (Reported) Entered as Reported by: PETE PINO on 07/02/212005 Tamsulosin HCl (Flomax) 0.4 Mg Cap, 0.4 MG PO DAILY Prescribed by: KATHLEEN MIKE on 02/02/231944 Tramadol HCl (Tramadol HCl) 50 Mg Tablet, 50 MG PO TID PRN for Migraine Prescribed by: LYNN PEREZ on 09/24/21 1031 Trazodone HCl (Trazodone HCl) 100 Mg Tablet, 100 MG PO HS, (Reported) Entered as Reported by: SUKI TREVIÑO on 11/08/18 0938 [Latuda] 60 TAB, 120 MG PO HS, (Reported) Entered as Reported by: MELI SCOTT on 07/03/21 1144 Review of Systems Review of Systems Constitutional: No chills, No diaphoresis EENTM: No Double Vision, No Eye Pain Respiratory: Denies Cough, Denies Orthopnea Cardiovascular: Denies Chest Pain Gastrointestinal: Abdominal Pain; Denies Diarrhea; Nausea; Denies Vomiting Genitourinary: Denies Burning, Denies Discharge, Denies Drainage, Denies Frequency Musculoskeletal: back pain; No joint pain Skin: No change in color, No change in hair/nails Psychiatric/Neurological: Denies Anxiety, Denies Depressed All Other Systems Reviewed Negative Unless Noted: Yes Past Yymehwl-Pwrkfz-Fhbvji Hx Patient Social History Tobacco Use?: No Substance use?: No Alcohol Use?: No Pt feels they are or have been: No Immunizations Up To Date Tetanus Booster (TDap): Unknown First/Initial COVID19 Vaccinat: RECEIVED Second COVID19 Vaccination Javi: RECEIVED Third COVID19 Vaccination Date: RECEIVED 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: [employer] Seasonal Allergies Seasonal Allergies: Yes Past Medical History Surgery/Hospitalization HX: Kidney stones, HTN, sleep apnea, migraine headaches Surgeries: Yes Abdominal, Section, Gallbladder, Hysterectomy, Oophorectomy, Orthopedic, Thyroidectomy Respiratory: Yes Sleep Apnea Currently Using CPAP: Yes Currently Using BIPAP: No Cardiac: Yes (Pt has stress test Spring 2018 @ [place]) Hypertension 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 0oz. 131.469651pk; 34.00 BMI Method:Actual General Appearance: WD/WN, no apparent distress HEENT: PERRL/EOMI, normal ENT inspection, TMs normal, pharynx normal Neck: non-tender, full range of motion, supple Respiratory: chest non-tender, lungs clear, normal breath sounds, no respirat ory distress Cardiovascular: regular rate, rhythm, no edema, no gallop, no JVD Gastrointestinal: normal bowel sounds, soft, no organomegaly, no pulsatile mass, tenderness (Right lower quadrant tenderness. Normal bowel sounds throughout. 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, no motor/sensory deficits, alert, normal mood/affect, oriented x 3 Skin: normal color, warm/dry Progress/Results/Core Measures Results/Orders Lab Results Laboratory Tests Test 02/02/23 16:43 02/02/23 16:58 Range/Units Urine Color YELLOW Urine Clarity CLEAR Urine pH 6.0 5-9 Urine Specific [place] 1.025 H 1.016-1.022 Urine Protein 1+ H NEGATIVE Urine Glucose (UA) NEGATIVE NEGATIVE Urine Ketones NEGATIVE NEGATIVE Urine Nitrite NEGATIVE NEGATIVE Urine Bilirubin NEGATIVE NEGATIVE Urine Urobilinogen 1.0 < = 1.0 MG/DL Urine Leukocyte Esterase TRACE H NEGATIVE Urine RBC (Auto) 1+ H NEGATIVE Urine RBC 50-100 H /HPF Urine WBC 2-5 /HPF Urine Squamous Epithelial Cells 0-2 /HPF Urine Crystals PRESENT H /LPF Urine Calcium Oxalate Crystals MODERATE H /LPF Urine Bacteria FEW H /HPF Urine Casts NONE /LPF Urine Mucus NEGATIVE /LPF Urine Culture Indicated YES White Blood Count 10.4 4.3-11.0 10^3/uL Red Blood Count 4.13 3.80-5.11 10^6/uL Hemoglobin 12.1 11.5-16.0 g/dL Hematocrit 38 35-52 % Mean Corpuscular Volume 91 80-99 fL Mean Corpuscular Hemoglobin 29 25-34 pg Mean Corpuscular Hemoglobin Concent 32 32-36 g/dL Red Cell Distribution Width 13.2 10.0-14.5 % Platelet Count 170 130-400 10^3/uL Mean Platelet Volume 11.4 9.0-12.2 fL Immature Granulocyte % (Auto) 0 % Neutrophils (%) (Auto) 76 H 42-75 % Lymphocytes (%) (Auto) 14 12-44 % Monocytes (%) (Auto) 7 0-12 % Eosinophils (%) (Auto) 3 0-10 % Basophils (%) (Auto) 0 0-10 % Neutrophils # (Auto) 7.9 H 1.8-7.8 10^3/uL Lymphocytes # (Auto) 1.5 1.0-4.0 10^3/uL Monocytes # (Auto) 0.7 0.0-1.0 10^3/uL Eosinophils # (Auto) 0.3 0.0-0.3 10^3/uL Basophils # (Auto) 0.0 0.0-0.1 10^3/uL Immature Granulocyte # (Auto) 0.0 0.0-0.1 10^3/uL Sodium Level 139 135-145 MMOL/L Potassium Level 3.7 3.6-5.0 MMOL/L Chloride Level 105 98-107 MMOL/L Carbon Dioxide Level 27 21-32 MMOL/L Anion Gap 7 5-14 MMOL/L Blood Urea Nitrogen 11 7-18 MG/DL Creatinine 0.87 0.60-1.30 MG/DL Estimat Glomerular Filtration Rate 80 BUN/Creatinine Ratio 13 Glucose Level 100 70-105 MG/DL Calcium Level 10.8 H 8.5-10.1 MG/DL Corrected Calcium 11.0 H 8.5-10.1 MG/DL Total Bilirubin 0.6 0.1-1.0 MG/DL Aspartate Amino Transf (AST/SGOT) 16 5-34 U/L Alanine Aminotransferase (ALT/SGPT) 22 0-55 U/L Alkaline Phosphatase 128 40-136 U/L Total Protein 6.5 6.4-8.2 GM/DL Albumin 3.8 3.2-4.5 GM/DL Lipase 9 8-78 U/L My Orders Orders - HALINA CALL Ua Culture If Indicated (02/02/23 16:40) Cbc With Automated Diff (02/02/23 16:55) Comprehensive Metabolic Panel (02/02/23 16:55) Lipase (02/02/23 16:55) Ns Iv 1000 Ml (Ns Iv 1000 Ml) (02/02/23 16:55) Ondansetron Injection (Ondansetron Inj (02/02/23 17:00) Ketorolac Injection (Ketorolac Injection (02/02/23 17:00) Ct Abd/Pelvis Wo(Kidney Stone) (02/02/23 16:55) Urine Culture (02/02/23 16:43) Morphine Injection (Morphine Injection (02/02/23 18:45) Fentanyl Injection (Fentanyl Injection (02/02/23 19:16) Ns Iv 500 Ml (Ns Iv 500 Ml) (02/02/23 19:30) Ns Iv 500 Ml (Ns Iv 500 Ml) (02/02/23 19:31) Rx-Hydrocodone/Apap 5-325 Mg (Rx-Vicodin (02/02/23 19:45) Rx-Ondansetron Po (Rx-Zofran Po) (02/02/23 20:00) Rx-Ondansetron Po (Rx-Zofran Po) (02/02/23 19:49) Medications Given in ED Vital Signs/I&O 02/02/23 02/02/23 16:39 19:50 Temp 37.1 Pulse 57 57 Resp 16 20 B/P (MAP) 151/91 (111) 135/74 Pulse Ox 97 100 O2 Delivery Room Air Room Air Blood Pressure Mean: 111 Departure Communication (PCP) Reviewed previous ER visits, H&P, lab testing. Differential diagnosis, nephrolithiasis, urolithiasis, pyelonephritis, cystitis, appendicitis. patient with acute onset of right lower quadrant abdominal pain with radiation to right flank. Patient in no acute distress. Patient was complaining of pain. Urinalysis CBC, CMP, lipase was ordered. Patient was started on liter fluid. Did receive Toradol without much improvement. Received morphine with some improvement. Urinalysis positive for hematuria without strong evidence of infection. Did note some leukocytes. 5100 red blood cells. Hematology and chemistry was grossly unremarkable. Normal white blood count, kidney function liver function. CT abdomen pelvis shows Right kidney shows significant right- sided hydroureteronephrosis. Dilated right ureter is traced to the pelvis where there is a 6 mm calculus in the distal right ureter several centimeters above the UVJ. There is also 2 smaller calculi in the distal right ureter at the UVJ approximately 2 and 3 mm in size. Left ureter is unremarkable. Patient started having pain again received fentanyl with improvement of pain. Received a second liter of fluid. Pain continue to improve. Patient was requesting be discharged. She does have a urologist that she does follow-up in [place]. She had no episode of vomiting here. Discussed with patient concern that this 6 mm stone will likely not pass. She will need to follow-up with urology. Reassuring lab work. Pain significantly improved. Will discharge with pain medication, nausea medication, Flomax and Keflex prophylactically. If any increasing pain, decreased urine output, fever, chills or body aches patient will need to return back to the ED. History of lithotripsy which patient may require due to the size of her ureter stone. Impression Primary Impression: Ureterolithiasis Disposition: HOME, SELF-CARE Condition: Stable Departure-Patient Inst. Decision time for Depature: 19:44 Referrals: KAMALJIT ROSALES MD (PCP/Family) Primary Care Physician Patient Instructions: Kidney stones in adults Add. Discharge Instructions: Recommend following up with [facility] [phone] urology for further evaluation. Take pain medication as prescribed. Flomax to help urinate. Drink plenty of water. Pain medication as needed. If increasing worsening pain return back to ED for All discharge instructions reviewed with patient and/or family. Voiced understanding. Scripts Ondansetron (Ondansetron Odt) 4 Mg Tab.rapdis 4 MG SL Q4H PRN for NAUSEA/VOMITING, #8 TAB Prov: HALINA CALL 02/02/23 Hydrocodone/Acetaminophen (Hydrocodone-Acetamin 5-325 mg) 5 Mg-325 Mg Tablet 1 TAB PO Q4H PRN for PAIN-MODERATE (5-7), #8 TAB Prov: HALINA CALL 02/02/23 Cephalexin (Cephalexin) 500 Mg Tablet 500 MG PO BID for 7 Days, #14 TAB Prov: HALINA CALL 02/02/23 Tamsulosin HCl (Flomax) 0.4 Mg Cap 0.4 MG PO DAILY, #14 CAP Prov: HALINA CALL 02/02/23 HALINA CALL Feb 02, 2023 16:58
[2023-02-02] MEDS ORDERED: ONDANSETRON INJECTION 4 MG/2 ML (SDV) IVP ONE (17:00)
[2023-02-02] MEDS ORDERED: KETOROLAC INJ 30 MG/ML VIAL IVP ONE (17:00)
[2023-02-02 17:12] LABS: BASOPHILS % (AUTO) 0 % (0-10); EOSINOPHILS # (AUTO) 0.3 10^3/uL (0.0-0.3); EOSINOPHILS % (AUTO) 3 % (0-10); HEMATOCRIT 38 % (35-52); HEMOGLOBIN 12.1 g/dL (11.5-16.0); LYMPHOCYTES # (AUTO) 1.5 10^3/uL (1.0-4.0); LYMPHOCYTES % (AUTO) 14 % (12-44); MEAN CORPUSCULAR HEMOGLOBIN 29 pg (25-34); MEAN CORPUSCULAR HGB CONC 32 g/dL (32-36); MEAN CORPUSCULAR VOLUME 91 fL (80-99); MEAN PLATELET VOLUME 11.4 fL (9.0-12.2); MONOCYTES # (AUTO) 0.7 10^3/uL (0.0-1.0); MONOCYTES % (AUTO) 7 % (0-12); NEUTROPHILS # (AUTO) 7.9 10^3/uL (1.8-7.8); NEUTROPHILS % (AUTO) 76 % (42-75); PLATELET COUNT 170 10^3/uL (130-400); WHITE BLOOD COUNT 10.4 10^3/uL (4.3-11.0)
[2023-02-02 17:18] LABS: ALBUMIN 3.8 GM/DL (3.2-4.5); BILIRUBIN,TOTAL 0.6 MG/DL (0.1-1.0); CALCIUM 10.8 MG/DL (8.5-10.1); CREATININE SERUM 0.87 MG/DL (0.60-1.30); POTASSIUM 3.7 MMOL/L (3.6-5.0); TOTAL PROTEIN 6.5 GM/DL (6.4-8.2)
[2023-02-02 17:18] LABS: CLARITY,URINE CLEAR; COLOR,URINE YELLOW; PROTEIN,URINE 1+ (NEGATIVE)
[2023-02-02 17:19] LABS: BACTERIA,URINE FEW /HPF; BILIRUBIN,URINE NEGATIVE (NEGATIVE); GLUCOSE, URINE (UA) NEGATIVE (NEGATIVE); KETONES,URINE NEGATIVE (NEGATIVE); LEUKOCYTE ESTERASE ,URINE TRACE (NEGATIVE); NITRITE,URINE NEGATIVE (NEGATIVE); RBC,URINE 50-100 /HPF; SQUAMOUS EPITHELIAL CELL,UR 0-2 /HPF
[2023-02-02 17:20] LABS: CALCIUM OXALATE CRYSTALS,UR MODERATE /LPF
--- NOTE | 2023-02-02 18:04 | Diagnostic Imaging Report ---
PROCEDURE: CT urinary tract, rule out kidney stone. TECHNIQUE: Multiple contiguous axial images were obtained through the abdomen and pelvis without the use of intravenous contrast. Auto Exposure Controls were utilized during the CT exam to meet ALARA standards for radiation dose reduction. INDICATION: Right-sided abdominal pain radiating to the back. Correlation is made with prior CT from 07/02/2021. Lung bases are clear. There are postoperative changes from gastric bypass surgery. The liver is unremarkable. Gallbladder is surgically absent. There is no biliary ductal dilatation. Pancreas and spleen are unremarkable. Nodularity of the right adrenal gland is stable. Left adrenal gland is stable. There are tiny nonobstructing calculi in the right kidney. Right kidney also shows significant right-sided hydroureteronephrosis. Dilated right ureter is traced to the pelvis where there is a 6 mm calculus in the distal right ureter several centimeters above the UVJ. There is also 2 smaller calculi in the distal right ureter at the UVJ approximately 2 and 3 mm in size. Left ureter is unremarkable. No other calculi are seen. Aorta is nonaneurysmal. Bowel loops are nonobstructed. There is moderate stool in the sigmoid colon. There is no ascites. IMPRESSION: Right-sided ureteral calculi, as described producing significant hydroureteronephrosis. There is also nonobstructing right-sided renal calculi. Dictated by: Dictated on workstation # [id number]
[2023-02-02] MEDS ORDERED: morphine INJ 4 MG/ML 1 ML (VIAL/SYRINGE) IVP ONE (18:45)
[2023-02-02] MEDS ORDERED: fentaNYL INJECTION 100 MCG/2 ML VIAL IVP STA (19:16)
[2023-02-02] MEDS ORDERED: NS IV 500 ML 500 ML IV ONE (19:30)
[2023-02-02] MEDS ORDERED: NS IV 500 ML 500 ML ONE (19:31)
[2023-02-02] MEDS ORDERED: CEPH500T PO (19:45)
[2023-02-02] MEDS ORDERED: ACHD5005 PO (19:45)
[2023-02-02] MEDS ORDERED: TMSL.4C PO (19:45)
[2023-02-02] MEDS ORDERED: ONDA4TAB11 SL (19:47)
[2023-02-02] MEDS ORDERED: RX-ONDANSETRON 4 MG ODT (ZOFRAN) PPK #4 ONE (19:49)
[2023-02-02 19:50] VITALS: BP 135/74
[2023-02-02] MEDS ORDERED: RX-ONDANSETRON 4 MG ODT (ZOFRAN) PPK #4 PO ONE (20:00)
== END 2023-02-02 20:30 | disposition home or self-care (01) ==
LOC: ER 16:29 → EDUNIT# 16:29 → ER 20:30
DX: N13.2 Hydronephrosis with renal and ureteral calculous obstruction (principal); G47.30 Sleep apnea, unspecified; Z99.89 Dependence on other enabling machines and devices
CPT/HCPCS: 36415; 74176; 80053; 81000; 83690; 85025; 87088